=== PATIENT | female | born 1930 | race Caucasian/White ===

== ENCOUNTER 2016-07-09 10:09 | Emergency (ER) | payer MEDICARE, OTHER ==
--- NOTE | 2016-07-09 10:37 | ER Document Report ---
ED General - General Chief Complaint: Abdominal Pain >50 Stated Complaint: ABDOMINAL PAIN Time seen by provider: 10:33 Mode of Arrival: Medic Information source: Patient Notes: 85-year-old female who complains about epigastric pain when waking up this morning with nausea. He reports one black stool yesterday and has been lightheaded since yesterday. She denies fever, chills, cough worse than baseline. Vomiting, hematemesis, hematochezia, chest pain, back pain, numbness or focal weakness to extremities. Patient reports currently being on antibiotic for UTI. Reports primary care physician is Dr. Saxena gastrologist is Dr. Mackey. She reports prior history of Crohn's disease and diverticulosis but she doesn't recall her current symptoms are several what she's had a past with those problems. Physical Exam: General: Alert, appears well. HEENT: Normocephalic. Atraumatic. Blind in left eye. Right pupil round reactive sclerae anicteric discharge. No conjunctival injection bilaterally tympanic membranes canals clear. Oropharynx clear. Neck: Supple. Non-tender. No JVD. No carotid bruits Respiratory: No respiratory distress. Clear and equal breath sounds bilaterally. Cardiovascular: Regular rate and rhythm. PMI not displaced Abdominal: Normal Inspection. Soft, non-tender. No distension. Normal Bowel Sounds. Back: Non-tender. No deformity or step off. Extremities: 2+ pulses all 4 extremities no gross deformities full range of motion without discomfort no Homans sign bilaterally no lower extremity edema Neurological: Intake Clinician strength 5 out of 5 equal both upper tremors motor function 5 out of 5 equal both lower extremities speech clear mentation normal Psychological: Normal affect. Normal Mood. Skin: Warm. Dry. Normal color. TRAVEL OUTSIDE OF THE [place] IN LAST 30 DAYS: No - Related Data Allergies/Adverse Reactions: Penicillins Allergy (Mild, Verified 07/09/16 10:56) nausea,diarrhea Shellfish * [Shellfish] Allergy (Mild, Verified 07/09/16 10:56) VOMITING Past Medical History - Social History Smoking Status: Never Smoker Family History: CVA, Other - Congestive heart failure, but no family history of premature coronary artery disease or sudden cardiac . 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 Denies: Hx Cirrhosis, Hx Hepatitis, Hx Hiatal Hernia, Hx Ulcer Musculoskeltal Medical History: Denies Hx Arthritis, Denies Hx Multiple Sclerosis Psychiatric Medical History: Denies: Hx Bipolar Disorder, Hx Depression, Hx Schizophrenia Infectious Medical History: Reports: Hx C-Diff. Denies: Hx Hepatitis Past Surgical History: Reports: Hx Abdominal Surgery - colectomy, Hx Hysterectomy - partial, Hx Tubal Ligation. Denies: Hx Mastectomy, Hx Open Heart Surgery, Hx Pacemaker - Immunizations Hx Diphtheria, Pertussis, Tetanus Vaccination: Yes Hx Pneumococcal Vaccination: 09/13/12 Review of Systems - Review of Systems Constitutional: denies: Chills, Fever EENT: denies: Ear pain, Throat pain Cardiovascular: Dizziness, Lightheaded. denies: Chest pain Respiratory: denies: Cough, Short of breath Gastrointestinal: See HPI, Abdominal pain. denies: Diarrhea Genitourinary: Burning, Dysuria Musculoskeletal: denies: Back pain Hematologic/Lymphatic: denies: Swollen glands Neurological/Psychological: denies: Confusion, Numbness Physical Exam - Vital signs Vitals: Resp Pulse Ox 20 98 07/09/16 10:22 07/09/16 10:22 Course - Re-evaluation Re-evalutation: 07/09/16 12:47 Patient is produces a multitude of different complaints during her stay in the emergency department at various times complaining about headache dizziness upset stomach and burning with urination. Thorough workup has not identified any pathology requiring admission and she was ambulatory at home for EMS without problems. He perforata GI cocktail here which she said made her choke though nursing staff who witnessed or drink said that she did not. She is are on nitrofurantoin for UTI L and 2 day course of Pyridium for dysuria and asked her follow her physician for recheck later this week. - Vital Signs Vital signs: Temp Pulse Resp BP Pulse Ox 97.3 F 66 12 139/81 H 100 07/09/16 10:51 07/09/16 10:51 07/09/16 11:18 07/09/16 11:18 07/09/16 11:18 - Laboratory Result Diagrams: 07/09/16 10:39 07/09/16 10:39 Laboratory results interpreted by me: 07/09/16 07/09/16 10:39 10:39 WBC 12.8 H RDW 14.5 H Seg Neutrophils % 80.4 H Lymphocytes % 9.0 L Absolute Neutrophils 10.3 H Carbon Dioxide 31 H BUN 21 H Magnesium 2.6 H Total Protein 6.0 L - Diagnostic Test Radiology reviewed: Reports reviewed - EKG Interpretation by Me Additional EKG results interpreted by me: 07/09/16 10:39 EKG reviewed by myself shows sinus bradycardia at 51 with prominent inverted T waves and ST depression laterally consistent with LVH and unchanged from 2015 Discharge - Discharge Clinical Impression: Dizziness UTI (urinary tract infection) Qualifiers: Urinary tract infection type: acute cystitis Hematuria presence: without hematuria Qualified Code(s): N30.00 - Acute cystitis without hematuria Abdominal pain Qualifiers: Abdominal location: epigastric Qualified Code(s): R10.13 - Epigastric pain Condition: Stable Disposition: HOME, SELF-CARE Instructions: Urinary Tract Infection ([facility]) Prescriptions: Phenazopyridine HCl [Pyridium 100 Mg Tablet] 100 mg PO BID #4 tablet Referrals: SALINA SAXENA MD [ACTIVE STAFF] - Follow up in 3-5 days
[2016-07-09] MEDS ORDERED: NORMAL SALINE 1000 ML 1,000 ML IV ONE (10:41)
[2016-07-09 10:58] LABS: ABSOLUTE BASOPHILS # (AUTO) 0.1 10^3/uL (0.0-0.2); ABSOLUTE EOSINOPHILS # (AUTO) 0.1 10^3/uL (0.0-0.6); ABSOLUTE LYMPHOCYTES (AUTO) 1.1 10^3/uL (0.5-4.7); ABSOLUTE MONOCYTES (AUTO) 1.2 10^3/uL (0.1-1.4); ABSOLUTE NEUT (AUTO) 10.3 10^3/uL (1.7-8.2); BASOPHILS % (AUTO) 0.4 % (0-2); EOSINOPHILS % (AUTO) 0.5 % (0-6); HEMATOCRIT 38.8 % (36.0-47.0); HEMOGLOBIN 12.7 g/dL (12.0-15.5); HGB HCT DIFFERENCE -0.7; MEAN CORPUSCULAR HEMOGLOBIN 29.9 pg (27.0-33.4); MEAN CORPUSCULAR HGB CONC 32.6 g/dL (32.0-36.0); MEAN CORPUSCULAR VOLUME 92 fl (80-97); MONOCYTES % (AUTO) 9.7 % (3-13); RED BLOOD COUNT 4.24 10^6/uL (3.72-5.28); RED CELL DISTRIBUTION WIDTH 14.5 % (11.5-14.0); SEGMENTED NEUTROPHILS % (AUTO) 80.4 % (42-78); WHITE BLOOD COUNT 12.8 10^3/uL (4.0-10.5)
[2016-07-09 11:11] LABS: PARTIAL THROMBOPLASTIN TIME 23.5 SEC (23.5-35.8); PROTHROMBIN TIME 12.5 SEC (11.4-15.4)
[2016-07-09 11:23] LABS: ALANINE AMINOTRANSFERASE 19 U/L (9-52); ALBUMIN 3.5 g/dL (3.5-5.0); ALKALINE PHOSPHATASE 42 U/L (38-126); ANION GAP 6 (5-19); ASPARTATE AMINO TRANSFERASE 24 U/L (14-36); BILIRUBIN,TOTAL 0.9 mg/dL (0.2-1.3); BLOOD UREA NITROGEN 21 mg/dL (7-20); CALCIUM 9.1 mg/dL (8.4-10.2); CARBON DIOXIDE 31 mmol/L (22-30); CHLORIDE 102 mmol/L (98-107); CREATININE RESULT 0.82 mg/dL (0.52-1.25); GLUCOSE 91 mg/dL (75-110); LIPASE 180.2 U/L (23-300); MAGNESIUM 2.6 mg/dL (1.6-2.3); POTASSIUM 3.6 mmol/L (3.6-5.0); SODIUM 139.2 mmol/L (137-145)
[2016-07-09 11:35] LABS: CREATINE KINASE MB 0.56 ng/mL (<4.55); TROPONIN I < 0.012 ng/mL
[2016-07-09 11:38] LABS: APPEARANCE,URINE CLEAR; BILIRUBIN,URINE NEGATIVE (NEGATIVE); GLUCOSE, URINE NEGATIVE (NEGATIVE); KETONES,URINE NEGATIVE (NEGATIVE); LEUKOCYTE ESTERASE,URINE NEGATIVE (NEGATIVE); NITRITE,URINE NEGATIVE (NEGATIVE); PROTEIN,URINE NEGATIVE (NEGATIVE); URINE SPECIFIC GRAVITY 1.003; UROBILINOGEN,URINE NEGATIVE mg/dL (<2.0)
[2016-07-09] MEDS ORDERED: METOCLOPRAMIDE HCL ORAL SOLN 10 MG/10 ML UDCUP PO ONE (11:44)
[2016-07-09] MEDS ORDERED: LIDOCAINE 2% VISCOUS SOLN 20 ML UDCUP PO ONE (11:44)
[2016-07-09] MEDS ORDERED: MAG HYDROX/AL HYDROX/SIMETH SUSP 30 ML UDCUP PO ONE (11:44)
[2016-07-09 12:58] VITALS: BP 125/54
--- NOTE | 2016-07-09 21:31 | EKG REPORT ---
SEVERITY:- ABNORMAL ECG - SINUS RHYTHM ATRIAL PREMATURE COMPLEX LVH WITH SECONDARY REPOLARIZATION ABNORMALITY REPOL ABNRM, PROBABLE ISCHEMIA, ANT-LAT LEADS : Confirmed by: Nataly Mak 09-Jul-2016 21:31:25
== END 2016-07-09 13:19 | disposition home or self-care (01) ==
LOC: ER 10:09
DX: N30.00 Acute cystitis without hematuria (principal); R10.13 Epigastric pain; R11.0 Nausea; R42 Dizziness and giddiness; R19.5 Other fecal abnormalities; R00.1 Bradycardia, unspecified; R51 Headache; I10 Essential (primary) hypertension; J45.909 Unspecified asthma, uncomplicated; Z87.19 Personal history of other diseases of the digestive system; Z88.0 Allergy status to penicillin; Z91.013 Allergy to seafood; Z82.49 Family history of ischemic heart disease and other diseases of the circulatory system; Z90.49 Acquired absence of other specified parts of digestive tract; Z90.711 Acquired absence of uterus with remaining cervical stump
CPT/HCPCS: 93005; 99285; 96360; 36415; 87086; 82553; 83690; 83735; 85025; 85610; 85730; 82272; 87088; 80053; 81001; 84484; 87186; 71010; 70450; 74176; 93010; J3490; A9270; J7030

== ENCOUNTER 2016-07-26 02:03 | Observation (INO) | payer MEDICARE, OTHER ==
[2016-07-26 02:31] LABS: ABSOLUTE EOSINOPHILS # (AUTO) 0.1 10^3/uL (0.0-0.6); ABSOLUTE LYMPHOCYTES (AUTO) 1.2 10^3/uL (0.5-4.7); ABSOLUTE MONOCYTES (AUTO) 0.8 10^3/uL (0.1-1.4); ABSOLUTE NEUT (AUTO) 7.8 10^3/uL (1.7-8.2); BASOPHILS % (AUTO) 0.3 % (0-2); EOSINOPHILS % (AUTO) 0.8 % (0-6); HEMATOCRIT 37.5 % (36.0-47.0); HGB HCT DIFFERENCE -1.5; MEAN CORPUSCULAR HEMOGLOBIN 30.4 pg (27.0-33.4); MEAN CORPUSCULAR HGB CONC 32.1 g/dL (32.0-36.0); MEAN CORPUSCULAR VOLUME 95 fl (80-97); MONOCYTES % (AUTO) 8.2 % (3-13); RED BLOOD COUNT 3.96 10^6/uL (3.72-5.28); RED CELL DISTRIBUTION WIDTH 14.9 % (11.5-14.0); SEGMENTED NEUTROPHILS % (AUTO) 78.7 % (42-78)
--- NOTE | 2016-07-26 02:33 | ER Document Report ---
ED General - General Stated Complaint: CHEST PAIN Notes: Patient is an 85-year-old female presents with complaint of chest pain. Patient says the chest pain is new and has never been this severe in the sudden before. She also complains that she feels like her heart is starting to race. She says this has happened many times in the past. She says the heart racing is very intermittent and happens frequently. She denies having chest pain now. She was given nitroglycerin by the ambulance crew. Denies fevers. No vomiting. No nausea. No other complaints at this time. I did review the patient's previous records. She's been admitted twice this fall with the same symptoms. Both times she was diagnosed with panic and anxiety disorder. She had a negative nuclear stress test this past summer. According to her previous history and physicals she has no actual history of myocardial infarction or coronary artery disease. TRAVEL OUTSIDE OF THE [place] IN LAST 30 DAYS: No - Related Data Allergies/Adverse Reactions: Penicillins Allergy (Mild, Verified 07/09/16 10:56) nausea,diarrhea Shellfish * [Shellfish] Allergy (Mild, Verified 07/09/16 10:56) VOMITING Past Medical History - Social History Smoking Status: Never Smoker Frequency of alcohol use: None Drug Abuse: None Family History: CVA, Other - Congestive heart failure, but no family history of premature coronary artery disease or sudden cardiac . - Past Medical History Cardiac Medical History: Reports: Hx Hypertension Denies: Hx Congestive Heart Failure, Hx Heart Attack Pulmonary Medical History: Reports: Hx Asthma Denies: Hx Bronchitis, Hx COPD, Hx Pneumonia, Hx Tuberculosis Neurological Medical History: Denies: Hx Cerebrovascular Accident, Hx Seizures Renal/ Medical History: Denies: Hx End Stage Renal Disease, Hx Kidney Stones GI Medical History: Reports: Hx Crohn's Disease, Hx Diverticulitis, Hx Gastroesophageal Reflux Disease - Diverticulosis; constipation, Hx Irritable Bowel. Denies: Hx Cirrhosis, Hx Hepatitis, Hx Hiatal Hernia, Hx Ulcer Musculoskeltal Medical History: Denies Hx Arthritis, Denies Hx Multiple Sclerosis Psychiatric Medical History: Denies: Hx Bipolar Disorder, Hx Depression, Hx Schizophrenia Infectious Medical History: Reports: Hx C-Diff. Denies: Hx Hepatitis Past Surgical History: Reports: Hx Abdominal Surgery - colectomy, Hx Hysterectomy - partial, Hx Tubal Ligation. Denies: Hx Mastectomy, Hx Open Heart Surgery, Hx Pacemaker - Immunizations Hx Diphtheria, Pertussis, Tetanus Vaccination: Yes Hx Pneumococcal Vaccination: 09/13/12 Review of Systems - Review of Systems Notes: My Normal Review Basic REVIEW OF SYSTEMS: CONSTITUTIONAL : Denies fever, chills, or sweats. Denies recent illness. EENT: Denies eye, ear, throat, or mouth pain or symptoms. Denies nasal or sinus congestion. CARDIOVASCULAR: Chest pain, palpitations RESPIRATORY: Denies cough, cold, or chest congestion. Denies shortness of breath, difficulty breathing, or wheezing. GASTROINTESTINAL: Denies abdominal pain. Denies nausea, vomiting, or diarrhea. Denies constipation. Last BM: eriods. LMP: MUSCULOSKELETAL: Denies neck or back pain or joint pain or swelling. SKIN: Denies rash or skin lesions. NEUROLOGICAL: Denies altered mental status or loss of consciousness. Denies headache. Denies weakness or paralysis or loss of use of either side. Denies problems with gait or speech. Denies sensory or motor loss. PSYCHIATRIC: Anxiety ALL OTHER SYSTEMS REVIEWED AND NEGATIVE. Physical Exam - Vital signs Vitals: Temp Pulse Resp BP Pulse Ox 97.4 F 65 14 82/47 L 98 07/26/16 02:24 07/26/16 02:24 07/26/16 02:24 07/26/16 02:24 07/26/16 02:24 - Notes Notes: General Appearance: Well nourished, alert, cooperative, no acute distress, no obvious discomfort. Well-appearing. Vitals: reviewed, See vital signs table. Head: no swelling or tenderness to the head Eyes: PERRL, EOMI, Conjuctiva clear Mouth: No decreasd moisture Neck: Supple, no neck tenderness, No thyromegaly Lungs: No wheezing, No rales, No rhonci, No accessory muscle use, good air exchange bilaterally. Heart: Normal rate, Regular rythm, No murmur, no rub Abdomen: Normal BS, soft, No rigidity, No abdominal tenderness, No guarding, no rebound, no abdominal masses, no organomegaly Extremities: strength 5/5 in all extremities, good pulses in all extremities, no swelling or tenderness in the extremities, no edema. Skin: warm, dry, appropriate color, no rash Neuro: speech clear, oriented x 3, normal affect, responds appropriately to questions. Psychiatric: When asked patient about the symptoms she will sometimes start to get emotional and anxious and worked up. When she does start to become anxious her heart rate does suddenly increase to above 100. Once I calm her down her heart rate goes back into the 60s. Course - Vital Signs Vital signs: Temp Pulse Resp BP Pulse Ox 97.4 F 65 14 82/47 L 98 07/26/16 02:24 07/26/16 02:24 07/26/16 02:24 07/26/16 02:24 07/26/16 02:24 - Laboratory Result Diagrams: 07/26/16 02:21 07/26/16 02:21 Laboratory results interpreted by me: 07/26/16 07/26/16 02:21 02:21 RDW 14.9 H Seg Neutrophils % 78.7 H Lymphocytes % 12.0 L BUN 25 H Glucose 136 H Creatine Kinase < 20 L Total Protein 4.8 L Albumin 2.5 L - EKG Interpretation by Me Additional EKG results interpreted by me: 07/26/16 02:32 EKG is reviewed and interpreted by me. EKG shows normal sinus rhythm with rate of [address] segment elevation or depression. Patient does have T-wave inversions in multiple leads which are unchanged in comparison to her old EKG from 07/09/2016. NM interval, QRS duration, QTC intervals are within normal range. 07/26/16 05:31 EKG #2 is reviewed and interpreted by me. EKG shows sinus bradycardia with rate of [address] segment elevation. Patient has mild ST segment depression and T-wave inversions in multiple leads which is unchanged in comparison to her previous EKG. NM level, QRS duration are within normal range. QTc interval is slightly prolonged. 07/26/16 05:41 - Transfer of Care Notes: 07/26/16 05:28 Patient has not had a further chest pain. She does have the palpitations on occasion which is chronic for her. I concern is that her troponin is actually elevated into the on determinate range. I did repeated 2 hours later and it increased slightly. Still within the indeterminate range. She is 85 years old. I'm not sure she would be a good cardiac Candidate and also her troponin is not even elevated into the IN range and therefore I do not think part all discussed with your heart catheterization on her. I did speak in talk with her hammersmith helper, Dr. Mak, who agrees that it would be appropriate to admit the patient here and he would see her in consult to evaluate her to help optimize medical management and follow her cardiac enzymes. I will speak with the hospitalist to see if they're agreeable to admission. 07/26/16 05:41 07/26/16 06:08 I did speak with the hospice agrees in that the patient. Patient is agreeable to plan. Discharge - Discharge Clinical Impression: Chest pain Qualifiers: Chest pain type: unspecified Qualified Code(s): R07.9 - Chest pain, unspecified Condition: Stable Disposition: ADMITTED OBSERVATION Admitting Provider: Hospitalist Unit Admitted: Telemetry
[2016-07-26 02:37] LABS: PROTHROMBIN TIME 12.6 SEC (11.4-15.4)
[2016-07-26 02:44] LABS: ALANINE AMINOTRANSFERASE 32 U/L (9-52); ALBUMIN 2.5 g/dL (3.5-5.0); ALKALINE PHOSPHATASE 43 U/L (38-126); ANION GAP 5 (5-19); ASPARTATE AMINO TRANSFERASE 22 U/L (14-36); BILIRUBIN,TOTAL 0.8 mg/dL (0.2-1.3); BLOOD UREA NITROGEN 25 mg/dL (7-20); CALCIUM 8.7 mg/dL (8.4-10.2); CARBON DIOXIDE 29 mmol/L (22-30); CHLORIDE 104 mmol/L (98-107); CREATININE RESULT 0.89 mg/dL (0.52-1.25); GLUCOSE 136 mg/dL (75-110); POTASSIUM 4.1 mmol/L (3.6-5.0); SODIUM 137.9 mmol/L (137-145); TOTAL PROTEIN 4.8 g/dL (6.3-8.2)
[2016-07-26 02:53] LABS: CREATINE KINASE < 20 U/L (30-135)
[2016-07-26 02:55] LABS: CREATINE KINASE MB 0.89 ng/mL (<4.55)
[2016-07-26 03:04] LABS: TROPONIN I 0.075 ng/mL
[2016-07-26] MEDS ORDERED: ASPIRIN 325 MG TABLET PO ONE (06:08)
[2016-07-26 06:54] LABS: ADD ON TESTING BLD IN LAB ACKNOWLEDGE
[2016-07-26 07:57] LABS: APPEARANCE,URINE SLIGHTLY-CLOUDY; BILIRUBIN,URINE NEGATIVE (NEGATIVE); GLUCOSE, URINE NEGATIVE (NEGATIVE); KETONES,URINE NEGATIVE (NEGATIVE); LEUKOCYTE ESTERASE,URINE SMALL (NEGATIVE); NITRITE,URINE NEGATIVE (NEGATIVE); PROTEIN,URINE NEGATIVE (NEGATIVE); URINE SPECIFIC GRAVITY 1.009; UROBILINOGEN,URINE NEGATIVE mg/dL (<2.0)
[2016-07-26] MEDS ORDERED: ALBUTEROL SULFATE 0.083% NEB 2.5 MG/3 ML AMPUL NEB PRN (08:00)
[2016-07-26] MEDS ORDERED: ACETAMINOPHEN 325 MG TABLET PO PRN (08:00)
[2016-07-26] MEDS ORDERED: HYDRALAZINE HCL INJ/PF 20 MG/1 ML SDV IV PRN (08:04)
[2016-07-26 09:39] LABS: Direct HDL 49 mg/dL (>40); TRIGLYCERIDES 121 mg/dL (<150)
[2016-07-26 09:48] LABS: CREATINE KINASE MB 1.86 ng/mL (<4.55); TROPONIN I 0.103 ng/mL
[2016-07-26 09:49] LABS: DIRECT LDL 55 mg/dL (<100)
[2016-07-26] MEDS ORDERED: ASPIRIN 325 MG TABLET, ENT COATED PO SCH (10:00)
--- NOTE | 2016-07-26 11:32 | PDOC CONSULTATION ---
Consultation Consult Date: 07/26/16 Attending physician:: MARYELLEN CHRISTOPHER Consult reason:: Chest pain, abnormal troponin I History of Present Illness Admission Date/PCP: 07/26/16 08:00 Patient complains of: Chest pain History of Present Illness: Patient is an 85-year-old female presents with complaint of chest pain. Patient says the chest pain is new and has never been this severe in the sudden before. She also complains that she feels like her heart is starting to race. She says this has happened many times in the past. She says the heart racing is very intermittent and happens frequently. She denies having chest pain now. She was given nitroglycerin by the ambulance crew. Denies fevers. No vomiting. No nausea. No other complaints at this time. I did review the patient's previous records. She's been admitted twice this fall with the same symptoms. Both times she was diagnosed with panic and anxiety disorder. Patient did have a carotid duplex which had shown significant disease. Also review of previous note suggests that she may also have subclavian disease. Patient history was reviewed and agree with above. According to her previous history and physicals she has no actual history of myocardial infarction or coronary artery disease. Past Medical History Cardiac Medical History: Reports: Hypertension Denies: Congestive Heart Failure, Myocardial Infarction Pulmonary Medical History: Reports: Asthma Denies: Bronchitis, Chronic Obstructive Pulmonary Disease (COPD), Pneumonia, Tuberculosis Neurological Medical History: Denies: Seizures Renal/ Medical History: Denies: End Stage Renal Disease GI Medical History: Reports: Crohn's Disease, Diverticulitis, Gastroesophageal Reflux Disease - Diverticulosis; constipation Denies: Cirrhosis, Hepatitis, Hiatal Hernia Musculoskeltal Medical History: Denies: Arthritis Psychiatric Medical History: Denies: Bipolar Disorder, Depression Hematology: Denies: Anemia, Sickle Cell Disease, Bleeding Tendencies Infectious Medical History: Reports: Clostridium Difficile Past Surgical History Past Surgical History: Reports: Hysterectomy - partial, Tubal Ligation Denies: Amputation, Mastectomy, Pacemaker Social History Information Source: Patient Smoking Status: Never Smoker Frequency of Alcohol Use: None Hx Recreational Drug Use: No Drugs: None Hx Prescription Drug Abuse: No Family History Family History: CVA, Other - Congestive heart failure, but no family history of premature coronary artery disease or sudden cardiac . Parental Family History Reviewed: Yes Children Family History Reviewed: Yes Sibling(s) Family History Reviewed.: Yes - Negative for premature coronary artery disease or sudden cardiac in the family amongst first degree relatives. Medication/Allergy Home Medications: Aspirin [Ecotrin 325 mg EC Tablet] 325 mg PO DAILY 06/07/11 Ketotifen Fumarate [Refresh] 1 drop OU TIDP PRN 10/24/15 Timolol Maleate 1 drop OU BID 10/24/15 Bimatoprost [Lumigan 0.01% Oph Soln 2.5 ml/Bottle] 1 drop OP BID 12/25/15 Prednisone 15 mg PO Q12 03/12/16 Atorvastatin Calcium [Lipitor 20 mg Tablet] 20 mg PO QHS 03/13/16 Ondansetron HCl [Zofran 4 mg Tablet] 1 tab PO TID 03/13/16 Pantoprazole Sodium [Protonix] 40 mg PO DAILY 03/13/16 Amlodipine Besylate 5 mg PO DAILY 04/02/16 Magnesium Hydroxide [Milk of Magnesia 30 ml Udcup] 30 ml PO Q12HP PRN 04/03/16 Metoprolol Succinate [Toprol Xl 50 mg Tab.sr] 75 mg PO Q12 #60 tab.sr.24h Polyethylene Glycol 3350 [Miralax] 1 dose PO Q12HP PRN 04/03/16 Risperidone [Risperdal 0.25 mg Tablet] 0.25 mg PO BID #60 tablet 04/03/16 Haloperidol [Haldol 1 Mg Tablet] 1 mg PO Q12HP PRN #30 tablet 05/11/16 Phenazopyridine HCl [Pyridium 100 Mg Tablet] 100 mg PO BID #4 tablet 07/09/16 Allergies/Adverse Reactions: Penicillins Allergy (Mild, Verified 07/09/16 10:56) nausea,diarrhea Shellfish * [Shellfish] Allergy (Mild, Verified 07/09/16 10:56) VOMITING Review of Systems Review of Systems: Please see history of present illness and past medical history as wall. Constitutional: No fever or chills reported. Head : No recent chronic headaches, recent head injury. Eyes: No recent eye pain, diplopia, redness, discharge, acute visual changes. Ears: No recent chronic ear pain, acute hearing loss, ear discharge. Oral cavity: No recent ulcerations, bleeding, oral cavity discomfort. Neck: No recent acute neck pain reported. Hematologic: No recent easy bruising or bleeding or hematologic malignancy reported. Lymphatic: No recent lymphatic malignancy, chronic lymphadenopathy reported yet Cardiovascular system review: See history of present illness. Respiratory system review: No recent chronic cough, hemoptysis, blood clots in the lungs reported. Mild Shortness of breath on exertion Gastrointestinal system review: Negative for any recent acute or chronic abdominal pain, hematemesis, melena, recent change in bowel habits. Genitourinary system review: No recent acute or chronic hematuria, flank pain, UTI etc. reported. Skin system review: Negative for any recent abnormal bruising, no rash, no pruritus reported. Neurologic: No prior history of strokes, mini strokes, seizure disorder. Psychologic: No history of major psychosis or depression reported. Patient does have some mild anxiety disorder. Musculoskeletal: Minor aches and pains reported. No acute joint swelling reported. Endocrine: No recent polyuria, polydipsia, recent heat or cold intolerance. Physical Exam Vital Signs: Temp Pulse Resp BP Pulse Ox 97.9 F 55 L 17 124/57 L 93 07/26/16 10:16 07/26/16 07:00 07/26/16 08:01 07/26/16 08:01 07/26/16 08:01 Exam: GENERAL: well-nourished and in no acute distress. Alert and oriented x3 HEAD: Atraumatic, normocephalic. EYES: Pupils equal round and reactive to light, extraocular movements intact, sclera anicteric, conjunctiva are normal. Patient has decreased vision in the left eye and some clouding of the cornea. ENT: TMs normal, nares patent, oropharynx clear without exudates. Moist mucous membranes. No oral ulcerations or bleeding gums noted NECK: supple without lymphadenopathy. Trachea is central. No cervical or axillary lymphadenopathy noted. Carotids are 2+, JVD WNL LUNGS: Respiration seems nonlabored, no significant accessory muscle action noted. Breath sounds clear to auscultation bilaterally and equal. No wheezes rales or rhonchi. No significant dullness noted on percussion. CHEST: Palpation of the chest wall shows no significant chest wall tenderness or abnormalities. 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 ABDOMEN: Soft, no significant tenderness appreciated, normoactive bowel sounds. No guarding, no rebound. No rigidity noted . No masses appreciated. EXTREMITIES: Pedal pulses are 1-2+, no calf tenderness noted. No clubbing or cyanosis.trace to 1+ pedal edema noted NEUROLOGICAL: Focused neurological exam showed no significant neurologic deficit. Normal speech, no focal weakness appreciated. PSYCH: Normal mood, normal affect. Judgment and insight within normal limits. SKIN: No significant ecchymosis, rash, ulcerations or signs of pruritus noted. MUSCULOSKELETAL EXAM: No significant joint swelling noted. Results Laboratory Results: 07/26/16 09:07 Triglycerides 121 Cholesterol 128.90 LDL Cholesterol Direct 55 VLDL Cholesterol 24.0 HDL Cholesterol 49 07/26/16 07/26/16 09:07 09:07 Creatine Kinase < 20 L CK-MB (CK-2) 1.86 Troponin I 0.103 EKG Comments: Showed sinus rhythm with ST-T wave changes consistent with LVH versus ischemia. Impressions: Chest X-Ray 07/26/16 02:09 IMPRESSION: No acute cardiopulmonary findings. Severe emphysematous hyperinflation. Assessment & Plan - Diagnosis (1) Chest pain Qualifiers: Chest pain type: chest pain due to myocardial ischemia Ischemic chest pain type: unstable angina pectoris Qualified Code(s): I20.0 - Unstable angina Is this a current diagnosis for this admission?: YesPlan: Patient seems to have unstable angina. She will be treated as such. We'll start patient on Ranexa. Beta blockers relatively contraindicated in view of bradycardia. Will schedule patient for a 2-D echocardiogram and a stress test for further risk stratification. (2) Palpitations Is this a current diagnosis for this admission?: YesPlan: May be related to anxiety/panic attacks. Will start patient on small dose of SSRI agent. (3) Abnormal EKG Is this a current diagnosis for this admission?: YesPlan: To be evaluated further with a echocardiogram and a nuclear stress test. Most likely related to LVH. (4) Anxiety disorder Qualifiers: Anxiety disorder type: generalized anxiety disorder Qualified Code(s ): F41.1 - Generalized anxiety disorder Is this a current diagnosis for this admission?: YesPlan: Will start patient on SSRI agent and very small dose of anxiolytic. (5) Hypertension Qualifiers: Hypertension type: essential hypertension Qualified Code(s): I10 - Essential (primary) hypertension Is this a current diagnosis for this admission?: YesPlan: Currently reasonably well controlled. Blood pressure goal is 140/90 or less (6) Elevated troponin I level Is this a current diagnosis for this admission?: YesPlan: Most likely related to unstable angina. Patient to be evaluated further with a nuclear stress test and 2-D echocardiogram. (7) Bradycardia Is this a current diagnosis for this admission?: YesPlan: Currently stable. Patient to report any overt syncope or near syncope. (8) Unstable angina Is this a current diagnosis for this admission?: YesPlan: Currently stable without any chest pain. Patient being scheduled for a stress test. Medical management being optimized. - Notes Notes: CODE STATUS was discussed, patient remains full code. Surrogate decision-maker unchanged. Multiple medical problems were addressed.More than 50% of the time spent coordinating care, discussing management plans with involved caregivers. Management plans discussed with involved personnels. Medical decision making was of moderate complexity. - Time Time Spent: 30 to 50 Minutes Medications reviewed and adjusted accordingly: Yes
[2016-07-26] MEDS: ISOSORBIDE MONONITRATE 30 MG TAB.ER.24H PO SCH ×2 (12:23→17:15)
--- NOTE | 2016-07-26 14:02 | XCELERA REPORT ---
[address] [address] Transthoracic Echocardiogram Report Name: KEVAN PAVON Age: 85 yrs Gender: Female : 1930 Patient Status: Inpatient Patient Location: \S\[facility]\S\A Study Date: 07/26/2016 11:46 AM Height: 66 in Weight: 84 lb BSA: 1.4 m2 Procedure: A complete two-dimensional transthoracic echocardiogram was performed (2D, M-mode, spectral and color flow Doppler). The study was technically adequate with some images being suboptimal in quality. Reason For Study: abnormal EKG, elevated troponin I Ordering Physician: NATALY DARBY Performed By: Darshan Schaffer Interpretation Summary The left ventricular ejection fraction is normal. Doppler measurements suggest pseudonormalized left ventricular relaxation, which is associated with grade II/IV or mild to moderate diastolic dysfunction There is moderate concentric left ventricular hypertrophy. The left ventricle is grossly normal size. Wall motion cannot be accurately commented on, but no definite regional wall motion abnormalities noted. The right ventricular systolic function is normal. Borderline right ventricular enlargement. The left atrium is normal. The right atrium is normal in size There is no mitral valve stenosis. There is a mild amount of mitral regurgitation There is no aortic valve stenosis There is a mild amount of aortic regurgitation There is a trace to mild amount of tricuspid regurgitation There is mild pulmonary hypertension by echo Right ventricular systolic pressure is estimated to be elevated at 30- 40mmHg. There is no pericardial effusion. MMode/2D Measurements \T\ Calculations RVDd: 1.9 cm LVIDd: 3.7 cm FS: 45.1 % Ao root diam: 2.7 cm IVSd: 1.3 cm LVIDs: 2.0 cm EDV(Teich): 59.3 ml LVPWd: 1.2 cm ESV(Teich): 13.5 ml Ao root area: 5.6 cm2 EF(Teich): 77.2 % LA dimension: 3.0 cm Doppler Measurements \T\ Calculations MV E max qasim: MV P1/2t max qasim: Ao V2 max: AI max qasim: 72.6 cm/sec 75.5 cm/sec 148.6 cm/sec 429.6 cm/sec MV A max qasim: MV P1/2t: 56.4 msec Ao max PG: AI max P.9 cm/sec 8.8 mmHg 73.8 mmHg MV E/A: 0.86 MVA(P1/2t): 3.9 cm2 AI dec slope: MV dec slope: 392.0 cm/sec2 244.4 cm/sec2 MV dec time: AI P1/2t: 0.19 sec 514.9 msec LV V1 max PG: PA V2 max: TR max qasim: RAP systole: 8.4 mmHg 76.5 cm/sec 226.7 cm/sec 10.0 mmHg LV V1 max: PA max P.3 mmHg TR max P.0 cm/sec 20.6 mmHg RVSP(TR): 30.6 mmHg Left Ventricle The left ventricle is grossly normal size. There is moderate concentric left ventricular hypertrophy. The left ventricular ejection fraction is normal. Doppler measurements suggest pseudonormalized left ventricular relaxation, which is associated with grade II/IV or mild to moderate diastolic dysfunction. Wall motion cannot be accurately commented on, but no definite regional wall motion abnormalities noted. Right Ventricle Borderline right ventricular enlargement. There is normal right ventricular wall thickness. The right ventricular systolic function is normal. Atria The right atrium is normal in size. The left atrium is normal. Interarterial septum not well visualized and not well dopplered. Cannot comment on ASD/PFO presence. Mitral Valve The mitral valve is grossly normal. There is no mitral valve stenosis. There is a mild amount of mitral regurgitation. Aortic Valve The aortic valve is mildly calcified. There is no aortic valve stenosis. There is a mild amount of aortic regurgitation. Tricuspid Valve The tricuspid valve is not well visualized, but is grossly normal. There is no tricuspid stenosis. There is a trace to mild amount of tricuspid regurgitation. There is mild pulmonary hypertension by echo. Right ventricular systolic pressure is estimated to be elevated at 30-40mmHg. Pulmonic Valve The pulmonic valve is not well visualized. Great Vessels The aortic root is not well visualized but is probably normal size. The inferior vena cava appeared normal and decreased > 50% with respiration (RAP 5-10 mmHg). Effusions There is no pericardial effusion. : NATALY DARBY > Nataly Darby
--- NOTE | 2016-07-26 14:43 | PDOC H&P ---
History of Present Illness Admission Date/PCP: 07/26/16 08:00 Dr. Mackey Patient complains of: Chest pain History of Present Illness: Patient is an 85-year-old female presents with complaint of chest pain. Patient says the chest pain is new and has never been this severe in the sudden before. She also complains that she feels like her heart is starting to race. She says this has happened many times in the past. She says the heart racing is very intermittent and happens frequently. She denies having chest pain now. She was given nitroglycerin by the ambulance crew. Patient is followed by Dr. Mak of cardiology in [facility] as well as Dr. Anderson of cardiology in [facility]. She states that she had a stress test at [facility] in [facility] in January 2016 that was reportedly negative. Results of the study are not available. 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 She has been seen by Dr. Nelson of vascular surgery in [facility] and is recommended that she have carotid endarterectomy. She is still contemplating the risk and benefits of this and it is causing her a lot of anxiety. Patient also states that she has had "increased stress" lately secondary to her health conditions. She was recently started on fluoxetine 10 mg daily and when necessary Xanax 0.5 mg. She states that she has only been taking this for 2 days and that she does not feel any different at this point. Past Medical History Cardiac Medical History: Reports: Hypertension, Peripheral Vascular Disease - 90 % left carotid stenosis Denies: Congestive Heart Failure, Myocardial Infarction Pulmonary Medical History: Reports: Asthma Denies: Bronchitis, Chronic Obstructive Pulmonary Disease (COPD), Pneumonia, Tuberculosis Neurological Medical History: Denies: Seizures Renal/ Medical History: Denies: End Stage Renal Disease GI Medical History: Reports: Crohn's Disease, Diverticulitis, Gastroesophageal Reflux Disease - Diverticulosis; constipation Denies: Cirrhosis, Hepatitis, Hiatal Hernia Musculoskeltal Medical History: Denies: Arthritis Psychiatric Medical History: Reports: Depression, General Anxiety Disorder Denies: Bipolar Disorder Hematology: Denies: Anemia, Sickle Cell Disease, Bleeding Tendencies Infectious Medical History: Reports: Clostridium Difficile Past Surgical History Past Surgical History: Reports: Hysterectomy - partial, Tubal Ligation Denies: Amputation, Mastectomy, Pacemaker Social History Information Source: Patient Smoking Status: Never Smoker Frequency of Alcohol Use: None Hx Recreational Drug Use: No Drugs: None Hx Prescription Drug Abuse: No - Advance Directive Resuscitation Status: Full Code Family History Family History: CVA, Other - Congestive heart failure, but no family history of premature coronary artery disease or sudden cardiac . Parental Family History Reviewed: Yes Children Family History Reviewed: Yes Sibling(s) Family History Reviewed.: Yes Medication/Allergy Home Medications: Aspirin [Ecotrin 325 mg EC Tablet] 325 mg PO DAILY 06/07/11 Ketotifen Fumarate [Refresh] 1 drop OU TIDP PRN 10/24/15 Timolol Maleate 1 drop OU BID 10/24/15 Bimatoprost [Lumigan 0.01% Oph Soln 2.5 ml/Bottle] 1 drop OP BID 12/25/15 Prednisone 15 mg PO Q12 03/12/16 Atorvastatin Calcium [Lipitor 20 mg Tablet] 20 mg PO QHS 03/13/16 Ondansetron HCl [Zofran 4 mg Tablet] 1 tab PO TID 03/13/16 Pantoprazole Sodium [Protonix] 40 mg PO DAILY 03/13/16 Amlodipine Besylate 5 mg PO DAILY 04/02/16 Magnesium Hydroxide [Milk of Magnesia 30 ml Udcup] 30 ml PO Q12HP PRN 04/03/16 Metoprolol Succinate [Toprol Xl 50 mg Tab.sr] 75 mg PO Q12 #60 tab.sr.24h Polyethylene Glycol 3350 [Miralax] 1 dose PO Q12HP PRN 04/03/16 Risperidone [Risperdal 0.25 mg Tablet] 0.25 mg PO BID #60 tablet 04/03/16 Haloperidol [Haldol 1 Mg Tablet] 1 mg PO Q12HP PRN #30 tablet 05/11/16 Phenazopyridine HCl [Pyridium 100 Mg Tablet] 100 mg PO BID #4 tablet 07/09/16 Allergies/Adverse Reactions: Penicillins Allergy (Mild, Verified 07/09/16 10:56) nausea,diarrhea Shellfish * [Shellfish] Allergy (Mild, Verified 07/09/16 10:56) VOMITING Review of Systems Constitutional: ABSENT: chills, fever(s), headache(s), weight gain, weight loss Eyes: ABSENT: visual disturbances Ears: ABSENT: hearing changes Cardiovascular: PRESENT: chest pain. ABSENT: dyspnea on exertion, edema, orthropnea, palpitations Respiratory: ABSENT: cough, hemoptysis Gastrointestinal: ABSENT: abdominal pain, constipation, diarrhea, hematemesis, hematochezia, nausea, vomiting Genitourinary: ABSENT: dysuria, hematuria Musculoskeletal: ABSENT: joint swelling Integumentary: ABSENT: rash, wounds Neurological: ABSENT: abnormal gait, abnormal speech, confusion, dizziness, focal weakness, syncope Psychiatric: PRESENT: anxiety, depression. ABSENT: homidical ideation, suicidal ideation Endocrine: ABSENT: cold intolerance, heat intolerance, polydipsia, polyuria Hematologic/Lymphatic: ABSENT: easy bleeding, easy bruising Physical Exam Vital Signs: Temp Pulse Resp BP Pulse Ox 97.9 F 59 L 17 124/57 L 93 07/26/16 10:16 07/26/16 13:15 07/26/16 13:15 07/26/16 08:01 07/26/16 08:01 PHYSICAL EXAM: GENERAL: Appears well, no acute distress HEENT: Normocephalic, opacity of left eye consistent with cataract, conjunctiva clear, EOEM intact, PERRLA, moist mucous membranes NECK: trachea midline, no thyromegally RESPIRATORY: Clear to auscultation, no wheezes/rhonchi CARDIAC: Regular rate and rhythm, no murmur/kal/rub ABDOMEN: Soft, no distension, no tenderness, no guarding, normal bowel sounds, negative Singh sign RECTAL: deferred : deferred EXTREMITIES: No edema, cyanosis, clubbing MUSCULOSKELETAL: No joint swelling or deformity VASCULAR: normal peripheral pulses NEUROLOGIC: Alert, oriented to person/place/time, normal speech, cranial nerves grossly intact, 5/5 strength in all extremities, tactile sensation intact in all extremities SKIN: No rash, no wounds, no worrisome skin lesions PSYCHIATRIC: Normal mood, normal affect Results Laboratory Results: 07/26/16 09:07 Triglycerides 121 Cholesterol 128.90 LDL Cholesterol Direct 55 VLDL Cholesterol 24.0 HDL Cholesterol 49 07/26/16 07/26/16 09:07 09:07 Creatine Kinase < 20 L CK-MB (CK-2) 1.86 Troponin I 0.103 Labs- All tests 24 hr 07/26/16 07/26/16 07/26/16 02:21 02:21 02:21 WBC 10.0 RBC 3.96 Hgb 12.0 Hct 37.5 MCV 95 MCH 30.4 MCHC 32.1 RDW 14.9 H Plt Count 225 Seg Neutrophils % 78.7 H Lymphocytes % 12.0 L Monocytes % 8.2 Eosinophils % 0.8 Basophils % 0.3 Absolute Neutrophils 7.8 Absolute Lymphocytes 1.2 Absolute Monocytes 0.8 Absolute Eosinophils 0.1 Absolute Basophils 0.0 PT INR Sodium 137.9 Potassium 4.1 Chloride 104 Carbon Dioxide 29 Anion Gap 5 BUN 25 H Creatinine 0.89 Est GFR ( Amer) > 60 Est GFR (Non-Af Amer) > 60 Glucose 136 H Calcium 8.7 Magnesium Total Bilirubin 0.8 Direct Bilirubin 0.0 AST 22 ALT 32 Alkaline Phosphatase 43 Creatine Kinase < 20 L CK-MB (CK-2) 0.89 Troponin I 0.075 Total Protein 4.8 L Albumin 2.5 L Triglycerides Cholesterol LDL Cholesterol Direct VLDL Cholesterol HDL Cholesterol TSH Urine Color Urine Appearance Urine pH Ur Specific [place] Urine Protein Urine Glucose (UA) Urine Ketones Urine Blood Urine Nitrite Urine Bilirubin Urine Urobilinogen Ur Leukocyte Esterase Urine WBC (Auto) Urine RBC (Auto) Urine Bacteria (Auto) Squamous Epi Cells Auto Urine Mucus (Auto) Urine Ascorbic Acid 07/26/16 07/26/16 07/26/16 02:21 02:21 02:21 WBC RBC Hgb Hct MCV MCH MCHC RDW Plt Count Seg Neutrophils % Lymphocytes % Monocytes % Eosinophils % Basophils % Absolute Neutrophils Absolute Lymphocytes Absolute Monocytes Absolute Eosinophils Absolute Basophils PT 12.6 INR 0.92 Sodium Potassium Chloride Carbon Dioxide Anion Gap BUN Creatinine Est GFR ( Amer) Est GFR (Non-Af Amer) Glucose Calcium Magnesium 2.0 Total Bilirubin Direct Bilirubin AST ALT Alkaline Phosphatase Creatine Kinase CK-MB (CK-2) Troponin I Total Protein Albumin Triglycerides Cholesterol LDL Cholesterol Direct VLDL Cholesterol HDL Cholesterol TSH 2.36 Urine Color Urine Appearance Urine pH Ur Specific [place] Urine Protein Urine Glucose (UA) Urine Ketones Urine Blood Urine Nitrite Urine Bilirubin Urine Urobilinogen Ur Leukocyte Esterase Urine WBC (Auto) Urine RBC (Auto) Urine Bacteria (Auto) Squamous Epi Cells Auto Urine Mucus (Auto) Urine Ascorbic Acid 07/26/16 07/26/16 07/26/16 04:38 07:25 09:07 WBC RBC Hgb Hct MCV MCH MCHC RDW Plt Count Seg Neutrophils % Lymphocytes % Monocytes % Eosinophils % Basophils % Absolute Neutrophils Absolute Lymphocytes Absolute Monocytes Absolute Eosinophils Absolute Basophils PT INR Sodium Potassium Chloride Carbon Dioxide Anion Gap BUN Creatinine Est GFR ( Amer) Est GFR (Non-Af Amer) Glucose Calcium Magnesium Total Bilirubin Direct Bilirubin AST ALT Alkaline Phosphatase Creatine Kinase CK-MB (CK-2) Troponin I 0.084 Total Protein Albumin Triglycerides 121 Cholesterol 128.90 LDL Cholesterol Direct 55 VLDL Cholesterol 24.0 HDL Cholesterol 49 TSH Urine Color YELLOW Urine Appearance SLIGHTLY-CLOUDY Urine pH 6.0 Ur Specific [place] 1.009 Urine Protein NEGATIVE Urine Glucose (UA) NEGATIVE Urine Ketones NEGATIVE Urine Blood NEGATIVE Urine Nitrite NEGATIVE Urine Bilirubin NEGATIVE Urine Urobilinogen NEGATIVE Ur Leukocyte Esterase SMALL H Urine WBC (Auto) 6 Urine RBC (Auto) 3 Urine Bacteria (Auto) TRACE Squamous Epi Cells Auto 5 Urine Mucus (Auto) RARE Urine Ascorbic Acid NEGATIVE 07/26/16 07/26/16 09:07 09:07 WBC RBC Hgb Hct MCV MCH MCHC RDW Plt Count Seg Neutrophils % Lymphocytes % Monocytes % Eosinophils % Basophils % Absolute Neutrophils Absolute Lymphocytes Absolute Monocytes Absolute Eosinophils Absolute Basophils PT INR Sodium Potassium Chloride Carbon Dioxide Anion Gap BUN Creatinine Est GFR ( Amer) Est GFR (Non-Af Amer) Glucose Calcium Magnesium Total Bilirubin Direct Bilirubin AST ALT Alkaline Phosphatase Creatine Kinase < 20 L CK-MB (CK-2) 1.86 Troponin I 0.103 Total Protein Albumin Triglycerides Cholesterol LDL Cholesterol Direct VLDL Cholesterol HDL Cholesterol TSH Urine Color Urine Appearance Urine pH Ur Specific [place] Urine Protein Urine Glucose (UA) Urine Ketones Urine Blood Urine Nitrite Urine Bilirubin Urine Urobilinogen Ur Leukocyte Esterase Urine WBC (Auto) Urine RBC (Auto) Urine Bacteria (Auto) Squamous Epi Cells Auto Urine Mucus (Auto) Urine Ascorbic Acid EKG Comments: Sinus rhythm, LVH, T-wave inversion with minimal ST depression in anterior lateral leads unchanged from EKG on 07/09/2016. Impressions: Chest X-Ray 07/26/16 02:09 IMPRESSION: No acute cardiopulmonary findings. Severe emphysematous hyperinflation. Assessment & Plan - Diagnosis (1) Chest pain Qualifiers: Chest pain type: chest pain due to myocardial ischemia Ischemic chest pain type: unstable angina pectoris Qualified Code(s): I20.0 - Unstable angina Is this a current diagnosis for this admission?: YesPlan: Patient will be placed in observation status on telemetry monitoring. Continue aspirin 325 mg daily, Lipitor [address] Mak of cardiology for further recommendation. (2) Left carotid stenosis Is this a current diagnosis for this admission?: YesPlan: Patient will need to follow-up with Dr. Nelson of vascular surgery in [facility]. Continue aspirin and statin for now. (3) Palpitations Is this a current diagnosis for this admission?: YesPlan: Continue metoprolol 100 mg twice daily. (4) Anxiety disorder Qualifiers: Anxiety disorder type: generalized anxiety disorder Qualified Code(s ): F41.1 - Generalized anxiety disorder Is this a current diagnosis for this admission?: YesPlan: Patient was started on fluoxetine 10 mg daily and when necessary Xanax on 2016. (5) Crohns disease Qualifiers: Gastrointestinal tract location: unspecified location Digestive disease complication type: unspecified complication Qualified Code(s): K50.919 - Crohn's disease, unspecified, with unspecified complications Is this a current diagnosis for this admission?: Yes (6) Gastroesophageal reflux disease Qualifiers: Esophagitis presence: without esophagitis Qualified Code(s): K21.9 - Gastro-esophageal reflux disease without esophagitis Is this a current diagnosis for this admission?: Yes (7) Hypertension Qualifiers: Hypertension type: essential hypertension Qualified Code(s): I10 - Essential (primary) hypertension Is this a current diagnosis for this admission?: YesPlan: Continue metoprolol 100 mg twice daily, Norvasc 10 mg daily, losartan HCT 100/ 12.5 daily. - Time Time Spent: Greater than 70 Minutes - Inpatient Certification Based on my medical assessment, after consideration of the patient's comorbidities, presenting symptoms, or acuity I expect that the services needed warrant INPATIENT care.: No I certify that my determination is in accordance with my understanding of Medicare's requirements for reasonable and necessary INPATIENT services [42 CFR 412.3e].: No
--- NOTE | 2016-07-26 14:55 | EKG REPORT ---
SEVERITY:- ABNORMAL ECG - SINUS RHYTHM LVH WITH SECONDARY REPOLARIZATION ABNORMALITY ST DEPRESSION, CONSIDER ISCHEMIA, ANT-LAT LDS : Confirmed by: Letty Siegel MD 26-Jul-2016 14:55:12
--- NOTE | 2016-07-26 14:55 | EKG REPORT ---
SEVERITY:- ABNORMAL ECG - SINUS RHYTHM LVH WITH SECONDARY REPOLARIZATION ABNORMALITY REPOL ABNRM, PROBABLE ISCHEMIA, ANT-LAT LEADS : Confirmed by: Letty Siegel MD 26-Jul-2016 14:54:51
[2016-07-26 16:48] LABS: CREATINE KINASE MB 1.81 ng/mL (<4.55)
[2016-07-26 16:57] LABS: TROPONIN I 0.07 ng/mL
[2016-07-26] MEDS: LANSOPRAZOLE 15 MG TAB.RAP.DR PO SCH (17:15)
[2016-07-26] MEDS ORDERED: ENOXAPARIN SODIUM INJ 30 MG/0.3 ML DISP.SYRIN SUBCUT ONE (18:30)
[2016-07-26] MEDS ORDERED: METOPROLOL TARTRATE 100 MG TABLET PO SCH (22:00)
[2016-07-26] MEDS: ATORVASTATIN CALCIUM 20 MG TABLET PO SCH (22:55)
[2016-07-26] MEDS: RANOLAZINE 500 MG TAB.SR.12H PO SCH (22:55)
[2016-07-26 23:09] LABS: CREATINE KINASE MB 1.52 ng/mL (<4.55); TROPONIN I 0.046 ng/mL
[2016-07-27 05:41] LABS: HEMATOCRIT 32.5 % (36.0-47.0); HEMOGLOBIN 10.9 g/dL (12.0-15.5); HGB HCT DIFFERENCE 0.2; MEAN CORPUSCULAR HEMOGLOBIN 31.4 pg (27.0-33.4); MEAN CORPUSCULAR HGB CONC 33.7 g/dL (32.0-36.0); MEAN CORPUSCULAR VOLUME 93 fl (80-97); RED BLOOD COUNT 3.48 10^6/uL (3.72-5.28); RED CELL DISTRIBUTION WIDTH 14.9 % (11.5-14.0); WHITE BLOOD COUNT 8.5 10^3/uL (4.0-10.5)
[2016-07-27 06:06] LABS: ANION GAP 5 (5-19); BLOOD UREA NITROGEN 22 mg/dL (7-20); CALCIUM 8.8 mg/dL (8.4-10.2); CARBON DIOXIDE 28 mmol/L (22-30); CHLORIDE 104 mmol/L (98-107); CREATININE RESULT 0.76 mg/dL (0.52-1.25); GLUCOSE 115 mg/dL (75-110); POTASSIUM 4.5 mmol/L (3.6-5.0); SODIUM 137.2 mmol/L (137-145)
[2016-07-27] MEDS: LANSOPRAZOLE 15 MG TAB.RAP.DR PO SCH ×2 (06:39→17:56)
[2016-07-27] MEDS ORDERED: HYDROCHLOROTHIAZIDE 12.5 MG CAPSULE PO SCH (08:00)
[2016-07-27] MEDS: ENOXAPARIN SODIUM INJ 30 MG/0.3 ML DISP.SYRIN SUBCUT SCH (08:57)
[2016-07-27] MEDS ORDERED: AMLODIPINE BESYLATE 5 MG TABLET PO SCH (10:00)
[2016-07-27] MEDS ORDERED: LORAZEPAM INJ 2 MG/1 ML VIAL IV ONE (10:00)
[2016-07-27] MEDS ORDERED: LOSARTAN POTASSIUM 50 MG TABLET PO SCH (10:00)
[2016-07-27] MEDS ORDERED: AMLODIPINE BESYLATE 10 MG TABLET PO SCH (10:00)
[2016-07-27] MEDS ORDERED: ALPRAZOLAM 0.25 MG TABLET PO PRN ×2 (11:45→13:01)
[2016-07-27] MEDS ORDERED: SERTRALINE HCL 50 MG TABLET PO SCH (12:30)
[2016-07-27] MEDS: ISOSORBIDE MONONITRATE 30 MG TAB.ER.24H PO SCH (12:39)
[2016-07-27] MEDS: ASPIRIN 81 MG TABLET, CHEWABLE PO SCH (12:39)
[2016-07-27] MEDS: RANOLAZINE 500 MG TAB.SR.12H PO SCH ×2 (12:39→21:48)
[2016-07-27] MEDS ORDERED: PREDNISONE 5 MG TABLET PO SCH (17:00)
--- NOTE | 2016-07-27 17:46 | PDOC PROGRESS REPORT ---
Subjective Progress Note for:: 07/27/16 Subjective:: Patient refused stress test today. She declined being discharged home. Upon further questioning stay patient states that she does not consistently take the same dose of blood pressure medicines daily. Sometimes she will not take her metoprolol at all, other days she will take 25 mg twice daily, and other days when she is feeling "stressed" she'll take 50 mg twice daily. She is wondering why her blood pressure fluctuates so wildly as an outpatient. Patient denies fever, chills, headache, new focal weakness, chest pain, shortness of breath, abdominal pain, nausea, vomiting, diarrhea, constipation. Physical Exam Vital Signs: Temp Pulse Resp BP Pulse Ox 98.6 F 64 16 116/61 95 07/27/16 11:53 07/27/16 12:54 07/27/16 12:54 07/27/16 11:53 07/27/16 12:54 Intake & Output 07/26/16 07/27/16 07/28/16 06:59 06:59 06:59 Intake Total 265 Balance 265 Weight 42.5 kg GENERAL: No acute distress HEENT: Conjunctiva clear, nonicteric, moist mucous membranes, no JVD, midline trachea RESPIRATORY: Clear to auscultation bilaterally, no wheezes, no rhonchi CARDIAC: Regular rate and rhythm, no murmurs/gallops/rubs ABDOMEN: Soft, nondistended, nontender, positive bowel sounds, no rebound, no guarding EXTREMETIES: No edema, cyanosis, clubbing NEUROLOGIC: Alert, oriented to person/place/time, CN's grossly intact, no focal deficits SKIN: No rash, wounds PSYCH: Normal mood, normal affect Results Laboratory Results: 07/27/16 05:08 07/27/16 05:08 07/27/16 07/27/16 07/27/16 05:08 05:08 05:08 WBC 8.5 RBC 3.48 L Hgb 10.9 L Hct 32.5 L MCV 93 MCH 31.4 MCHC 33.7 RDW 14.9 H Plt Count 189 Sodium 137.2 Potassium 4.5 Chloride 104 Carbon Dioxide 28 Anion Gap 5 BUN 22 H Creatinine 0.76 Est GFR ( Amer) > 60 Est GFR (Non-Af Amer) > 60 Glucose 115 H Calcium 8.8 TSH 0.72 07/26/16 07/26/16 07/26/16 09:07 09:07 16:05 Creatine Kinase < 20 L < 20 L CK-MB (CK-2) 1.86 Troponin I 0.103 07/26/16 07/26/16 07/26/16 16:05 22:10 22:10 Creatine Kinase < 20 L CK-MB (CK-2) 1.81 1.52 Troponin I 0.070 0.046 Impressions: Chest X-Ray 07/26/16 02:09 IMPRESSION: No acute cardiopulmonary findings. Severe emphysematous hyperinflation. Assessment & Plan - Diagnosis (1) Chest pain Qualifiers: Chest pain type: chest pain due to myocardial ischemia Ischemic chest pain type: unstable angina pectoris Qualified Code(s): I20.0 - Unstable angina Is this a current diagnosis for this admission?: YesPlan: Continue aspirin 325 mg daily, Lipitor 20 mg daily. Patient declined stress test. She has been started on Imdur and Ranexa by Dr. Mak of cardiology. Serial cardiac enzymes were negative for [place]. (2) Left carotid stenosis Is this a current diagnosis for this admission?: YesPlan: Patient will need to follow-up with Dr. Nelson of vascular surgery in [facility]. Continue aspirin and statin for now. (3) Palpitations Is this a current diagnosis for this admission?: YesPlan: Continue metoprolol. (4) Anxiety disorder Qualifiers: Anxiety disorder type: generalized anxiety disorder Qualified Code(s ): F41.1 - Generalized anxiety disorder Is this a current diagnosis for this admission?: Yes (5) Crohns disease Qualifiers: Gastrointestinal tract location: unspecified location Digestive disease complication type: unspecified complication Qualified Code(s): K50.919 - Crohn's disease, unspecified, with unspecified complications Is this a current diagnosis for this admission?: YesPlan: Decrease prednisone to 10 mg twice daily. Follow-up Dr. Beal after discharge. (6) Gastroesophageal reflux disease Qualifiers: Esophagitis presence: without esophagitis Qualified Code(s): K21.9 - Gastro-esophageal reflux disease without esophagitis Is this a current diagnosis for this admission?: Yes (7) Hypertension Qualifiers: Hypertension type: essential hypertension Qualified Code(s): I10 - Essential (primary) hypertension Is this a current diagnosis for this admission?: YesPlan: Decrease metoprolol to 50 mg twice daily. Discontinue Norvasc and losartan HCT. Patient is strongly encouraged to take all medications as prescribed as she has been basically taking medications on an as-needed basis based on her daily symptoms. - Time Time Spent with patient: 25-34 minutes Disposition: I attempted to discharge patient home today but she declined discharge. She normally resides with her granddaughter in her residence.
[2016-07-27] MEDS: PREDNISONE 10 MG TABLET PO SCH (17:56)
[2016-07-27] MEDS: TIMOLOL MALEATE 0.5% OPH SOLN 5 ML OU SCH (17:57)
--- NOTE | 2016-07-27 20:00 | PDOC PROGRESS REPORT ---
Subjective Progress Note for:: 07/27/16 Subjective:: Patient seems to be doing better with gradual improvement. Patient has intermittent vague discomfort in the chest. She also describes intermittent palpitations but claims she is generally better. Patient was given some anxiolytic by her primary care physician but she never really started it. This morning she declined to pursue a nuclear stress test saying that she had a very bad reaction last time. Patient denying any PND, orthopnea. Patient denied any sustained palpitations, dizziness, syncope, near syncope. Patient denying any fever chills. Patient denying any other significant discomfort. Patient is maintaining sinus rhythm. Review of systems: Rest review of systems negative. Medications: Medications have been reviewed. Physical Exam Vital Signs: Temp Pulse Resp BP Pulse Ox 98.3 F 71 18 108/48 L 96 07/27/16 15:25 07/27/16 15:25 07/27/16 15:25 07/27/16 15:25 07/27/16 15:25 Intake & Output 07/26/16 07/27/16 07/28/16 06:59 06:59 06:59 Intake Total 265 472 Balance 265 472 Weight 42.5 kg Exam: GENERAL: well-nourished and in no acute distress. Alert and oriented x3 HEAD: Atraumatic, normocephalic. EYES: Pupils equal round and reactive to light, extraocular movements intact, sclera anicteric, conjunctiva are normal. ENT: TMs normal, nares patent, oropharynx clear without exudates. Moist mucous membranes. No oral ulcerations or bleeding gums noted NECK: supple without lymphadenopathy. Trachea is central. No cervical or axillary lymphadenopathy noted. Carotids are 2+, JVD WNL LUNGS: Respiration seems nonlabored, no significant accessory muscle action noted. Breath sounds clear to auscultation bilaterally and equal. No wheezes rales or rhonchi. No significant dullness noted on percussion. CHEST: Palpation of the chest wall shows no significant chest wall tenderness or abnormalities. HEART: Martha SYSTEMS ADMIN, No PSH, 1/6 LUCINA aortic area, 1/6 wood systolic murmur mitral area, no rubs, no gallops. ABDOMEN: Soft, no significant tenderness appreciated, normoactive bowel sounds. No guarding, no rebound. No rigidity noted . No masses appreciated. EXTREMITIES: Pedal pulses are 1-2+, no calf tenderness noted. No clubbing or cyanosis.trace to 1+ pedal edema noted NEUROLOGICAL: Focused neurological exam showed no significant neurologic deficit. Normal speech, no focal weakness appreciated. PSYCH: Normal mood, normal affect. Judgment and insight within normal limits. SKIN: No significant ecchymosis, rash, ulcerations or signs of pruritus noted. MUSCULOSKELETAL EXAM: No significant joint swelling noted. Results Laboratory Results: 07/27/16 05:08 07/27/16 05:08 07/27/16 07/27/16 07/27/16 05:08 05:08 05:08 WBC 8.5 RBC 3.48 L Hgb 10.9 L Hct 32.5 L MCV 93 MCH 31.4 MCHC 33.7 RDW 14.9 H Plt Count 189 Sodium 137.2 Potassium 4.5 Chloride 104 Carbon Dioxide 28 Anion Gap 5 BUN 22 H Creatinine 0.76 Est GFR ( Amer) > 60 Est GFR (Non-Af Amer) > 60 Glucose 115 H Calcium 8.8 TSH 0.72 07/26/16 07/26/16 07/26/16 09:07 09:07 16:05 Creatine Kinase < 20 L < 20 L CK-MB (CK-2) 1.86 Troponin I 0.103 07/26/16 07/26/16 07/26/16 16:05 22:10 22:10 Creatine Kinase < 20 L CK-MB (CK-2) 1.81 1.52 Troponin I 0.070 0.046 Impressions: Chest X-Ray 07/26/16 02:09 IMPRESSION: No acute cardiopulmonary findings. Severe emphysematous hyperinflation. Assessment & Plan - Diagnosis (1) Chest pain Qualifiers: Chest pain type: chest pain due to myocardial ischemia Ischemic chest pain type: unstable angina pectoris Qualified Code(s): I20.0 - Unstable angina Is this a current diagnosis for this admission?: Yes (2) Palpitations Is this a current diagnosis for this admission?: Yes (3) Abnormal EKG Is this a current diagnosis for this admission?: Yes (4) Anxiety disorder Qualifiers: Anxiety disorder type: generalized anxiety disorder Qualified Code(s ): F41.1 - Generalized anxiety disorder Is this a current diagnosis for this admission?: Yes (5) Hypertension Qualifiers: Hypertension type: essential hypertension Qualified Code(s): I10 - Essential (primary) hypertension Is this a current diagnosis for this admission?: Yes (6) Elevated troponin I level Is this a current diagnosis for this admission?: Yes (7) Bradycardia Is this a current diagnosis for this admission?: Yes (8) Unstable angina Is this a current diagnosis for this admission?: Yes - Notes Notes: Chest pain: Most likely related to acute coronary syndrome and unstable angina. Patient however is stable. She did not want any stress testing or other aggressive intervention at this point. Have optimize medical therapy. Palpitations: Probably related to anxiety panic disorder. Patient on Xanax and SSRI agent. Abnormal EKG: Probably related to underlying LVH and CAD. Anxiety disorder: Will follow patient. Hypertension: Under reasonable control. Elevated troponin I level: Related to unstable angina and ACS but patient currently stable and prefers medical management. Bradycardia: Currently stable and asymptomatic. - Time Time with patient: Greater than 35 minutes - CODE STATUS was discussed, patient remains full code. Surrogate decision-maker unchanged. Multiple medical problems were addressed.More than 50% of the time spent coordinating care, discussing management plans with involved caregivers. Management plans discussed with involved personnels. Medical decision making was of moderate complexity. 2-D echo results were discussed with the patient in detail. Patient wishes to follow up with me after discharge. Patient does have peripheral vascular disease based on previous evaluation. Patient is likely to have significant CAD. This was informed to the patient. Medications reviewed and adjusted accordingly: Yes
[2016-07-27] MEDS: ATORVASTATIN CALCIUM 20 MG TABLET PO SCH (21:48)
[2016-07-27] MEDS: METOPROLOL TARTRATE 50 MG TABLET PO SCH (21:48)
[2016-07-27] MEDS ORDERED: BIMATOPROST 0.01% OPH SOLN 2.5 ML/BOTTLE OD SCH ×2 (22:00)
[2016-07-28] MEDS: LANSOPRAZOLE 15 MG TAB.RAP.DR PO SCH (05:44)
[2016-07-28] MEDS: ENOXAPARIN SODIUM INJ 30 MG/0.3 ML DISP.SYRIN SUBCUT SCH (08:21)
[2016-07-28] MEDS: PREDNISONE 10 MG TABLET PO SCH (08:21)
[2016-07-28] MEDS: TIMOLOL MALEATE 0.5% OPH SOLN 5 ML OU SCH (09:15)
[2016-07-28] MEDS: RANOLAZINE 500 MG TAB.SR.12H PO SCH (09:16)
[2016-07-28] MEDS: ASPIRIN 81 MG TABLET, CHEWABLE PO SCH (09:16)
[2016-07-28] MEDS: METOPROLOL TARTRATE 50 MG TABLET PO SCH (09:16)
[2016-07-28] MEDS ORDERED: FLUOXETINE HCL 20 MG/5 ML UDCUP PO SCH (10:00)
[2016-07-28] MEDS ORDERED: ISOSORBIDE MONONITRATE 30 MG TAB.ER.24H PO SCH (10:00)
--- NOTE | 2016-07-28 11:15 | PDOC PROGRESS REPORT ---
Subjective Progress Note for:: 07/28/16 Subjective:: Patient seems to be doing better with gradual improvement. She also describes intermittent palpitations but claims she is generally better. Patient was given some anxiolytic and SSRI agent by her primary care physician but she never really started it. This was started during this hospitalization. Patient has declined to pursue a nuclear stress test Patient denying any PND, orthopnea. Patient denied any sustained palpitations, dizziness, syncope, near syncope. Patient denying any fever chills. Patient denying any other significant discomfort. Patient is maintaining sinus rhythm. Review of all rhythm strip shows no significant cardiac dysrhythmia. Review of systems: Rest review of systems negative. Medications: Medications have been reviewed. Physical Exam Vital Signs: Temp Pulse Resp BP Pulse Ox 97.5 F 57 L 17 124/67 98 07/28/16 07:38 07/28/16 07:38 07/28/16 07:38 07/28/16 07:38 07/28/16 07:38 Intake & Output 07/27/16 07/28/16 07/29/16 06:59 06:59 06:59 Intake Total 265 677 Balance 265 677 Weight 42.5 kg 44.3 kg Exam: GENERAL: well-nourished and in no acute distress. Alert and oriented x3 HEAD: Atraumatic, normocephalic. EYES: Pupils equal round and reactive to light, extraocular movements intact, sclera anicteric, conjunctiva are normal. ENT: TMs normal, nares patent, oropharynx clear without exudates. Moist mucous membranes. No oral ulcerations or bleeding gums noted NECK: supple without lymphadenopathy. Trachea is central. No cervical or axillary lymphadenopathy noted. Carotids are 2+, JVD WNL LUNGS: Respiration seems nonlabored, no significant accessory muscle action noted. Breath sounds clear to auscultation bilaterally and equal. No wheezes rales or rhonchi. No significant dullness noted on percussion. CHEST: Palpation of the chest wall shows no significant chest wall tenderness or abnormalities. HEART: [place] [employer], No PSH, 1/6 LUCINA aortic area, 1/6 wood systolic murmur mitral area, no rubs, no gallops. ABDOMEN: Soft, no significant tenderness appreciated, normoactive bowel sounds. No guarding, no rebound. No rigidity noted . No masses appreciated. EXTREMITIES: Pedal pulses are 1-2+, no calf tenderness noted. No clubbing or cyanosis.trace to 1+ pedal edema noted NEUROLOGICAL: Focused neurological exam showed no significant neurologic deficit. Normal speech, no focal weakness appreciated. PSYCH: Normal mood, normal affect. Judgment and insight within normal limits. SKIN: No significant ecchymosis, rash, ulcerations or signs of pruritus noted. MUSCULOSKELETAL EXAM: No significant joint swelling noted. Results Laboratory Results: 07/27/16 05:08 07/27/16 05:08 07/26/16 07/26/16 07/26/16 09:07 09:07 16:05 Creatine Kinase < 20 L < 20 L CK-MB (CK-2) 1.86 Troponin I 0.103 07/26/16 07/26/16 07/26/16 16:05 22:10 22:10 Creatine Kinase < 20 L CK-MB (CK-2) 1.81 1.52 Troponin I 0.070 0.046 Impressions: Chest X-Ray 07/26/16 02:09 IMPRESSION: No acute cardiopulmonary findings. Severe emphysematous hyperinflation. Assessment & Plan - Diagnosis (1) Chest pain Qualifiers: Chest pain type: chest pain due to myocardial ischemia Ischemic chest pain type: unstable angina pectoris Qualified Code(s): I20.0 - Unstable angina Is this a current diagnosis for this admission?: Yes (2) Palpitations Is this a current diagnosis for this admission?: Yes (3) Abnormal EKG Is this a current diagnosis for this admission?: Yes (4) Anxiety disorder Qualifiers: Anxiety disorder type: generalized anxiety disorder Qualified Code(s ): F41.1 - Generalized anxiety disorder Is this a current diagnosis for this admission?: Yes (5) Hypertension Qualifiers: Hypertension type: essential hypertension Qualified Code(s): I10 - Essential (primary) hypertension Is this a current diagnosis for this admission?: Yes (6) Elevated troponin I level Is this a current diagnosis for this admission?: Yes (7) Bradycardia Is this a current diagnosis for this admission?: Yes (8) Unstable angina Is this a current diagnosis for this admission?: Yes - Notes Notes: Chest pain: Most likely related to acute coronary syndrome and unstable angina. Patient however is stable. She did not want any stress testing or other aggressive intervention at this point. Have optimize medical therapy. Palpitations: Probably related to anxiety panic disorder. Patient on Xanax and SSRI agent. Abnormal EKG: Probably related to underlying LVH and CAD. Anxiety disorder: Will follow patient. Hypertension: Under reasonable control. Elevated troponin I level: Related to unstable angina and ACS but patient currently stable and prefers medical management. Bradycardia: Currently stable and asymptomatic. Patient now wanting to go home. I feel it's safe to discharge depending on how patient feels. - Time Time with patient: 15-25 minutes - CODE STATUS was discussed, patient remains full code. Surrogate decision-maker patient's son. Multiple medical problems were addressed.More than 50% of the time spent coordinating care, discussing management plans with involved caregivers. Management plans discussed with involved personnels. Medical decision making was of moderate complexity.
[2016-07-28 12:21] VITALS: BP 117/56
--- NOTE | 2016-07-28 15:55 | PDOC DISCHARGE SUMMARY ---
General - Admit/Disc Date/PCP Admission Date/Primary Care Provider: 07/26/16 08:00 Discharge Date: 07/28/16 - Discharge Diagnosis (1) Chest pain Is this a current diagnosis for this admission?: Yes (2) Left carotid stenosis Is this a current diagnosis for this admission?: Yes (3) Palpitations Is this a current diagnosis for this admission?: Yes (4) Anxiety disorder Is this a current diagnosis for this admission?: Yes (5) Crohns disease Is this a current diagnosis for this admission?: Yes (6) Gastroesophageal reflux disease Is this a current diagnosis for this admission?: Yes (7) Hypertension Is this a current diagnosis for this admission?: Yes - Additional Information Resuscitation Status: Full Code Discharge Diet: Cardiac Discharge Activity: Activity As Tolerated, Balance Activity w/Rest, Slowly Increase Activity Home Medications: Alprazolam [Xanax 0.25 mg Tablet] 0.25 mg PO QHS 07/26/16 Aspirin [Aspirin EC] 81 mg PO DAILY 07/26/16 Atorvastatin Calcium [Lipitor 20 mg Tablet] 20 mg PO QHS 07/26/16 Bimatoprost [Lumigan 0.01% Oph Soln 2.5 ml/Bottle] 1 drop OP BID 07/26/16 Fluoxetine HCl [Prozac] 10 mg PO DAILY 07/26/16 Hydralazine HCl [Apresoline 10 mg Tablet] 10 mg PO Q12HP PRN 07/26/16 Meclizine HCl [Antivert 12.5 mg Tablet] 12.5 mg PO Q15MP PRN 07/26/16 Ondansetron HCl [Zofran 4 mg Tablet] 4 mg PO TIDP PRN 07/26/16 Pantoprazole Sodium [Protonix] 40 mg PO DAILY 07/26/16 Polysorbate 80/Glycerin [Refresh Dry Eye Therapy Drops] 1 drop OU TIDP PRN 07/26 Timolol Maleate [Timoptic 0.5% Oph Soln 5 ml] 1 drop OU BID 07/26/16 Acetaminophen [Tylenol 325 mg Tablet] 650 mg PO Q4HP PRN tablet 07/28/16 Atorvastatin Calcium [Lipitor 20 mg Tablet] 20 mg PO QHS tablet 07/28/16 Isosorbide Mononitrate [Imdur 30 mg Tablet.er] 30 mg PO DAILY #30 tab.er.24h Metoprolol Tartrate [Lopressor 50 mg Tablet] 50 mg PO Q12 #60 tablet 07/28/16 Prednisone [Deltasone 10 mg Tablet] 10 mg PO BIDBS tablet 07/28/16 Ranolazine [Ranexa 500 mg Tab.sr] 500 mg PO Q12 #60 tab.sr.12h 07/28/16 History of Present Illness Patient complains of: Chest pain History of Present Illness: Patient is an 85-year-old female presents with complaint of chest pain. Patient says the chest pain is new and has never been this severe in the sudden before. She also complains that she feels like her heart is starting to race. She says this has happened many times in the past. She says the heart racing is very intermittent and happens frequently. She denies having chest pain now. She was given nitroglycerin by the ambulance crew. Patient is followed by Dr. Mak of cardiology in [facility] as well as Dr. Anderson of cardiology in [facility]. She states that she had a stress test at [facility] in [facility] in January 2016 that was reportedly negative. Results of the study are not available. 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 She has been seen by Dr. Nelson of vascular surgery in [facility] and is recommended that she have carotid endarterectomy. She is still contemplating the risk and benefits of this and it is causing her a lot of anxiety. Patient also states that she has had "increased stress" lately secondary to her health conditions. She was recently started on fluoxetine 10 mg daily and when necessary Xanax 0.5 mg. She states that she has only been taking this for 2 days and that she does not feel any different at this point. Hospital Course Hospital Course: With regard to patient's chest pain, she ruled out for acute SD by serial cardiac enzymes. She declined stress test stating that she had a stress test in the middle of 2015 at [facility] in [facility] and was told that she had no evidence of blocked arteries. She was followed by Dr. Mak of cardiology while in the hospital and started on Imdur were Ranexa. She is continued on aspirin, Lipitor, beta fidencio. She is chest pain-free at time of discharge. Patient has anxiety and has recently been started on Prozac and when necessary Xanax as an outpatient. She is advised continue these medications as this may be contributing to her palpitations and other constitutional symptoms. Patient has labile hypertension she reports at home. That being said she takes her blood pressure medicines very inconsistently. She has told me that she will take more of her blood pressure medicine when she feels "stressed" and take less medication when she does not. I have had lengthy discussion with her and 2 of her children regarding the necessity to take medications exactly as prescribed and to document home blood pressure readings. I have advised her to take home blood pressure readings to her follow-up visit with Dr. Mak of cardiology so that medications can be adjusted accordingly. With regard to left carotid stenosis, patient has been followed by Dr. Nelson of vascular surgery in [facility]. She has been offered carotid endarterectomy, but after considering risk/benefit/alternative at this point she is choosing medical management. Physical Exam Vital Signs: Temp Pulse Resp BP Pulse Ox 97.5 F 66 16 117/56 L 93 07/28/16 12:15 07/28/16 12:15 07/28/16 12:15 07/28/16 12:15 07/28/16 12:15 Intake & Output 07/27/16 07/28/16 07/29/16 06:59 06:59 06:59 Intake Total 265 677 Balance 265 677 Weight 42.5 kg 44.3 kg GENERAL: No acute distress HEENT: Conjunctiva clear, nonicteric, moist mucous membranes, no JVD, midline trachea RESPIRATORY: Clear to auscultation bilaterally, no wheezes, no rhonchi CARDIAC: Regular rate and rhythm, no murmurs/gallops/rubs ABDOMEN: Soft, nondistended, nontender, positive bowel sounds, no rebound, no guarding EXTREMETIES: No edema, cyanosis, clubbing NEUROLOGIC: Alert, oriented to person/place/time, CN's grossly intact, no focal deficits SKIN: No rash, wounds PSYCH: Normal mood, normal affect Results Laboratory Results: 07/27/16 05:08 07/27/16 05:08 07/26/16 07/26/16 07/26/16 09:07 09:07 16:05 Creatine Kinase < 20 L < 20 L CK-MB (CK-2) 1.86 Troponin I 0.103 07/26/16 07/26/16 07/26/16 16:05 22:10 22:10 Creatine Kinase < 20 L CK-MB (CK-2) 1.81 1.52 Troponin I 0.070 0.046 Impressions: Chest X-Ray 07/26/16 02:09 IMPRESSION: No acute cardiopulmonary findings. Severe emphysematous hyperinflation. Qualifiers PATEINT BEING DISCHARGED WITH ANY OF THE FOLLOWING DIAGNOSIS?: No Plan Discharge Plan: Follow-up with Dr. Mak of cardiology. Follow-up Dr. Beal for primary care. Follow-up with Dr. Nelson of vascular surgery. Time Spent: Less than 30 Minutes
== END 2016-07-28 13:08 | disposition home or self-care (01) ==
LOC: ER 02:03 → EH 07:11 → UNDOADMOB 07:11 → EH 08:00 → 4N 19:16
PROVIDERS: ADMIT Family Medicine; ATTEND Family Medicine
DX: R07.9 Chest pain, unspecified (principal); I65.22 Occlusion and stenosis of left carotid artery; R00.2 Palpitations; F41.9 Anxiety disorder, unspecified; K50.90 Crohn's disease, unspecified, without complications; I10 Essential (primary) hypertension; Z79.82 Long term (current) use of aspirin; J45.909 Unspecified asthma, uncomplicated; K21.9 Gastro-esophageal reflux disease without esophagitis
CPT/HCPCS: 93005; 99285; 36415 ×2; 82553; 82550; 83735; 84443 ×2; 85025; 85027; 85610; 80048; 80053; 81001; 84484; 80061; 93306; 71010; 93010; G0378 ×4; A9270 ×13; J3490 ×5; J1650 ×3; J7512

== ENCOUNTER 2016-08-11 11:06 | Emergency (ER) | payer MEDICARE, OTHER ==
[2016-08-11] MEDS ORDERED: ONDANSETRON HCL INJ/PF 4 MG/2 ML SDV IV ONE (11:27)
--- NOTE | 2016-08-11 11:32 | ER Document Report ---
ED General - General Chief Complaint: Chest Pain Stated Complaint: DIFFICULTY BREATHING Time seen by provider: 11:29 Mode of Arrival: Medic Information source: Patient Notes: 85-year-old female presents via EMS with report per EMS that she was complaining of shortness of breath. This examiner her she complains about cramping discomfort in her right lower chest in her epigastric region that she felt might be problems with her Crohn's disease. The patient states she felt nauseated with that and did not have any actual vomiting. To this examiner she denies shortness of breath, hematemesis, melena, hematochezia, dysuria, left- sided chest pain, dizziness, or syncope. Patient had a been mentation last month with chest pain and was seen by her plastic eye technician Dr. Pina but she declined a stress test at that time stating that she had a negative stress test in January of last year. Patient is also known to have a left carotid stenosis but to this point has declined surgery for it. She has no specific complaints now except for nausea. She reports a bowel movement this morning was softer than what she usually has but she has not had any diarrhea. He reports he has taken all of her usual medicines this morning. Physical Exam: General: Alert, appears frail. HEENT: Normocephalic. Atraumatic. PERRLA. Extraocular movements intact. Oropharynx clear. Neck: Supple. Non-tender. No JVD Respiratory: No respiratory distress. Clear and equal breath sounds bilaterally. Nontender to palpation Cardiovascular: Slightly irregular no murmur PMI not displaced Abdominal: Normal Inspection. Soft, non-tender. No distension. Normal Bowel Sounds. No guarding rebound rigidity Back: Non-tender. No deformity or step off. Extremities: Moves all four extremities. Upper extremities: Normal inspection. Non-tender. Normal color. Normal ROM. Normal temperature. Lower extremities: Normal inspection. Non-tender. No edema. Normal color. Normal ROM. Normal temperature. Neurological: Speech clear mentation normal moves all 4 extremities to command. Psychological: Normal affect. Appears anxious Skin: Warm. Dry. Normal color. TRAVEL OUTSIDE OF THE [place] IN LAST 30 DAYS: No - Related Data Allergies/Adverse Reactions: Penicillins Allergy (Mild, Verified 07/09/16 10:56) nausea,diarrhea Shellfish * [Shellfish] Allergy (Mild, Verified 07/09/16 10:56) VOMITING Past Medical History - Social History Smoking Status: Never Smoker Family History: CVA, Other - Congestive heart failure, but no family history of premature coronary artery disease or sudden cardiac . - Past Medical History Cardiac Medical History: Reports: Hx Hypertension, Hx Peripheral Vascular Disease - 90% left carotid stenosis Denies: Hx Congestive Heart Failure, Hx Heart Attack Pulmonary Medical History: Reports: Hx Asthma Denies: Hx Bronchitis, Hx COPD, Hx Pneumonia, Hx Tuberculosis Neurological Medical History: Denies: Hx Cerebrovascular Accident, Hx Seizures Renal/ Medical History: Denies: Hx End Stage Renal Disease, Hx Kidney Stones GI Medical History: Reports: Hx Crohn's Disease, Hx Diverticulitis, Hx Gastroesophageal Reflux Disease - Diverticulosis; constipation, Hx Irritable Bowel. Denies: Hx Cirrhosis, Hx Hepatitis, Hx Hiatal Hernia, Hx Ulcer Musculoskeltal Medical History: Denies Hx Arthritis, Denies Hx Multiple Sclerosis Psychiatric Medical History: Reports: Hx Depression Denies: Hx Bipolar Disorder, Hx Schizophrenia Infectious Medical History: Reports: Hx C-Diff. Denies: Hx Hepatitis Past Surgical History: Reports: Hx Abdominal Surgery - colectomy, Hx Hysterectomy - partial, Hx Tubal Ligation. Denies: Hx Mastectomy, Hx Open Heart Surgery, Hx Pacemaker - Immunizations Hx Diphtheria, Pertussis, Tetanus Vaccination: Yes Hx Pneumococcal Vaccination: 09/13/12 Review of Systems - Review of Systems Constitutional: denies: Chills, Fever EENT: denies: Nose congestion, Throat pain Cardiovascular: See HPI. denies: Dyspnea, Syncope Respiratory: denies: Cough, Hurts to breathe Gastrointestinal: See HPI Genitourinary: denies: Burning, Dysuria Female Genitourinary: denies: Musculoskeletal: denies: Back pain, Muscle pain Hematologic/Lymphatic: denies: Swollen glands Neurological/Psychological: denies: Weakness, Numbness Physical Exam - Vital signs Vitals: Resp Pulse Ox 17 98 08/11/16 11:13 08/11/16 11:13 Course - Re-evaluation Re-evalutation: 08/11/16 12:51 Patient now reports that the symptoms that she had this morning or a burning lower midsternal chest discomfort that she says is typical for her reflux. She also reports that at times she feels as if she swallows something it sticks down in her chest but always ultimately goes through. The patient says she's been told by Dr. Beal that she should have an upper endoscopy but has been reluctant to have that done. I believe her symptoms may have a gastroesophageal reflux component but her predominantly anxiety. She now reports that she did take some type of anxiety medicine this morning and did take half of an extra metoprolol this morning. Have encouraged her to take her medicines as prescribed and not try to take extra ones without discussion with her primary care physician. I believe she should follow-up with Dr. Beal as I do believe an upper endoscopy would be beneficial but she does not require admission for that - Vital Signs Vital signs: Temp Pulse Resp BP Pulse Ox 19 159/75 H 97 08/11/16 12:36 08/11/16 12:36 08/11/16 12:36 - Laboratory Result Diagrams: 08/11/16 11:12 08/11/16 11:12 Laboratory results interpreted by me: 08/11/16 08/11/16 08/11/16 11:12 11:12 11:12 RDW 15.0 H Sodium 136.7 L Carbon Dioxide 35 H Anion Gap 4 L BUN 21 H Creatine Kinase < 20 L NT-Pro-B Natriuret Pep 5050 H Albumin 3.2 L - Diagnostic Test Radiology reviewed: Image reviewed, Reports reviewed - EKG Interpretation by Me Additional EKG results interpreted by me: 08/11/16 12:51 EKG reviewed by myself shows sinus rhythm at 53 with inverted T waves and ST depression V3 through V5 not significantly different and 07/26/2016 Discharge - Discharge Clinical Impression: Anxiety Gastroesophageal reflux disease Qualifiers: Esophagitis presence: without esophagitis Qualified Code(s): K21.9 - Gastro- esophageal reflux disease without esophagitis Chest pain Qualifiers: Chest pain type: chest pain due to myocardial ischemia Ischemic chest pain type : unstable angina pectoris Qualified Code(s): I20.0 - Unstable angina Hypertension Qualifiers: Hypertension type: essential hypertension Qualified Code(s): I10 - Essential ( primary) hypertension Condition: Stable Disposition: HOME, SELF-CARE Instructions: Reflux Disease (GERD) ([facility]) Referrals: RUY BEAL MD [EMERITUS] - Follow up in 1 week
[2016-08-11 11:35] LABS: ABSOLUTE LYMPHOCYTES (AUTO) 1.2 10^3/uL (0.5-4.7); ABSOLUTE MONOCYTES (AUTO) 0.7 10^3/uL (0.1-1.4); ABSOLUTE NEUT (AUTO) 6.1 10^3/uL (1.7-8.2); BASOPHILS % (AUTO) 0.6 % (0-2); EOSINOPHILS % (AUTO) 0.3 % (0-6); HEMATOCRIT 39.9 % (36.0-47.0); HEMOGLOBIN 13.4 g/dL (12.0-15.5); HGB HCT DIFFERENCE 0.3; LYMPHOCYTES % (AUTO) 14.9 % (13-45); MEAN CORPUSCULAR HEMOGLOBIN 30.7 pg (27.0-33.4); MEAN CORPUSCULAR HGB CONC 33.6 g/dL (32.0-36.0); MEAN CORPUSCULAR VOLUME 91 fl (80-97); MONOCYTES % (AUTO) 9.1 % (3-13); RED BLOOD COUNT 4.36 10^6/uL (3.72-5.28); SEGMENTED NEUTROPHILS % (AUTO) 75.1 % (42-78); WHITE BLOOD COUNT 8.1 10^3/uL (4.0-10.5)
[2016-08-11 11:49] LABS: ALANINE AMINOTRANSFERASE 25 U/L (9-52); ALBUMIN 3.2 g/dL (3.5-5.0); ALKALINE PHOSPHATASE 45 U/L (38-126); ASPARTATE AMINO TRANSFERASE 18 U/L (14-36); BILIRUBIN,TOTAL 0.9 mg/dL (0.2-1.3); BLOOD UREA NITROGEN 21 mg/dL (7-20); CALCIUM 9.6 mg/dL (8.4-10.2); CARBON DIOXIDE 35 mmol/L (22-30); CHLORIDE 98 mmol/L (98-107); CREATININE RESULT 0.89 mg/dL (0.52-1.25); GLUCOSE 84 mg/dL (75-110); LIPASE 167.7 U/L (23-300); POTASSIUM 3.7 mmol/L (3.6-5.0); SODIUM 136.7 mmol/L (137-145); TOTAL PROTEIN 6.3 g/dL (6.3-8.2)
[2016-08-11 11:50] LABS: ANION GAP 4 (5-19); CREATINE KINASE < 20 U/L (30-135)
[2016-08-11 11:59] LABS: CREATINE KINASE MB 0.34 ng/mL (<4.55)
[2016-08-11 12:01] LABS: TROPONIN I < 0.012 ng/mL
[2016-08-11 12:42] VITALS: BP 159/75
--- NOTE | 2016-08-11 13:11 | EKG REPORT ---
SEVERITY:- ABNORMAL ECG - SINUS RHYTHM LVH WITH SECONDARY REPOLARIZATION ABNORMALITY ST DEPRESSION, CONSIDER ISCHEMIA, ANT-LAT LDS : Confirmed by: Frederick Prater MD 11-Aug-2016 13:10:36
== END 2016-08-11 13:11 | disposition home or self-care (01) ==
LOC: ER 11:06
DX: I20.0 Unstable angina (principal); I65.22 Occlusion and stenosis of left carotid artery; I10 Essential (primary) hypertension; K21.9 Gastro-esophageal reflux disease without esophagitis; K50.90 Crohn's disease, unspecified, without complications; F41.9 Anxiety disorder, unspecified; R09.89 Other specified symptoms and signs involving the circulatory and respiratory systems; R10.13 Epigastric pain; R11.0 Nausea; R19.4 Change in bowel habit; J45.909 Unspecified asthma, uncomplicated; Z79.899 Other long term (current) drug therapy; Z88.0 Allergy status to penicillin; Z91.013 Allergy to seafood; Z82.49 Family history of ischemic heart disease and other diseases of the circulatory system; Z90.49 Acquired absence of other specified parts of digestive tract; Z90.711 Acquired absence of uterus with remaining cervical stump
CPT/HCPCS: 93005; 99285; 96374; 36415; 82553; 82550; 83690; 85025; 80053; 84484; 83880; 74022; 93010; J2405

== ENCOUNTER 2016-09-23 19:36 | Inpatient (IN) | payer MEDICARE, OTHER ==
--- NOTE | 2016-09-23 20:00 | ER Document Report ---
ED Cardiac - General Stated Complaint: CHEST PAIN Time seen by provider: 20:00 Mode of Arrival: Medic Information source: Patient TRAVEL OUTSIDE OF THE [place] IN LAST 30 DAYS: No - HPI Patient complains to provider of: Chest pain Was the onset of pain: Gradual Is the pain a: New problem Chest pain location: Substernal Quality of pain: Achy, Tightness Severity now: None Severity at worst: Moderate Pain level currently: 0 Chest pain precipitating factors: At Rest Cardiac risk factors: Hypertension Associated symptoms: Lightheaded Exacerbated by: Denies Relieved by: Nothing Similar symptoms previously: Yes Recently seen / treated by doctor: No Notes: Patient is an 85-year-old female who presents to the emergency room via EMS for complaints of chest pain this started this afternoon, states she felt like her blood pressure was low and her heart rate was high, her eyes got very dim and she had a "feeling in my chest", this sensation lasted for approximately 3 hours , it was a tight achy feeling over the midsternum, with sensation of fullness in the chest, she denies any shortness of breath, no vomiting or nausea, no cough, cold or congestion, no fever or chills, she does report that she developed laxity of earlier today in order to have bowel movement as she requires medication to do so generally, at time of my initial evaluation she reports feeling much better and the pain is gone but she still does not feel well, however she is unable to pinpoint exactly what is bothering her, EMS does report that patient's heart rate was around 140 when they initially arrived at patient's home, she did not receive any specific interventions en route but on arrival her heart rate is now 82 - Related Data Allergies/Adverse Reactions: Penicillins Allergy (Mild, Verified 07/09/16 10:56) nausea,diarrhea Shellfish * [Shellfish] Allergy (Mild, Verified 07/09/16 10:56) VOMITING Past Medical History - General Information source: Patient, Emergency Med Personnel - Social History Smoking Status: Never Smoker Family History: CVA, Other - Congestive heart failure, but no family history of premature coronary artery disease or sudden cardiac . - Past Medical History Cardiac Medical History: Reports: Hx Hypertension, Hx Peripheral Vascular Disease - 90% left carotid stenosis Denies: Hx Congestive Heart Failure, Hx Heart Attack Pulmonary Medical History: Reports: Hx Asthma Denies: Hx Bronchitis, Hx COPD, Hx Pneumonia, Hx Tuberculosis Neurological Medical History: Denies: Hx Cerebrovascular Accident, Hx Seizures Renal/ Medical History: Denies: Hx End Stage Renal Disease, Hx Kidney Stones GI Medical History: Reports: Hx Crohn's Disease, Hx Diverticulitis, Hx Gastroesophageal Reflux Disease - Diverticulosis; constipation, Hx Irritable Bowel. Denies: Hx Cirrhosis, Hx Hepatitis, Hx Hiatal Hernia, Hx Ulcer Musculoskeltal Medical History: Denies Hx Arthritis, Denies Hx Multiple Sclerosis Psychiatric Medical History: Reports: Hx Depression Denies: Hx Bipolar Disorder, Hx Schizophrenia Infectious Medical History: Reports: Hx C-Diff. Denies: Hx Hepatitis Past Surgical History: Reports: Hx Abdominal Surgery - colectomy, Hx Hysterectomy - partial, Hx Tubal Ligation. Denies: Hx Mastectomy, Hx Open Heart Surgery, Hx Pacemaker - Immunizations Hx Diphtheria, Pertussis, Tetanus Vaccination: Yes Hx Pneumococcal Vaccination: 09/13/12 Review of Systems - Review of Systems Constitutional: No symptoms reported EENT: No symptoms reported Cardiovascular: See HPI Respiratory: No symptoms reported Gastrointestinal: No symptoms reported Genitourinary: No symptoms reported Female Genitourinary: No symptoms reported Musculoskeletal: No symptoms reported Skin: No symptoms reported Hematologic/Lymphatic: No symptoms reported Neurological/Psychological: No symptoms reported -: Yes All other systems reviewed and negative Physical Exam - Vital signs Vitals: Resp Pulse Ox 23 H 97 09/23/16 19:50 09/23/16 19:50 Interpretation: Normal - General General appearance: Appears well, Alert - HEENT Head: Normocephalic, Atraumatic Eyes: Normal Pupils: PERRL - Respiratory Respiratory status: No respiratory distress Chest status: Nontender Breath sounds: Normal Chest palpation: Normal - Cardiovascular Rhythm: Regular Heart sounds: Normal auscultation Murmur: No - Abdominal Inspection: Normal Distension: No distension Bowel sounds: Normal Tenderness: Nontender Organomegaly: No organomegaly - Back Back: Normal, Nontender - Extremities General upper extremity: Normal inspection, Nontender, Normal color, Normal ROM , Normal temperature General lower extremity: Normal inspection, Nontender, Normal color, Normal ROM , Normal temperature, Normal weight bearing. No: Jc's sign - Neurological Neuro grossly intact: Yes Cognition: Normal Orientation: AAOx4 Stanley Coma Scale Eye Opening: Spontaneous Stanley Coma Scale Verbal: Oriented Stanley Coma Scale Motor: Obeys Commands Stanley Coma Scale Total: 15 Speech: Normal Motor strength normal: LUE, RUE, LLE, RLE Sensory: Normal - Psychological Associated symptoms: Normal affect, Normal mood - Skin Skin Temperature: Warm Skin Moisture: Dry Skin Color: Normal Course - Re-evaluation Re-evalutation: 09/24/16 02:09 Patient resting comfortably with stable vital signs, she is no longer having chest pain but states she does not feel well overall, cardiac enzymes 2 are negative, therefore patient was discussed with the hospitalist who agrees to admit for further evaluation and treatment - Vital Signs Vital signs: Temp Pulse Resp BP Pulse Ox 16 112/57 L 94 09/24/16 00:01 09/24/16 00:00 09/24/16 00:01 - Laboratory Result Diagrams: 09/23/16 19:57 09/23/16 19:57 Laboratory results interpreted by me: 09/23/16 09/23/16 09/23/16 19:57 19:57 20:32 Hgb 11.7 L Hct 34.5 L RDW 15.4 H BUN 22 H Creatine Kinase < 20 L Total Protein 5.4 L Albumin 3.0 L Ur Leukocyte Esterase SMALL H 09/23/16 23:57 Hgb Hct RDW BUN Creatine Kinase < 20 L Total Protein Albumin Ur Leukocyte Esterase - Diagnostic Test Radiology reviewed: Image reviewed, Reports reviewed - EKG Interpretation by Me EKG shows normal: Sinus rhythm Rate: Normal Rhythm: NSR When compared to previous EKG there are: No significant change - Transfer of Care Care transferred to following provider: Dr. Dupree Discharge - Discharge Clinical Impression: Chest pain Qualifiers: Chest pain type: chest pain due to myocardial ischemia Ischemic chest pain type : unstable angina pectoris Qualified Code(s): I20.0 - Unstable angina Condition: Stable Disposition: ADMITTED OBSERVATION Admitting Provider: Hospitalist Unit Admitted: Telemetry
[2016-09-23 20:08] LABS: ABSOLUTE MONOCYTES (AUTO) 0.8 10^3/uL (0.1-1.4); ABSOLUTE NEUT (AUTO) 5.7 10^3/uL (1.7-8.2); BASOPHILS % (AUTO) 0.3 % (0-2); HEMATOCRIT 34.5 % (36.0-47.0); HEMOGLOBIN 11.7 g/dL (12.0-15.5); HGB HCT DIFFERENCE 0.6; LYMPHOCYTES % (AUTO) 13.7 % (13-45); MEAN CORPUSCULAR HEMOGLOBIN 31.1 pg (27.0-33.4); MEAN CORPUSCULAR VOLUME 91 fl (80-97); MONOCYTES % (AUTO) 11.1 % (3-13); RED BLOOD COUNT 3.77 10^6/uL (3.72-5.28); RED CELL DISTRIBUTION WIDTH 15.4 % (11.5-14.0); SEGMENTED NEUTROPHILS % (AUTO) 74.9 % (42-78); WHITE BLOOD COUNT 7.5 10^3/uL (4.0-10.5)
[2016-09-23 20:20] LABS: ALANINE AMINOTRANSFERASE 33 U/L (9-52); ALKALINE PHOSPHATASE 53 U/L (38-126); ANION GAP 7 (5-19); ASPARTATE AMINO TRANSFERASE 24 U/L (14-36); BILIRUBIN,TOTAL 0.8 mg/dL (0.2-1.3); BLOOD UREA NITROGEN 22 mg/dL (7-20); CALCIUM 8.7 mg/dL (8.4-10.2); CARBON DIOXIDE 27 mmol/L (22-30); CHLORIDE 106 mmol/L (98-107); CREATININE RESULT 0.82 mg/dL (0.52-1.25); GLUCOSE 102 mg/dL (75-110); POTASSIUM 3.7 mmol/L (3.6-5.0); TOTAL PROTEIN 5.4 g/dL (6.3-8.2)
[2016-09-23 20:21] LABS: CREATINE KINASE < 20 U/L (30-135)
[2016-09-23 20:32] LABS: CREATINE KINASE MB 0.28 ng/mL (<4.55)
[2016-09-23 20:33] LABS: TROPONIN I < 0.012 ng/mL
[2016-09-23 20:46] LABS: APPEARANCE,URINE SLIGHTLY-CLOUDY; BILIRUBIN,URINE NEGATIVE (NEGATIVE); GLUCOSE, URINE NEGATIVE (NEGATIVE); KETONES,URINE NEGATIVE (NEGATIVE); LEUKOCYTE ESTERASE,URINE SMALL (NEGATIVE); NITRITE,URINE NEGATIVE (NEGATIVE); PROTEIN,URINE NEGATIVE (NEGATIVE); URINE SPECIFIC GRAVITY 1.008; UROBILINOGEN,URINE NEGATIVE mg/dL (<2.0)
[2016-09-23] MEDS ORDERED: NORMAL SALINE 1000 ML 1,000 ML IV PRN (22:07)
[2016-09-24 00:45] LABS: CREATINE KINASE MB 0.66 ng/mL (<4.55)
[2016-09-24 00:53] LABS: TROPONIN I 0.034 ng/mL
[2016-09-24] MEDS ORDERED: ACETAMINOPHEN 325 MG TABLET PO PRN (02:36)
--- NOTE | 2016-09-24 03:03 | PDOC H&P ---
History of Present Illness Admission Date/PCP: 09/24/16 01:01 PCP Uncertain Cards Aubree Anderson, [place], [place] Patient complains of: chest pain History of Present Illness: KEVAN PAVON is a 85 year old female hypertension, hyperlipidemia , known 90% left carotid stenosis, bilateral macular degeneration, left greater than right, partial hearing loss, chronic anxiety, COPD, easy bruising, and occasional urinary tract infection, who presents to the emergency room for evaluation of approximately a 1 hour episode of now resolved mild to moderate intensity substernal chest pain that occurred shortly after patient had a bowel movement at home. Nothing made the pain worse. No associated shortness of breath or nausea. Possibly slight radiation of the pain toward the left anterior chest. Similar episode that to her being hospitalized on our service July 28 , but stated current episode was more intense pain. History and physical and discharge summary have been reviewed. Patient declined a stress test at that time, having reportedly undergone a reported negative nuclear stress test in [facility] in January of last year. Was noted to have 90% left carotid stenosis. Has seen Dr. Nelson, vascular surgeon in [place], [place], since that hospital stay. Surgery is being considered according to patient. Denies previous VT, congestive heart failure. No history of pulmonary embolus or DVT. No recent long trip with prolonged inactivity, or unusual lower extremity swelling or tenderness. Currently resting quietly, chest pain-free. Of note, somewhat of a rambling historian times. Patient has been discussed with emergency room physician who evaluated the patient. . Laboratory results are listed in [facility] and are reviewed. X-ray summary results are listed below, with full report(s) reviewed. . EKG reviewed And compared to a prior tracing from the of last month. Social history/personal habits: . Granddaughter lives with her. Retired. No use of alcohol tobacco or illicit drugs. Allergies/adverse reactions are listed in [facility] and are reviewed. Home medications Home medications initially autopopulated into [employer] may not accurately reflect patient's true medications, dosages, and/or frequencies. Unfortunately, patient uncertain of medications/dosages/frequencies. REVIEW OF SYSTEMS: Constitutional: No fever or chills. Eyes: Wears glasses. Poor vision in both eyes, left worse than right, due to long-standing macular degeneration. ENT: No swallowing problems or complaints. Partial hearing loss. Pulmonary: No current complaints. Cardiovascular: See history and present illness. Gastrointestinal: No current complaints, including nausea or vomiting. Skin: No current complaints, including rashes. Hematologic: Easy bruising. Neurologic: Chronic mild numbness and tingling of her feet. Musculoskeletal: No current complaints, including painful joints. Psychiatric: Anxiety depression; denies suicidal or homicidal ideation. Endocrine: No current complaints, including polyuria. Genitourinary: No current complaints, including dysuria. PHYSICAL EXAMINATION: 5 feet 6 inches tall. 41.3 kg. BMI 14.7 kg/m. Blood pressure 122/58. Pulse 75 and regular. 97% saturation on room air. Respirations are 14 and unlabored. Temperature not recorded on chart; skin feels normothermic. Thin rather frail-appearing elderly female. Pleasant awake alert and cooperative. Fairly anxious at times, although no neisha agitation. Rather talkative. Skin is warm and dry. No grossly obvious evidence of rash in areas of skin examined. No subcutaneous nodules palpated. ENT: Mildly hard of hearing to normal conversation. Tongue midline on protrusion pink and slightly moist. Eyes: No scleral icterus. Right pupil reactive to light at 4 mm. [place] conjunctivae. Patient appears to have a partially opaque thin tissue film covering the lower half of her left cornea. Difficult to visualize the left pupil. Neck is supple and nontender to gentle active range of motion and palpation. Midline trachea. No palpable thyroid nodule mass enlargement or tenderness. Lymphatic: No palpable cervical or clavicular nodes. Psychiatric: Reasonable insight into acute and chronic medical issues. Oriented to time location and why here. Lungs: Auscultation reveals clear and equal breath sounds bilaterally. No use of accessory respiratory muscles. Cardiovascular: Heart regular rate and rhythm, without gallop murmur or rub. No right carotid or abdominal aortic bruits. Subtle left carotid bruit. No ankle or pedal edema. palpable dorsalis pedis pulses. Abdomen: soft, , slightly distended nontender with positive bowel sounds. Unable to adequately evaluate abdomen for masses or organomegaly due to distention. Compression of neither her sternum nor upper abdomen reproduces her previously noted chest pain. Extremities: Feet are warm and dry. No calf tenderness to compression. No grossly obvious visual evidence of calf swelling. Gentle manipulation of lower extremities fails to reveal any obvious evidence of injury or instability to knees hips or ankles. Neurologic: Moves upper extremities grossly normally. Patellar reflexes absent. Absent Babinski. Light touch decreased at her feet, a chronic finding according to patient.. Dorsiflexion and plantarflexion of feet 5 / 5 and symmetric. Past Medical History Cardiac Medical History: Reports: Hyperlipidema, Hypertension, Other - Cerebrovascular disease; 90% left carotid stenosis. Denies: Congestive Heart Failure, DVT, Myocardial Infarction, Pulmonary Embolism Pulmonary Medical History: Reports: Chronic Obstructive Pulmonary Disease (COPD) Denies: Asthma, Bronchitis, Pneumonia, Sleep Apnea, Tuberculosis EENT Medical History: Reports: Eyes - Bilateral macular degeneration., Ears - Partial hearing loss. Neurological Medical History: Denies: Hemorrhagic CVA, Ischemic CVA, Seizures Endocrine Medical History: Denies: Diabetes Mellitus Type 1, Diabetes Mellitus Type 2, Hyperthyroidism, Hypothyroidism Renal/ Medical History: Reports: Other - Occasional urinary tract infection. Denies: End Stage Renal Disease GI Medical History: Reports: Crohn's Disease, Diverticulitis, Gastroesophageal Reflux Disease - Diverticulosis; constipation Denies: Cirrhosis, Hepatitis, Hiatal Hernia, Peptic Ulcer Disease Musculoskeltal Medical History: Denies: Arthritis Skin Medical History: Reports: None Psychiatric Medical History: Reports: Depression, General Anxiety Disorder Denies: Alcohol Dependency, Substance Abuse, Tobacco Dependency Hematology: Reports: Other - Easy bruising Denies: Anemia, Bleeding Tendencies Infectious Medical History: Reports: Clostridium Difficile Denies: Hepatitis B, Hepatitis C Past Surgical History Past Surgical History: Reports: Hysterectomy - partial, Tubal Ligation Social History Information Source: Patient, Emergency Med Personnel, [facility] Records Lives with: Family Smoking Status: Never Smoker Frequency of Alcohol Use: None Hx Recreational Drug Use: No Drugs: None Hx Prescription Drug Abuse: No - Advance Directive Resuscitation Status: Full Code Surrogate healthcare decision maker:: Her children Family History Family History: CVA, Other - Congestive heart failure, but no family history of premature coronary artery disease or sudden cardiac . Parental Family History Reviewed: Yes Children Family History Reviewed: Yes Sibling(s) Family History Reviewed.: Yes Medication/Allergy Home Medications: RX: Aspirin [Adult Low Dose Aspirin EC] 81 mg PO DAILY 09/24/16 RX: Atorvastatin Calcium [Lipitor 20 mg Tablet] 20 mg PO DAILY 09/24/16 RX: Bimatoprost [Lumigan 0.01% Oph Soln 2.5 ml/Bottle] 1 drop OU QHS 09/24/16 RX: Fluoxetine HCl [Prozac] 10 mg PO BID 09/24/16 RX: Isosorbide Mononitrate [Imdur 30 mg Tablet.er] 30 mg PO QAM 09/24/16 RX: Metoprolol Tartrate [Lopressor 50 mg Tablet] 50 mg PO Q12 09/24/16 RX: Pantoprazole Sodium [Protonix] 40 mg PO DAILY 09/24/16 RX: Ranolazine [Ranexa 500 mg Tab.sr] 500 mg PO Q12 09/24/16 RX: Timolol Maleate [Timoptic 0.5% Oph Soln 5 ml] 1 drop OU BID 09/24/16 Apixaban [Eliquis 2.5 mg Tablet] 2.5 mg PO BID #60 tablet 09/25/16 RX: Alprazolam [Xanax 0.25 mg Tablet] 0.25 mg PO TIDP PRN #10 tablet 09/25/16 RX: Amiodarone HCl [Cordarone 200 mg Tablet] 200 mg PO BID #60 tablet 09/25/16 RX: Docusate Sodium [Colace 100 mg Capsule] 100 mg PO BID #60 capsule 09/25/16 RX: Isosorbide Mononitrate [Imdur 30 mg Tablet.er] 30 mg PO DAILY #30 tab.er.24h 09/25/16 RX: Megestrol Acetate [Megace Dannielle 400 mg/10 ml Udcup] 400 mg PO DAILY #300 udc 09/25/16 RX: Risperidone [Risperdal 0.25 mg Tablet] 0.25 mg PO QHS #30 tablet 09/25/16 RX: Sennosides/Docusate 8.6-50 mg [Senna Plus Tablet] 2 each PO QHS #30 tablet 09/25/16 Allergies/Adverse Reactions: Penicillins Allergy (Mild, Verified 07/09/16 10:56) nausea,diarrhea Shellfish * [Shellfish] Allergy (Mild, Verified 07/09/16 10:56) VOMITING Physical Exam Vital Signs: Temp Pulse Resp BP Pulse Ox 16 112/57 L 94 09/24/16 00:01 09/24/16 00:00 09/24/16 00:01 Intake & Output 09/23/16 09/24/16 09/25/16 00:59 00:59 00:59 Weight 41.3 kg Results Impressions: Chest X-Ray 09/23/16 19:51 IMPRESSION: NO ACUTE RADIOGRAPHIC FINDING IN THE CHEST. Assessment & Plan - Diagnosis (1) Abnormal urinalysis Is this a current diagnosis for this admission?: YesPlan: Urine culture. Will forego antibiotics at this point in time. (2) Anemia Qualifiers: Anemia type: unspecified type Qualified Code(s): D64.9 - Anemia, unspecified Is this a current diagnosis for this admission?: YesPlan: Follow-up CBC. No need for transfusion at present time. (3) Chest pain Qualifiers: Chest pain type: unspecified Qualified Code(s): R07.9 - Chest pain, unspecified Is this a current diagnosis for this admission?: YesPlan: Patient will be placed in observation bed under chest pain protocol. Patient understands to notify staff should chest pain recur. Serial troponin's . Repeat EKG. lipid panel. I have strongly encouraged patient not to get out of bed without notifying staff , to avoid a fall with injury. Knee high SCDs for DVT prophylaxis. Along with subcutaneous heparin. Cardiology consult with Dr. Mak, due to the recurrent nature of the pain. Impression and plans were discussed with patient, . Time spent in evaluation and management of patient: 64 minutes. (4) HLD (hyperlipidemia) Qualifiers: Hyperlipidemia type: unspecified Qualified Code(s): E78.5 - Hyperlipidemia, unspecified Is this a current diagnosis for this admission?: YesPlan: Lipid panel.Resume home medications as appropriate once these have been determined and reviewed. (5) Hypertension Qualifiers: Hypertension type: essential hypertension Qualified Code(s): I10 - Essential (primary) hypertension Is this a current diagnosis for this admission?: YesPlan: Resume home medications as appropriate once these have been determined and reviewed.
[2016-09-24 06:49] LABS: HEMATOCRIT 32.1 % (36.0-47.0); HEMOGLOBIN 10.8 g/dL (12.0-15.5); HGB HCT DIFFERENCE 0.3; MEAN CORPUSCULAR HEMOGLOBIN 30.7 pg (27.0-33.4); MEAN CORPUSCULAR HGB CONC 33.6 g/dL (32.0-36.0); MEAN CORPUSCULAR VOLUME 92 fl (80-97); RED BLOOD COUNT 3.51 10^6/uL (3.72-5.28); RED CELL DISTRIBUTION WIDTH 15.3 % (11.5-14.0); WHITE BLOOD COUNT 6.2 10^3/uL (4.0-10.5)
[2016-09-24 07:07] LABS: CHOLESTEROL 135.88 mg/dL (0-200); Direct HDL 56 mg/dL (>40); TRIGLYCERIDES 101 mg/dL (<150)
[2016-09-24 07:17] LABS: DIRECT LDL 52 mg/dL (<100)
--- NOTE | 2016-09-24 08:53 | EKG REPORT ---
SEVERITY:- ABNORMAL ECG - SINUS RHYTHM LVH WITH SECONDARY REPOLARIZATION ABNORMALITY ANTERIOR Q WAVES, POSSIBLY DUE TO LVH ST DEPRESSION, CONSIDER ISCHEMIA, ANT LEADS : Confirmed by: Frederick Prater MD 24-Sep-2016 08:53:26
--- NOTE | 2016-09-24 08:54 | EKG REPORT ---
SEVERITY:- ABNORMAL ECG - SINUS OR ECTOPIC ATRIAL RHYTHM LVH WITH SECONDARY REPOLARIZATION ABNORMALITY : Confirmed by: Frederick Prater MD 24-Sep-2016 08:53:48
[2016-09-24] MEDS ORDERED: ASPIRIN 325 MG TABLET PO ONE (09:00)
[2016-09-24] MEDS ORDERED: NITROGLYCERIN 0.4 MG/TAB 25 TAB/BOTTLE SL PRN (09:00)
[2016-09-24] MEDS ORDERED: NITROGLYCERIN 0.4 MG/TAB 25 TAB/BOTTLE SL ONE (09:00)
[2016-09-24] MEDS ORDERED: ALPRAZOLAM 0.25 MG TABLET PO PRN (09:48)
[2016-09-24] MEDS ORDERED: BIMATOPROST 0.01% OPH SOLN 2.5 ML/BOTTLE OP SCH (10:00)
[2016-09-24] MEDS ORDERED: ASPIRIN 81 MG TABLET, ENT COATED PO SCH (10:00)
[2016-09-24] MEDS ORDERED: CARBOXYMETHYLCELLULOSE SOD 0.5% 0.4 ML DROPERETTE OU PRN (10:05)
[2016-09-24] MEDS: ISOSORBIDE MONONITRATE 30 MG TAB.ER.24H PO SCH (10:07)
[2016-09-24] MEDS: HEPARIN SOD (PORCINE) 5,000 UNIT/ML 1 ML SYRINGE SUBCUT SCH ×2 (10:07→21:42)
[2016-09-24] MEDS: PREDNISONE 10 MG TABLET PO SCH ×2 (10:07→10:25)
[2016-09-24] MEDS: METOPROLOL TARTRATE 50 MG TABLET PO SCH ×2 (10:08→21:46)
[2016-09-24] MEDS: SUCRALFATE SUSP 1 GM/10 ML UDCUP PO SCH ×2 (10:29→17:41)
[2016-09-24] MEDS: FLUOXETINE HCL 20 MG/5 ML UDCUP PO SCH (10:30)
[2016-09-24] MEDS ORDERED: DILTIAZEM HCL INJ 25 MG/5 ML VIAL ONE (10:48)
[2016-09-24] MEDS ORDERED: DILTIAZEM HCL/D5W 125 ML IV PRN (10:57)
[2016-09-24] MEDS ORDERED: RANOLAZINE 500 MG TAB.SR.12H PO ONE (11:00)
[2016-09-24] MEDS ORDERED: FLUOXETINE HCL 20 MG/5 ML UDCUP PO SCH (11:00)
[2016-09-24] MEDS ORDERED: METOPROLOL TARTRATE PF/INJ 5 MG/5 ML SDV IV ONE ×2 (11:06→12:30)
[2016-09-24] MEDS: ASPIRIN 325 MG TABLET PO SCH (12:00)
[2016-09-24] MEDS: DOCUSATE SODIUM 100 MG CAPSULE PO SCH ×2 (12:00→17:44)
[2016-09-24] MEDS ORDERED: LORAZEPAM INJ 2 MG/1 ML VIAL IV ONE (12:30)
[2016-09-24] MEDS ORDERED: NORMAL SALINE 250 ML IV ONE (14:00)
[2016-09-24] MEDS ORDERED: AMIODARONE HCL 200 MG TABLET PO ONE (15:00)
--- NOTE | 2016-09-24 15:29 | PDOC CONSULTATION ---
Consultation Consult Date: 09/24/16 Attending physician:: CEDRICK FERNANDEZ Consult reason:: Chest pain, tachycardia History of Present Illness Admission Date/PCP: 09/24/16 02:33 ABEL WILD MD Patient complains of: Tachycardia and chest pain History of Present Illness: KEVAN PAVON is a 85 year old female hypertension, hyper lipidemia, known 90% left carotid stenosis, bilateral macular degeneration, left greater than right, partial hearing loss, chronic anxiety, COPD, easy bruising, and occasional urinary tract infection who presents to the emergency room for evaluation of approximately a 1 hour episode ofthe resolving mild to moderate intensity substernal chest pain that occurred shortly after patient had a bowel movement at home. Nothing made the pain worse. No associated shortness of breath or nausea. Possibly slight radiation of the pain toward the left anterior chest. Similar episode that led to her being hospitalized on our service July 28, but stated this episode was more intense pain. History and physical and discharge summary have been reviewed. Patient declined a stress test at that time, having reportedly undergone a reported negative nuclear stress test in [facility] in January of last year. Was noted to have 90% left carotid stenosis. Has seen Dr. Nelson, vascular surgeon in [facility], [place] since that hospital stay. Surgery is not been definitely recommended apparently according to patient. Denies previous [place] congestive heart failure. No history of pulmonary embolus or DVT. No recent long trip with prolonged inactivity, or unusual lower extremity swelling or tenderness. This history was reviewed, supplemented and confirmed. When patient was seen this morning, she complained of palpitations and vague feeling of anxiety and vague discomfort in the chest. She was noted to be in a tachycardic rhythm at around 1 30 bpm. It was felt that patient had atrial ectopic tachycardia versus atrial flutter with 2 to one conduction. Patient was ordered to receive 15 mg of IV Cardizem and then to be started on Cardizem drip. She was then moved to [facility] for Cardizem drip. It seemed she keeps converting and reverting back. She was also noted to be hypotensive for which she received 250 mL of normal saline bolus. It was felt that patient may not be able to tolerate either beta fidencio or Cardizem in doses needed to control her tachycardia, therefore orders were given to start patient on amiodarone drip and bolus protocol. Review of previous records shows that elevation has recurrent hospitalization, I believe all these may have been precipitated by tachycardia. Patient does follow up with me in the office and she would continue to do so. Patient has declined any invasive evaluation in the past. She was referred to Dr. Nelson in [place] for her carotid disease but declined to pursue any interventions. Past Medical History Cardiac Medical History: Reports: Hyperlipidema, Hypertension, Peripheral Vascular Disease - 90% left carotid stenosis, Other - Cerebrovascular disease; 90% left carotid stenosis. Denies: Congestive Heart Failure, DVT, Myocardial Infarction, Pulmonary Embolism Pulmonary Medical History: Reports: Chronic Obstructive Pulmonary Disease (COPD) Denies: Asthma, Bronchitis, Pneumonia, Sleep Apnea, Tuberculosis EENT Medical History: Reports: Eyes - Bilateral macular degeneration., Ears - Partial hearing loss., Other - Easy bruising Neurological Medical History: Denies: Hemorrhagic CVA, Ischemic CVA, Seizures Endocrine Medical History: Denies: Diabetes Mellitus Type 1, Diabetes Mellitus Type 2, Hyperthyroidism, Hypothyroidism Renal/ Medical History: Reports: Other - Occasional urinary tract infection. Denies: End Stage Renal Disease GI Medical History: Reports: Crohn's Disease, Diverticulitis, Gastroesophageal Reflux Disease - Diverticulosis; constipation Denies: Cirrhosis, Hepatitis, Hiatal Hernia, Peptic Ulcer Disease Musculoskeltal Medical History: Denies: Arthritis Skin Medical History: Reports: None Psychiatric Medical History: Reports: Depression, General Anxiety Disorder Denies: Alcohol Dependency, Bipolar Disorder, Substance Abuse, Tobacco Dependency Hematology: Reports: Other - Easy bruising Denies: Anemia, Sickle Cell Disease, Bleeding Tendencies Infectious Medical History: Reports: Clostridium Difficile Denies: Hepatitis B, Hepatitis C Past Surgical History Past Surgical History: Reports: Hysterectomy - partial, Tubal Ligation Denies: Amputation, Mastectomy, Pacemaker Social History Information Source: Patient Lives with: Family Smoking Status: Never Smoker Frequency of Alcohol Use: None Hx Recreational Drug Use: No Drugs: None Hx Prescription Drug Abuse: No - Advance Directive Resuscitation Status: Full Code Surrogate healthcare decision maker:: Patient's son Family History Family History: CVA, Other - Congestive heart failure, but no family history of premature coronary artery disease or sudden cardiac . Parental Family History Reviewed: Yes Children Family History Reviewed: Yes Sibling(s) Family History Reviewed.: Yes - Negative for premature coronary artery disease or sudden cardiac in the family amongst first degree relatives. Medication/Allergy Home Medications: Alprazolam [Xanax 0.25 mg Tablet] 0.25 mg PO DAILY 09/24/16 Aspirin [Adult Low Dose Aspirin EC] 81 mg PO DAILY 09/24/16 Atorvastatin Calcium [Lipitor 20 mg Tablet] 20 mg PO DAILY 09/24/16 Bimatoprost [Lumigan 0.01% Oph Soln 2.5 ml/Bottle] 1 drop OU QHS 09/24/16 Fluoxetine HCl [Prozac] 10 mg PO BID 09/24/16 Hydralazine HCl [Apresoline 10 mg Tablet] 10 mg PO Q12HP PRN 09/24/16 Isosorbide Mononitrate [Imdur 30 mg Tablet.er] 30 mg PO QAM 09/24/16 Meclizine HCl [Antivert 12.5 mg Tablet] 25 mg PO DAILY PRN 09/24/16 Metoprolol Tartrate [Lopressor 50 mg Tablet] 50 mg PO Q12 09/24/16 Ondansetron HCl [Zofran 4 mg Tablet] 4 mg PO TIDP PRN 09/24/16 Pantoprazole Sodium [Protonix] 40 mg PO DAILY 09/24/16 Ranolazine [Ranexa 500 mg Tab.sr] 500 mg PO Q12 09/24/16 Timolol Maleate [Timoptic 0.5% Oph Soln 5 ml] 1 drop OU BID 09/24/16 Allergies/Adverse Reactions: Penicillins Allergy (Mild, Verified 07/09/16 10:56) nausea,diarrhea Shellfish * [Shellfish] Allergy (Mild, Verified 07/09/16 10:56) VOMITING Review of Systems Review of Systems: Please see history of present illness and past medical history as wall. Constitutional: No fever or chills reported. Head : No recent chronic headaches, recent head injury. Eyes: No recent eye pain, diplopia, redness, discharge, acute visual changes. Patient has chronic marked decreased vision in the left eye and also somewhat decreased vision in the right eye. Ears: No recent chronic ear pain, acute hearing loss, ear discharge. She describes chronically hard of hearing. Oral cavity: No recent ulcerations, bleeding, oral cavity discomfort. Neck: No recent acute neck pain reported. Hematologic: No recent easy bruising or bleeding or hematologic malignancy reported. Lymphatic: No recent lymphatic malignancy, chronic lymphadenopathy reported yet Cardiovascular system review: See history of present illness. Respiratory system review: No recent chronic cough, hemoptysis, blood clots in the lungs reported. Mild Shortness of breath on exertion Gastrointestinal system review: Negative for any recent acute or chronic abdominal pain, hematemesis, melena, recent change in bowel habits. Genitourinary system review: No recent acute or chronic hematuria, flank pain, UTI etc. reported. Skin system review: Negative for any recent abnormal bruising, no rash, no pruritus reported. Neurologic: No prior history of strokes, mini strokes, seizure disorder. Psychologic: No history of major psychosis or major depression reported. Musculoskeletal: Minor aches and pains reported. No acute joint swelling reported. Endocrine: No recent polyuria, polydipsia, recent heat or cold intolerance. Physical Exam Vital Signs: Temp Pulse Resp BP Pulse Ox 98.0 F 61 18 110/37 L 100 09/24/16 06:50 09/24/16 14:00 09/24/16 11:07 09/24/16 14:31 09/24/16 11:07 Intake & Output 09/23/16 09/24/16 09/25/16 06:59 06:59 06:59 Intake Total 370 Output Total 200 Balance 170 Weight 42.2 kg Exam: GENERAL: well-nourished and in no acute distress. Alert and oriented x3 HEAD: Atraumatic, normocephalic. EYES: Pupils equal round and reactive to light, extraocular movements intact, sclera anicteric, conjunctiva are normal. ENT: TMs normal, nares patent, oropharynx clear without exudates. Moist mucous membranes. No oral ulcerations or bleeding gums noted NECK: supple without lymphadenopathy. Trachea is central. No cervical or axillary lymphadenopathy noted. Carotids are 2+, JVD WNL LUNGS: Respiration seems nonlabored, no significant accessory muscle action noted. Breath sounds clear to auscultation bilaterally and equal noted. No wheezes rales or rhonchi noted. No significant dullness noted on percussion. CHEST: Palpation of the chest wall shows no significant chest wall tenderness. No other significant abnormalities noted. HEART: [place] [employer], No PSH, 1/6 LUCINA aortic area, 1/6 wood systolic murmur mitral area, no rubs, no gallops. ABDOMEN: Soft, no significant tenderness appreciated, normoactive bowel sounds. No guarding, no rebound. No rigidity noted . No masses appreciated. EXTREMITIES: Pedal pulses are 1-2+, no calf tenderness noted. No clubbing or cyanosis.trace pedal edema noted NEUROLOGICAL: Focused neurological exam showed no significant neurologic deficit. Normal speech, no focal weakness appreciated. PSYCH: Normal mood, normal affect. Judgment and insight within normal limits. SKIN: No significant ecchymosis, rash, ulcerations or signs of pruritus noted. MUSCULOSKELETAL EXAM: No significant joint swelling noted. Results Laboratory Results: 09/24/16 06:24 09/24/16 09/24/16 06:24 06:24 WBC 6.2 RBC 3.51 L Hgb 10.8 L Hct 32.1 L MCV 92 MCH 30.7 MCHC 33.6 RDW 15.3 H Plt Count 259 Triglycerides 101 Cholesterol 135.88 LDL Cholesterol Direct 52 VLDL Cholesterol 20.0 HDL Cholesterol 56 09/24/16 09/24/16 06:24 12:12 Troponin I 0.047 0.016 EKG Comments: Sinus rhythm, LVH with secondary ST-T wave changes. EKG rhythm strip shows paroxysmal atrial tachycardia versus atrial flutter with 2 to one conduction Impressions: Chest X-Ray 09/23/16 19:51 IMPRESSION: NO ACUTE RADIOGRAPHIC FINDING IN THE CHEST. KUB X-Ray 09/24/16 00:00 IMPRESSION: NO RADIOGRAPHIC EVIDENCE FOR ACUTE ABDOMINAL DISEASE. Assessment & Plan - Diagnosis (1) Chest pain Qualifiers: Chest pain type: unspecified Qualified Code(s): R07.9 - Chest pain, unspecified Is this a current diagnosis for this admission?: Yes (2) Paroxysmal atrial tachycardia Is this a current diagnosis for this admission?: Yes (3) Palpitations Is this a current diagnosis for this admission?: Yes (4) Abnormal EKG Is this a current diagnosis for this admission?: Yes (5) Anxiety disorder Qualifiers: Anxiety disorder type: generalized anxiety disorder Qualified Code(s ): F41.1 - Generalized anxiety disorder Is this a current diagnosis for this admission?: Yes (6) Carotid artery stenosis Qualifiers: Laterality: unspecified laterality Qualified Code(s): I65.29 - Occlusion and stenosis of unspecified carotid artery Is this a current diagnosis for this admission?: Yes - Notes Notes: Chest pain: This is a chronic symptom for this patient. Previous evaluation with a stress test I believe last year was negative. Patient has declined any invasive evaluation in the past. I believe chest pain could have been precipitated by atrial tachycardia arrhythmias. Patient therefore being placed on amiodarone. Paroxysmal atrial tachycardia: Please see discussion under palpitations. Palpitations: This is a chronic complaints. Patient is noted to have paroxysmal atrial tachycardia. Hopefully this will be controlled by amiodarone. Abnormal EKG: This is unchanged from previous admission. She did have a recent 2-D echocardiogram in my office which had shown normal LVEF. Carotid artery stenosis: Patient has unilateral severe carotid artery disease but has declined intervention or the surgeon does not want to intervene. Anxiety disorder: Patient has generalized anxiety possibly underlying panic disorder. Would recommend SSRI agent for this lady. Patient may also have low dose anxiolytic. - Time Time Spent: 30 to 50 Minutes - CODE STATUS was discussed, patient remains full code. Surrogate decision-maker patient's son. Multiple medical problems were addressed.More than 50% of the time spent coordinating care, discussing management plans with involved caregivers. Management plans discussed with involved personnels. Medical decision making was of moderate complexity.
[2016-09-24] MEDS: TIMOLOL MALEATE 0.5% OPH SOLN 5 ML OU SCH (17:43)
[2016-09-24] MEDS ORDERED: AMIODARONE HCL 200 MG TABLET PO SCH (18:00)
--- NOTE | 2016-09-24 19:53 | EKG REPORT ---
SEVERITY:- ABNORMAL ECG - SINUS TACHYCARDIA LVH WITH SECONDARY REPOLARIZATION ABNORMALITY ST DEPRESSION, PROBABLY RATE RELATED : Confirmed by: Frederick Prater MD 24-Sep-2016 19:52:56
--- NOTE | 2016-09-24 20:13 | PDOC PROGRESS REPORT ---
Subjective Progress Note for:: 09/24/16 Subjective:: Patient is quite anxious. She is often tearful as we talk. Patient discusses with me her personal and medical problems at great length exceeding one hour. Patient denies chest pain with ambulation. Patient refuses stress test. Patient admits to numerous personal problems. Patient reports being out of her anxiety medicine for several days. Patient denies chest pain, shortness of breath, abdominal pain, nausea, vomiting , fevers, chills, diarrhea, constipation, headache, new onset weakness. Physical Exam Vital Signs: Temp Pulse Resp BP Pulse Ox 98.0 F 61 18 131/50 H 100 09/24/16 06:50 09/24/16 15:00 09/24/16 11:07 09/24/16 16:46 09/24/16 11:07 Intake & Output 09/23/16 09/24/16 09/25/16 06:59 06:59 06:59 Intake Total 370 2339 Output Total 200 Balance 170 2339 Weight 42.2 kg Exam: General: Thin, frail, Awake alert and oriented X3 no acute respiratory distress HEENT: AT/NC, left corneal opacification, EOMI, oropharynx is moist, pink, no scleral icterus, mild left conjunctival injection Neck: No JVD, trachea midline Chest: Clear to auscultation bilaterally, no wheezes rhonchi or rales CV: IRR, normal S1 and S2 Abdomen: Thin, Soft, nontender to palpation, nondistended, active bowel sounds; no rebound, rigidity, or guarding Extremities: No cyanosis, clubbing or edema Neuro: Cranial nerves II through XII are grossly intact without focal deficits; awake alert and oriented X3 Psych: Anxious and tearful Results Laboratory Results: 09/24/16 06:24 09/24/16 09/24/16 06:24 06:24 WBC 6.2 RBC 3.51 L Hgb 10.8 L Hct 32.1 L MCV 92 MCH 30.7 MCHC 33.6 RDW 15.3 H Plt Count 259 Triglycerides 101 Cholesterol 135.88 LDL Cholesterol Direct 52 VLDL Cholesterol 20.0 HDL Cholesterol 56 09/24/16 09/24/16 09/24/16 06:24 12:12 18:25 Troponin I 0.047 0.016 0.015 Impressions: Chest X-Ray 09/23/16 19:51 IMPRESSION: NO ACUTE RADIOGRAPHIC FINDING IN THE CHEST. KUB X-Ray 09/24/16 00:00 IMPRESSION: NO RADIOGRAPHIC EVIDENCE FOR ACUTE ABDOMINAL DISEASE. Assessment & Plan - Diagnosis (1) Chest pain Qualifiers: Chest pain type: unspecified Qualified Code(s): R07.9 - Chest pain, unspecified Is this a current diagnosis for this admission?: YesPlan: Have consulted cardiology. Feel that given patient's numerous admissions for chest pain and her reluctance/unwillingness to do a stress test at this time necessitates patient having a cardiac catheterization. Patient currently on Ranexa and Imdur. (2) Atrial fibrillation with RVR Is this a current diagnosis for this admission?: YesPlan: Patient has been placed on Cardizem drip and transferred to [facility]. Cardiology has been consulted for this patient. She has seen Dr. Mak in the past. (3) Carotid artery stenosis Qualifiers: Laterality: left Qualified Code(s): I65.22 - Occlusion and stenosis of left carotid artery Is this a current diagnosis for this admission?: YesPlan: Patient has seen vascular surgery as an outpatient undecided about pursuing treatment. Have discussed with patient that she will need cardiac catheterization prior to surgery. (4) Paroxysmal atrial tachycardia Is this a current diagnosis for this admission?: YesPlan: Patient currently on Coreg. (5) Anxiety disorder Qualifiers: Anxiety disorder type: generalized anxiety disorder Qualified Code(s ): F41.1 - Generalized anxiety disorder Is this a current diagnosis for this admission?: YesPlan: Have initiated patient on small amount of Xanax. Patient currently also on Paxil. (6) Gastroesophageal reflux disease Qualifiers: Esophagitis presence: without esophagitis Qualified Code(s): K21.9 - Gastro-esophageal reflux disease without esophagitis (7) Macular degeneration of left eye Is this a current diagnosis for this admission?: Yes (8) Peripheral vascular disease Is this a current diagnosis for this admission?: Yes (9) HLD (hyperlipidemia) Qualifiers: Hyperlipidemia type: unspecified Qualified Code(s): E78.5 - Hyperlipidemia, unspecified Is this a current diagnosis for this admission?: Yes (10) Hypertension Qualifiers: Hypertension type: essential hypertension Qualified Code(s): I10 - Essential (primary) hypertension Is this a current diagnosis for this admission?: Yes (11) Malnutrition Is this a current diagnosis for this admission?: YesPlan: Patient is quite frail with a BMI of 15. Will place both ensure and Magic cup supplementation. Will also place patient on Megace. Dietary consult. - Time Time Spent with patient: I spent 75 minutes with this patient today Time Spent with patient: 35 or more minutes Medications reviewed and adjusted accordingly: Yes
[2016-09-24] MEDS: RANOLAZINE 500 MG TAB.SR.12H PO SCH (21:45)
[2016-09-24] MEDS ORDERED: SENNOSIDES/DOCUSATE 8.6-50 MG 1 EACH TABLET PO SCH (22:00)
[2016-09-24] MEDS ORDERED: RISPERIDONE 0.25 MG TABLET PO SCH (22:00)
[2016-09-24] MEDS ORDERED: ATORVASTATIN CALCIUM 20 MG TABLET PO SCH (22:00)
[2016-09-25] MEDS ORDERED: LANSOPRAZOLE 30 MG TAB.RAP.DR PO SCH (08:00)
[2016-09-25 08:42] LABS: ANION GAP 9 (5-19); BLOOD UREA NITROGEN 11 mg/dL (7-20); CALCIUM 8.7 mg/dL (8.4-10.2); CARBON DIOXIDE 25 mmol/L (22-30); CHLORIDE 111 mmol/L (98-107); CREATININE RESULT 0.69 mg/dL (0.52-1.25); GLUCOSE 78 mg/dL (75-110); MAGNESIUM 2.2 mg/dL (1.6-2.3); SODIUM 144.5 mmol/L (137-145)
[2016-09-25] MEDS: ASPIRIN 325 MG TABLET PO SCH (09:28)
[2016-09-25] MEDS: HEPARIN SOD (PORCINE) 5,000 UNIT/ML 1 ML SYRINGE SUBCUT SCH (09:28)
[2016-09-25] MEDS: SUCRALFATE SUSP 1 GM/10 ML UDCUP PO SCH (09:28)
[2016-09-25] MEDS: PREDNISONE 10 MG TABLET PO SCH (09:28)
[2016-09-25] MEDS: ISOSORBIDE MONONITRATE 30 MG TAB.ER.24H PO SCH (09:29)
[2016-09-25] MEDS: RANOLAZINE 500 MG TAB.SR.12H PO SCH (09:29)
[2016-09-25] MEDS: TIMOLOL MALEATE 0.5% OPH SOLN 5 ML OU SCH (09:29)
[2016-09-25] MEDS: DOCUSATE SODIUM 100 MG CAPSULE PO SCH (09:29)
[2016-09-25] MEDS: METOPROLOL TARTRATE 50 MG TABLET PO SCH (09:29)
[2016-09-25] MEDS ORDERED: MEGESTROL ACETATE SUSP 400 MG/10 ML UDCUP PO SCH (10:00)
[2016-09-25] MEDS ORDERED: AMIODARONE HCL 200 MG TABLET PO SCH (10:00)
[2016-09-25] MEDS: FLUOXETINE HCL 20 MG/5 ML UDCUP PO SCH (14:00)
[2016-09-25 14:19] VITALS: BP 124/48
--- NOTE | 2016-09-25 16:01 | EKG REPORT ---
SEVERITY:- ABNORMAL ECG - SINUS RHYTHM LVH WITH SECONDARY REPOLARIZATION ABNORMALITY ANTERIOR Q WAVES, POSSIBLY DUE TO LVH ST DEPRESSION, CONSIDER ISCHEMIA, ANT-LAT LDS BORDERLINE PROLONGED QT INTERVAL : Confirmed by: Nataly Mak 25-Sep-2016 16:00:37
[2016-09-25] MEDS ORDERED: BIMATOPROST 0.01% OPH SOLN 2.5 ML/BOTTLE OU SCH (22:00)
--- NOTE | 2016-09-26 18:11 | PDOC DISCHARGE SUMMARY ---
General - Admit/Disc Date/PCP Admission Date/Primary Care Provider: 09/24/16 19:03 ABEL WILD MD Discharge Date: 09/25/16 - Discharge Diagnosis (1) Chest pain Is this a current diagnosis for this admission?: Yes (2) Atrial fibrillation with RVR Is this a current diagnosis for this admission?: Yes (3) Carotid artery stenosis Is this a current diagnosis for this admission?: Yes (4) Paroxysmal atrial tachycardia Is this a current diagnosis for this admission?: Yes (5) Anxiety disorder Is this a current diagnosis for this admission?: Yes (7) Macular degeneration of left eye Is this a current diagnosis for this admission?: Yes (8) Peripheral vascular disease Is this a current diagnosis for this admission?: Yes (9) HLD (hyperlipidemia) Is this a current diagnosis for this admission?: Yes (10) Hypertension Is this a current diagnosis for this admission?: Yes (11) Malnutrition Is this a current diagnosis for this admission?: Yes - Additional Information Resuscitation Status: Full Code Discharge Diet: Regular Discharge Activity: Activity As Tolerated, Balance Activity w/Rest, Supervised Activity Home Medications: Aspirin [Adult Low Dose Aspirin EC] 81 mg PO DAILY 09/24/16 Atorvastatin Calcium [Lipitor 20 mg Tablet] 20 mg PO DAILY 09/24/16 Bimatoprost [Lumigan 0.01% Oph Soln 2.5 ml/Bottle] 1 drop OU QHS 09/24/16 Fluoxetine HCl [Prozac] 10 mg PO BID 09/24/16 Isosorbide Mononitrate [Imdur 30 mg Tablet.er] 30 mg PO QAM 09/24/16 Metoprolol Tartrate [Lopressor 50 mg Tablet] 50 mg PO Q12 09/24/16 Pantoprazole Sodium [Protonix] 40 mg PO DAILY 09/24/16 Ranolazine [Ranexa 500 mg Tab.sr] 500 mg PO Q12 09/24/16 Timolol Maleate [Timoptic 0.5% Oph Soln 5 ml] 1 drop OU BID 09/24/16 Alprazolam [Xanax 0.25 mg Tablet] 0.25 mg PO TIDP PRN #10 tablet 09/25/16 Amiodarone HCl [Cordarone 200 mg Tablet] 200 mg PO BID #60 tablet 09/25/16 Apixaban [Eliquis 2.5 mg Tablet] 2.5 mg PO BID #60 tablet 09/25/16 Docusate Sodium [Colace 100 mg Capsule] 100 mg PO BID #60 capsule 09/25/16 Isosorbide Mononitrate [Imdur 30 mg Tablet.er] 30 mg PO DAILY #30 tab.er.24h Megestrol Acetate [Megace Dannielle 400 mg/10 ml Udcup] 400 mg PO DAILY #300 udc Risperidone [Risperdal 0.25 mg Tablet] 0.25 mg PO QHS #30 tablet 09/25/16 Sennosides/Docusate 8.6-50 mg [Senna Plus Tablet] 2 each PO QHS #30 tablet 09/25 History of Present Illness History of Present Illness: Please see H&P for full history of present illness Hospital Course Hospital Course: Patient was admitted and ruled out acutely for acute coronary syndrome and subsequently developed A. fib with RVR while on the floor. Patient was placed on amiodarone drip and transferred to [facility]. Patient improved with this as well as her beta fidencio and was transitioned to oral. Patient was offered stress test but declined. Concerned for patient's underlying mood disorder NOS which appears to be worsened by her anxiety. Patient was given small amount of Xanax with some relief. She was provided a small prescription for this and encouraged to follow-up with her primary care physician for evaluation and treatment of her anxiety/depression. Concern was also expressed over patient's malnutrition with a BMI 15. Patient is encouraged to take oral supplementation. The remainder of patient's stay was unremarkable. Patient was discharged home in stable condition. Physical Exam Vital Signs: Temp Pulse Resp BP Pulse Ox 98.4 F 66 16 124/48 L 93 09/25/16 14:15 09/25/16 14:15 09/25/16 14:15 09/25/16 14:15 09/25/16 14:15 Intake & Output 09/25/16 09/26/16 09/27/16 06:59 06:59 06:59 Intake Total 0 Balance 0 Exam: General: Thin, frail, Awake alert and oriented X3 no acute respiratory distress HEENT: AT/NC, left corneal opacification, EOMI, oropharynx is moist, pink, no scleral icterus, Neck: No JVD, trachea midline Chest: Clear to auscultation bilaterally, no wheezes rhonchi or rales CV: IRR, normal S1 and S2 Abdomen: Thin, Soft, nontender to palpation, nondistended, active bowel sounds; no rebound, rigidity, or guarding Extremities: No cyanosis, clubbing or edema Neuro: Cranial nerves II through XII are grossly intact without focal deficits; awake alert and oriented X3 Psych: Anxious and tearful Results Laboratory Results: 09/25/16 05:39 09/24/16 09/25/16 23:56 05:39 Troponin I 0.017 0.021 Impressions: Chest X-Ray 09/23/16 19:51 IMPRESSION: NO ACUTE RADIOGRAPHIC FINDING IN THE CHEST. KUB X-Ray 09/24/16 00:00 IMPRESSION: NO RADIOGRAPHIC EVIDENCE FOR ACUTE ABDOMINAL DISEASE. Qualifiers PATEINT BEING DISCHARGED WITH ANY OF THE FOLLOWING DIAGNOSIS?: No Plan Time Spent: Less than 30 Minutes
== END 2016-09-25 14:50 | disposition home or self-care (01) | DRG 309 ==
LOC: ER 19:36 → UNDOADMOB 09-24 01:01 → EH 09-24 01:01 → 5 09-24 04:12 → 3W 09-24 11:45 → OBSVTOIN 09-24 19:03
PROVIDERS: ADMIT Family Medicine; ATTEND Family Medicine
DX: I47.1 Supraventricular tachycardia (principal); E46 Unspecified protein-calorie malnutrition; Z68.1 Body mass index [BMI] 19.9 or less, adult; K50.90 Crohn's disease, unspecified, without complications; I65.22 Occlusion and stenosis of left carotid artery; F41.1 Generalized anxiety disorder; E78.5 Hyperlipidemia, unspecified; I10 Essential (primary) hypertension; I48.2 Chronic atrial fibrillation; I73.9 Peripheral vascular disease, unspecified; K21.9 Gastro-esophageal reflux disease without esophagitis; K57.90 Diverticulosis of intestine, part unspecified, without perforation or abscess without bleeding; D64.9 Anemia, unspecified; H35.30 Unspecified macular degeneration; Z88.0 Allergy status to penicillin; Z91.013 Allergy to seafood
CPT/HCPCS: 36415; 71010; 74000; 80048; 80053; 80061; 81001; 82550; 82553; 83735; 84484; 85025; 85027; 87086; 87088; 87186; 93005; 93010; 96360; 99285; G0378; J1644; J2060; J3490; J7030; J7512

== ENCOUNTER 2016-10-06 02:43 | Inpatient (IN) | payer MEDICARE, OTHER ==
[2016-10-06 04:05] LABS: ABSOLUTE LYMPHOCYTES (AUTO) 0.8 10^3/uL (0.5-4.7); ABSOLUTE NEUT (AUTO) 9.7 10^3/uL (1.7-8.2); BASOPHILS % (AUTO) 0.4 % (0-2); HEMATOCRIT 33.7 % (36.0-47.0); HEMOGLOBIN 11.1 g/dL (12.0-15.5); HGB HCT DIFFERENCE -0.4; LYMPHOCYTES % (AUTO) 7.1 % (13-45); MEAN CORPUSCULAR HEMOGLOBIN 30.4 pg (27.0-33.4); MEAN CORPUSCULAR VOLUME 92 fl (80-97); MONOCYTES % (AUTO) 8.6 % (3-13); RED BLOOD COUNT 3.66 10^6/uL (3.72-5.28); RED CELL DISTRIBUTION WIDTH 15.4 % (11.5-14.0); SEGMENTED NEUTROPHILS % (AUTO) 83.9 % (42-78); WHITE BLOOD COUNT 11.5 10^3/uL (4.0-10.5)
[2016-10-06 04:16] LABS: ALANINE AMINOTRANSFERASE 66 U/L (9-52); ALKALINE PHOSPHATASE 57 U/L (38-126); ANION GAP 10 (5-19); ASPARTATE AMINO TRANSFERASE 58 U/L (14-36); BILIRUBIN,DIRECT 0.2 mg/dL (0.0-0.4); BILIRUBIN,TOTAL 1.3 mg/dL (0.2-1.3); BLOOD UREA NITROGEN 12 mg/dL (7-20); CALCIUM 8.6 mg/dL (8.4-10.2); CARBON DIOXIDE 22 mmol/L (22-30); CHLORIDE 109 mmol/L (98-107); CREATINE KINASE 27 U/L (30-135); CREATININE RESULT 0.78 mg/dL (0.52-1.25); GLUCOSE 163 mg/dL (75-110); POTASSIUM 3.8 mmol/L (3.6-5.0); SODIUM 141.4 mmol/L (137-145); TOTAL PROTEIN 5.6 g/dL (6.3-8.2)
[2016-10-06 04:23] LABS: CREATINE KINASE MB 0.58 ng/mL (<4.55)
[2016-10-06 04:30] LABS: TROPONIN I < 0.012 ng/mL
[2016-10-06 04:34] LABS: APPEARANCE,URINE SLIGHTLY-CLOUDY; BILIRUBIN,URINE NEGATIVE (NEGATIVE); GLUCOSE, URINE 50 mg/dL (NEGATIVE); KETONES,URINE NEGATIVE (NEGATIVE); LEUKOCYTE ESTERASE,URINE TRACE (NEGATIVE); NITRITE,URINE NEGATIVE (NEGATIVE); PROTEIN,URINE NEGATIVE (NEGATIVE); URINE SPECIFIC GRAVITY 1.012; UROBILINOGEN,URINE NEGATIVE mg/dL (<2.0)
--- NOTE | 2016-10-06 05:00 | ER Document Report ---
ED Respiratory Problem - General Chief Complaint: Shortness Of Breath Stated Complaint: CHEST PAIN, DIFFICULTY BREATHING Mode of Arrival: Ambulatory Information source: Patient Notes: 85 y/o F presents to ED via EMS c/o sob. Pt reports sob over the last 2 days worse this evening which woke her up from sleep feeling like she could not catch her breath. Reports associated chest pain however reports has had multiple similar episodes of chest pain in the past but states sob is new for her. Also reports has noted some swelling to her feet over the last week. Denies fever, n/v, hemoptysis. TRAVEL OUTSIDE OF THE [place] IN LAST 30 DAYS: No - HPI Patient complains to provider of: Chest pain, Short of breath Duration: Worse/persistent Quality of pain: Achy Severity: Mild Short of Breath: Mild Chest pain/discomfort: Center Cough: Nonproductive Similar symptoms previously: Yes Recently seen / treated by doctor: Yes - Related Data Allergies/Adverse Reactions: Penicillins Allergy (Mild, Verified 07/09/16 10:56) nausea,diarrhea Shellfish * [Shellfish] Allergy (Mild, Verified 07/09/16 10:56) VOMITING Past Medical History - General Information source: Patient - Social History Smoking Status: Former Smoker Chew tobacco use (# tins/day): No Frequency of alcohol use: None Drug Abuse: None Lives with: Family Family History: CVA, Other - Congestive heart failure, but no family history of premature coronary artery disease or sudden cardiac . - Past Medical History Cardiac Medical History: Reports: Hx Hypercholesterolemia, Hx Hypertension, Hx Peripheral Vascular Disease - 90% left carotid stenosis Denies: Hx Congestive Heart Failure, Hx DVT, Hx Heart Attack, Hx Pulmonary Embolism Pulmonary Medical History: Reports: Hx COPD Denies: Hx Asthma, Hx Bronchitis, Hx Pneumonia, Hx Sleep Apnea, Hx Tuberculosis Neurological Medical History: Denies: Hx Cerebrovascular Accident, Hx Seizures Endocrine Medical History: Denies: Hx Diabetes Mellitus Type 1, Hx Diabetes Mellitus Type 2, Hx Hyperthyroidism, Hx Hypothyroidism Renal/ Medical History: Denies: Hx End Stage Renal Disease, Hx Kidney Stones GI Medical History: Reports: Hx Crohn's Disease, Hx Diverticulitis, Hx Gastroesophageal Reflux Disease - Diverticulosis; constipation, Hx Irritable Bowel. Denies: Hx Cirrhosis, Hx Hepatitis, Hx Hiatal Hernia, Hx Ulcer Musculoskeltal Medical History: Denies Hx Arthritis, Denies Hx Multiple Sclerosis Psychiatric Medical History: Reports: Hx Depression Denies: Hx Bipolar Disorder, Hx Schizophrenia Infectious Medical History: Reports: Hx C-Diff. Denies: Hx Hepatitis Past Surgical History: Reports: Hx Abdominal Surgery - colectomy, Hx Hysterectomy, Hx Tubal Ligation. Denies: Hx Mastectomy, Hx Open Heart Surgery, Hx Pacemaker - Immunizations Hx Diphtheria, Pertussis, Tetanus Vaccination: Yes Hx Pneumococcal Vaccination: 09/13/12 Review of Systems - Review of Systems Constitutional: No symptoms reported EENT: No symptoms reported Cardiovascular: See HPI Respiratory: See HPI Gastrointestinal: No symptoms reported Genitourinary: No symptoms reported Female Genitourinary: No symptoms reported Musculoskeletal: No symptoms reported Skin: No symptoms reported Hematologic/Lymphatic: No symptoms reported Neurological/Psychological: No symptoms reported -: Yes All other systems reviewed and negative Physical Exam - Vital signs Vitals: Pulse Resp BP Pulse Ox 60 23 H 154/72 H 97 10/06/16 02:54 10/06/16 02:54 10/06/16 02:54 10/06/16 02:54 - General General appearance: Alert In distress: None - HEENT Head: Normocephalic, Atraumatic Eyes: Normal Pupils: PERRL - Respiratory Respiratory status: No respiratory distress, Other - shallow. No: Labored, Tachypnea Chest status: Nontender Breath sounds: Rhonchi - left. No: Wheezing Chest palpation: Normal - Cardiovascular Pulses: Normal: Radial, Posterior tibial, Dorsalis pedis Normal capillary refill: Yes - Back Back: Normal, Nontender - Extremities General upper extremity: Normal inspection, Nontender, Normal color, Normal ROM , Normal strength, Normal temperature. No: Edema General lower extremity: Normal inspection, Nontender, Edema - mild +1 BLE, Normal color, Normal ROM, Normal strength, Normal temperature, Normal weight bearing. No: Jc's sign - Neurological Neuro grossly intact: Yes Cognition: Normal Orientation: AAOx4 [place] Coma Scale Eye Opening: Spontaneous [place] Coma Scale Verbal: Oriented [place] Coma Scale Motor: Obeys Commands Stanley Coma Scale Total: 15 Speech: Normal Motor strength normal: LUE, RUE, LLE, RLE Sensory: Normal - Skin Skin Temperature: Warm Skin Moisture: Dry Skin Color: Normal Course - Re-evaluation Re-evalutation: 10/06/16 04:50 Pt hemodynamically stable, in no distress, afebrile. Chest xray shows chf with possible superimposed pneumonia. Pt presentation and findings discussed with hospitalist Dr. Dupree who agrees to assume care, evaluate in the ED, and admit to telemetry observation unit. - Vital Signs Vital signs: Temp Pulse Resp BP Pulse Ox 60 16 146/55 H 96 10/06/16 02:54 10/06/16 05:01 10/06/16 05:01 10/06/16 05:01 - Laboratory Result Diagrams: 10/06/16 03:16 10/06/16 03:16 Laboratory results interpreted by me: 10/06/16 10/06/16 10/06/16 03:16 03:16 03:16 WBC 11.5 H RBC 3.66 L Hgb 11.1 L Hct 33.7 L RDW 15.4 H Seg Neutrophils % 83.9 H Lymphocytes % 7.1 L Absolute Neutrophils 9.7 H Chloride 109 H Glucose 163 H AST 58 H ALT 66 H Creatine Kinase 27 L NT-Pro-B Natriuret Pep 8190 H Total Protein 5.6 L Albumin 3.0 L Urine Glucose (UA) Ur Leukocyte Esterase 10/06/16 04:00 WBC RBC Hgb Hct RDW Seg Neutrophils % Lymphocytes % Absolute Neutrophils Chloride Glucose AST ALT Creatine Kinase NT-Pro-B Natriuret Pep Total Protein Albumin Urine Glucose (UA) 50 H Ur Leukocyte Esterase TRACE H - Diagnostic Test Radiology reviewed: Image reviewed, Reports reviewed - EKG Interpretation by Me EKG shows normal: Sinus rhythm, QRS Complexes Rate: Normal When compared to previous EKG there are: No significant change Discharge - Discharge Clinical Impression: Shortness of breath Condition: Stable Disposition: ADMITTED OBSERVATION Admitting Provider: Sumitist Max Dupree Unit Admitted: Telemetry
[2016-10-06] MEDS ORDERED: AZTREONAM INJ 1 GM VIAL IV PRN (06:00)
[2016-10-06] MEDS ORDERED: AZTREONAM 1 GM in DEXTROSE 5%-WATER 50 ML IV SCH (06:00)
[2016-10-06] MEDS ORDERED: IPRATROPIUM/ALBUTEROL 0.5-2.5 MG/3 ML AMPUL NEB PRN (06:04)
[2016-10-06] MEDS ORDERED: GUAIFENESIN SYRP 200 MG/10 ML UDC PO PRN (06:04)
[2016-10-06] MEDS ORDERED: DOXYCYCLINE HYCLATE INJ 100 MG VIAL IV PRN (06:06)
[2016-10-06] MEDS ORDERED: ACETAMINOPHEN 325 MG TABLET PO PRN (06:07)
[2016-10-06] MEDS ORDERED: PREDNISONE 20 MG TABLET PO ONE (06:15)
[2016-10-06] MEDS: DOXYCYCLINE HYCLATE 100 MG in DEXTROSE 5%-WATER 250 ML IV SCH ×2 (06:27→19:06)
--- NOTE | 2016-10-06 06:27 | PDOC H&P ---
History of Present Illness Admission Date/PCP: 10/06/16 05:05 Karthikeyan (sp.??) Saúl Mak Patient complains of: SOB History of Present Illness: KEVAN PAVON is a 85 year old female with reported underlying COPD, although both patient and son, who is present, along with granddaughter, at her side with patient's approval, denied any specific knowledge of same, who presents to the emergency room for evaluation of sudden onset of pronounced shortness of breath shortly after waking up shortly after midnight. She does describe a 2 day history or so of a persistent annoying dry cough with associated mild sharp chest discomfort. No chest discomfort otherwise. States she had nausea and 3 small episodes of vomiting shortly after awakening but none since then. No diarrhea or dysuria, fever or chills. Son recently had an upper respiratory tract infection, but he states he typically tries to stay away from his mother whenever he has any type of infection. Patient has had her flu vaccination this year, but is uncertain if she's had a Pneumovax. Denies any weight gain. Questionable ankle swelling; patient is somewhat of a rambling, poor historian at times. Does carry a diagnosis of underlying diastolic congestive heart failure. Patient has been discussed with emergency room nurse practitioner who evaluated the patient. Hospitalized on our service the through September 25 of this year, with final diagnoses including chest pain, along with atrial fibrillation with rapid ventricular response. History and physical, discharge summary, and Dr. Mak's cardiology consult have been reviewed. She has not been in the hospital since then. Has not been on antibiotics that she can recall over the last 3 months.. Laboratory results are listed in [facility] and are reviewed. X-ray summary results are listed below, with full report(s) reviewed, Along with visualization of the film itself.. EKG reviewed. And compared to a tracing from 25 of September of this year. Social history/personal habits: . Granddaughter lives with her. Retired. No use of alcohol tobacco or illicit drugs. Allergies/adverse reactions are listed in [facility] and are reviewed. Home medications Home medications initially autopopulated into [employer] may not accurately reflect patient's true medications, dosages, and/or frequencies. Home medications will be reconciled by pharmacy account director. Unfortunately, patient uncertain of medications/dosages/frequencies. REVIEW OF SYSTEMS: Constitutional: No fever or chills. Eyes: Wears glasses. Poor vision in both eyes, left worse than right, due to long-standing macular degeneration, along with a long-standing opaque film overlying her left cornea. ENT: No swallowing problems or complaints. Partial hearing loss. Pulmonary: See history and present illness. Cardiovascular: See history and present illness. Gastrointestinal: See history and present illness. Skin: No current complaints, including rashes. Hematologic: Easy bruising. Neurologic: Chronic mild intermittent numbness and tingling of her feet. Musculoskeletal: No current complaints, including painful joints. Psychiatric: Anxiety depression; denies suicidal or homicidal ideation. Endocrine: No current complaints, including polyuria. Genitourinary: No current complaints, including dysuria. PHYSICAL EXAMINATION: 5 feet 6 inches tall. 43.9 kg. BMI 15.7 kg/m. Blood pressure 146/55. Pulse 57 and regular. 95% saturation on 3 L oxygen per nasal cannula. Respirations are 17 and unlabored. Temperature not recorded on the chart; skin feels normothermic. Thin chronically ill-appearing female who nevertheless appears approximately her stated age. Pleasant awake alert and cooperative. Somewhat anxious at times, although no neisha agitation. Son and granddaughter are present at her side; patient approves. Skin is warm and dry. No grossly obvious evidence of rash in areas of skin examined. No subcutaneous nodules palpated. ENT: Mildly hard of hearing to normal conversation. Tongue midline on protrusion pink and slightly tacky. Eyes: No scleral icterus. Right pupil reactive to light at 4 mm; not able to visualize left pupil, due to opaque film overlying left cornea. Bertrand conjunctivae. Neck is supple and nontender to gentle active range of motion and palpation. Midline trachea. No palpable thyroid nodule mass enlargement or tenderness. Lymphatic: No palpable cervical or clavicular nodes. Neck and lymphatic exams limited by patient body habitus. Psychiatric: Reasonable insight into acute and chronic medical issues. Oriented to time location and why here. Somewhat of a rambling historian times. Lungs: Auscultation reveals equal breath sounds bilaterally. No use of accessory respiratory muscles. Slightly coarse breath sounds in the right base ; otherwise, breath sounds are clear. Cardiovascular: Heart regular rate and rhythm, without gallop murmur or rub. No carotid or abdominal aortic bruits. No ankle or pedal edema. palpable dorsalis pedis pulses. Abdomen: soft, slightly, distended nontender with positive bowel sounds. Unable to adequately evaluate abdomen for masses or organomegaly due to distention. Extremities: Feet are warm and dry. No calf tenderness to compression. No grossly obvious visual evidence of calf swelling. Gentle manipulation of lower extremities fails to reveal any obvious evidence of injury or instability to knees hips or ankles. Neurologic: Moves upper extremities grossly normally. Patellar reflexes absent. Absent Babinski. Light touch somewhat decreased at her feet, which is a chronic finding. Dorsiflexion and plantarflexion of feet 5 / 5 and symmetric. Past Medical History Past Medical History: Please refer also to past medical history from history and physical, September 24 2016. Cardiac Medical History: Reports: Atrial Fibrillation, Congestive Heart Failure - diastolic, Hyperlipidema, Hypertension, Other - cerebrovascular dz-90% Lt. carotid stenosis Denies: DVT, Myocardial Infarction, Pulmonary Embolism Pulmonary Medical History: Reports: Chronic Obstructive Pulmonary Disease (COPD ) - suspected Denies: Asthma, Bronchitis, Pneumonia, Sleep Apnea, Tuberculosis Neurological Medical History: Denies: Seizures Endocrine Medical History: Denies: Diabetes Mellitus Type 1, Diabetes Mellitus Type 2, Hyperthyroidism, Hypothyroidism Renal/ Medical History: Denies: End Stage Renal Disease GI Medical History: Reports: Crohn's Disease, Diverticulitis, Gastroesophageal Reflux Disease - Diverticulosis; constipation Denies: Cirrhosis, Hepatitis, Hiatal Hernia Musculoskeltal Medical History: Denies: Arthritis Psychiatric Medical History: Reports: Depression Denies: Bipolar Disorder Hematology: Denies: Anemia, Sickle Cell Disease, Bleeding Tendencies Infectious Medical History: Reports: Clostridium Difficile Past Surgical History Past Surgical History: Reports: Hysterectomy, Tubal Ligation Social History Information Source: Patient, Relative, Emergency Med Personnel, [facility] Records Lives with: Family Smoking Status: Never Smoker Frequency of Alcohol Use: None Hx Recreational Drug Use: No Drugs: None Hx Prescription Drug Abuse: No - Advance Directive Resuscitation Status: Full Code Surrogate healthcare decision maker:: Her children Family History Family History: CVA, Other - Congestive heart failure, but no family history of premature coronary artery disease or sudden cardiac . Parental Family History Reviewed: Yes Children Family History Reviewed: Yes Sibling(s) Family History Reviewed.: Yes Medication/Allergy Home Medications: Docusate Sodium [Colace 100 mg Capsule] 100 mg PO BID 10/06/16 Isosorbide Mononitrate [Imdur 30 mg Tablet.er] 30 mg PO DAILY 10/06/16 Metoprolol Tartrate [Lopressor 50 mg Tablet] 50 mg PO Q12 10/06/16 RX: Aspirin [Adult Low Dose Aspirin EC] 81 mg PO DAILY 10/06/16 RX: Atorvastatin Calcium [Lipitor 20 mg Tablet] 20 mg PO DAILY 10/06/16 RX: Bimatoprost [Lumigan 0.01% Oph Soln 2.5 ml/Bottle] 1 drop OU QHS 10/06/16 RX: Brimonidine Tartrate/Timolol [Combigan 0.2%-0.5% Eye Drops] 1 drop OU BID RX: Megestrol Acetate [Megace] 10 ml PO DAILY 10/06/16 RX: Sennosides/Docusate Sodium [Senna-S Tablet] 2 tab PO QHS 10/06/16 RX: Timolol Maleate [Timoptic 0.5% Oph Soln 5 ml] 1 drop OU QHS 10/06/16 RX: Acetaminophen [Tylenol 325 mg Tablet] 650 mg PO Q8HP PRN tablet 10/13/16 RX: Alprazolam [Xanax 0.25 mg Tablet] 0.125 mg PO BIDP PRN #10 tablet 10/13/16 RX: Amiodarone HCl [Cordarone 200 mg Tablet] 200 mg PO DAILY tablet 10/13/16 RX: Aspirin [Aspirin 81 mg Chewable Tablet] 81 mg PO DAILY tab.chew 10/13/16 RX: Benzonatate [Tessalon Perles 100 mg Capsule] 100 mg PO Q8 capsule 10/13/16 RX: Cyclosporine 0.05% Oph Emulsio [Restasis 0.05% Oph Emulsion Pf 0.4 ml] 1 drop OU Q12 droperette 10/13/16 RX: Docusate Sodium [Colace 100 mg Capsule] 100 mg PO BID capsule 10/13/16 RX: Erythromycin Base [E-Mycin 0.5% Oph Ointment 3.5 gm] 1 applic OD Q6 tube RX: Isosorbide Mononitrate [Imdur 30 mg Tablet.er] 30 mg PO DAILY tab.er.24h RX: Levofloxacin [Levaquin 750 mg Tablet] 750 mg PO Q2DAYS #2 tablet 10/13/16 RX: Metoprolol Tartrate [Lopressor 50 mg Tablet] 50 mg PO Q12 tablet 10/13/16 Allergies/Adverse Reactions: Penicillins Allergy (Mild, Verified 07/09/16 10:56) nausea,diarrhea Shellfish * [Shellfish] Allergy (Mild, Verified 07/09/16 10:56) VOMITING Physical Exam Vital Signs: Temp Pulse Resp BP Pulse Ox 60 16 146/55 H 96 10/06/16 02:54 10/06/16 05:01 10/06/16 05:01 10/06/16 05:01 Results Impressions: Chest X-Ray 10/06/16 02:58 IMPRESSION: Primary finding is congestive heart failure with alveolar pulmonary edema. Possible superimposed pneumonia. Assessment & Plan - Diagnosis (1) Abnormal urinalysis Is this a current diagnosis for this admission?: YesPlan: Urine culture. (2) Anemia Qualifiers: Anemia type: unspecified type Qualified Code(s): D64.9 - Anemia, unspecified Is this a current diagnosis for this admission?: YesPlan: Follow-up CBC with differential. No need for transfusion at present time. (3) LFT elevation Is this a current diagnosis for this admission?: Yes (4) RLL pneumonia Is this a current diagnosis for this admission?: YesPlan: Patient will be admitted under pneumonia protocol. Incentive spirometry twice a day. PRN DuoNeb's. Antibiotics will consist of aztreonam along with intravenous doxycycline.. I strongly encouraged patient to notify staff should patient feel that her breathing is worsening. Patient is a full code. I have strongly encouraged patient not to get out of bed without notifying staff , , to avoid a fall with injury. Knee high SCDs for DVT prophylaxis ; with patient on systemic anticoagulation, no need for Lovenox or heparin at this point in time. Impression and plans were discussed with patient and son, both of whom concur. Time spent in evaluation and management of patient: 62 minutes. - Inpatient Certification Based on my medical assessment, after consideration of the patient's comorbidities, presenting symptoms, or acuity I expect that the services needed warrant INPATIENT care.: Yes I certify that my determination is in accordance with my understanding of Medicare's requirements for reasonable and necessary INPATIENT services [42 CFR 412.3e].: Yes Medical Necessity: Need Close Monitoring Due to Risk of Patient Decompensation, Need For Continuous Telemetry Monitoring, Need for Nebulizer Therapy and Monitoring of Response, Need for IV Antibiotics, Risk of Complication if Not Cared For in Hospital Post Hospital Care: D/C or Transfer Summary
[2016-10-06] MEDS ORDERED: AMIODARONE HCL 200 MG TABLET PO SCH (10:00)
[2016-10-06] MEDS: ISOSORBIDE MONONITRATE 60 MG TAB.ER.24H PO SCH (10:30)
[2016-10-06] MEDS: ASPIRIN 81 MG TABLET, CHEWABLE PO SCH (10:30)
[2016-10-06] MEDS: RANOLAZINE 500 MG TAB.SR.12H PO SCH ×2 (10:31→22:30)
[2016-10-06] MEDS: APIXABAN 2.5 MG TABLET PO SCH ×2 (10:31→18:10)
[2016-10-06] MEDS: METOPROLOL TARTRATE 50 MG TABLET PO SCH ×2 (10:33→22:30)
[2016-10-06] MEDS: AZTREONAM 1 GM in DEXTROSE 5%-WATER 100 ML IV SCH ×2 (10:38→18:11)
[2016-10-06] MEDS: LANSOPRAZOLE 30 MG TAB.RAP.DR PO SCH (16:38)
--- NOTE | 2016-10-06 18:55 | PDOC CONSULTATION ---
Consultation Consult Date: 10/06/16 Attending physician:: MARYELLEN CHRISTOPHER Consult reason:: Shortness of breath History of Present Illness Admission Date/PCP: 10/06/16 05:57 ABEL WILD MD Patient complains of: Shortness of breath History of Present Illness: KEVAN PAVON is a 85 year old female with reported underlying COPD, chronic palpitations, paroxysmal atrial fibrillation/atrial tachycardia, anxiety disorder who was admitted through the emergency room for evaluation of sudden onset of pronounced shortness of breath shortly after waking up shortly after midnight. She does describe a 2 day history or so of a persistent annoying dry cough with associated mild sharp chest discomfort. No chest discomfort otherwise. States she had nausea and 3 small episodes of vomiting shortly after awakening but none since then. No diarrhea or dysuria, fever or chills. Patient does carry a diagnosis of underlying diastolic congestive heart failure. Patient claims that she was prescribed Ranexa by my office but she just hadn't filled it. Patient thinks that coming off Ranexa may have caused her symptoms. Patient follows with me in the office. A recent echocardiogram obtained at [facility] earlier this year had shown moderate LVH, mild aortic incompetence, mild pulmonary hypertension and mild mitral regurgitation. Past Medical History Cardiac Medical History: Reports: Hyperlipidema, Hypertension, Peripheral Vascular Disease - 90% left carotid stenosis, Other - Intermittent palpitations Denies: Congestive Heart Failure, DVT, Myocardial Infarction, Pulmonary Embolism Pulmonary Medical History: Reports: Chronic Obstructive Pulmonary Disease (COPD) Denies: Asthma, Bronchitis, Pneumonia, Sleep Apnea, Tuberculosis Neurological Medical History: Denies: Seizures Endocrine Medical History: Denies: Diabetes Mellitus Type 1, Diabetes Mellitus Type 2, Hyperthyroidism, Hypothyroidism Renal/ Medical History: Denies: End Stage Renal Disease GI Medical History: Reports: Crohn's Disease, Diverticulitis, Gastroesophageal Reflux Disease - Diverticulosis; constipation Denies: Cirrhosis, Hepatitis, Hiatal Hernia Musculoskeltal Medical History: Denies: Arthritis Psychiatric Medical History: Reports: Depression Denies: Bipolar Disorder Hematology: Denies: Anemia, Sickle Cell Disease, Bleeding Tendencies Infectious Medical History: Reports: Clostridium Difficile Past Surgical History Past Surgical History: Reports: Hysterectomy, Tubal Ligation Denies: Amputation, Mastectomy, Pacemaker Social History Information Source: Patient Lives with: Family Smoking Status: Former Smoker Frequency of Alcohol Use: None Hx Recreational Drug Use: No Drugs: None Hx Prescription Drug Abuse: No - Advance Directive Resuscitation Status: Full Code Surrogate healthcare decision maker:: Patient's son is the surrogate decision maker. Family History Family History: CVA, Other - Congestive heart failure, but no family history of premature coronary artery disease or sudden cardiac . Parental Family History Reviewed: Yes Children Family History Reviewed: Yes Sibling(s) Family History Reviewed.: Yes - Negative for premature coronary artery disease or sudden cardiac in the family amongst first degree relatives. Medication/Allergy Home Medications: Alprazolam [Xanax 0.25 mg Tablet] 0.25 mg PO BID 10/06/16 Amiodarone HCl [Cordarone 200 mg Tablet] 200 mg PO BID 10/06/16 Apixaban [Eliquis 2.5 mg Tablet] 2.5 mg PO BID 10/06/16 Aspirin [Adult Low Dose Aspirin EC] 81 mg PO DAILY 10/06/16 Atorvastatin Calcium [Lipitor 20 mg Tablet] 20 mg PO DAILY 10/06/16 Bimatoprost [Lumigan 0.01% Oph Soln 2.5 ml/Bottle] 1 drop OU QHS 10/06/16 Brimonidine Tartrate/Timolol [Combigan 0.2%-0.5% Eye Drops] 1 drop OU BID Cyproheptadine HCl [Periactin 4 mg Tablet] 4 mg PO BID 10/06/16 Docusate Sodium [Colace 100 mg Capsule] 100 mg PO BID 10/06/16 Fluoxetine HCl [Prozac] 10 mg PO BID 10/06/16 Hydralazine HCl [Apresoline 10 mg Tablet] 10 mg PO BID 10/06/16 Isosorbide Mononitrate [Imdur 30 mg Tablet.er] 30 mg PO DAILY 10/06/16 Meclizine HCl [Antivert 12.5 mg Tablet] 25 mg PO DAILY 10/06/16 Megestrol Acetate [Megace] 10 ml PO DAILY 10/06/16 Metoprolol Tartrate [Lopressor 50 mg Tablet] 50 mg PO Q12 10/06/16 Ranolazine [Ranexa 500 mg Tab.sr] 500 mg PO Q12 10/06/16 Risperidone [Risperdal 0.25 mg Tablet] 0.25 mg PO QHS 10/06/16 Sennosides/Docusate Sodium [Senna-S Tablet] 2 tab PO QHS 10/06/16 Timolol Maleate [Timoptic 0.5% Oph Soln 5 ml] 1 drop OU QHS 10/06/16 Allergies/Adverse Reactions: Penicillins Allergy (Mild, Verified 07/09/16 10:56) nausea,diarrhea Shellfish * [Shellfish] Allergy (Mild, Verified 07/09/16 10:56) VOMITING Review of Systems Review of Systems: Please see history of present illness and past medical history as wall. Constitutional: No fever or chills reported. Elevation has been feeling poorly for last few days. Head : No recent chronic headaches, recent head injury. Eyes: No recent eye pain, diplopia, redness, discharge, acute visual changes. Ears: No recent chronic ear pain, acute hearing loss, ear discharge. Oral cavity: No recent ulcerations, bleeding, oral cavity discomfort. Neck: No recent acute neck pain reported. Hematologic: No recent easy bruising or bleeding or hematologic malignancy reported. Lymphatic: No recent lymphatic malignancy, chronic lymphadenopathy reported yet Cardiovascular system review: See history of present illness. Intermittent palpitations but no recent syncope or near syncope. Respiratory system review: Recent cough and increased shortness of breath but no hemoptysis, blood clots in the lungs reported. Mild Shortness of breath on exertion Gastrointestinal system review: Negative for any recent acute or chronic abdominal pain, hematemesis, melena, recent change in bowel habits. Genitourinary system review: No recent acute or chronic hematuria, flank pain, UTI etc. reported. Skin system review: Negative for any recent abnormal bruising, no rash, no pruritus reported. Neurologic: No prior history of strokes, mini strokes, seizure disorder. Describes tingling numbness both feet. Psychologic: No history of major psychosis or major depression reported. Musculoskeletal: Minor aches and pains reported. No acute joint swelling reported. Endocrine: No recent polyuria, polydipsia, recent heat or cold intolerance. Physical Exam Vital Signs: Temp Pulse Resp BP Pulse Ox 98.5 F 60 18 115/91 H 96 10/06/16 15:55 10/06/16 10:22 10/06/16 15:55 10/06/16 15:31 10/06/16 15:55 Exam: GENERAL: well-nourished and in no acute distress. Alert and oriented x3 HEAD: Atraumatic, normocephalic. EYES: Pupils equal round and reactive to light, extraocular movements intact, sclera anicteric, conjunctiva are normal. ENT: TMs normal, nares patent, oropharynx clear without exudates. Moist mucous membranes. No oral ulcerations or bleeding gums noted NECK: supple without lymphadenopathy. Trachea is central. No cervical or axillary lymphadenopathy noted. Carotids are 2+, JVD WNL LUNGS: Respiration seems nonlabored, no significant accessory muscle action noted. Mild bilateral wheezing noted. Bibasal crackles noted. No significant dullness noted on percussion. CHEST: Palpation of the chest wall shows no significant chest wall tenderness. No other significant abnormalities noted. HEART: [place] [employer] SUPER[employer]OR, No PSH, 1/6 LUCINA aortic area, 1/6 wood systolic murmur mitral area, no rubs, no gallops. ABDOMEN: Soft, no significant tenderness appreciated, normoactive bowel sounds. No guarding, no rebound. No rigidity noted . No masses appreciated. EXTREMITIES: Pedal pulses are 1-2+, no calf tenderness noted. No clubbing or cyanosis.trace to 1+ pedal edema noted NEUROLOGICAL: Focused neurological exam showed no significant neurologic deficit. Normal speech, no focal weakness appreciated. PSYCH: Normal mood, normal affect. Judgment and insight within normal limits. SKIN: No significant ecchymosis, rash, ulcerations or signs of pruritus noted. MUSCULOSKELETAL EXAM: No significant joint swelling noted. Results EKG Comments: Sinus bradycardia with marked increased QRS voltage and secondary changes suggestive of LVH. Relatively unchanged from before. Impressions: Chest X-Ray 10/06/16 02:58 IMPRESSION: Primary finding is congestive heart failure with alveolar pulmonary edema. Possible superimposed pneumonia. Assessment & Plan - Diagnosis (1) Dyspnea Qualifiers: Dyspnea type: unspecified Qualified Code(s): R06.00 - Dyspnea, unspecified Is this a current diagnosis for this admission?: Yes (2) Anxiety disorder Qualifiers: Anxiety disorder type: generalized anxiety disorder Qualified Code(s ): F41.1 - Generalized anxiety disorder Is this a current diagnosis for this admission?: Yes (3) HLD (hyperlipidemia) Qualifiers: Hyperlipidemia type: unspecified Qualified Code(s): E78.5 - Hyperlipidemia, unspecified Is this a current diagnosis for this admission?: Yes (4) Hypertension Qualifiers: Hypertension type: essential hypertension Qualified Code(s): I10 - Essential (primary) hypertension Is this a current diagnosis for this admission?: Yes (5) Congestive heart failure Qualifiers: Congestive heart failure type: diastolic Congestive heart failure chronicity: acute on chronic Qualified Code(s): I50.33 - Acute on chronic diastolic (congestive) heart failure Is this a current diagnosis for this admission?: Yes (6) Paroxysmal atrial fibrillation Is this a current diagnosis for this admission?: Yes - Notes Notes: Dyspnea: Possibly combination of CHF and COPD. Recommend diuretic therapy, bronchodilator therapy etc. Patient may have associated bronchitis. Anxiety disorder: This is a significant symptom for this patient. Currently stable. CHF: This is felt to be present based on elevated BNP level, symptoms of dyspnea and chest x-ray. Patient has significant diastolic dysfunction. Recommend diuretic therapy. COPD: Continue bronchodilator therapy. History of paroxysmal atrial fibrillation: Patient on amiodarone therapy. Patient claims that she was recently placed on Ranexa which will be continued. [facility]. Continue chronic anticoagulation with ELIQUIS. Hypertension: Currently reasonably well controlled. Will recommend TRACY inhibitor/angiotensin receptor blockers. Continue beta blockers. Carotid artery stenosis: Patient is being followed by Dr. Nelson at [facility].. - Time Time Spent: 30 to 50 Minutes Medications reviewed and adjusted accordingly: Yes
--- NOTE | 2016-10-06 22:26 | EKG REPORT ---
SEVERITY:- ABNORMAL ECG - SINUS RHYTHM LVH WITH SECONDARY REPOLARIZATION ABNORMALITY ST DEPRESSION, CONSIDER ISCHEMIA, ANT-LAT LDS : Confirmed by: Letty Siegel MD 06-Oct-2016 22:25:21
[2016-10-07] MEDS ORDERED: LORAZEPAM 0.5 MG TABLET PO PRN (01:26)
[2016-10-07] MEDS: ENALAPRILAT DIHYDRATE INJ/PF 1.25 MG/1 ML SDV IV PRN (04:19)
[2016-10-07] MEDS: AZTREONAM 1 GM in DEXTROSE 5%-WATER 100 ML IV SCH ×3 (04:19→18:25)
[2016-10-07] MEDS: DOXYCYCLINE HYCLATE 100 MG in DEXTROSE 5%-WATER 250 ML IV SCH ×2 (05:31→20:18)
[2016-10-07] MEDS: LANSOPRAZOLE 30 MG TAB.RAP.DR PO SCH ×2 (05:31→18:24)
--- NOTE | 2016-10-07 06:08 | EKG REPORT ---
SEVERITY:- ABNORMAL ECG - SINUS RHYTHM LVH WITH SECONDARY REPOLARIZATION ABNORMALITY ANTERIOR Q WAVES, POSSIBLY DUE TO LVH ST DEPRESSION, CONSIDER ISCHEMIA, ANT-LAT LDS PROLONGED QT INTERVAL : Confirmed by: Nataly Mak 07-Oct-2016 06:08:32
[2016-10-07 06:57] LABS: ABSOLUTE LYMPHOCYTES (AUTO) 0.7 10^3/uL (0.5-4.7); ABSOLUTE MONOCYTES (AUTO) 1.5 10^3/uL (0.1-1.4); ABSOLUTE NEUT (AUTO) 11.1 10^3/uL (1.7-8.2); BASOPHILS % (AUTO) 0.2 % (0-2); HEMATOCRIT 31.1 % (36.0-47.0); HEMOGLOBIN 10.4 g/dL (12.0-15.5); HGB HCT DIFFERENCE 0.1; LYMPHOCYTES % (AUTO) 5.2 % (13-45); MEAN CORPUSCULAR HEMOGLOBIN 30.2 pg (27.0-33.4); MEAN CORPUSCULAR HGB CONC 33.6 g/dL (32.0-36.0); MEAN CORPUSCULAR VOLUME 90 fl (80-97); RED BLOOD COUNT 3.45 10^6/uL (3.72-5.28); RED CELL DISTRIBUTION WIDTH 15.2 % (11.5-14.0); SEGMENTED NEUTROPHILS % (AUTO) 83.6 % (42-78); WHITE BLOOD COUNT 13.3 10^3/uL (4.0-10.5)
[2016-10-07 07:07] LABS: ANION GAP 9 (5-19); BLOOD UREA NITROGEN 14 mg/dL (7-20); CALCIUM 8.7 mg/dL (8.4-10.2); CARBON DIOXIDE 22 mmol/L (22-30); CHLORIDE 102 mmol/L (98-107); GLUCOSE 134 mg/dL (75-110); POTASSIUM 3.9 mmol/L (3.6-5.0); SODIUM 133.3 mmol/L (137-145)
[2016-10-07 08:49] LABS: ARTERIAL BLOOD BASE EXCESS -1.5 mmol/L; ARTERIAL BLOOD O2 SATURATION 93.7 % (94-98)
[2016-10-07] MEDS: APIXABAN 2.5 MG TABLET PO SCH ×2 (09:49→18:24)
[2016-10-07] MEDS: ASPIRIN 81 MG TABLET, CHEWABLE PO SCH (09:50)
[2016-10-07] MEDS: DOCUSATE SODIUM 100 MG CAPSULE PO SCH ×2 (09:50→18:24)
[2016-10-07] MEDS: METOPROLOL TARTRATE 50 MG TABLET PO SCH ×2 (09:50→21:52)
[2016-10-07] MEDS: ISOSORBIDE MONONITRATE 60 MG TAB.ER.24H PO SCH (09:50)
[2016-10-07] MEDS ORDERED: AMIODARONE HCL 200 MG TABLET PO SCH (10:00)
--- NOTE | 2016-10-07 10:24 | PDOC PROGRESS REPORT ---
Subjective Progress Note for:: 10/07/16 Subjective:: Episode of bronchospasms earlier, with oxygen desaturation. Patient with anxiety. On low-dose Ativan. No reported temperature spikes, patient denies diarrhea or chills nor fever. Patient given the Ativan, BiPAP was placed, nebulizers given, patient improved. Shortness of breath significantly improved. Physical Exam Vital Signs: Temp Pulse Resp BP Pulse Ox 97.8 F 92 22 H 185/85 H 71 L 10/07/16 08:04 10/07/16 08:04 10/07/16 08:04 10/07/16 08:04 10/07/16 08:04 Intake & Output 10/06/16 10/07/16 10/08/16 06:59 06:59 06:59 Intake Total 412 Balance 412 Weight 44.2 kg General appearance: PRESENT: no acute distress, thin, other - On BiPAP Head exam: PRESENT: normocephalic Eye exam: PRESENT: EOMI Ear exam: PRESENT: normal external ear exam Mouth exam: PRESENT: moist, neck supple Neck exam: ABSENT: JVD Respiratory exam: PRESENT: clear to auscultation toy - Anteriorly, other - Crepitations noted posteriorly on the lower lung lehman Cardiovascular exam: PRESENT: RRR. ABSENT: gallop Pulses: PRESENT: normal dorsalis pedis pul Vascular exam: PRESENT: normal capillary refill GI/Abdominal exam: PRESENT: soft. ABSENT: distended, tenderness Rectal exam: PRESENT: deferred Extremities exam: ABSENT: pedal edema Neurological exam: PRESENT: alert, awake Psychiatric exam: PRESENT: appropriate affect, normal mood. ABSENT: homicidal ideation, suicidal ideation Skin exam: PRESENT: dry, warm. ABSENT: cyanosis Results Laboratory Results: 10/07/16 06:35 10/07/16 06:35 10/07/16 10/07/16 10/07/16 06:35 06:35 08:30 WBC 13.3 H RBC 3.45 L Hgb 10.4 L Hct 31.1 L MCV 90 MCH 30.2 MCHC 33.6 RDW 15.2 H Plt Count 287 Seg Neutrophils % 83.6 H Lymphocytes % 5.2 L Monocytes % 11.0 Eosinophils % 0.0 Basophils % 0.2 Absolute Neutrophils 11.1 H Absolute Lymphocytes 0.7 Absolute Monocytes 1.5 H Absolute Eosinophils 0.0 Absolute Basophils 0.0 Carbonic Acid 0.86 L HCO3/H2CO3 Ratio 24:1 ABG pH 7.48 H ABG pCO2 28.6 L ABG pO2 62.2 L ABG HCO3 20.9 ABG O2 Saturation 93.7 L ABG Base Excess -1.5 FiO2 30% Sodium 133.3 L Potassium 3.9 Chloride 102 Carbon Dioxide 22 Anion Gap 9 BUN 14 Creatinine 0.70 Est GFR ( Amer) > 60 Est GFR (Non-Af Amer) > 60 Glucose 134 H Calcium 8.7 Impressions: Chest X-Ray 10/07/16 00:00 IMPRESSION: Asymmetric edema or sepsis. Assessment & Plan - Diagnosis (1) Pneumonia Qualifiers: Pneumonia type: due to unspecified organism Laterality: unspecified laterality Lung location: unspecified part of lung Qualified Code(s) : J18.9 - Pneumonia, unspecified organism Is this a current diagnosis for this admission?: Yes (2) Diastolic CHF Qualifiers: Congestive heart failure chronicity: acute on chronic Qualified Code (s): I50.33 - Acute on chronic diastolic (congestive) heart failure Is this a current diagnosis for this admission?: Yes (3) COPD exacerbation Is this a current diagnosis for this admission?: Yes (4) UTI (urinary tract infection) Qualifiers: Urinary tract infection type: acute cystitis Hematuria presence: without hematuria Qualified Code(s): N30.00 - Acute cystitis without hematuria Is this a current diagnosis for this admission?: Yes (5) Anemia Qualifiers: Anemia type: unspecified type Qualified Code(s): D64.9 - Anemia, unspecified Is this a current diagnosis for this admission?: Yes (6) Transaminitis Is this a current diagnosis for this admission?: Yes (7) Carotid artery stenosis Qualifiers: Laterality: left Qualified Code(s): I65.22 - Occlusion and stenosis of left carotid artery Is this a current diagnosis for this admission?: Yes (8) Paroxysmal atrial tachycardia Is this a current diagnosis for this admission?: Yes (9) Anxiety disorder Qualifiers: Anxiety disorder type: generalized anxiety disorder Qualified Code(s ): F41.1 - Generalized anxiety disorder Is this a current diagnosis for this admission?: Yes (10) Crohns disease Qualifiers: Gastrointestinal tract location: unspecified location Digestive disease complication type: unspecified complication Qualified Code(s): K50.919 - Crohn's disease, unspecified, with unspecified complications Is this a current diagnosis for this admission?: Yes (11) Gastroesophageal reflux disease Qualifiers: Esophagitis presence: without esophagitis Qualified Code(s): K21.9 - Gastro-esophageal reflux disease without esophagitis Is this a current diagnosis for this admission?: Yes (12) Peripheral vascular disease Is this a current diagnosis for this admission?: Yes (13) HLD (hyperlipidemia) Qualifiers: Hyperlipidemia type: unspecified Qualified Code(s): E78.5 - Hyperlipidemia, unspecified Is this a current diagnosis for this admission?: Yes (14) Hypertension Qualifiers: Hypertension type: essential hypertension Qualified Code(s): I10 - Essential (primary) hypertension Is this a current diagnosis for this admission?: Yes - Time Time Spent with patient: 25-34 minutes - Plan Summary Plan Summary: Begin BiPAP, check ABG, continue antibiotics, continue nebulizers. Chest x-ray shows some congestion, begin intravenous Lasix. Obtain echocardiogram. Continue other medication and supportive care. We are going to assume the patient's home Ativan, Risperdal, and Prozac for her anxiety disorder.
[2016-10-07] MEDS: RANOLAZINE 500 MG TAB.SR.12H PO SCH ×2 (10:52→21:52)
[2016-10-07] MEDS ORDERED: FUROSEMIDE INJ/PF 40 MG/4 ML SDV IV ONE (11:30)
[2016-10-07] MEDS ORDERED: FLUOXETINE HCL 20 MG/5 ML UDCUP PO ONE (11:30)
[2016-10-07] MEDS: ALPRAZOLAM 0.25 MG TABLET PO SCH (18:24)
[2016-10-07] MEDS: RISPERIDONE 0.25 MG TABLET PO SCH (21:52)
[2016-10-07] MEDS: FLUOXETINE HCL 20 MG/5 ML UDCUP PO SCH (21:53)
[2016-10-07] MEDS: TIMOLOL MALEATE 0.5% OPH SOLN 5 ML OU SCH (22:00)
[2016-10-08] MEDS: AZTREONAM 1 GM in DEXTROSE 5%-WATER 100 ML IV SCH ×3 (03:07→17:00)
--- NOTE | 2016-10-08 03:54 | PROGRESS NOTE E ---
Progress Note NAME: KEVAN HAINES : 1930 AGE: 85Y DATE: 10/07/2016 ROOM: 537 SUBJECTIVE: The patient still appears to be slightly short of breath. She is on the BiPAP. She denies any palpitations. She remains in sinus rhythm. The patient does have some orthopnea, but no PND. There is no pedal edema. There is no PND. The patient appears to be slightly anxious. OBJECTIVE: GENERAL: The patient is of frail build, appears to be chronically ill. VITAL SIGNS: She is afebrile with a temperature of 98.1 degrees Fahrenheit, pulse is 89 beats per minute, blood pressure 135/61, respiratory rate is 22 per minute, O2 saturations are 95% on BiPAP. HEENT: Head is atraumatic, normocephalic. Eyes: Pupils are equal, round, regular, reactive to light and accommodation. Extraocular movements are intact. Sclerae are anicteric. Conjunctivae are normal. ENT is negative. NECK: Supple. There is no lymphadenopathy. Trachea is central. There is no goiter. There is a left carotid bruit present. Carotids are equal. LUNGS: Show bibasilar crackles noted. There is no significant accessory muscle respiration in use. There is also wheezing bilaterally. HEART: S1 and S2 are heard. There is no S3 gallop. There is no S4 gallop. There is a systolic murmur in the mitral area. There are no rubs. There are no gallops. ABDOMEN: Soft. No severe tenderness appreciated. Normal bowel sounds. No guarding. No rebound. No rigidity noted. No masses appreciated. EXTREMITIES: Pedal pulses are slightly diminished. Femorals are diminished. There are no femoral bruits. There is no pedal edema. There is no cyanosis or clubbing. CENTRAL NERVOUS SYSTEM: The patient is conscious, awake, with no focal neurological deficits. PSYCHIATRIC: The patient appears to be slightly anxious. Judgment and insight are within normal limits. DIAGNOSTIC DATA: The patient's white count is 13,300; hemoglobin is 10.4; hematocrit is 31.1; and platelet count is 287,000. The patient's sodium is 133.3, potassium is 3.9, chloride is 102, CO2 is 22. The patient's BUN is 14, creatinine is 0.70, GFR is greater than 60. The patient's glucose is 134. The patient's calcium is 8.7. Note that the patient's liver function test done yesterday were abnormal, 58 AST and ALT is 66. Rest of liver function tests is normal. The patient's CPK-MB and troponin I yesterday were negative. NT-proBNP is 8,190. IMPRESSION: 1. DYSPNEA, SLIGHTLY BETTER, BUT STILL PATIENT IS USING BIPAP. 2. ANXIOUS DISORDER. THE PATIENT HAS GENERALIZED DISORDER. The patient is on antianxiety medications. 3. HYPERLIPIDEMIA. 4. HYPERTENSION. BLOOD PRESSURE IS SLIGHTLY ON THE HIGHER SIDE. THIS IS ESSENTIAL PRIMARY HYPERTENSION. 5. CONGESTIVE HEART FAILURE. THIS IS [id number] DIASTOLIC HEART FAILURE WITH A NORMAL LV EJECTION FRACTION. 6. PAROXYSMAL ATRIAL FIBRILLATION. 7. ABNORMAL EKG DONE YESTERDAY, WHICH SHOWS SINUS RHYTHM. LVH WITH STRAIN PATTERN, CANNOT RULE OUT ANTEROLATERAL ISCHEMIA. 8. ABNORMAL LIVER FUNCTION TESTS. We will recheck the patient's liver function test in the a.m. 9. LEFT CAROTID STENOSIS 90%, BEING FOLLOWED BY *------* [facility]. 10. MOST LIKELY THE PATIENT HAS BILATERAL PNEUMONIA VERSUS CHANGES DUE TO AMIODARONE. We will discuss with the attending to get a high resolution CT of the chest. We will recheck the patient's LFTs in the morning. PLAN: We will discuss with the attending to get a high resolution CT to make sure that the patient does not have amiodarone toxicity. Continue with bronchodilator therapy. Continue with diuretics. Would have to revisit the patient being on amiodarone. She is also on Ranexa, which may not be a good combination with the amiodarone. Continue chronic anticoagulation with Eliquis. Continue Imdur. Continue Eliquis and aspirin. She is on aztreonam. Her medications have been reviewed. She is also on bronchodilators. We will recheck the interaction between amiodarone and Ranexa. Note, 25 minutes spent on this patient with more than 50% of the time spent on direct patient care and the patient was seen around 11 a.m.. The patient is a full code. Her son is the surrogate health care decision maker, Mr. Roshan Haines. DICTATING PHYSICIAN: DEVANTE DOBSON M.D. [id number] TRESSA#: [id number] ID: [id number] JOB#: [id number] ACCT: [id number] cc: >
[2016-10-08] MEDS ORDERED: MAGNESIUM HYDROXIDE SUSP 30 ML UDCUP PO ONE (04:30)
[2016-10-08] MEDS: LANSOPRAZOLE 30 MG TAB.RAP.DR PO SCH ×2 (06:08→17:01)
[2016-10-08] MEDS: DOXYCYCLINE HYCLATE 100 MG in DEXTROSE 5%-WATER 250 ML IV SCH ×2 (06:09→17:02)
[2016-10-08 07:28] LABS: HEMATOCRIT 30.9 % (36.0-47.0); HEMOGLOBIN 10.5 g/dL (12.0-15.5); HGB HCT DIFFERENCE 0.6; MEAN CORPUSCULAR HEMOGLOBIN 31.2 pg (27.0-33.4); MEAN CORPUSCULAR VOLUME 92 fl (80-97); RED BLOOD COUNT 3.37 10^6/uL (3.72-5.28); RED CELL DISTRIBUTION WIDTH 15.1 % (11.5-14.0); WHITE BLOOD COUNT 9.1 10^3/uL (4.0-10.5)
[2016-10-08 08:37] LABS: ALANINE AMINOTRANSFERASE 49 U/L (9-52); ALBUMIN 2.8 g/dL (3.5-5.0); ALKALINE PHOSPHATASE 43 U/L (38-126); ANION GAP 9 (5-19); ASPARTATE AMINO TRANSFERASE 24 U/L (14-36); BILIRUBIN,DIRECT 0.3 mg/dL (0.0-0.4); BILIRUBIN,TOTAL 1.1 mg/dL (0.2-1.3); BLOOD UREA NITROGEN 16 mg/dL (7-20); CALCIUM 8.4 mg/dL (8.4-10.2); CARBON DIOXIDE 26 mmol/L (22-30); CHLORIDE 98 mmol/L (98-107); CREATININE RESULT 0.68 mg/dL (0.52-1.25); GLUCOSE 124 mg/dL (75-110); POTASSIUM 3.1 mmol/L (3.6-5.0); SODIUM 132.8 mmol/L (137-145); TOTAL PROTEIN 5.3 g/dL (6.3-8.2)
--- NOTE | 2016-10-08 08:37 | EKG REPORT ---
SEVERITY:- ABNORMAL ECG - SINUS RHYTHM LVH WITH SECONDARY REPOLARIZATION ABNORMALITY ANTERIOR Q WAVES, POSSIBLY DUE TO LVH ST DEPRESSION, CONSIDER ISCHEMIA, ANT-LAT LDS : Confirmed by: Nataly Mak 08-Oct-2016 08:36:59
--- NOTE | 2016-10-08 09:14 | PDOC PROGRESS REPORT ---
Subjective Progress Note for:: 10/08/16 Subjective:: Feeling better this morning than yesterday. Off the BiPAP. Complains some pleurisy. Denies any diarrhea, nausea or vomiting, worsening shortness of breath. No reported temperature spikes. Denies paroxysmal nocturnal dyspnea, denies orthopnea Physical Exam Vital Signs: Temp Pulse Resp BP Pulse Ox 97.5 F 63 16 160/76 H 96 10/08/16 08:00 10/08/16 08:00 10/08/16 08:00 10/08/16 08:00 10/08/16 08:00 Intake & Output 10/07/16 10/08/16 10/09/16 06:59 06:59 06:59 Intake Total 412 1010 Output Total 700 Balance 412 310 Weight 44.2 kg 46.8 kg General appearance: PRESENT: no acute distress, thin, other - Nasal cannula oxygen Head exam: PRESENT: normocephalic Eye exam: PRESENT: EOMI Mouth exam: PRESENT: moist, neck supple Neck exam: ABSENT: JVD Respiratory exam: PRESENT: clear to auscultation toy - Anteriorly bilateral. ABSENT: rhonchi, wheezes Cardiovascular exam: PRESENT: irregular rhythm. ABSENT: gallop GI/Abdominal exam: PRESENT: soft. ABSENT: distended Extremities exam: ABSENT: pedal edema Neurological exam: PRESENT: alert, awake, oriented to situation Skin exam: PRESENT: dry, warm. ABSENT: cyanosis Results Laboratory Results: 10/08/16 06:39 10/08/16 08:04 10/08/16 10/08/16 10/08/16 06:39 06:39 08:04 WBC 9.1 RBC 3.37 L Hgb 10.5 L Hct 30.9 L MCV 92 MCH 31.2 MCHC 34.0 RDW 15.1 H Plt Count 258 Sodium Cancelled 132.8 L Potassium Cancelled 3.1 L Chloride Cancelled 98 Carbon Dioxide Cancelled 26 Anion Gap Cancelled 9 BUN Cancelled 16 Creatinine Cancelled 0.68 Est GFR ( Amer) Cancelled > 60 Est GFR (Non-Af Amer) Cancelled > 60 Glucose Cancelled 124 H Calcium Cancelled 8.4 Total Bilirubin Cancelled 1.1 AST Cancelled 24 ALT Cancelled 49 Alkaline Phosphatase Cancelled 43 Total Protein Cancelled 5.3 L Albumin Cancelled 2.8 L Impressions: Chest X-Ray 10/07/16 00:00 IMPRESSION: Asymmetric edema or sepsis. Assessment & Plan - Diagnosis (1) Pneumonia Qualifiers: Pneumonia type: due to unspecified organism Laterality: unspecified laterality Lung location: unspecified part of lung Qualified Code(s) : J18.9 - Pneumonia, unspecified organism Is this a current diagnosis for this admission?: Yes (2) Diastolic CHF Qualifiers: Congestive heart failure chronicity: acute on chronic Qualified Code (s): I50.33 - Acute on chronic diastolic (congestive) heart failure Is this a current diagnosis for this admission?: Yes (3) COPD exacerbation Is this a current diagnosis for this admission?: Yes (4) UTI (urinary tract infection) Qualifiers: Urinary tract infection type: acute cystitis Hematuria presence: without hematuria Qualified Code(s): N30.00 - Acute cystitis without hematuria Is this a current diagnosis for this admission?: Yes (5) Anemia Qualifiers: Anemia type: unspecified type Qualified Code(s): D64.9 - Anemia, unspecified Is this a current diagnosis for this admission?: Yes (6) Transaminitis Is this a current diagnosis for this admission?: Yes (7) Carotid artery stenosis Qualifiers: Laterality: left Qualified Code(s): I65.22 - Occlusion and stenosis of left carotid artery Is this a current diagnosis for this admission?: Yes (8) Paroxysmal atrial tachycardia Is this a current diagnosis for this admission?: Yes (9) Anxiety disorder Qualifiers: Anxiety disorder type: generalized anxiety disorder Qualified Code(s ): F41.1 - Generalized anxiety disorder Is this a current diagnosis for this admission?: Yes (10) Crohns disease Qualifiers: Gastrointestinal tract location: unspecified location Digestive disease complication type: unspecified complication Qualified Code(s): K50.919 - Crohn's disease, unspecified, with unspecified complications Is this a current diagnosis for this admission?: Yes (11) Gastroesophageal reflux disease Qualifiers: Esophagitis presence: without esophagitis Qualified Code(s): K21.9 - Gastro-esophageal reflux disease without esophagitis Is this a current diagnosis for this admission?: Yes (12) Peripheral vascular disease Is this a current diagnosis for this admission?: Yes (13) HLD (hyperlipidemia) Qualifiers: Hyperlipidemia type: unspecified Qualified Code(s): E78.5 - Hyperlipidemia, unspecified Is this a current diagnosis for this admission?: Yes (14) Hypertension Qualifiers: Hypertension type: essential hypertension Qualified Code(s): I10 - Essential (primary) hypertension Is this a current diagnosis for this admission?: Yes - Time Time Spent with patient: 25-34 minutes - Plan Summary Plan Summary: Patient clinically improving. We will continue steroids and nebulizers, continue antibiotic. Case discussed with cardiology service. We will hold her amiodarone, obtain high-resolution CT of the chest to check for pulmonary toxicity brought about by amiodarone. We will continue to monitor. Humidify oxygen. Antitussives as needed. Continue supportive care.
[2016-10-08] MEDS: ASPIRIN 81 MG TABLET, CHEWABLE PO SCH (10:32)
[2016-10-08] MEDS: ISOSORBIDE MONONITRATE 60 MG TAB.ER.24H PO SCH (10:32)
[2016-10-08] MEDS: DOCUSATE SODIUM 100 MG CAPSULE PO SCH ×2 (10:32→17:03)
[2016-10-08] MEDS: METOPROLOL TARTRATE 50 MG TABLET PO SCH ×2 (10:32→22:56)
[2016-10-08] MEDS: APIXABAN 2.5 MG TABLET PO SCH ×2 (10:33→17:02)
[2016-10-08] MEDS: POTASSIUM CHLORIDE 10 MEQ TABLET.SA PO SCH ×2 (10:33→13:27)
[2016-10-08] MEDS: FUROSEMIDE INJ/PF 40 MG/4 ML SDV IV SCH (10:34)
[2016-10-08] MEDS: FLUOXETINE HCL 20 MG/5 ML UDCUP PO SCH ×2 (10:34→22:57)
[2016-10-08] MEDS: RANOLAZINE 500 MG TAB.SR.12H PO SCH ×2 (10:34→22:56)
[2016-10-08] MEDS: ALPRAZOLAM 0.25 MG TABLET PO SCH ×2 (10:36→17:01)
[2016-10-08] MEDS: ENALAPRILAT DIHYDRATE INJ/PF 1.25 MG/1 ML SDV IV PRN ×2 (12:02→22:57)
[2016-10-08] MEDS: BENZONATATE 100 MG CAPSULE PO SCH ×2 (13:27→22:57)
--- NOTE | 2016-10-08 16:03 | PROGRESS NOTE E ---
Progress Note NAME: KEVAN PAVON : 1930 AGE: 85Y DATE: 10/08/2016 ROOM: 537 SUBJECTIVE: The patient states she is feeling slightly better. She says she is able to sit up in bed but she has not done any activity. There is no chest pain. The patient remains in sinus rhythm. She off BiPAP and is on nasal cannula. The patient is afebrile. There is no PND, orthopnea or leg edema. She denies any fever, chills, nausea or vomiting. OBJECTIVE: GENERAL: The patient is of frail build and looks chronically ill. VITAL SIGNS: She is afebrile with a temperature 98.1 degrees Fahrenheit orally. Pulse is 16 beats per minute. Blood pressure is 171/71. Respirations are 12 per minute. O2 sats are 99% on 2 liters nasal cannula. At present, patient in no acute distress. RESPIRATIONS: She still has a dry cough, which she says is pretty much loosening up. HEENT: Head is normocephalic, atraumatic. Eyes: Pupils are equal, round, regular. Reactive to light and accommodation. Extraocular movements are normal. There is no conjunctival pallor. There is a scleral icterus. NECK: ENT is negative. Neck is supple. There is no lymphadenopathy. Trachea is central. There is no goiter. There is a left carotid bruit present. Carotids are equal. LUNGS: Show absent breath sounds at the bases with bibasilar dry crackles. Not suggestive of CHF. There is no significant accessory muscle respiration use. There are a few scattered rhonchi. There is no wheezing. HEART: S1, S2 heard. There is no S3 gallop. There is no S4 gallop. There is systolic murmur mitral area. There are no rubs. There are no gallops. ABDOMEN: Soft, nontender. Normal bowel sounds. There is no hepatosplenomegaly. Bowel sounds are well heard. EXTREMITIES: Pedal pulses are slightly diminished, femorals are diminished. There are no carotid bruits. There is no pedal edema. There is no cyanosis, clubbing. CENTRAL NERVOUS SYSTEM: The patient is conscious, awake. No focal neurological deficit. PSYCHIATRIC: The patient appears to be slightly anxious. Judgment and insight are within normal limits. DIAGNOSTIC DATA: The patient's EKG shows sinus rhythm. LVH with secondary polarization abnormality. Anterior Q waves possibly due to LVH ST depression in anterolateral leads. Consider ischemia but may be baseline. The patient had chest CT reported as bilateral pleural effusions and ground glass infiltrates, which are likely related to acute congestive heart failure. The presence of this acute disease limits evaluation *------* but to me, it is very suspicious for amiodarone toxicity. The patient's white count is 9100. Hemoglobin is 10.5. Hematocrit is 30.9. Platelet count is 258,000. The patient's sodium is 132.8, potassium is 3.1. Chloride is 98. CO2 is 26. The patient's BUN is 16. Creatinine 0.68. EFR is greater than 60. The patient's glucose is 124. Calcium is 8.4. The patient's liver function tests have normalized. The patient's albumin is 2.8 and a total protein is 5.3. IMPRESSION: 1. LUNG INFILTRATES. PNEUMONIA. 2. POSSIBLE AMIODARONE LUNG TOXICITY. 3. DIASTOLIC CONGESTIVE HEART FAILURE. 4. COPD EXACERBATION. 5. UTI. 6. ANEMIA. 7. ELEVATED LIVER FUNCTION TESTS NOW NORMALIZED. ABNORMAL EKG DONE YESTERDAY. 8. PAROXYSMAL ATRIAL FIBRILLATION. CONGESTIVE HEART FAILURE. THIS IS ACUTE ON CHRONIC DIASTOLIC HEART FAILURE WITH NORMAL LV EJECTION FRACTION. 9. LEFT CAROTID STENOSIS 90%. BEING FOLLOWED BY DR. HARVEY OF [facility]. PLAN: In view of the suspicion for possible amiodarone toxicity, will stop the patient's amiodarone. Will continue the patient's Lasix. The patient is on Eliquis. Continue Lasix 40 mg IV daily. Continue doxycycline and isosorbide mononitrate and metoprolol. Continue Ranexa since the amiodarone has been stopped. The high-resolution CT findings were discussed with the patient and the patient's son. I also told him that my suspicion for amiodarone toxicity and I have stopped the amiodarone and there is a chance that the patient can go back into atrial fibrillation and the patient is already on blood thinners. Will treat with beta blockers at an increased dose if the patient should go into atrial fibrillation. NOTE: Thirty minutes spent on this patient with more than 50% of the time spent under the patient care and discussions with the patient and the patient's son and also discussions with the attending physician and evaluating and reviewing the medication and stopping amiodarone and developing a care plan for the patient. Continue bronchodilators. Continue aztreonam along with doxycycline. DICTATING PHYSICIAN: DEVANTE DOBSON M.D. [id number] PHY#: [id number] ID: [id number] JOB#: [id number] ACCT: [id number] cc: >
[2016-10-08] MEDS: RISPERIDONE 0.25 MG TABLET PO SCH (22:56)
[2016-10-08] MEDS: TIMOLOL MALEATE 0.5% OPH SOLN 5 ML OU SCH (22:57)
[2016-10-09] MEDS: AZTREONAM 1 GM in DEXTROSE 5%-WATER 100 ML IV SCH (02:50)
[2016-10-09] MEDS: LANSOPRAZOLE 30 MG TAB.RAP.DR PO SCH ×2 (05:37→16:07)
[2016-10-09] MEDS: BENZONATATE 100 MG CAPSULE PO SCH ×3 (05:37→22:57)
[2016-10-09] MEDS: DOXYCYCLINE HYCLATE 100 MG in DEXTROSE 5%-WATER 250 ML IV SCH (05:39)
[2016-10-09 08:00] LABS: ANION GAP 9 (5-19); BLOOD UREA NITROGEN 15 mg/dL (7-20); CALCIUM 8.4 mg/dL (8.4-10.2); CARBON DIOXIDE 26 mmol/L (22-30); CHLORIDE 99 mmol/L (98-107); CREATININE RESULT 0.63 mg/dL (0.52-1.25); GLUCOSE 119 mg/dL (75-110); SODIUM 133.7 mmol/L (137-145)
[2016-10-09 08:26] LABS: POTASSIUM 4.2 mmol/L (3.6-5.0)
--- NOTE | 2016-10-09 09:12 | PDOC PROGRESS REPORT ---
Subjective Progress Note for:: 10/09/16 Subjective:: The patient shortness of breath still present but improved compared to admission. Patient reports she still unwell regarding her respirations. Denies any increasing or worsening shortness of breath however. Patient feels nauseated, feels like having to go to the bathroom a lot of times. Sometimes difficult to urinate. No dizziness. There is pleuritic chest pain. Denies diarrhea. Physical Exam Vital Signs: Temp Pulse Resp BP Pulse Ox 97.5 F 61 16 160/62 H 97 10/09/16 07:45 10/09/16 07:45 10/09/16 07:45 10/09/16 07:45 10/09/16 07:45 Intake & Output 10/08/16 10/09/16 10/10/16 06:59 06:59 06:59 Intake Total 1010 1730 Output Total 700 Balance 310 1730 Weight 46.8 kg 47.1 kg General appearance: PRESENT: no acute distress, thin, other - Nasal cannula oxygen Head exam: PRESENT: normocephalic Eye exam: PRESENT: EOMI, other - Opacified lens on the left Mouth exam: PRESENT: moist, neck supple Neck exam: ABSENT: JVD Respiratory exam: PRESENT: crackles - Posteriorly bilateral. ABSENT: wheezes Cardiovascular exam: PRESENT: irregular rhythm. ABSENT: gallop GI/Abdominal exam: PRESENT: soft. ABSENT: distended, tenderness Extremities exam: ABSENT: pedal edema Neurological exam: PRESENT: alert, awake, oriented to situation Skin exam: PRESENT: dry, warm. ABSENT: cyanosis Results Laboratory Results: 10/08/16 06:39 10/09/16 07:14 10/09/16 07:14 Sodium 133.7 L Potassium 4.2 D Chloride 99 Carbon Dioxide 26 Anion Gap 9 BUN 15 Creatinine 0.63 Est GFR ( Amer) > 60 Est GFR (Non-Af Amer) > 60 Glucose 119 H Calcium 8.4 Impressions: Chest X-Ray 10/07/16 00:00 IMPRESSION: Asymmetric edema or sepsis. Chest CT 10/08/16 00:00 IMPRESSION: 1. Effusions and ground-glass infiltrates are likely related to acute congestive failure. The presence of this acute disease limits evaluation for underlying drug toxicity. Re- scanning at a later date when the patient is no longer acutely ill may help evaluate further for amiodarone toxicity. Assessment & Plan - Diagnosis (1) Pneumonia Qualifiers: Pneumonia type: due to unspecified organism Laterality: unspecified laterality Lung location: unspecified part of lung Qualified Code(s) : J18.9 - Pneumonia, unspecified organism Is this a current diagnosis for this admission?: Yes (2) Diastolic CHF Qualifiers: Congestive heart failure chronicity: acute on chronic Qualified Code (s): I50.33 - Acute on chronic diastolic (congestive) heart failure Is this a current diagnosis for this admission?: Yes (3) COPD exacerbation Is this a current diagnosis for this admission?: Yes (4) UTI (urinary tract infection) Qualifiers: Urinary tract infection type: acute cystitis Hematuria presence: without hematuria Qualified Code(s): N30.00 - Acute cystitis without hematuria Is this a current diagnosis for this admission?: Yes (5) Anemia Qualifiers: Anemia type: unspecified type Qualified Code(s): D64.9 - Anemia, unspecified Is this a current diagnosis for this admission?: Yes (6) Transaminitis Is this a current diagnosis for this admission?: Yes (7) Carotid artery stenosis Qualifiers: Laterality: left Qualified Code(s): I65.22 - Occlusion and stenosis of left carotid artery Is this a current diagnosis for this admission?: Yes (8) Paroxysmal atrial tachycardia Is this a current diagnosis for this admission?: Yes (9) Anxiety disorder Qualifiers: Anxiety disorder type: generalized anxiety disorder Qualified Code(s ): F41.1 - Generalized anxiety disorder Is this a current diagnosis for this admission?: Yes (10) Crohns disease Qualifiers: Gastrointestinal tract location: unspecified location Digestive disease complication type: unspecified complication Qualified Code(s): K50.919 - Crohn's disease, unspecified, with unspecified complications Is this a current diagnosis for this admission?: Yes (11) Gastroesophageal reflux disease Qualifiers: Esophagitis presence: without esophagitis Qualified Code(s): K21.9 - Gastro-esophageal reflux disease without esophagitis Is this a current diagnosis for this admission?: Yes (12) Peripheral vascular disease Is this a current diagnosis for this admission?: Yes (13) HLD (hyperlipidemia) Qualifiers: Hyperlipidemia type: unspecified Qualified Code(s): E78.5 - Hyperlipidemia, unspecified Is this a current diagnosis for this admission?: Yes (14) Hypertension Qualifiers: Hypertension type: essential hypertension Qualified Code(s): I10 - Essential (primary) hypertension Is this a current diagnosis for this admission?: Yes - Time Time Spent with patient: 25-34 minutes - Plan Summary Plan Summary: Urine culture grew Escherichia coli sensitive to both antibiotics. We are going to put the patient on Hansen catheter. We will continue diuretics. Amiodarone discontinued, possible amiodarone toxicity causing lung problems, although CT scan inconclusive. Case discussed with cardiology service. The patient develops uncontrolled heart rate, we will put the patient on beta fidencio. Continue diuretics, we will change antibiotics to Levaquin. Begin physical therapy.
[2016-10-09] MEDS ORDERED: LEVOFLOXACIN 750 MG/D5W RTU 750 MG/150 ML RTUPB IV SCH (10:00)
[2016-10-09] MEDS: FLUOXETINE HCL 20 MG/5 ML UDCUP PO SCH ×2 (10:04→22:57)
[2016-10-09] MEDS: DOCUSATE SODIUM 100 MG CAPSULE PO SCH ×2 (10:04→17:57)
[2016-10-09] MEDS: APIXABAN 2.5 MG TABLET PO SCH ×2 (10:04→17:56)
[2016-10-09] MEDS: ALPRAZOLAM 0.25 MG TABLET PO SCH ×2 (10:04→17:57)
[2016-10-09] MEDS: METOPROLOL TARTRATE 50 MG TABLET PO SCH ×2 (10:04→22:57)
[2016-10-09] MEDS: ISOSORBIDE MONONITRATE 60 MG TAB.ER.24H PO SCH (10:04)
[2016-10-09] MEDS: ASPIRIN 81 MG TABLET, CHEWABLE PO SCH (10:05)
[2016-10-09] MEDS: FUROSEMIDE INJ/PF 40 MG/4 ML SDV IV SCH (10:05)
[2016-10-09] MEDS: RANOLAZINE 500 MG TAB.SR.12H PO SCH (10:11)
--- NOTE | 2016-10-09 22:48 | PROGRESS NOTE E ---
Progress Note NAME: KEVAN HAINES : 1930 AGE: 85Y DATE: 10/09/2016 ROOM: 537 SUBJECTIVE: The patient was seen from 11:20 a.m. to 11:55 a.m., a total of 35 minutes spent. Note the patient states she is less short of breath but appears to be very weak and debilitated. Remains in sinus rhythm. There is no chest pain consistent with angina, although she says that if she coughs, there is a pain from the back of the right side radiating to the front of the chest, which appears to be musculoskeletal secondary to cough. There is no PND, orthopnea or leg edema. There is no bleeding on Eliquis. She denies any fever, chills or rigors. There is no nausea or vomiting. There are no TIA or CVA symptoms. OBJECTIVE: GENERAL: The patient is of frail build and looks chronically ill. VITAL SIGNS: She is afebrile with a temperature of 98.6 degrees Fahrenheit orally. Pulse is 70 beats per minute. Blood pressure is slightly high at 180/73; this was soon after they put in a Hansen in her. Subsequently around being given Lasix, her blood pressure dropped to 94 systolic with patient having no symptoms. She is on nasal cannula at 2.5 l/min and 02 sat is 98% and respirations are 16 per minute. Pulse is 70 beats per minute. RESPIRATIONS: She states the dry cough is much better and not producing any sputum. HEENT: Head is normocephalic, atraumatic. Eyes: Pupils are equal, round, regular, reactive to light and accommodation. Extraocular movements are normal. There is no conjunctival pallor. There is no scleral icterus. ENT is negative. NECK: Neck is supple. There is no lymphadenopathy. Trachea is central. There is no goiter. There is a left carotid bruit which is loud. Carotids are equal. LUNGS: Show a small area of absent breath sounds and small area of dullness in the left side of her chest and above this, there are a few minor crackles. The right side appears to be clear. There is diminished air entry and prolonged expiration. There is no wheezing or rhonchi. On percussion, there is hyperresonance elsewhere. HEART: S1, S2 heard. There is no S3 gallop. There is no S4 gallop. There is systolic murmur mitral area. There are no rubs. There are no gallops. ABDOMEN: Soft, nontender. Bowel sounds are normal. There is no hepatosplenomegaly. Bowel sounds are well heard. There is no rebound, guarding or rigidity. EXTREMITIES: Pedal pulses are slightly diminished. Femorals are diminished. There are no femoral bruits. There is no pedal edema. There is a loud left carotid bruit present. There is no cyanosis or clubbing. There is no pedal edema. There is no cellulitis or DVT. There is no calf tenderness. CENTRAL NERVOUS SYSTEM: The patient is conscious and awake with no focal neurological deficits. PSYCHIATRIC: The patient appears to be less anxious today. Her judgment and insight are within normal limits. DIAGNOSTIC DATA: The patient's sodium is 133.7, potassium 4.2, chloride 99, CO2 26. The patient's BUN is 15, creatinine 0.63, GFR is greater than 60. Her glucose is 119. Her calcium is 8.4. Her chest x-ray shows improved aeration in both lungs with a small residual left effusion and associated air space disease. The right side is almost clear. There is evidence of COPD by chest x-ray. There is no evidence of congestive heart failure. IMPRESSION: 1. LUNG INFILTRATES. Most likely a combination of [id number] diastolic heart failure and pneumonia which is not clear. Continue antibiotics, continue respiratory treatments. 2. DOUBT AMIODARONE LUNG TOXICITY. Since there is so much clearing within a short time in the lungs and, hence, this precludes amiodarone toxicology. 3. DIASTOLIC CONGESTIVE HEART FAILURE. At present, seems to be compensated. 4. COPD EXACERBATION. This has gone back to her baseline. The plan is to continue respiratory treatments and antibiotics and nasal 02. 5. UTI. The patient is on antibiotics. 6. ANEMIA. Her hemoglobin is stable at 10.5. The etiology of the anemia is not clear. Continue to watch her hemoglobin. 7. ELEVATED LIVER FUNCTION TESTS NOW NORMALIZED. Abnormal EKG done the day before yesterday. 8. PAROXYSMAL ATRIAL FIBRILLATION. Continue the patient on Eliquis. In view of the clearing of the lungs, the patient does not have amiodarone toxicity, hence, will restart the patient's amiodarone but the plan is to restart the patient's amiodarone from tomorrow. Will stop the patient's Ranexa since there is a high interaction between Ranexa and amiodarone and this can cause prolonged QT interval and fatal arrhythmias. 9. HYPERTENSION WHICH IS LABILE. The patient is on metoprolol twice a day. We will continue this as the plan. We will see if we need to decrease the dose of metoprolol in view of the patient's labile blood pressure. 10. LEFT CAROTID STENOSIS 90%. No evidence of TIA or CVA. The patient is being followed by Dr. Nelson of [facility]. PLAN: Since there is no positive evidence that this is amiodarone toxicity, we will restart the patient on amiodarone and will stop the patient's Ranexa. This has been discussed with the patient and the patient's family including the patient's surrogate healthcare decision maker which is the patient's son, Mr. Roshan Haines. We will change the patient's IV Lasix to 40 mg p.o. daily. Continue doxycycline, isosorbide mononitrate and metoprolol and also continue the patient's Levaquin. We will stop the Ranexa, as mentioned earlier, since there is a high interaction between amiodarone and Ranexa. This plan was discussed in detail the plan with the patient and the patient's son. The patient is on isosorbide mononitrate but I am not sure if she has underlying coronary artery disease in spite of her abnormal EKG. From my recollection, I saw her in October 2015 for her tachycardia where she had short episodes of SVT and the problem was that with the beta-blockers, her heart rate would go down into the bradycardic range and, hence, this was decreased. As per the son, amiodarone was started in August of this year. Last year after the patient was discharged, she was seen in my office and since the patient's son lives in [facility], he preferred to have the patient seen by the cardiologists there. As per the son, the painter decorator there did a 24-hr Holter monitor and said that there were no major arrhythmias except for some episodes of sinus tachycardia. The patient was supposed to be set up with a vascular surgeon but this did not happen, so I sent him to Dr. Nelson for evaluation of the left carotid stenosis. Although she would be in the high risk category for the surgery, especially now in a debilitated state, Dr. Nelson wanted to have the patient make a decision, but the patient still, as per the son, has not made up a decision since she has been in and out of the hospital. They have a followup appointment with Dr. Nelson at the end of October. Also I have discussed with the patient and the patient's son that the patient is weak and debilitated and is a high risk of falls; hence, she should be in a [facility] facility/rehab preferably for at least 2-3 weeks to build up her strength and start ambulating without any problems. All of this has been discussed with the patient and with the patient's son who is the surrogate healthcare decision maker and other members of the family. Note, 35 minutes spent on this patient as mentioned earlier. More than 50% of the time spent on direct patient care and the rest was reviewing the patient's medication and coordinating care with the hospitalist. So will stop the Ranexa now and wait for it to wash out before starting the amiodarone tomorrow at 200 mg. Also I have discussed the need as an outpatient for pulmonary function tests, which I will order with [facility] and also the risks and toxicity of amiodarone has been discussed with them in detail including the need for periodic of liver function tests, watch for any neurological problem such as tremors or gait imbalance, needs ophthalmology checkup, skin changes such as discoloration have been discussed in detail. All side effects and toxicity of amiodarone have been discussed and the son states that the patient periodically sees an spindle frame carver. The patient is a FULL CODE. Her son is the surrogate healthcare decision maker. Once the patient recovers and recoups in the rehab facility, she then might make up a decision as to whether to have surgery or not. Also will try to get records from [place] to see if the patient did have a stress test or not. This is a high complexity case involving complex medical decision making in view of the multiple comorbidities that the patient has including the patient being debilitated and malnourished and looking chronically ill and weak. Thanking you. DICTATING PHYSICIAN: DEVANTE DOBSON M.D. [id number] PHY#: [id number] ID: [id number] JOB#: [id number] ACCT: [id number] cc: >
[2016-10-09] MEDS: RISPERIDONE 0.25 MG TABLET PO SCH (22:58)
[2016-10-10] MEDS: LANSOPRAZOLE 30 MG TAB.RAP.DR PO SCH ×2 (06:14→17:08)
[2016-10-10] MEDS: BENZONATATE 100 MG CAPSULE PO SCH ×3 (06:14→22:03)
[2016-10-10] MEDS: ISOSORBIDE MONONITRATE 30 MG TAB.ER.24H PO SCH (10:51)
[2016-10-10] MEDS: DOCUSATE SODIUM 100 MG CAPSULE PO SCH ×2 (10:52→17:18)
[2016-10-10] MEDS: METOPROLOL TARTRATE 50 MG TABLET PO SCH ×2 (10:55→22:04)
[2016-10-10] MEDS: AMIODARONE HCL 200 MG TABLET PO SCH (10:55)
[2016-10-10] MEDS: ASPIRIN 81 MG TABLET, CHEWABLE PO SCH (10:55)
[2016-10-10] MEDS: FUROSEMIDE 40 MG TABLET PO SCH (10:56)
[2016-10-10] MEDS: ALPRAZOLAM 0.25 MG TABLET PO SCH (10:57)
[2016-10-10] MEDS: APIXABAN 2.5 MG TABLET PO SCH ×2 (10:57→17:18)
[2016-10-10] MEDS: FLUOXETINE HCL 20 MG/5 ML UDCUP PO SCH ×2 (10:57→22:03)
[2016-10-10] MEDS ORDERED: PHARMACY COMMUNICATION ORDER MC NR (13:15)
[2016-10-10] MEDS ORDERED: ALPRAZOLAM 0.25 MG TABLET PO PRN (14:08)
[2016-10-10] MEDS ORDERED: MEGESTROL ACETATE SUSP 400 MG/10 ML UDCUP PO ONE (15:00)
[2016-10-10] MEDS: CYPROHEPTADINE HCL 4 MG TABLET PO SCH (17:18)
--- NOTE | 2016-10-10 20:18 | PDOC PROGRESS REPORT ---
Subjective Progress Note for:: 10/10/16 Subjective:: Patient seen earlier today morning rounds. Spoke with patient's son extensively during her multiple admissions multiple medical problems. Patient denies chest pain, shortness of breath, abdominal pain, nausea, vomiting , fevers, chills, diarrhea, headache, new onset weakness. Patient reports that she has not had a bowel movement a couple of days. Physical Exam Vital Signs: Temp Pulse Resp BP Pulse Ox 97.9 F 63 15 95/44 L 97 10/10/16 12:38 10/10/16 14:29 10/10/16 14:29 10/10/16 12:38 10/10/16 16:00 Intake & Output 10/09/16 10/10/16 10/11/16 06:59 06:59 06:59 Intake Total 1730 447 0 Output Total 1520 Balance 1730 -1073 0 Weight 47.1 kg 47.8 kg Exam: General: Awake alert and oriented x3, no acute respiratory distress HEENT: AT/NC, PERRL, EOMI, oropharynx is moist, pink, no scleral icterus, no conjunctival injection Neck: No JVD, trachea midline Chest: Diminished bilateral bases, otherwise clear to auscultation CV: Regular rate and rhythm, normal S1 and S2, no rub or gallop; 2/6 apex Abdomen: Soft, nontender to palpation, nondistended, active bowel sounds; no rebound, rigidity, or guarding Extremities: No cyanosis, clubbing or edema Neuro: Cranial nerves II through XII are grossly intact without focal deficits; awake alert and oriented x3 Psych: Normal mood and affect Results Laboratory Results: 10/08/16 06:39 10/09/16 07:14 Impressions: Chest CT 10/08/16 00:00 IMPRESSION: 1. Effusions and ground-glass infiltrates are likely related to acute congestive failure. The presence of this acute disease limits evaluation for underlying drug toxicity. Re- scanning at a later date when the patient is no longer acutely ill may help evaluate further for amiodarone toxicity. Chest X-Ray 10/09/16 10:30 IMPRESSION: Improving edema or sepsis. Assessment & Plan - Diagnosis (1) Atrial fibrillation with RVR Is this a current diagnosis for this admission?: Yes (2) Congestive heart failure Qualifiers: Congestive heart failure type: diastolic Congestive heart failure chronicity: acute on chronic Qualified Code(s): I50.33 - Acute on chronic diastolic (congestive) heart failure Is this a current diagnosis for this admission?: Yes (3) Malnutrition Is this a current diagnosis for this admission?: Yes (4) Paroxysmal atrial fibrillation Is this a current diagnosis for this admission?: Yes (5) Paroxysmal atrial tachycardia Is this a current diagnosis for this admission?: Yes (6) UTI (urinary tract infection) Qualifiers: Urinary tract infection type: acute cystitis Hematuria presence: without hematuria Qualified Code(s): N30.00 - Acute cystitis without hematuria Is this a current diagnosis for this admission?: Yes (7) Diastolic CHF Qualifiers: Congestive heart failure chronicity: acute on chronic Qualified Code (s): I50.33 - Acute on chronic diastolic (congestive) heart failure Is this a current diagnosis for this admission?: Yes (8) Anxiety disorder Qualifiers: Anxiety disorder type: generalized anxiety disorder Qualified Code(s ): F41.1 - Generalized anxiety disorder Is this a current diagnosis for this admission?: Yes (9) Gastroesophageal reflux disease Qualifiers: Esophagitis presence: without esophagitis Qualified Code(s): K21.9 - Gastro-esophageal reflux disease without esophagitis Is this a current diagnosis for this admission?: Yes (10) Macular degeneration of left eye Is this a current diagnosis for this admission?: Yes (11) Peripheral vascular disease Is this a current diagnosis for this admission?: Yes (12) HLD (hyperlipidemia) Qualifiers: Hyperlipidemia type: unspecified Qualified Code(s): E78.5 - Hyperlipidemia, unspecified Is this a current diagnosis for this admission?: Yes (13) Left carotid stenosis Is this a current diagnosis for this admission?: Yes - Time Time Spent with patient: 35 or more minutes Medications reviewed and adjusted accordingly: Yes - Plan Summary Plan Summary: Patient has been transitioned back to amiodarone and metoprolol by cardiology. Defer to cardiology for management of her A. fib with RVR. After discussing anticoagulation options with her son, will place patient on 81 mg aspirin alone. Encourage oral intake of food for her malnutrition. Continue with Megace. Patient with mild Escherichia coli UTI continue Levaquin. Concern for pneumonia, but most likely secondary to volume overload which is improving with Lasix. Patient with acute on chronic diastolic heart failure.
[2016-10-10] MEDS: BIMATOPROST 0.01% OPH SOLN 2.5 ML/BOTTLE OU SCH (21:49)
[2016-10-10] MEDS: SENNOSIDES/DOCUSATE 8.6-50 MG 1 EACH TABLET PO SCH (22:03)
[2016-10-10] MEDS: RISPERIDONE 0.25 MG TABLET PO SCH (22:04)
[2016-10-10] MEDS: TIMOLOL MALEATE 0.5% OPH SOLN 5 ML OU SCH (22:05)
--- NOTE | 2016-10-11 00:23 | PROGRESS NOTE E ---
Progress Note NAME: KEVAN PAVON : 1930 AGE: 85Y DATE: 10/10/2016 ROOM: 537 SUBJECTIVE: Note that the patient was seen from 10:45 to 11:15, a total of 30 minutes. This time was spent not only on seeing the patient and giving medications and also discussions with the patient's son. The patient states she feels much better and the son states that the patient with the help of the other son they were able to get the patient up to stand for about a minute on the bedside. Also, the patient seems to be less short of breath. She still has dry cough with musculoskeletal pain on the right side when she coughs. The patient denies any PND or orthopnea. There is no palpitations. The patient has no recurrence of atrial fibrillation. There is no bleeding on Eliquis. The patient denies any leg edema. There is no anginal symptoms. OBJECTIVE: GENERAL: The patient is fairly-built and looks chronically ill. VITAL SIGNS: Earlier her temperature was 98.2 degrees Fahrenheit, pulse is 66 beats/minute, blood pressure 160/68, respirations 16 per minute, O2 sats were 98% on 2L nasal cannula. HEENT: Normocephalic, atraumatic. Pupils are equal, round, and reactive to light and accommodation. Extraocular movements are normal. There is no conjunctival pallor. There is no scleral icterus. ENT is negative. NECK: Supple. There is no lymphadenopathy. Carotids are equal. There is left carotid bruit present. Trachea is central. There is no goiter. LUNGS: Small area of absent breath sounds and small area of dullness on the left base of the chest and noticed a few minor crackles. The right side appears to be clear. There is diminished air entry on prolonged expiration and on auscultation. There is hyperresonance elsewhere on percussion. There was no wheezing or rhonchi. HEART: S1 and S2 is heard. There is no S3 gallop. There is no S4 gallop. There is systolic murmur at the left sternal border of the apex. There is no rub. ABDOMEN: Soft, nontender. There is no hepatosplenomegaly. Bowel sounds are normal. There is no rebound, rigidity or guarding. EXTREMITIES: Pedal pulses are slightly diminished. Femorals are slightly diminished. There are no femoral bruits. There is no pedal edema. There is no pedal edema. There is no DVT or cellulitis. There is no calf tenderness. There is no cyanosis or clubbing. CENTRAL NERVOUS SYSTEM: The patient is conscious, awake, alert with no focal neurological deficits except that the patient is slightly hard of hearing. PSYCHIATRIC: The patient appears to be less anxious today, in fact she is not anxious today. Her judgment and insight are within normal limits. Her temperature earlier this morning was 98.2 degrees Fahrenheit, pulse was 66 beats/minute, blood pressure 160/68, respirations 16 per minute, O2 sats are 98% on 2L nasal cannula. LABORATORY DATA: No labs drawn day. ADDENDUM: As per the son, the patient ate a little bit more today. IMPRESSION: 1. LUNG INFILTRATES, MOST LIKELY A COMBINATION OF [id number] DIASTOLIC HEART FAILURE AND PNEUMONIA. DOUBT THIS IS SECONDARY TO AMIODARONE TOXICITY. The plan is to continue antibiotics and continue respiratory treatments. We will recheck a chest x-ray in the a.m. 2. NO DEFINITE EVIDENCE OF AMIODARONE TOXICITY OF THE LUNG. Hence, amiodarone has been restarted and the patient has tolerated this. 3. DIASTOLIC CONGESTIVE HEART FAILURE, AT PRESENT SEEMS TO BE COMPENSATED. 4. COPD EXACERBATION, THIS HAS GONE BACK TO BASELINE. The plan is to continue the patient with respiratory treatments, antibiotics and nasal O2. 5. UTI. The patient is on antibiotics and improving. There are no symptoms of hematuria, pyuria or dysuria. 6. ANEMIA. Hemoglobin stable. We will recheck it in the morning. 7. ELEVATED LIVER FUNCTION TESTS NOW NORMALIZED. 8. PAROXYSMAL ATRIAL FIBRILLATION. Continue the patient on Eliquis and continue on beta-fidencio and amiodarone. 9. HYPERTENSION, WHICH SEEMS TO BE LABILE. At present the patient is on metoprolol twice a day and also amiodarone. Hence with the patient's age would not increase the metoprolol. Rather than that, would add an TRACY inhibitor but in view of the patient's blood pressure being labile we will recheck the patient's blood pressure later and then write for a small dose of lisinopril. This has been discussed with the patient and the patient's son. 10. LEFT CAROTID STENOSIS 90%, NO EVIDENCE OF TIA OR CVA. The patient has a followup appointment with Dr. Nelson of [facility] in . GENERALIZED DEBILITATION AND MALNUTRITION. I would recommend sending the patient to a chcf home for at least 2 to 3 weeks so the patient can build up her energy. Otherwise, she will be subject to frequent falls, especially with the patient on Eliquis this will be dangerous. This has all been discussed with the patient and the patient's son. Since the patient has been a patient of mine and the son wants the patient to followup with me, I have discussed again the plan with the hospitalist. Note 30 minutes spent on this patient with more than 50% of the time spent on direct patient care, reviewing the patient's medications and generating managing plan with the other care unit providers. The patient and the patient's son has my cell number to call me if there are any problems or questions. I will follow with you. We will recheck the patient's blood pressure later on and have the nurse call me. ADDENDUM: Later at 12:38 p.m., the patient's blood pressure was 95/44 and hence when I went to write the lisinopril I undid it and canceled it. The patient's blood pressure might come up and stay more stable if she starts ambulating. Would have physical therapy ambulate the patient. DICTATING PHYSICIAN: DEVANTE DOBSON M.D. [id number] TRESSA#: [id number] ID: [id number] JOB#: [id number] ACCT: [id number] cc: >
[2016-10-11] MEDS: SENNOSIDES/DOCUSATE 8.6-50 MG 1 EACH TABLET PO SCH (00:30)
[2016-10-11] MEDS: LANSOPRAZOLE 30 MG TAB.RAP.DR PO SCH ×2 (06:00→18:29)
[2016-10-11] MEDS: BENZONATATE 100 MG CAPSULE PO SCH ×3 (06:00→22:00)
[2016-10-11 07:00] LABS: HEMATOCRIT 32.1 % (36.0-47.0); HEMOGLOBIN 11.1 g/dL (12.0-15.5); HGB HCT DIFFERENCE 1.2; MEAN CORPUSCULAR HEMOGLOBIN 30.9 pg (27.0-33.4); MEAN CORPUSCULAR HGB CONC 34.5 g/dL (32.0-36.0); MEAN CORPUSCULAR VOLUME 90 fl (80-97); RED BLOOD COUNT 3.59 10^6/uL (3.72-5.28); RED CELL DISTRIBUTION WIDTH 15.1 % (11.5-14.0); WHITE BLOOD COUNT 8.9 10^3/uL (4.0-10.5)
[2016-10-11 07:05] LABS: ALANINE AMINOTRANSFERASE 32 U/L (9-52); ALBUMIN 2.5 g/dL (3.5-5.0); ALKALINE PHOSPHATASE 40 U/L (38-126); ASPARTATE AMINO TRANSFERASE 13 U/L (14-36); BILIRUBIN,DIRECT 0.2 mg/dL (0.0-0.4); BILIRUBIN,TOTAL 0.7 mg/dL (0.2-1.3); TOTAL PROTEIN 4.7 g/dL (6.3-8.2)
[2016-10-11 09:19] LABS: ANION GAP 10 (5-19); BLOOD UREA NITROGEN 14 mg/dL (7-20); CALCIUM 8.9 mg/dL (8.4-10.2); CARBON DIOXIDE 25 mmol/L (22-30); CHLORIDE 100 mmol/L (98-107); CREATININE RESULT 0.63 mg/dL (0.52-1.25); GLUCOSE 128 mg/dL (75-110); POTASSIUM 3.6 mmol/L (3.6-5.0); SODIUM 135.4 mmol/L (137-145)
[2016-10-11] MEDS: MEGESTROL ACETATE SUSP 400 MG/10 ML UDCUP PO SCH (10:11)
[2016-10-11] MEDS: DOCUSATE SODIUM 100 MG CAPSULE PO SCH ×2 (10:11→18:29)
[2016-10-11] MEDS: CYPROHEPTADINE HCL 4 MG TABLET PO SCH (10:11)
[2016-10-11] MEDS: FUROSEMIDE 40 MG TABLET PO SCH (10:11)
[2016-10-11] MEDS: ISOSORBIDE MONONITRATE 30 MG TAB.ER.24H PO SCH (10:13)
[2016-10-11] MEDS: AMIODARONE HCL 200 MG TABLET PO SCH (10:13)
[2016-10-11] MEDS: LEVOFLOXACIN 750 MG TABLET PO SCH (10:13)
[2016-10-11] MEDS: METOPROLOL TARTRATE 50 MG TABLET PO SCH ×2 (10:13→22:00)
[2016-10-11] MEDS: ASPIRIN 81 MG TABLET, CHEWABLE PO SCH (10:13)
[2016-10-11] MEDS: ATORVASTATIN CALCIUM 20 MG TABLET PO SCH (10:14)
[2016-10-11] MEDS: FLUOXETINE HCL 20 MG/5 ML UDCUP PO SCH (10:14)
--- NOTE | 2016-10-11 18:27 | PDOC PROGRESS REPORT ---
Subjective Progress Note for:: 10/11/16 Subjective:: Patient seen earlier today morning rounds. Spoke with patient's son extensively regarding her medications. Patient had a bowel movement yesterday. Patient is rather lethargic today,and am unable to obtain review of systems secondary to this Physical Exam Vital Signs: Temp Pulse Resp BP Pulse Ox 98.8 F 65 16 126/52 H 96 10/11/16 11:15 10/11/16 14:00 10/11/16 11:15 10/11/16 11:15 10/11/16 11:15 Intake & Output 10/10/16 10/11/16 10/12/16 06:59 06:59 06:59 Intake Total 447 0 650 Output Total 1520 200 200 Balance -1073 -200 450 Weight 47.8 kg 47.8 kg Exam: General: Awake, and answers when she chooses, no acute respiratory distress HEENT: AT/NC, left corneal opacification, oropharynx is moist, pink, no scleral icterus, no conjunctival injection Neck: No JVD, trachea midline Chest: Diminished bilateral bases, otherwise clear to auscultation CV: Regular rate and rhythm, normal S1 and S2, no rub or gallop; 2/6 apex Abdomen: Soft, nontender to palpation, nondistended, active bowel sounds; no rebound, rigidity, or guarding Extremities: No cyanosis, clubbing or edema Neuro: Lethargic but moving all extremities Results Laboratory Results: 10/11/16 06:38 10/11/16 06:38 10/11/16 10/11/16 10/11/16 06:38 06:38 06:38 WBC 8.9 RBC 3.59 L Hgb 11.1 L Hct 32.1 L MCV 90 MCH 30.9 MCHC 34.5 RDW 15.1 H Plt Count 305 Sodium 135.4 L Potassium 3.6 Chloride 100 Carbon Dioxide 25 Anion Gap 10 BUN 14 Creatinine 0.63 Est GFR ( Amer) > 60 Est GFR (Non-Af Amer) > 60 Glucose 128 H Calcium 8.9 Total Bilirubin 0.7 AST 13 L ALT 32 Alkaline Phosphatase 40 Total Protein 4.7 L Albumin 2.5 L 10/06/16 06:36 Blood Blood Culture - Final NO GROWTH IN 5 DAYS 10/06/16 06:42 Blood Blood Culture - Final NO GROWTH IN 5 DAYS Impressions: Chest CT 10/08/16 00:00 IMPRESSION: 1. Effusions and ground-glass infiltrates are likely related to acute congestive failure. The presence of this acute disease limits evaluation for underlying drug toxicity. Re- scanning at a later date when the patient is no longer acutely ill may help evaluate further for amiodarone toxicity. Chest X-Ray 10/11/16 06:00 IMPRESSION: Stable chest, findings as above. Assessment & Plan - Diagnosis (1) Altered awareness, transient Is this a current diagnosis for this admission?: YesPlan: Patient's outpatient cyproheptadine was restarted. This was stopped today as were any mind altering medications including Resporal, Prozac, and Xanax. Feel that patient has secondary gain from this. (2) Atrial fibrillation with RVR Is this a current diagnosis for this admission?: Yes (3) Congestive heart failure Qualifiers: Congestive heart failure type: diastolic Congestive heart failure chronicity: acute on chronic Qualified Code(s): I50.33 - Acute on chronic diastolic (congestive) heart failure Is this a current diagnosis for this admission?: Yes (4) Malnutrition Is this a current diagnosis for this admission?: Yes (5) Paroxysmal atrial fibrillation Is this a current diagnosis for this admission?: Yes (6) Paroxysmal atrial tachycardia Is this a current diagnosis for this admission?: Yes (7) UTI (urinary tract infection) Qualifiers: Urinary tract infection type: acute cystitis Hematuria presence: without hematuria Qualified Code(s): N30.00 - Acute cystitis without hematuria Is this a current diagnosis for this admission?: Yes (8) Diastolic CHF Qualifiers: Congestive heart failure chronicity: acute on chronic Qualified Code (s): I50.33 - Acute on chronic diastolic (congestive) heart failure Is this a current diagnosis for this admission?: Yes (9) Anxiety disorder Qualifiers: Anxiety disorder type: generalized anxiety disorder Qualified Code(s ): F41.1 - Generalized anxiety disorder Is this a current diagnosis for this admission?: Yes (10) Gastroesophageal reflux disease Qualifiers: Esophagitis presence: without esophagitis Qualified Code(s): K21.9 - Gastro-esophageal reflux disease without esophagitis Is this a current diagnosis for this admission?: Yes (11) Macular degeneration of left eye Is this a current diagnosis for this admission?: Yes (12) Peripheral vascular disease Is this a current diagnosis for this admission?: Yes (13) HLD (hyperlipidemia) Qualifiers: Hyperlipidemia type: unspecified Qualified Code(s): E78.5 - Hyperlipidemia, unspecified Is this a current diagnosis for this admission?: Yes (14) Left carotid stenosis Is this a current diagnosis for this admission?: Yes - Plan Summary Plan Summary: Patient has been transitioned back to amiodarone and metoprolol by cardiology. Defer to cardiology for management of her A. fib with RVR. After discussing anticoagulation options with her son, will place patient on 81 mg aspirin alone. Encourage oral intake of food for her malnutrition. Continue with Megace. Patient with mild Escherichia coli UTI continue Levaquin. Concern for pneumonia, but most likely secondary to volume overload which is improving with Lasix. Patient with acute on chronic diastolic heart failure. Patient's repeat laboratory studies in chest x-ray are much improved today. Patient is currently not back to her baseline mentation and is the only thing keeping her here at this time. If patient is much more clear tomorrow she'll be discharged to acute rehabilitation once a bed is available.
[2016-10-11] MEDS: BIMATOPROST 0.01% OPH SOLN 2.5 ML/BOTTLE OU SCH (21:58)
[2016-10-11] MEDS: TIMOLOL MALEATE 0.5% OPH SOLN 5 ML OU SCH (22:00)
--- NOTE | 2016-10-11 23:48 | PROGRESS NOTE E ---
Progress Note NAME: KEVAN PAVON : 1930 AGE: 85Y DATE: 10/11/2016 ROOM: 537 SUBJECTIVE: Note that the patient was seen from 11 a.m. to 11:35 a.m., a total of 35 minutes spent on this patient, with more than 50% of the time spent on direct patient care and also reviewing the patient's medications and also discussions with the son which is narrated below. The patient states that she is weaker than yesterday and she also has pain when she coughs on the right shoulder and the right front of the chest and also the patient has left-sided localized mid left chest pain, which is reproducible when pressing on the chest. There is no clear-cut anginal symptoms. The patient has no PND or orthopnea. There is no leg edema. The patient continues to be in sinus rhythm. The patient does appear to be very debilitated and drowsy. OBJECTIVE: GENERAL: The patient is of frail build. She appears cachectic and chronically ill. VITAL SIGNS: She is afebrile with a temperature of 98.8 degrees Fahrenheit orally, pulse is 77 beats per minute, blood pressure now is 126/52, respirations are 16 per minute, O2 sats are 96% on 2 L nasal cannula. HEENT: Head is atraumatic, normocephalic. Eyes: Pupils are equal, round, regular and reactive to light and accommodation. Extraocular movements are normal. There is no conjunctival pallor. There is no scleral icterus. ENT is negative. NECK: Supple. There is no lymphadenopathy. Carotids are equal. There is a left carotid bruit. Trachea is central. There is no goiter. There is no JVD. LUNGS: Show a small area of absent breath sounds and small area of dullness on the left base of the chest and a few minor crackles. There is no egophony in this area. The rest of the lungs show diminished air entry and prolonged expiration on auscultation. Note that the right lung is clear. There is hyperresonance elsewhere on percussion. There was no wheezing or rhonchi. There are no rales of CHF. HEART: S1 and S2 is heard. There is no S3 gallop. There is no S4 gallop. There is systolic murmur in the left sternal border of the apex. There is no rub. ABDOMEN: Soft, nontender. There is no hepatosplenomegaly. Bowel sounds are normal. There is no rebound, rigidity or guarding. EXTREMITIES: Pedal pulses are slightly diminished. Femorals are slightly diminished. There is no pedal edema. There is no pedal edema. There is no calf tenderness. There is no DVT or cellulitis. CENTRAL NERVOUS SYSTEM: The patient is conscious, awake, slightly drowsy with no focal neurological deficits. Note that the patient is hard of hearing. PSYCHIATRIC: The patient appears to be slightly anxious today, but her judgment and insight seem to be intact. The affect seems to be flat. LABORATORY DATA: The patient's chest x-ray shows that the right lung is clear. The left lower lobe shows the same effusion/consolidation with pleural effusion. This is most likely pleural fluid and airspace disease. There are no critical signs of consolidation such as egophony. The patient's white count is 8900, hemoglobin is stable at 11.1, hematocrit is 32.1 and platelet count is 305,000. The patient's sodium is 135.4, potassium 3.6, chloride 100, CO2 25. The patient's BUN is 14, creatinine is 0.63, GFR is greater than 60. The patient's glucose is 128, calcium is 8.9. IMPRESSION: 1. MOST LIKELY THE PATIENT HAS LEFT LOWER LOBE PNEUMONIA WITH EFFUSION. Doubt that this is consolidation. There is no evidence of amiodarone toxicity. The plan is to continue antibiotics and continue respiratory treatments. Note that the patient's Lasix has been changed to p.o. Lasix. 2. NO DOCUMENTED EVIDENCE OF AMIODARONE TOXICITY OF THE LUNG; HENCE, THE PLAN IS TO CONTINUE AMIODARONE. 3. DIASTOLIC CONGESTIVE HEART FAILURE, AT PRESENT SEEMS TO BE COMPENSATED. 4. COPD EXACERBATION. This has gone back to baseline. Continue respiratory treatments and continue oxygen. 5. UTI. This most likely has cleared with antibiotics. There are no symptoms of hematuria, pyuria or dysuria. The plan is to continue the patient on antibiotics. 6. ANEMIA. Hemoglobin has come up. The plan is to monitor this. 7. ELEVATED LIVER FUNCTION TESTS, NOW NORMALIZED. Will periodically test the patient's LFTs, especially since the patient is on amiodarone. 8. PAROXYSMAL ATRIAL FIBRILLATION. The plan is to continue the patient on Eliquis and continue on beta-fidencio and amiodarone. 9. HYPERTENSION. This seems to be very labile and at present will hold off on starting any other antihypertensive. I believe once the patient gets out of bed and starts ambulating, her blood pressure might be relatively more stable and then we can decide whether to start another antihypertensive. 10. LEFT CAROTID STENOSIS 90%, NO EVIDENCE OF TIA OR CVA. Note as per the son, I had seen the patient personally in October 2015 and subsequently she has followed up in the office. Since she had an abnormal EKG and since the son lived in [facility], he took her to [facility], to see a bit welder there. He believes that the bit welder there did a Cardiolite stress test which was negative and also had a Holter monitor which did not show any significant arrhythmias. The bit welder could not get a referral to a vascular surgeon for her carotid stenosis; hence, the patient ended up in [place] and I sent her to Dr. Nelson. The patient had 2 tests done and one was a repeat carotid artery Doppler and a CTA of the neck and initially was told that the lesion was not significant and subsequently it was told that there was an honest mistake and that the lesion was indeed 90% and, hence, the patient did not want to go back to Dr. Nelson. Hence, once the patient becomes stable, then we will think about sending the patient to either a vascular surgeon at [facility], [facility] or [facility]. 11. GENERALIZED DEBILITATION AND MALNUTRITION. The patient is not eating very well and I have discussed with the son and the patient and she has agreed to drink Boost, so she likes vanilla flavor, so I have told the nurse to order 1 can or 1 bottle of Boost of vanilla flavor 3 times a day. This might help her ambulate and once the patient is ready, would start the patient on physiotherapy here in the hospital and once the patient is able to walk a little and the pneumonia clears, then would send the patient to a nursing facility for physiotherapy, and subsequently the patient's son wants me to see the patient in the office and then we can decide about her carotid stenosis. Note that the EKG seems to be abnormal, but the patient is asymptomatic and the patient is not a diabetic. The patient's medications were reviewed and as mentioned earlier, any additional blood pressure medications should be done later when the patient is stable. 12. ANXIETY. The plan is to continue current anxiolytic agents since the patient already is slightly drowsy. I also told the nurse that when the patient's blood pressure is high or low, they should manually recheck it and record on the progress sheet, since sometimes the automatic cuff readings may not be accurate, especially if patient's heart rate is slow or fast. PLAN: As mentioned earlier, the medications were reviewed, and prolonged lengthy discussion with the patient and the patient's son. The patient encouraged to eat more and to try to start ambulating. Continue nasal 02. Will follow with you. Thanking you. Note: This patient has a high complex medical decision making status in view of the patient's carotid stenosis, the patient's debility, the patient's pneumonia and COPD, and the need for any intervention on her carotid. DICTATING PHYSICIAN: DEVANTE DOBSON M.D. [id number] TRESSA#: [id number] ID: [id number] JOB#: [id number] ACCT: [id number] cc: >
[2016-10-12] MEDS: BENZONATATE 100 MG CAPSULE PO SCH ×3 (06:53→21:18)
[2016-10-12] MEDS: LANSOPRAZOLE 30 MG TAB.RAP.DR PO SCH ×2 (06:53→17:17)
[2016-10-12] MEDS: ASPIRIN 81 MG TABLET, CHEWABLE PO SCH (09:05)
[2016-10-12] MEDS: METOPROLOL TARTRATE 50 MG TABLET PO SCH ×2 (09:05→21:18)
[2016-10-12] MEDS: AMIODARONE HCL 200 MG TABLET PO SCH (09:05)
[2016-10-12] MEDS: ATORVASTATIN CALCIUM 20 MG TABLET PO SCH (09:05)
[2016-10-12] MEDS: FUROSEMIDE 40 MG TABLET PO SCH (09:06)
[2016-10-12] MEDS: MEGESTROL ACETATE SUSP 400 MG/10 ML UDCUP PO SCH (09:09)
[2016-10-12] MEDS: ISOSORBIDE MONONITRATE 30 MG TAB.ER.24H PO SCH (09:09)
[2016-10-12] MEDS: DOCUSATE SODIUM 100 MG CAPSULE PO SCH ×2 (09:19→17:17)
--- NOTE | 2016-10-12 19:30 | PDOC PROGRESS REPORT ---
Subjective Progress Note for:: 10/12/16 Subjective:: Patient seen earlier today morning rounds. Spoke with patient's son and daughter extensively regarding her medications. Patient had a bowel movement today. Sitting in the chair and awake and more appropriate today. Physical Exam Vital Signs: Temp Pulse Resp BP Pulse Ox 98.4 F 78 18 164/76 H 95 10/12/16 07:55 10/12/16 07:55 10/12/16 03:11 10/12/16 07:55 10/12/16 07:55 Intake & Output 10/11/16 10/12/16 10/13/16 06:59 06:59 06:59 Intake Total 0 1010 Output Total 200 400 Balance -200 610 Weight 47.8 kg 48.2 kg Exam: General: Awake, alert, and appropriate, no acute respiratory distress HEENT: AT/NC, left corneal opacification, oropharynx is moist, pink, no scleral icterus, no conjunctival injection Neck: No JVD, trachea midline Chest: Clear to auscultation bilaterally CV: Regular rate and rhythm, normal S1 and S2, no rub or gallop; 2/6 apex Abdomen: Soft, nontender to palpation, nondistended, active bowel sounds; no rebound, rigidity, or guarding Extremities: No cyanosis, clubbing or edema Neuro: cranial nerves grossly intact without focal deficits. Psych: Anxious Results Laboratory Results: 10/11/16 06:38 10/11/16 06:38 Impressions: Chest CT 10/08/16 00:00 IMPRESSION: 1. Effusions and ground-glass infiltrates are likely related to acute congestive failure. The presence of this acute disease limits evaluation for underlying drug toxicity. Re- scanning at a later date when the patient is no longer acutely ill may help evaluate further for amiodarone toxicity. Chest X-Ray 10/11/16 06:00 IMPRESSION: Stable chest, findings as above. Assessment & Plan - Diagnosis (1) Altered awareness, transient Is this a current diagnosis for this admission?: YesPlan: Now improved. Likely secondary to cyproheptadine (2) Atrial fibrillation with RVR Is this a current diagnosis for this admission?: YesPlan: Currently doing well. On amiodarone. Appreciate cardiology input. (3) Congestive heart failure Qualifiers: Congestive heart failure type: diastolic Congestive heart failure chronicity: acute on chronic Qualified Code(s): I50.33 - Acute on chronic diastolic (congestive) heart failure Is this a current diagnosis for this admission?: Yes (4) Malnutrition Is this a current diagnosis for this admission?: YesPlan: Encourage oral intake of food (5) Paroxysmal atrial fibrillation Is this a current diagnosis for this admission?: Yes (6) Paroxysmal atrial tachycardia Is this a current diagnosis for this admission?: Yes (7) UTI (urinary tract infection) Qualifiers: Urinary tract infection type: acute cystitis Hematuria presence: without hematuria Qualified Code(s): N30.00 - Acute cystitis without hematuria Is this a current diagnosis for this admission?: Yes (8) Diastolic CHF Qualifiers: Congestive heart failure chronicity: acute on chronic Qualified Code (s): I50.33 - Acute on chronic diastolic (congestive) heart failure Is this a current diagnosis for this admission?: Yes (9) Anxiety disorder Qualifiers: Anxiety disorder type: generalized anxiety disorder Qualified Code(s ): F41.1 - Generalized anxiety disorder Is this a current diagnosis for this admission?: Yes (10) Gastroesophageal reflux disease Qualifiers: Esophagitis presence: without esophagitis Qualified Code(s): K21.9 - Gastro-esophageal reflux disease without esophagitis Is this a current diagnosis for this admission?: Yes (11) Macular degeneration of left eye Is this a current diagnosis for this admission?: Yes (12) Peripheral vascular disease Is this a current diagnosis for this admission?: Yes (13) HLD (hyperlipidemia) Qualifiers: Hyperlipidemia type: unspecified Qualified Code(s): E78.5 - Hyperlipidemia, unspecified Is this a current diagnosis for this admission?: Yes (14) Left carotid stenosis Is this a current diagnosis for this admission?: Yes - Plan Summary Plan Summary: Patient is currently doing well and pending rehabilitation placement. Continue current management pending placement. She is medically stable for transfer.
[2016-10-12] MEDS: SENNOSIDES/DOCUSATE 8.6-50 MG 1 EACH TABLET PO SCH (21:09)
[2016-10-12] MEDS: BIMATOPROST 0.01% OPH SOLN 2.5 ML/BOTTLE OU SCH (21:18)
[2016-10-12] MEDS: TIMOLOL MALEATE 0.5% OPH SOLN 5 ML OU SCH (21:23)
[2016-10-12] MEDS: CYCLOSPORINE 0.05% OPH EMULSIO 0.4 ML DROPERETTE OU SCH (21:23)
--- NOTE | 2016-10-13 00:58 | PROGRESS NOTE E ---
Progress Note NAME: KEVAN HAINES : 1930 AGE: 85Y DATE: 10/11/2016 ROOM: [id number] SUBJECTIVE: I saw the patient from 10:30 a.m. to 11:00 a.m. A total of 30 minutes was spent on this patient. Of note, the patient is now sitting up in the chair. She looks more alert. Her cyproheptadine has been stopped and also Risperdal has been stopped. She is more awake. She does not appear to be short of breath. She denies any chest pain or discomfort. There is no PND or palpitation or leg edema. There is no orthopnea. There is no recurrence of atrial fibrillation. There is no bleeding on Eliquis. There are no TIA or CVA symptoms. The patient is able to drink Ensure, and the patient's son states that the patient ate a little more. OBJECTIVE: GENERAL: On examination the patient is of frail build. She appears cachectic and chronically ill. VITAL SIGNS: She is afebrile with a temperature of 98.4 degrees Fahrenheit at 7:55 a.m. Pulse rate is 78 beats per minute. Blood pressure 164/76. Her O2 saturations are 95% on 2 liters nasal cannula. The patient is frail build. She appears cachectic and chronically ill. HEAD: Atraumatic/normocephalic. EYES: Pupils are equal, round, regular, reactive to light and accommodation. Extraocular movements are normal. There is no conjunctival pallor. There is no scleral icterus. EARS, NOSE, AND THROAT: Negative. NECK: Supple. There is no lymphadenopathy. Carotids are equal. There is a left carotid bruit present. Trachea is central. There is no goiter. There is no JVD. LUNGS: Show a small area of absent breath sounds, small area of dullness in the left base of the chest with a few crackles. There is no egophony. The rest of the lungs show diminished air entry, prolonged expiration on auscultation. Note that the right lung is clear. There is hyperresonance that is heard on percussion. There is no wheezing or rhonchi. There are no rales of CHF. CARDIOVASCULAR: S1, S2 is heard. There is no S3 gallop. There is no S4 gallop. Systolic murmur in the left sternal border and the apex. There is no rub. ABDOMEN: Soft, nontender. There is no hepatosplenomegaly. Bowel sounds are well heard. There are no tender areas or masses. There is no rebound, guarding, or rigidity. EXTREMITIES: Pedal pulses slightly diminished. Femorals are slightly diminished. There is no pedal edema. There is no cellulitis. There is no cyanosis or clubbing. There is no DVT. CENTRAL NERVOUS SYSTEM: The patient is conscious, awake, alert, seems to be oriented x3 with no focal deficit. It is noted that the patient is slightly hard of hearing. PSYCHIATRIC: The patient appears to be less anxious today, but her judgement and insight seem to be intact. The patient's affect seems to be normal today. FLUID BALANCE: The patient's 24-hour intake is 1010 mL, output is 400 mL. IMPRESSION: 1. LEFT LOWER LOBE PNEUMONIA WITH EFFUSION. Improving. 2. NO DOCUMENTED EVIDENCE OF AMIODARONE TOXICITY. Continue the patient on amiodarone and watch liver function tests. Get a PFT as an outpatient. 3. ACUTE ON CHRONIC DIASTOLIC CONGESTIVE HEART FAILURE. At present compensated. 4. COPD EXACERBATION. Has gone back to baseline, the acute exacerbation has resolved. The plan is to continue respiratory treatments and continue oxygen. 5. URINARY TRACT INFECTION. This has cleared with antibiotics. Continue antibiotics for the pneumonia. 6. ANEMIA. Her hemoglobin has come up, and the plan is to monitor this. 7. ELEVATED LIVER FUNCTION TESTS. Now normalized. Since the patient is on amiodarone, will need periodic liver function tests which is the plan. 8. PAROXYSMAL ATRIAL FIBRILLATION. The plan is to continue the patient on Eliquis, beta fidencio, and amiodarone. Watch for amiodarone toxicity and watch for bradycardia. 9. HYPERTENSION. This seems to be related to above. Will hold off on starting any antihypertensives. 10. LEFT CAROTID STENOSIS, 90%. No evidence of TIA or CVA. The plan is to have this followed up as an outpatient. I will see the patient in the [facility], then I will see her in the office, and then, as per the family wishes, will send her to a vascular surgeon, either [facility] or in [facility]. I have also discussed the option of a stent placement there. 11. GENERALIZED DEBILITY AND MALNUTRITION. Note, that the patient is drinking fluids. She is eating more. She has become much stronger. 12. ANXIETY. Continue anxiolytic agents. Note that the patient's Risperdal and cyproheptadine has been discontinued. The patient is being monitored. Plan as mentioned earlier. Note, that the patient's daughter, and the patient's son and other son, Mr. Don Haines, who is the healthcare [id number] but lives in [facility], all want the patient to follow up with me. Will abide by their wishes. Note, as mentioned, 30 minutes were spent on this patient with more than 50% spent on direct patient care, reviewing the patient's medications, and discussions with the family about the patient's multiple problems. At present, it seems to be moderately complex decision making. DICTATING PHYSICIAN: DEVANTE DOBSON M.D. [id number] PHY#: [id number] ID: [id number] JOB#: [id number] ACCT: [id number] cc:DEVANTE DOBSON M.D. >
[2016-10-13] MEDS: BENZONATATE 100 MG CAPSULE PO SCH (06:00)
[2016-10-13] MEDS: LANSOPRAZOLE 30 MG TAB.RAP.DR PO SCH (06:00)
[2016-10-13] MEDS: ERYTHROMYCIN 0.5% OPH OINTMENT 3.5 GM TUBE OD SCH ×2 (06:08)
[2016-10-13 09:00] VITALS: BP 149/57
--- NOTE | 2016-10-13 09:08 | PDOC DISCHARGE SUMMARY ---
General - Admit/Disc Date/PCP Admission Date/Primary Care Provider: 10/06/16 05:57 ABEL WILD MD Discharge Date: 10/13/16 - Discharge Diagnosis (1) Atrial fibrillation with RVR Is this a current diagnosis for this admission?: Yes (2) Congestive heart failure Is this a current diagnosis for this admission?: Yes (3) Altered awareness, transient Is this a current diagnosis for this admission?: Yes (4) Malnutrition Is this a current diagnosis for this admission?: Yes (5) Paroxysmal atrial fibrillation Is this a current diagnosis for this admission?: Yes (6) Paroxysmal atrial tachycardia Is this a current diagnosis for this admission?: Yes (7) UTI (urinary tract infection) Is this a current diagnosis for this admission?: Yes (8) Diastolic CHF Is this a current diagnosis for this admission?: Yes (9) Anxiety disorder Is this a current diagnosis for this admission?: Yes (10) Gastroesophageal reflux disease Is this a current diagnosis for this admission?: Yes (11) Macular degeneration of left eye Is this a current diagnosis for this admission?: Yes (12) Peripheral vascular disease Is this a current diagnosis for this admission?: Yes (13) HLD (hyperlipidemia) Is this a current diagnosis for this admission?: Yes (14) Left carotid stenosis Is this a current diagnosis for this admission?: Yes - Additional Information Resuscitation Status: Full Code Discharge Diet: Regular, Other (Comments) - mechanical cut thin liquids Discharge Activity: Activity As Tolerated, Balance Activity w/Rest, Supervised Activity, Weigh Daily Home Medications: Aspirin [Adult Low Dose Aspirin EC] 81 mg PO DAILY 10/06/16 Atorvastatin Calcium [Lipitor 20 mg Tablet] 20 mg PO DAILY 10/06/16 Bimatoprost [Lumigan 0.01% Oph Soln 2.5 ml/Bottle] 1 drop OU QHS 10/06/16 Brimonidine Tartrate/Timolol [Combigan 0.2%-0.5% Eye Drops] 1 drop OU BID Docusate Sodium [Colace 100 mg Capsule] 100 mg PO BID 10/06/16 Isosorbide Mononitrate [Imdur 30 mg Tablet.er] 30 mg PO DAILY 10/06/16 Megestrol Acetate [Megace] 10 ml PO DAILY 10/06/16 Metoprolol Tartrate [Lopressor 50 mg Tablet] 50 mg PO Q12 10/06/16 Sennosides/Docusate Sodium [Senna-S Tablet] 2 tab PO QHS 10/06/16 Timolol Maleate [Timoptic 0.5% Oph Soln 5 ml] 1 drop OU QHS 10/06/16 Acetaminophen [Tylenol 325 mg Tablet] 650 mg PO Q8HP PRN tablet 10/13/16 Alprazolam [Xanax 0.25 mg Tablet] 0.125 mg PO BIDP PRN #10 tablet 10/13/16 Amiodarone HCl [Cordarone 200 mg Tablet] 200 mg PO DAILY tablet 10/13/16 Aspirin [Aspirin 81 mg Chewable Tablet] 81 mg PO DAILY tab.chew 10/13/16 Benzonatate [Tessalon Perles 100 mg Capsule] 100 mg PO Q8 capsule 10/13/16 Cyclosporine 0.05% Oph Emulsio [Restasis 0.05% Oph Emulsion Pf 0.4 ml] 1 drop OU Q12 droperette 10/13/16 Docusate Sodium [Colace 100 mg Capsule] 100 mg PO BID capsule 10/13/16 Erythromycin Base [E-Mycin 0.5% Oph Ointment 3.5 gm] 1 applic OD Q6 tube Isosorbide Mononitrate [Imdur 30 mg Tablet.er] 30 mg PO DAILY tab.er.24h Levofloxacin [Levaquin 750 mg Tablet] 750 mg PO Q2DAYS #2 tablet 10/13/16 Metoprolol Tartrate [Lopressor 50 mg Tablet] 50 mg PO Q12 tablet 10/13/16 History of Present Illness History of Present Illness: Please see H&P for full HPI Hospital Course Hospital Course: Patient was admitted for pneumonia and acute diastolic congestive heart failure. Patient initially required BiPAP but was quickly weaned off of this. CT of the chest was performed which revealed bilateral pleural effusions as well as groundglass infiltrates. Initially patient was thought to have some amiodarone toxicity, but this was quickly ruled out. Patient responded well to Levaquin renally adjusted. Patient also responded well to diuresis. Patient's A. fib continues to be controlled and in sinus rhythm on amiodarone. Long discussion was had with multiple members of patient's family regarding anticoagulation and at this time they feel that full dose anticoagulation is an unnecessary risk and agreed 81 mg aspirin. Patient does suffer some anxiety and depression however, patient had adverse reaction to her home medications of cyproheptadine and Prozac. These were stopped. Patient had previously been on small amount Risperdal at night and this was also stopped due to lethargy. Patient had a transient alteration of awareness due to medications but this quickly resolved after they were stopped. Overall patient is quite debilitated and will require inpatient rehabilitation. Patient does suffer from macular degeneration and is hard of hearing. Overall, she is much improved and is stable for transfer to rehabilitation today. Physical Exam Vital Signs: Temp Pulse Resp BP Pulse Ox 98.1 F 68 19 174/58 H 95 10/13/16 04:25 10/13/16 07:00 10/13/16 04:25 10/13/16 04:25 10/13/16 04:25 Intake & Output 10/12/16 10/13/16 10/14/16 06:59 06:59 06:59 Intake Total 1010 916 Output Total 400 0 Balance 610 916 Weight 48.2 kg 49.3 kg Exam: General: Awake, alert, and oriented 3, no acute respiratory distress HEENT: AT/NC, left corneal opacification, oropharynx is moist, pink, no scleral icterus, mild right conjunctival injection Neck: No JVD, trachea midline Chest: Clear to auscultation bilaterally CV: Regular rate and rhythm, normal S1 and S2, no rub or gallop; 2/6 apex Abdomen: Soft, nontender to palpation, nondistended, active bowel sounds; no rebound, rigidity, or guarding Extremities: No cyanosis, clubbing or edema Neuro: Cranial nerves grossly intact without focal deficits with the exception of vision in her left eye Psych: Mildly Anxious Results Laboratory Results: 10/11/16 06:38 10/11/16 06:38 Impressions: Chest CT 10/08/16 00:00 IMPRESSION: 1. Effusions and ground-glass infiltrates are likely related to acute congestive failure. The presence of this acute disease limits evaluation for underlying drug toxicity. Re- scanning at a later date when the patient is no longer acutely ill may help evaluate further for amiodarone toxicity. Chest X-Ray 10/11/16 06:00 IMPRESSION: Stable chest, findings as above. Qualifiers PATEINT BEING DISCHARGED WITH ANY OF THE FOLLOWING DIAGNOSIS?: Heart Failure HF Pt being discharged on ACEI for LVEF less than 40%?: No Reason(s) for not prescribing ACEI:: Not indicated - EF greater than 40 HF Pt being discharged on ARBS for LVEF less than 40%?: No Reason(s) for not prescribing ARBS:: Not indicated - EF greater than 40 HF Pt with Afib discharged with Warfarin?: No Reason(s) for not prescribing Warfarin:: Drug declined by patient - Declined inpatient family HF Pt discharged on evidence-based Beta Tavares:: Yes Plan Time Spent: Greater than 30 Minutes
[2016-10-13] MEDS: ISOSORBIDE MONONITRATE 30 MG TAB.ER.24H PO SCH (10:14)
[2016-10-13] MEDS: MEGESTROL ACETATE SUSP 400 MG/10 ML UDCUP PO SCH (10:15)
[2016-10-13] MEDS: LEVOFLOXACIN 750 MG TABLET PO SCH (10:15)
[2016-10-13] MEDS: ASPIRIN 81 MG TABLET, CHEWABLE PO SCH (10:15)
[2016-10-13] MEDS: METOPROLOL TARTRATE 50 MG TABLET PO SCH (10:15)
[2016-10-13] MEDS: ATORVASTATIN CALCIUM 20 MG TABLET PO SCH (10:15)
[2016-10-13] MEDS: FUROSEMIDE 40 MG TABLET PO SCH (10:15)
[2016-10-13] MEDS: AMIODARONE HCL 200 MG TABLET PO SCH (10:16)
[2016-10-13] MEDS: DOCUSATE SODIUM 100 MG CAPSULE PO SCH (10:16)
[2016-10-13] MEDS: CYCLOSPORINE 0.05% OPH EMULSIO 0.4 ML DROPERETTE OU SCH (10:17)
== END 2016-10-13 12:52 | DRG 291 ==
LOC: ER 02:43 → UNDOADMOB 05:05 → EH 05:05 → OBSVTOIN 05:57 → EH 05:57 → 5 23:06
PROVIDERS: ADMIT Family Medicine; ATTEND Family Medicine
PROC: 3E0F73Z Introduction of Anti-inflammatory into Respiratory Tract, Via Natural or Artificial Opening (ICD-10-PCS; 2016-10-06)
PROC: 5A09457 Assistance with Respiratory Ventilation, 24-96 Consecutive Hours, Continuous Positive Airway Pressure (ICD-10-PCS; principal; 2016-10-07)
DX: I11.0 Hypertensive heart disease with heart failure (principal); J18.9 Pneumonia, unspecified organism; N30.00 Acute cystitis without hematuria; E46 Unspecified protein-calorie malnutrition; Z68.1 Body mass index [BMI] 19.9 or less, adult; J44.1 Chronic obstructive pulmonary disease with (acute) exacerbation; K50.90 Crohn's disease, unspecified, without complications; I47.1 Supraventricular tachycardia; I50.33 Acute on chronic diastolic (congestive) heart failure; I48.0 Paroxysmal atrial fibrillation; D64.9 Anemia, unspecified; E78.00 Pure hypercholesterolemia, unspecified; I73.9 Peripheral vascular disease, unspecified; F32.9 Major depressive disorder, single episode, unspecified; F41.1 Generalized anxiety disorder; Z90.710 Acquired absence of both cervix and uterus; Z98.51 Tubal ligation status; H91.90 Unspecified hearing loss, unspecified ear; R41.82 Altered mental status, unspecified; K21.9 Gastro-esophageal reflux disease without esophagitis; E78.5 Hyperlipidemia, unspecified; B96.20 Unspecified Escherichia coli [E. coli] as the cause of diseases classified elsewhere; I65.22 Occlusion and stenosis of left carotid artery; T45.0X5A Adverse effect of antiallergic and antiemetic drugs, initial encounter; T43.225A Adverse effect of selective serotonin reuptake inhibitors, initial encounter; Y92.239 Unspecified place in hospital as the place of occurrence of the external cause; H35.30 Unspecified macular degeneration; Z79.82 Long term (current) use of aspirin; Z79.899 Other long term (current) drug therapy; Z79.02 Long term (current) use of antithrombotics/antiplatelets; R74.0 Nonspecific elevation of levels of transaminase and lactic acid dehydrogenase [LDH]; Z88.0 Allergy status to penicillin; Z91.013 Allergy to seafood; Z87.891 Personal history of nicotine dependence; Z82.49 Family history of ischemic heart disease and other diseases of the circulatory system
CPT/HCPCS: 36415; 36600; 71010; 71250; 80048; 80053; 80076; 81001; 82550; 82553; 82803; 83880; 84484; 85025; 85027; 87040; 87086; 87088; 87186; 93005; 93010; 94660; 94799; 99285; G8978-GP; G8979-GP; J1940; J1956; J3490; J7060; J7512; J7620

== ENCOUNTER → 2016-11-07 | Outpatient (CLI) | payer MEDICARE, OTHER | LOC: RAD 10:24 | PROVIDERS: ATTEND Specialist | DX: J90 Pleural effusion, not elsewhere classified (principal) | CPT/HCPCS: 71020 ==

== ENCOUNTER 2016-11-15 12:00 | Observation (INO) | payer MEDICARE, OTHER ==
[2016-11-15] MEDS ORDERED: ASPIRIN 81 MG TABLET, CHEWABLE ONE (12:35)
[2016-11-16] MEDS ORDERED: BENZONATATE 100 MG CAPSULE PO PRN (02:05)
[2016-11-16] MEDS ORDERED: FUROSEMIDE 20 MG TABLET PO ONE (02:15)
[2016-11-16] MEDS ORDERED: ALPRAZOLAM 0.25 MG TABLET PO ONE (02:15)
[2016-11-16] MEDS ORDERED: LATANOPROST 0.005% OPH SOLN 2.5 ML OU ONE (02:15)
[2016-11-16] MEDS ORDERED: METOPROLOL TARTRATE 25 MG TABLET PO ONE (02:15)
[2016-11-16] MEDS ORDERED: TIMOLOL MALEATE 0.5% OPH SOLN 5 ML OU ONE (02:30)
[2016-11-16] MEDS: ALPRAZOLAM 0.25 MG TABLET PO PRN (04:40)
[2016-11-16 05:03] LABS: ABSOLUTE BASOPHILS # (AUTO) 0.1 10^3/uL (0.0-0.2); ABSOLUTE EOSINOPHILS # (AUTO) 0.3 10^3/uL (0.0-0.6); ABSOLUTE LYMPHOCYTES (AUTO) 1.4 10^3/uL (0.5-4.7); ABSOLUTE MONOCYTES (AUTO) 0.7 10^3/uL (0.1-1.4); ABSOLUTE NEUT (AUTO) 4.1 10^3/uL (1.7-8.2); BASOPHILS % (AUTO) 0.8 % (0-2); EOSINOPHILS % (AUTO) 4.4 % (0-6); HEMOGLOBIN 12.1 g/dL (12.0-15.5); HGB HCT DIFFERENCE -0.7; LYMPHOCYTES % (AUTO) 21.7 % (13-45); MEAN CORPUSCULAR HEMOGLOBIN 28.4 pg (27.0-33.4); MEAN CORPUSCULAR HGB CONC 32.7 g/dL (32.0-36.0); MEAN CORPUSCULAR VOLUME 87 fl (80-97); MONOCYTES % (AUTO) 10.2 % (3-13); RED BLOOD COUNT 4.27 10^6/uL (3.72-5.28); RED CELL DISTRIBUTION WIDTH 16.6 % (11.5-14.0); SEGMENTED NEUTROPHILS % (AUTO) 62.9 % (42-78); WHITE BLOOD COUNT 6.6 10^3/uL (4.0-10.5)
[2016-11-16 09:16] LABS: ABSOLUTE BASOPHILS # (AUTO) 0.1 10^3/uL (0.0-0.2); ABSOLUTE EOSINOPHILS # (AUTO) 0.4 10^3/uL (0.0-0.6); ABSOLUTE LYMPHOCYTES (AUTO) 1.4 10^3/uL (0.5-4.7); ABSOLUTE MONOCYTES (AUTO) 0.7 10^3/uL (0.1-1.4); ABSOLUTE NEUT (AUTO) 4.9 10^3/uL (1.7-8.2); BASOPHILS % (AUTO) 0.7 % (0-2); EOSINOPHILS % (AUTO) 5.1 % (0-6); HEMATOCRIT 39.8 % (36.0-47.0); HEMOGLOBIN 13.1 g/dL (12.0-15.5); HGB HCT DIFFERENCE -0.5; LYMPHOCYTES % (AUTO) 18.6 % (13-45); MEAN CORPUSCULAR HEMOGLOBIN 29.4 pg (27.0-33.4); MEAN CORPUSCULAR HGB CONC 32.9 g/dL (32.0-36.0); MEAN CORPUSCULAR VOLUME 89 fl (80-97); RED BLOOD COUNT 4.45 10^6/uL (3.72-5.28); RED CELL DISTRIBUTION WIDTH 16.7 % (11.5-14.0); SEGMENTED NEUTROPHILS % (AUTO) 65.6 % (42-78); WHITE BLOOD COUNT 7.4 10^3/uL (4.0-10.5)
[2016-11-16] MEDS: ASPIRIN 81 MG TABLET, CHEWABLE PO SCH (09:25)
[2016-11-16] MEDS: METOPROLOL TARTRATE 25 MG TABLET PO SCH ×2 (09:25→21:37)
[2016-11-16] MEDS: LANSOPRAZOLE 15 MG TAB.RAP.DR PO SCH (09:25)
[2016-11-16] MEDS: TIMOLOL MALEATE 0.5% OPH SOLN 5 ML OU SCH ×2 (09:26→21:37)
[2016-11-16] MEDS: AMIODARONE HCL 200 MG TABLET PO SCH (09:26)
[2016-11-16] MEDS: FUROSEMIDE 20 MG TABLET PO SCH (09:26)
[2016-11-16] MEDS: MEGESTROL ACETATE SUSP 400 MG/10 ML UDCUP PO SCH (09:26)
[2016-11-16] MEDS: DOCUSATE SODIUM 100 MG CAPSULE PO SCH (09:26)
--- NOTE | 2016-11-16 10:35 | EKG REPORT ---
SEVERITY:- ABNORMAL ECG - SINUS RHYTHM LVH WITH SECONDARY REPOLARIZATION ABNORMALITY ST DEPRESSION, CONSIDER ISCHEMIA, ANT-LAT LDS BORDERLINE PROLONGED QT INTERVAL : Confirmed by: Letty Siegel MD 16-Nov-2016 10:34:50
[2016-11-16 15:33] LABS: TROPONIN I < 0.012 ng/mL
[2016-11-16 15:34] LABS: ALANINE AMINOTRANSFERASE 20 U/L (9-52); ALBUMIN 3.6 g/dL (3.5-5.0); ALKALINE PHOSPHATASE 40 U/L (38-126); ANION GAP 13 (5-19); ASPARTATE AMINO TRANSFERASE 21 U/L (14-36); BILIRUBIN,TOTAL 0.8 mg/dL (0.2-1.3); BLOOD UREA NITROGEN 21 mg/dL (7-20); CALCIUM 9.6 mg/dL (8.4-10.2); CARBON DIOXIDE 26 mmol/L (22-30); CHLORIDE 105 mmol/L (98-107); CREATININE RESULT 1.01 mg/dL (0.52-1.25); GLUCOSE 94 mg/dL (75-110); POTASSIUM 3.4 mmol/L (3.6-5.0); SODIUM 144.3 mmol/L (137-145)
[2016-11-16 15:39] LABS: BILIRUBIN,DIRECT 0.3 mg/dL (0.0-0.4); CREATINE KINASE < 20 U/L (30-135); TOTAL PROTEIN 6.6 g/dL (6.3-8.2)
--- NOTE | 2016-11-16 19:09 | PDOC H&P ---
History of Present Illness Admission Date/PCP: 11/16/16 01:11 ABEL WILD MD History of Present Illness: KEVAN PAVON is a 85 year old female, she is very hard of hearing, she came to the emergency room with complaint of chest pain and abdominal pain, in the emergency room CT scan of the abdomen and pelvis was done and it was negative. The emergency room physician wanted patient admitted for evaluation of chest pain. She was seen on the floor but she denies any chest pain, she is more concerned about the abdominal pain and leg pain. She is eating without any incident, there is no vomiting there is no diarrhea Past Medical History Cardiac Medical History: Reports: Atrial Fibrillation, Congestive Heart Failure - diastolic, Hyperlipidema, Hypertension, Peripheral Vascular Disease - 90% left carotid stenosis Pulmonary Medical History: Reports: Chronic Obstructive Pulmonary Disease (COPD ) - suspected EENT Medical History: Reports: Ears - Hard of hearing GI Medical History: Reports: Crohn's Disease, Diverticulitis, Gastroesophageal Reflux Disease - Diverticulosis; constipation Psychiatric Medical History: Reports: Depression Infectious Medical History: Reports: Clostridium Difficile Past Surgical History Past Surgical History: Reports: Hysterectomy, Tubal Ligation Social History Smoking Status: Never Smoker Frequency of Alcohol Use: None Hx Recreational Drug Use: No Drugs: None Hx Prescription Drug Abuse: No Family History Family History: CVA, Other - Congestive heart failure, but no family history of premature coronary artery disease or sudden cardiac . Parental Family History Reviewed: Yes Children Family History Reviewed: Yes Sibling(s) Family History Reviewed.: Yes Medication/Allergy Home Medications: Atorvastatin Calcium [Lipitor 20 mg Tablet] 20 mg PO DAILY 10/06/16 Docusate Sodium [Colace 100 mg Capsule] 100 mg PO DAILY 10/06/16 Sennosides/Docusate Sodium [Senna-S Tablet] 2 tab PO QHS 10/06/16 Timolol Maleate [Timoptic 0.5% Oph Soln 5 ml] 1 drop OU Q12 10/06/16 Alprazolam [Xanax 0.25 mg Tablet] 0.125 mg PO BIDP PRN #10 tablet 10/13/16 Amiodarone HCl [Cordarone 200 mg Tablet] 200 mg PO DAILY tablet 10/13/16 Aspirin [Aspirin 81 mg Chewable Tablet] 81 mg PO DAILY tab.chew 10/13/16 Benzonatate [Tessalon Perles 100 mg Capsule] 100 mg PO Q8HP PRN 11/15/16 Furosemide [Lasix 20 mg Tablet] 20 mg PO DAILY 11/15/16 Latanoprost [Xalatan 0.005% Oph Soln 2.5 ml] 1 drop OU QHS 11/15/16 Megestrol Acetate 400 mg PO DAILY 11/15/16 Metoprolol Tartrate [Lopressor 25 mg Tablet] 25 mg PO Q12 11/15/16 Omeprazole 20 mg PO [id number] 11/15/16 Allergies/Adverse Reactions: Penicillins Allergy (Mild, Verified 07/09/16 10:56) nausea,diarrhea Shellfish * [Shellfish] Allergy (Mild, Verified 07/09/16 10:56) VOMITING Review of Systems Constitutional: ABSENT: chills, fever(s), headache(s), weight gain, weight loss Eyes: PRESENT: as per HPI, visual disturbances, other Ears: PRESENT: hearing changes Cardiovascular: PRESENT: chest pain Respiratory: ABSENT: cough, hemoptysis Gastrointestinal: PRESENT: abdominal pain Genitourinary: ABSENT: dysuria, hematuria Musculoskeletal: ABSENT: joint swelling Integumentary: ABSENT: rash, wounds Neurological: ABSENT: abnormal gait, abnormal speech, confusion, dizziness, focal weakness, syncope Psychiatric: ABSENT: anxiety, depression, homidical ideation, suicidal ideation Endocrine: ABSENT: cold intolerance, heat intolerance, menstrual abnormalities, polydipsia, polyuria Hematologic/Lymphatic: ABSENT: easy bleeding, easy bruising, lymphadenopathy Physical Exam Vital Signs: Temp Pulse Resp BP Pulse Ox 97.8 F 63 18 150/67 H 98 11/16/16 16:00 11/16/16 16:00 11/16/16 16:00 11/16/16 16:00 11/16/16 16:00 Intake & Output 11/15/16 11/16/16 11/17/16 06:59 06:59 06:59 Intake Total 120 360 Output Total 300 400 Balance -180 -40 Weight 24.7 kg General appearance: PRESENT: no acute distress, well-developed, well-nourished Head exam: PRESENT: atraumatic, normocephalic Eye exam: PRESENT: conjunctiva pink, EOMI, PERRLA. ABSENT: scleral icterus Ear exam: PRESENT: normal external ear exam Mouth exam: PRESENT: moist, tongue midline Neck exam: PRESENT: full ROM Respiratory exam: PRESENT: clear to auscultation toy Cardiovascular exam: PRESENT: RRR, +S1, +S2 Pulses: PRESENT: normal dorsalis pedis pul, +2 pedal pulses bilateral Vascular exam: PRESENT: normal capillary refill GI/Abdominal exam: PRESENT: normal bowel sounds, soft Rectal exam: PRESENT: deferred Neurological exam: PRESENT: alert, awake, oriented to person, oriented to place , oriented to time, oriented to situation, CN II-XII grossly intact Psychiatric exam: PRESENT: appropriate affect, normal mood Skin exam: PRESENT: dry, intact, warm Results Laboratory Results: 11/16/16 04:25 11/16/16 04:25 WBC 6.6 RBC 4.27 Hgb 12.1 Hct 37.0 MCV 87 MCH 28.4 MCHC 32.7 RDW 16.6 H Plt Count 272 Seg Neutrophils % 62.9 Lymphocytes % 21.7 Monocytes % 10.2 Eosinophils % 4.4 Basophils % 0.8 Absolute Neutrophils 4.1 Absolute Lymphocytes 1.4 Absolute Monocytes 0.7 Absolute Eosinophils 0.3 Absolute Basophils 0.1 Impressions: Abdomen/Pelvis CT 11/16/16 00:00 IMPRESSION: COLONIC DIVERTICULOSIS. NO CT EVIDENCE OF ACUTE DIVERTICULITIS. OTHER INCIDENTAL CHRONIC FINDINGS ABOVE. NO ACUTE PROCESS IN THE ABDOMEN OR PELVIS. Chest X-Ray 11/16/16 00:00 IMPRESSION: Small right upper lobar atelectasis or scar. Interval improvement. Assessment & Plan - Diagnosis (1) Chest pain Qualifiers: Chest pain type: unspecified Qualified Code(s): R07.9 - Chest pain, unspecified Is this a current diagnosis for this admission?: YesPlan: She is presently chest pain free , she is admitted for observation
[2016-11-16 20:05] LABS: CREATINE KINASE MB 1.28 ng/mL (<4.55); TROPONIN I 0.03 ng/mL
[2016-11-16] MEDS ORDERED: SENNOSIDES/DOCUSATE 8.6-50 MG 1 EACH TABLET PO SCH (22:00)
[2016-11-16] MEDS ORDERED: LATANOPROST 0.005% OPH SOLN 2.5 ML OU SCH (22:00)
[2016-11-16] MEDS ORDERED: ATORVASTATIN CALCIUM 20 MG TABLET PO SCH (22:00)
[2016-11-17 04:06] LABS: ABSOLUTE BASOPHILS # (AUTO) 0.1 10^3/uL (0.0-0.2); ABSOLUTE EOSINOPHILS # (AUTO) 0.3 10^3/uL (0.0-0.6); ABSOLUTE LYMPHOCYTES (AUTO) 1.2 10^3/uL (0.5-4.7); ABSOLUTE MONOCYTES (AUTO) 0.8 10^3/uL (0.1-1.4); ABSOLUTE NEUT (AUTO) 5.3 10^3/uL (1.7-8.2); BASOPHILS % (AUTO) 0.7 % (0-2); EOSINOPHILS % (AUTO) 3.6 % (0-6); HEMATOCRIT 36.7 % (36.0-47.0); HGB HCT DIFFERENCE -0.7; LYMPHOCYTES % (AUTO) 16.3 % (13-45); MEAN CORPUSCULAR HEMOGLOBIN 28.4 pg (27.0-33.4); MEAN CORPUSCULAR HGB CONC 32.6 g/dL (32.0-36.0); MEAN CORPUSCULAR VOLUME 87 fl (80-97); MONOCYTES % (AUTO) 10.3 % (3-13); RED BLOOD COUNT 4.21 10^6/uL (3.72-5.28); RED CELL DISTRIBUTION WIDTH 16.6 % (11.5-14.0); SEGMENTED NEUTROPHILS % (AUTO) 69.1 % (42-78); WHITE BLOOD COUNT 7.7 10^3/uL (4.0-10.5)
[2016-11-17 04:09] LABS: CREATINE KINASE MB 0.99 ng/mL (<4.55); TROPONIN I 0.019 ng/mL
[2016-11-17] MEDS: ALPRAZOLAM 0.25 MG TABLET PO PRN (06:19)
[2016-11-17] MEDS: LANSOPRAZOLE 15 MG TAB.RAP.DR PO SCH (08:10)
[2016-11-17] MEDS: ASPIRIN 81 MG TABLET, CHEWABLE PO SCH (10:10)
[2016-11-17] MEDS: METOPROLOL TARTRATE 25 MG TABLET PO SCH (10:10)
[2016-11-17] MEDS: TIMOLOL MALEATE 0.5% OPH SOLN 5 ML OU SCH (10:10)
[2016-11-17] MEDS: FUROSEMIDE 20 MG TABLET PO SCH (10:11)
[2016-11-17] MEDS: DOCUSATE SODIUM 100 MG CAPSULE PO SCH (10:11)
[2016-11-17] MEDS: MEGESTROL ACETATE SUSP 400 MG/10 ML UDCUP PO SCH (10:11)
[2016-11-17] MEDS: AMIODARONE HCL 200 MG TABLET PO SCH (10:11)
[2016-11-17 11:40] LABS: CREATINE KINASE MB 1.09 ng/mL (<4.55); TROPONIN I 0.023 ng/mL
--- NOTE | 2016-11-17 13:36 | PDOC CONSULTATION ---
Consultation Consult Date: 11/16/16 Attending physician:: ABEL WILD Consult reason:: Chest pain. History of Present Illness Admission Date/PCP: 11/16/16 01:11 ABEL WILD MD Patient complains of: Abdominal pain History of Present Illness: KEVAN PAVON is a 85 year old female, she is very hard of hearing, she came to the emergency room with complaint of chest pain and abdominal pain, in the emergency room CT scan of the abdomen and pelvis was done and it was negative. The emergency room physician wanted patient admitted for evaluation of chest pain. She was seen on the floor but she denies any chest pain, she is more concerned about the abdominal pain and leg pain. She is eating without any incident, there is no vomiting there is no diarrhea. Patient has history of paroxysmal atrial fibrillation. Patient also gives history of congestive heart failure. Patient has noted some shortness of breath on exertion. Patient was seen yesterday at around 8 PM. Patient on repeated questioning denied chest pain but kept telling me that she has abdominal pain. Patient is a poor historian. Patient denied any prior history of heart attacks or strokes. Patient does have some vision problem. She is also very hard of hearing. This history was reviewed, confirmed and supplemented. I was asked to see this patient because of chest pain and abnormal EKG. Past Medical History Cardiac Medical History: Reports: Atrial Fibrillation, Congestive Heart Failure - diastolic, Hyperlipidema, Hypertension, Peripheral Vascular Disease - 90% left carotid stenosis Pulmonary Medical History: Reports: Chronic Obstructive Pulmonary Disease (COPD ) - suspected EENT Medical History: Reports: Ears - Hard of hearing GI Medical History: Reports: Crohn's Disease, Diverticulitis, Gastroesophageal Reflux Disease - Diverticulosis; constipation Psychiatric Medical History: Reports: Depression Infectious Medical History: Reports: Clostridium Difficile Past Surgical History Past Surgical History: Reports: Hysterectomy, Tubal Ligation Social History Information Source: Patient Smoking Status: Never Smoker Frequency of Alcohol Use: None Hx Recreational Drug Use: No Drugs: None Hx Prescription Drug Abuse: No Family History Family History: CVA, Other - Congestive heart failure, but no family history of premature coronary artery disease or sudden cardiac . Parental Family History Reviewed: Yes Children Family History Reviewed: Yes Sibling(s) Family History Reviewed.: Yes Medication/Allergy Home Medications: Atorvastatin Calcium [Lipitor 20 mg Tablet] 20 mg PO DAILY 10/06/16 Docusate Sodium [Colace 100 mg Capsule] 100 mg PO DAILY 10/06/16 Sennosides/Docusate Sodium [Senna-S Tablet] 2 tab PO QHS 10/06/16 Timolol Maleate [Timoptic 0.5% Oph Soln 5 ml] 1 drop OU Q12 10/06/16 Alprazolam [Xanax 0.25 mg Tablet] 0.125 mg PO BIDP PRN #10 tablet 10/13/16 Amiodarone HCl [Cordarone 200 mg Tablet] 200 mg PO DAILY tablet 10/13/16 Aspirin [Aspirin 81 mg Chewable Tablet] 81 mg PO DAILY tab.chew 10/13/16 Benzonatate [Tessalon Perles 100 mg Capsule] 100 mg PO Q8HP PRN 11/15/16 Furosemide [Lasix 20 mg Tablet] 20 mg PO DAILY 11/15/16 Latanoprost [Xalatan 0.005% Oph Soln 2.5 ml] 1 drop OU QHS 11/15/16 Megestrol Acetate 400 mg PO DAILY 11/15/16 Metoprolol Tartrate [Lopressor 25 mg Tablet] 25 mg PO Q12 11/15/16 Omeprazole 20 mg PO ACBRKFST 11/15/16 Allergies/Adverse Reactions: Penicillins Allergy (Mild, Verified 07/09/16 10:56) nausea,diarrhea Shellfish * [Shellfish] Allergy (Mild, Verified 07/09/16 10:56) VOMITING Review of Systems Constitutional: ABSENT: chills, fever(s), headache(s), weight gain, weight loss Eyes: PRESENT: visual disturbances, other - diminished Vision in both eyesleft more than right Ears: ABSENT: hearing changes Cardiovascular: PRESENT: dyspnea on exertion. ABSENT: chest pain, edema, orthropnea, palpitations Respiratory: PRESENT: dyspnea. ABSENT: cough, hemoptysis Gastrointestinal: PRESENT: abdominal pain, nausea, vomiting, other - Decreased appetite. ABSENT: constipation, diarrhea, hematemesis, hematochezia Genitourinary: ABSENT: dysuria, hematuria Musculoskeletal: ABSENT: joint swelling Integumentary: ABSENT: rash, wounds Neurological: ABSENT: abnormal gait, abnormal speech, confusion, dizziness, focal weakness, syncope Psychiatric: ABSENT: anxiety, depression, homidical ideation, suicidal ideation Endocrine: ABSENT: cold intolerance, heat intolerance, polydipsia, polyuria Hematologic/Lymphatic: ABSENT: easy bleeding, easy bruising Physical Exam Vital Signs: Temp Pulse Resp BP Pulse Ox 98.3 F 66 16 154/68 H 98 11/17/16 07:57 11/17/16 07:57 11/17/16 07:57 11/17/16 07:57 11/17/16 07:57 Intake & Output 11/16/16 11/17/16 11/18/16 06:59 06:59 06:59 Intake Total 320 650 Output Total 550 750 Balance -230 -100 Weight 24.7 kg Exam: GENERAL: well-nourished and in no acute distress. Alert and oriented x3 HEAD: Atraumatic, normocephalic. EYES: Pupils equal round and reactive to light, extraocular movements intact, sclera anicteric, conjunctiva are normal. Diminished vision both eyes left more than right. Corneal opacification noted on the left side. ENT: TMs normal, nares patent, oropharynx clear without exudates. Moist mucous membranes. No oral ulcerations or bleeding gums noted NECK: supple without lymphadenopathy. Trachea is central. No cervical or axillary lymphadenopathy noted. Carotids are 2+, JVD WNL LUNGS: Respiration seems nonlabored, no significant accessory muscle action noted. Breath sounds clear to auscultation bilaterally and equal noted. No wheezes rales or rhonchi noted. No significant dullness noted on percussion. CHEST: Palpation of the chest wall shows no significant chest wall tenderness. No other significant abnormalities noted. 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 ABDOMEN: Soft, no significant tenderness appreciated, normoactive bowel sounds. No guarding, no rebound. No rigidity noted . No masses appreciated. EXTREMITIES: Pedal pulses are 1-2+, no calf tenderness noted. No clubbing or cyanosis.trace pedal edema noted NEUROLOGICAL: Focused neurological exam showed no significant neurologic deficit. Normal speech, no focal weakness appreciated. PSYCH: Normal mood, normal affect. Judgment and insight within normal limits. SKIN: No significant ecchymosis, rash, ulcerations or signs of pruritus noted. MUSCULOSKELETAL EXAM: No significant joint swelling noted. Results Laboratory Results: 11/17/16 03:25 11/17/16 03:25 WBC 7.7 RBC 4.21 Hgb 12.0 Hct 36.7 MCV 87 MCH 28.4 MCHC 32.6 RDW 16.6 H Plt Count 273 Seg Neutrophils % 69.1 Lymphocytes % 16.3 Monocytes % 10.3 Eosinophils % 3.6 Basophils % 0.7 Absolute Neutrophils 5.3 Absolute Lymphocytes 1.2 Absolute Monocytes 0.8 Absolute Eosinophils 0.3 Absolute Basophils 0.1 11/16/16 11/16/16 11/17/16 19:18 19:18 03:25 Creatine Kinase 21 L 21 L CK-MB (CK-2) 1.28 Troponin I 0.030 11/17/16 03:25 Creatine Kinase CK-MB (CK-2) 0.99 Troponin I 0.019 EKG Comments: Sinus rhythm with LVH. Secondary ST-T wave changes are noted. When compared with EKG from earlier this year there is no significant changes Impressions: Abdomen/Pelvis CT 11/16/16 00:00 IMPRESSION: COLONIC DIVERTICULOSIS. NO CT EVIDENCE OF ACUTE DIVERTICULITIS. OTHER INCIDENTAL CHRONIC FINDINGS ABOVE. NO ACUTE PROCESS IN THE ABDOMEN OR PELVIS. Chest X-Ray 11/16/16 00:00 IMPRESSION: Small right upper lobar atelectasis or scar. Interval improvement. Assessment & Plan - Diagnosis (1) Chest pain Qualifiers: Chest pain type: unspecified Qualified Code(s): R07.9 - Chest pain, unspecified Is this a current diagnosis for this admission?: Yes (2) Abnormal EKG Is this a current diagnosis for this admission?: Yes (3) Congestive heart failure Qualifiers: Congestive heart failure type: diastolic Congestive heart failure chronicity: acute on chronic Qualified Code(s): I50.33 - Acute on chronic diastolic (congestive) heart failure Is this a current diagnosis for this admission?: Yes (4) Paroxysmal atrial fibrillation Is this a current diagnosis for this admission?: Yes - Notes Notes: Chest pain: Currently patient not complaining of any chest pain. Initial cardiac enzymes are unremarkable. EKG is unchanged. Patient not very keen on undergoing any stress testing. Abnormal EKG: There are no new changes. Congestive heart failure: This is well controlled. No evidence of fluid overload. Paroxysmal atrial fibrillation: Patient maintaining sinus rhythm. Continue current antiarrhythmics and beta blockers. - Time Time Spent: 30 to 50 Minutes Medications reviewed and adjusted accordingly: Yes
[2016-11-17 13:56] VITALS: BP 107/45
--- NOTE | 2016-11-17 18:48 | PDOC PROGRESS REPORT ---
Subjective Progress Note for:: 11/17/16 Subjective:: Ms. Haines was seen on morning rounds. She was doing better without any significant complaints. Patient did still have some lower abdominal pain but no chest pains. Her cardiac enzymes have been negative. Patient has a lot of stress related issues and underlying anxiety problem. As noted above he has declined to pursue any stress testing. Physical Exam Vital Signs: Temp Pulse Resp BP Pulse Ox 98.3 F 66 16 154/68 H 98 11/17/16 07:57 11/17/16 07:57 11/17/16 07:57 11/17/16 07:57 11/17/16 07:57 Intake & Output 11/16/16 11/17/16 11/18/16 06:59 06:59 06:59 Intake Total 320 650 Output Total 550 750 Balance -230 -100 Weight 24.7 kg Exam: GENERAL: well-nourished and in no acute distress. Alert and oriented x3 HEAD: Atraumatic, normocephalic. EYES: Pupils equal round and reactive to light, extraocular movements intact, sclera anicteric, conjunctiva are normal. Diminished vision in both eyes left more than right with left corneal opacity. ENT: TMs normal, nares patent, oropharynx clear without exudates. Moist mucous membranes. No oral ulcerations or bleeding gums noted NECK: supple without lymphadenopathy. Trachea is central. No cervical or axillary lymphadenopathy noted. Carotids are 2+, JVD WNL LUNGS: Respiration seems nonlabored, no significant accessory muscle action noted. Breath sounds clear to auscultation bilaterally and equal noted. No wheezes rales or rhonchi noted. No significant dullness noted on percussion. CHEST: Palpation of the chest wall shows no significant chest wall tenderness. No other significant abnormalities noted. 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 ABDOMEN: Soft, mild lower quadrant tenderness appreciated, normoactive bowel sounds. No guarding, no rebound. No rigidity noted . No masses appreciated. EXTREMITIES: Pedal pulses are 1-2+, no calf tenderness noted. No clubbing or cyanosis.trace to 1+ pedal edema noted NEUROLOGICAL: Focused neurological exam showed no significant neurologic deficit. Normal speech, no focal weakness appreciated. PSYCH: Normal mood, normal affect. Judgment and insight within normal limits. SKIN: No significant ecchymosis, rash, ulcerations or signs of pruritus noted. MUSCULOSKELETAL EXAM: No significant joint swelling noted. Results Laboratory Results: 11/17/16 03:25 11/17/16 03:25 WBC 7.7 RBC 4.21 Hgb 12.0 Hct 36.7 MCV 87 MCH 28.4 MCHC 32.6 RDW 16.6 H Plt Count 273 Seg Neutrophils % 69.1 Lymphocytes % 16.3 Monocytes % 10.3 Eosinophils % 3.6 Basophils % 0.7 Absolute Neutrophils 5.3 Absolute Lymphocytes 1.2 Absolute Monocytes 0.8 Absolute Eosinophils 0.3 Absolute Basophils 0.1 11/16/16 11/16/16 11/17/16 19:18 19:18 03:25 Creatine Kinase 21 L 21 L CK-MB (CK-2) 1.28 Troponin I 0.030 11/17/16 11/17/16 11/17/16 03:25 10:53 10:53 Creatine Kinase < 20 L CK-MB (CK-2) 0.99 1.09 Troponin I 0.019 0.023 Impressions: Abdomen/Pelvis CT 11/16/16 00:00 IMPRESSION: COLONIC DIVERTICULOSIS. NO CT EVIDENCE OF ACUTE DIVERTICULITIS. OTHER INCIDENTAL CHRONIC FINDINGS ABOVE. NO ACUTE PROCESS IN THE ABDOMEN OR PELVIS. Chest X-Ray 11/16/16 00:00 IMPRESSION: Small right upper lobar atelectasis or scar. Interval improvement. Assessment & Plan - Diagnosis (1) Chest pain Qualifiers: Chest pain type: unspecified Qualified Code(s): R07.9 - Chest pain, unspecified Is this a current diagnosis for this admission?: Yes (2) Abnormal EKG Is this a current diagnosis for this admission?: Yes (3) Congestive heart failure Qualifiers: Congestive heart failure type: diastolic Congestive heart failure chronicity: acute on chronic Qualified Code(s): I50.33 - Acute on chronic diastolic (congestive) heart failure Is this a current diagnosis for this admission?: Yes (4) Paroxysmal atrial fibrillation Is this a current diagnosis for this admission?: Yes (5) Hypertension Qualifiers: Hypertension type: essential hypertension Qualified Code(s): I10 - Essential (primary) hypertension Is this a current diagnosis for this admission?: Yes - Notes Notes: Chest pain: This is resolved. Patient actually denied having it. Patient does not want stress testing. Abnormal electrocardiogram: This is related to LVH. There are no new changes. Congestive heart failure: Clinically compensated without any evidence of note. Patient previously was noted to have diastolic heart failure and diastolic dysfunction. Paroxysmal atrial fibrillation: Patient on amiodarone therapy. Recommend maintaining patient on amiodarone therapy. Patient gets quite symptomatic whenever she has palpitations. Abdominal pain: Abdomen and pelvis CT is negative for significant pathology. Possibly functional. Hypertension: Patient gives history of hypertension but currently has been stable. Continue metoprolol. - Time Time with patient: 15-25 minutes - CODE STATUS was discussed, patient remains full code. Surrogate decision-maker patient children. Multiple medical problems were addressed. More than 50% of the time spent coordinating care, discussing management plans with involved caregivers. Management plans discussed with involved personnels. Medical decision making was of moderate to high complexity, patient's has multiple severe comorbidities. Medications reviewed and adjusted accordingly: Yes
--- NOTE | 2016-11-17 20:44 | PDOC DISCHARGE SUMMARY ---
General - Admit/Disc Date/PCP Admission Date/Primary Care Provider: 11/16/16 01:11 ABEL WILD MD Discharge Date: 11/17/16 - Discharge Diagnosis (1) Chest pain Is this a current diagnosis for this admission?: Yes (2) Abdominal pain Is this a current diagnosis for this admission?: Yes - Additional Information Discharge Activity: Activity As Tolerated Home Medications: Atorvastatin Calcium [Lipitor 20 mg Tablet] 20 mg PO DAILY 10/06/16 Docusate Sodium [Colace 100 mg Capsule] 100 mg PO DAILY 10/06/16 Sennosides/Docusate Sodium [Senna-S Tablet] 2 tab PO QHS 10/06/16 Timolol Maleate [Timoptic 0.5% Oph Soln 5 ml] 1 drop OU Q12 10/06/16 Alprazolam [Xanax 0.25 mg Tablet] 0.125 mg PO BIDP PRN #10 tablet 10/13/16 Amiodarone HCl [Cordarone 200 mg Tablet] 200 mg PO DAILY tablet 10/13/16 Aspirin [Aspirin 81 mg Chewable Tablet] 81 mg PO DAILY tab.chew 10/13/16 Benzonatate [Tessalon Perles 100 mg Capsule] 100 mg PO Q8HP PRN 11/15/16 Furosemide [Lasix 20 mg Tablet] 20 mg PO DAILY 11/15/16 Latanoprost [Xalatan 0.005% Oph Soln 2.5 ml] 1 drop OU QHS 11/15/16 Megestrol Acetate 400 mg PO DAILY 11/15/16 Metoprolol Tartrate [Lopressor 25 mg Tablet] 25 mg PO Q12 11/15/16 Omeprazole 20 mg PO ACBRKFST 11/15/16 History of Present Illness History of Present Illness: KEVAN PAVON is a 85 year old female, she is very hard of hearing, she came to the emergency room with complaint of chest pain and abdominal pain, in the emergency room CT scan of the abdomen and pelvis was done and it was negative. The emergency room physician wanted patient admitted for evaluation of chest pain. She was seen on the floor but she denies any chest pain, she is more concerned about the abdominal pain and leg pain. She is eating without any incident, there is no vomiting there is no diarrhea Hospital Course Hospital Course: She was admitted because of chest pain and abdominal pain, she was chest pain- free for 24 hours, she was seen by cardiology Dr. Mak he was covering for patient store administrative assistant,DR Kee. 3 sets of cardiac enzymes were negative for acute DE. Physical Exam Vital Signs: Temp Pulse Resp BP Pulse Ox 97.5 F 53 L 17 107/45 L 100 11/17/16 12:10 11/17/16 12:10 11/17/16 12:10 11/17/16 12:10 11/17/16 12:10 Intake & Output 11/16/16 11/17/16 11/18/16 06:59 06:59 06:59 Intake Total 320 650 Output Total 550 750 Balance -230 -100 Weight 24.7 kg General appearance: PRESENT: no acute distress Head exam: PRESENT: atraumatic, normocephalic Eye exam: ABSENT: scleral icterus Ear exam: PRESENT: normal external ear exam Mouth exam: PRESENT: moist, tongue midline Neck exam: PRESENT: full ROM Respiratory exam: PRESENT: clear to auscultation toy Cardiovascular exam: PRESENT: RRR, +S1, +S2 Pulses: PRESENT: normal dorsalis pedis pul, +2 pedal pulses bilateral Vascular exam: PRESENT: normal capillary refill GI/Abdominal exam: PRESENT: normal bowel sounds, soft Rectal exam: PRESENT: deferred Neurological exam: PRESENT: alert, awake, oriented to person, oriented to place , oriented to time, oriented to situation, CN II-XII grossly intact. ABSENT: motor sensory deficit Psychiatric exam: PRESENT: appropriate affect, normal mood Skin exam: PRESENT: dry, intact, warm Results Laboratory Results: 11/17/16 03:25 11/17/16 03:25 WBC 7.7 RBC 4.21 Hgb 12.0 Hct 36.7 MCV 87 MCH 28.4 MCHC 32.6 RDW 16.6 H Plt Count 273 Seg Neutrophils % 69.1 Lymphocytes % 16.3 Monocytes % 10.3 Eosinophils % 3.6 Basophils % 0.7 Absolute Neutrophils 5.3 Absolute Lymphocytes 1.2 Absolute Monocytes 0.8 Absolute Eosinophils 0.3 Absolute Basophils 0.1 11/16/16 11/16/16 11/17/16 19:18 19:18 03:25 Creatine Kinase 21 L 21 L CK-MB (CK-2) 1.28 Troponin I 0.030 11/17/16 11/17/1611/17/17 03:25 10:53 10:53 Creatine Kinase < 20 L CK-MB (CK-2) 0.99 1.09 Troponin I 0.019 0.023 Impressions: Abdomen/Pelvis CT 11/16/16 00:00 IMPRESSION: COLONIC DIVERTICULOSIS. NO CT EVIDENCE OF ACUTE DIVERTICULITIS. OTHER INCIDENTAL CHRONIC FINDINGS ABOVE. NO ACUTE PROCESS IN THE ABDOMEN OR PELVIS. Chest X-Ray 11/16/16 00:00 IMPRESSION: Small right upper lobar atelectasis or scar. Interval improvement.
== END 2016-11-17 14:17 | disposition home or self-care (01) ==
LOC: ER 12:00 → 4N 11-16 00:37 → UNDOADMOB 11-16 00:37 → 4N 11-16 01:11
PROVIDERS: ADMIT Internal Medicine; ATTEND Internal Medicine
DX: R07.9 Chest pain, unspecified (principal); R10.9 Unspecified abdominal pain; M79.606 Pain in leg, unspecified; K57.30 Diverticulosis of large intestine without perforation or abscess without bleeding; I11.0 Hypertensive heart disease with heart failure; I50.33 Acute on chronic diastolic (congestive) heart failure; R94.31 Abnormal electrocardiogram [ECG] [EKG]; I48.0 Paroxysmal atrial fibrillation; I65.22 Occlusion and stenosis of left carotid artery; I73.9 Peripheral vascular disease, unspecified; R11.2 Nausea with vomiting, unspecified; H91.90 Unspecified hearing loss, unspecified ear; K21.9 Gastro-esophageal reflux disease without esophagitis; K59.00 Constipation, unspecified; Z79.899 Other long term (current) drug therapy; Z79.82 Long term (current) use of aspirin; Z86.19 Personal history of other infectious and parasitic diseases; Z82.49 Family history of ischemic heart disease and other diseases of the circulatory system; Z98.51 Tubal ligation status; Z90.710 Acquired absence of both cervix and uterus; Z87.19 Personal history of other diseases of the digestive system; Z87.01 Personal history of pneumonia (recurrent)
CPT/HCPCS: 93005; 99285; 36415 ×3; 82553 ×2; 82550 ×3; 85025 ×3; 80053; 84484 ×3; 83880; 71010; 74176; 93010; G0378 ×2; A9270 ×16; J3490 ×2

== ENCOUNTER 2016-11-23 18:24 | Emergency (ER) | payer MEDICARE, OTHER ==
--- NOTE | 2016-11-23 19:07 | ER Document Report ---
ED General - General Chief Complaint: Abdominal Pain Stated Complaint: DIFFICULTY BREATHING Time Seen by Provider: 11/23/16 18:42 Notes: Patient is an 85-year-old female with a past medical history of anxiety, COPD, hypertension, hyperlipidemia, Crohn's disease, who presents with chronic, intermittent lower abdominal pain as well as intermittent shortness of breath. States nothing is new to her about today's episode. Patient is a very waxing and waning historian and it is difficult to ascertain a clear history from her. Family at the bedside provides a clear history stating that patient frequently developed lower abdominal pain and then subsequently becomes very anxious and states it is difficult for her to breathe. She has been seen in the emergency department repeatedly for similar presentation. Patient has been seen by her primary care doctor who did prescribe low-dose of alprazolam to treat her shortness of breath when this occurs with family states this is not treat the abdominal pain tends to not actually resolve her symptoms. At time of my assessment the patient denies any ongoing shortness of breath and denies any chest pain today. Describes pain in her lower abdomen as an intermittent, cramping, dull ache. Nothing seems to improve or worsen his pain. States nothing is new or different about this pain today relative to when she was admitted to the hospital. At that time she did have a CT scan of the abdomen and pelvis was noted to be normal. TRAVEL OUTSIDE OF THE [place] IN LAST 30 DAYS: No - Related Data Allergies/Adverse Reactions: Penicillins Allergy (Mild, Verified 07/09/16 10:56) nausea,diarrhea Shellfish * [Shellfish] Allergy (Mild, Verified 07/09/16 10:56) VOMITING Past Medical History - General Information source: Patient, Relative - Social History Smoking Status: Never Smoker Chew tobacco use (# tins/day): No Frequency of alcohol use: None Drug Abuse: None Lives with: Family Family History: CVA, Other - Congestive heart failure, but no family history of premature coronary artery disease or sudden cardiac . - Past Medical History Cardiac Medical History: Reports: Hx Atrial Fibrillation, Hx Congestive Heart Failure - diastolic, Hx Hypercholesterolemia, Hx Hypertension, Hx Peripheral Vascular Disease - 90% left carotid stenosis Denies: Hx DVT Pulmonary Medical History: Reports: Hx COPD - suspected Neurological Medical History: Denies: Hx Cerebrovascular Accident Renal/ Medical History: Denies: Hx Kidney Stones GI Medical History: Reports: Hx Crohn's Disease, Hx Diverticulitis, Hx Gastroesophageal Reflux Disease - Diverticulosis; constipation, Hx Irritable Bowel. Denies: Hx Ulcer Musculoskeltal Medical History: Denies Hx Multiple Sclerosis Psychiatric Medical History: Reports: Hx Depression Denies: Hx Schizophrenia Infectious Medical History: Reports: Hx C-Diff Past Surgical History: Reports: Hx Abdominal Surgery - colectomy, Hx Hysterectomy, Hx Tubal Ligation. Denies: Hx Open Heart Surgery - Immunizations Hx Diphtheria, Pertussis, Tetanus Vaccination: No Hx Pneumococcal Vaccination: 09/13/12 Review of Systems - Review of Systems Notes: Constitutional: Negative for fever. HENT: Negative for sore throat. Eyes: Negative for visual changes. Cardiovascular: Negative for chest pain. Respiratory: Negative for shortness of breath. Gastrointestinal: Positive for abdominal pain, negative for vomiting or diarrhea. Genitourinary: Negative for dysuria. Musculoskeletal: Negative for back pain. Skin: Negative for rash. Neurological: Negative for headaches, weakness or numbness. 10 point ROS negative except as marked above and in HPI. Physical Exam - Vital signs Vitals: Temp Pulse Resp BP Pulse Ox 99.4 F 75 20 196/86 H 95 11/23/16 18:30 11/23/16 18:30 11/23/16 18:30 11/23/16 18:30 11/23/16 18:30 Interpretation: Hypertensive Notes: PHYSICAL EXAMINATION: GENERAL: Well-appearing, well-nourished and in no acute distress. HEAD: Atraumatic, normocephalic. EYES: Pupils equal round and reactive to light, extraocular movements intact, sclera anicteric, conjunctiva are normal. ENT: nares patent, oropharynx clear without exudates. Moist mucous membranes. NECK: Normal range of motion, supple without lymphadenopathy LUNGS: Breath sounds clear to auscultation bilaterally and equal. No wheezes rales or rhonchi. HEART: Regular rate and rhythm without murmurs ABDOMEN: Soft, nontender, normoactive bowel sounds. No guarding, no rebound. No masses appreciated. EXTREMITIES: Normal range of motion, no pitting or edema. No cyanosis. NEUROLOGICAL: No focal neurological deficits. Moves all extremities spontaneously and on command. PSYCH: Anxious, difficult to redirect SKIN: Warm, Dry, normal turgor, no rashes or lesions noted. Course - Re-evaluation Re-evalutation: 11/23/16 19:05 Patient presents complaining episodic shortness of breath has been ongoing for "a few months now". She denies any complaints of shortness of breath at the time of my assessment. She is in absolutely no respiratory distress, satting 94 -95% on room air. She was administered nebulizers and steroids prior to arrival and states she does not think that this actually improved her symptoms. She denies any chest pain. Initial assessment unremarkable without any lung findings on exam. Vitals within normal limits with exception of hypertension of which patient has a history. EKG without ischemic changes. Will obtain basic laboratories, chest x-ray, reassess. Of note, patient is also complaining of chronic lower abdominal pain. She notes that this is been ongoing for again several months. She was recently admitted to the hospital less than 10 days ago for the same issues as above and had a CT of the abdomen pelvis at that time which was noted to be completely normal. She states nothing is new or different about her symptoms today relative to the abdominal pain when she was hospitalized and had a recent CT scan. She has no focal abdominal findings on exam. I do not believe a repeat CT of the abdomen pelvis is indicated at this time as one was just completed 11/23/16 20:57 Patient's laboratories, chest x-ray are unremarkable. She is maintaining oxygen saturation between 93 and 95% on room air without any further episodes of shortness of breath. I had a prolonged conversation with the patient's 2 sons and daughter at the bedside and they relate that this is a typical presentation for her where she developed some of her chronic lower abdominal pain which triggers a panic reaction with associated shortness of breath. This seems consistent with her overall clinical history of typically feeling better when she comes here to the hospital. Her repeat abdominal exam remains benign. After a discussion of the risks and benefits of initiating a low dose of oral morphine for as needed for abdominal pain is unresponsive to Tylenol the family has elected to be very cautious and a trial of this medication. Patient is otherwise cleared for discharge home at this time. Family is agreed with this plan. At this time will discharge with return precautions and follow-up recommendations. Verbal discharge instructions given a the bedside and opportunity for questions given. Medication warnings reviewed. Patient is in agreement with this plan and has verbalized understanding of return precautions and the need for primary care follow-up in the next 24-72 hours. - Vital Signs Vital signs: Temp Pulse Resp BP Pulse Ox 99.4 F 70 18 175/67 H 95 11/23/16 18:30 11/23/16 21:35 11/23/16 21:35 11/23/16 21:35 11/23/16 21:35 - Laboratory Result Diagrams: 11/23/16 19:00 11/23/16 19:00 Laboratory results interpreted by me: 11/23/16 11/23/16 19:00 19:00 RDW 17.4 H Seg Neuts % (Manual) 82 H Lymphocytes % (Manual) 6 L Basophils % (Manual) 3 H Abs Basophils (Manual) 0.3 H Glucose 113 H - Diagnostic Test Radiology reviewed: Image reviewed, Reports reviewed Radiology results interpreted by me: 11/23/16 20:58 Chest x-ray: No acute infiltrate or pneumothorax - EKG Interpretation by Me Additional EKG results interpreted by me: 11/23/16 20:58 Normal sinus rhythm. Rate 90. ST depressions in V3 through 5 unchanged from prior. QTC is prolonged at 534. Discharge - Discharge Clinical Impression: Shortness of breath Abdominal pain Qualifiers: Abdominal location: lower abdomen, unspecified Qualified Code(s): R10.30 - Lower abdominal pain, unspecified Condition: Good Disposition: HOME, SELF-CARE Additional Instructions: Your labs and chest x-ray are reassuring today. Please discontinue Xanax. You have been started on oral morphine tablets with you can use up to 2 times daily as needed for severe abdominal pain not controlled by Tylenol. Please be aware that this medication can make you more prone to falls and can cause confusion. Please be very cautious in using this medication for the first several times. Please follow closely with her primary care doctor. Return for any additional concerns you may have including persistent vomiting, shortness of breath, abdominal pain that is worse than normal, or any other symptoms that are worrisome to you. Prescriptions: Morphine Sulfate [Morphine Ir 15 mg Tablet] 15 mg PO Q4HP PRN #12 tablet PRN Reason: Referrals: PHI LIU MD [Primary Care Provider] - Follow up in 3-5 days
[2016-11-23 19:34] LABS: HEMOGLOBIN 12.3 g/dL (12.0-15.5); HGB HCT DIFFERENCE -1.1; MEAN CORPUSCULAR HEMOGLOBIN 28.4 pg (27.0-33.4); MEAN CORPUSCULAR HGB CONC 32.4 g/dL (32.0-36.0); MEAN CORPUSCULAR VOLUME 88 fl (80-97); RED BLOOD COUNT 4.34 10^6/uL (3.72-5.28); RED CELL DISTRIBUTION WIDTH 17.4 % (11.5-14.0); WHITE BLOOD COUNT 8.9 10^3/uL (4.0-10.5)
--- NOTE | 2016-11-23 19:37 | RADIOLOGY REPORT (SQ) ---
EXAM DESCRIPTION: CHEST SINGLE VIEW COMPLETED DATE/TIME: 11/23/2016 7:22 pm REASON FOR STUDY: sob COMPARISON: 11/15/2016 EXAM PARAMETERS: NUMBER OF VIEWS: One view. TECHNIQUE: Single frontal radiographic view of the chest acquired. RADIATION DOSE: NA LIMITATIONS: None. FINDINGS: LUNGS AND PLEURA: No acute opacities, masses or pneumothorax. Similar right upper lobe at electasis. No pleural effusion. MEDIASTINUM AND HILAR STRUCTURES: Stable. HEART AND VASCULAR STRUCTURES: Stable cardiomegaly. BONES: No acute findings. HARDWARE: None in the chest. OTHER: No other significant finding. IMPRESSION: NO ACUTE RADIOGRAPHIC FINDING IN THE CHEST. TECHNICAL DOCUMENTATION: JOB ID: [id number]
[2016-11-23 19:46] LABS: ALANINE AMINOTRANSFERASE 27 U/L (9-52); ALBUMIN 3.8 g/dL (3.5-5.0); ALKALINE PHOSPHATASE 42 U/L (38-126); ANION GAP 12 (5-19); ASPARTATE AMINO TRANSFERASE 23 U/L (14-36); BILIRUBIN,DIRECT 0.3 mg/dL (0.0-0.4); BILIRUBIN,TOTAL 1.1 mg/dL (0.2-1.3); BLOOD UREA NITROGEN 17 mg/dL (7-20); CALCIUM 9.7 mg/dL (8.4-10.2); CARBON DIOXIDE 23 mmol/L (22-30); CHLORIDE 106 mmol/L (98-107); CREATININE RESULT 0.84 mg/dL (0.52-1.25); GLUCOSE 113 mg/dL (75-110); LIPASE 103.4 U/L (23-300); POTASSIUM 3.7 mmol/L (3.6-5.0); SODIUM 140.5 mmol/L (137-145); TOTAL PROTEIN 6.6 g/dL (6.3-8.2)
[2016-11-23 19:52] LABS: BASOPHILS % (MANUAL) 3 % (0-2); EOSINOPHILS % (MANUAL) 2 % (0-6); LYMPHOCYTES % (MANUAL) 6 % (13-45); TOTAL CELLS COUNTED 100
[2016-11-23 19:54] LABS: ANISOCYTOSIS 1+; OVALOCYTES SLIGHT; POIKILOCYTOSIS SLIGHT; POLYCHROMASIA SLIGHT; SMUDGE CELLS PRESENT; TEAR DROP CELLS SLIGHT
[2016-11-23 20:01] LABS: PLATELET CLUMPS PRESENT
[2016-11-23 21:36] VITALS: BP 175/67
--- NOTE | 2016-11-24 08:21 | EKG REPORT ---
SEVERITY:- ABNORMAL ECG - SINUS RHYTHM VENTRICULAR PREMATURE COMPLEX LVH WITH SECONDARY REPOLARIZATION ABNORMALITY ST DEPRESSION, CONSIDER ISCHEMIA, ANT-LAT LDS : Confirmed by: Frederick Prater MD 24-Nov-2016 08:20:29
== END 2016-11-23 21:15 | disposition home or self-care (01) ==
LOC: ER 18:24
DX: G89.29 Other chronic pain (principal); R10.30 Lower abdominal pain, unspecified; J44.9 Chronic obstructive pulmonary disease, unspecified; I10 Essential (primary) hypertension; R06.02 Shortness of breath; F41.9 Anxiety disorder, unspecified; Z88.0 Allergy status to penicillin; Z91.013 Allergy to seafood; Z90.49 Acquired absence of other specified parts of digestive tract; Z87.19 Personal history of other diseases of the digestive system; Z90.710 Acquired absence of both cervix and uterus
CPT/HCPCS: 36415; 71010; 80053; 83690; 84484; 85025; 93005; 93010; 99285

== ENCOUNTER 2016-12-03 18:34 | Emergency (ER) | payer MEDICARE, OTHER ==
[2016-12-03] MEDS ORDERED: LIDOCAINE 2% JELLY 30 ML TUBE TOP ONE (19:35)
--- NOTE | 2016-12-03 19:41 | RADIOLOGY REPORT (SQ) ---
EXAM DESCRIPTION: ACUTE ABDOMEN SERIES COMPLETED DATE/TIME: 12/03/2016 7:21 pm REASON FOR STUDY: constipation COMPARISON: Chest films 11/23/2016. KUB 09/24/2016. CT 11/15/2016. NUMBER OF VIEWS: Three views. TECHNIQUE: Frontal chest, supine abdomen and upright/decubitus abdomen radiographic images acquired. LIMITATIONS: None. FINDINGS: CHEST: COPD with chronic scar. FREE AIR: None. No abnormal gas collections. BOWEL GAS PATTERN: Generally nonobstructive pattern with gas and stool throughout nondistended colon. Mild gas in the stomach. No mechanical small bowel obstruction evident. CALCIFICATIONS: Extensive aortic and other vascular calcifications. HARDWARE: None in the abdomen. SOFT TISSUES: No gross mass or suggestion of organomegaly. BONES: Limiting osteopenia. No gross fracture. Scoliotic. OTHER: No other significant finding. IMPRESSION: NO RADIOGRAPHIC EVIDENCE FOR ACUTE ABDOMINAL DISEASE. TECHNICAL DOCUMENTATION: JOB ID: [id number] [email or web address]- All Rights Reserved
--- NOTE | 2016-12-03 19:42 | ER Document Report ---
ED General - General Chief Complaint: Constipation Stated Complaint: POSSIBLE CONSTIPATION Time Seen by Provider: 12/03/16 18:47 Mode of Arrival: Ambulatory Information source: Patient Notes: 85-year-old female presents with complaints of constipation. Patient denies any nausea vomiting notes she has tried MiraLAX and then did a fecal impaction on herself. Patient notes she got small stool out but then started to have rectal bleeding due to trauma so she stopped. Patient denies any abdominal pain TRAVEL OUTSIDE OF THE [place] IN LAST 30 DAYS: No - HPI Onset: This morning Onset/Duration: Sudden Quality of pain: Achy Severity: Mild Pain Level: 1 Associated symptoms: None Exacerbated by: Denies Relieved by: Denies Similar symptoms previously: Yes Recently seen / treated by doctor: Yes - Related Data Allergies/Adverse Reactions: Penicillins Allergy (Mild, Verified 07/09/16 10:56) nausea,diarrhea Shellfish * [Shellfish] Allergy (Mild, Verified 07/09/16 10:56) VOMITING Past Medical History - Social History Smoking Status: Never Smoker Cigarette use (# per day): No Chew tobacco use (# tins/day): No Smoking Education Provided: No Family History: CVA, Other - Congestive heart failure, but no family history of premature coronary artery disease or sudden cardiac . - Past Medical History Cardiac Medical History: Reports: Hx Atrial Fibrillation, Hx Congestive Heart Failure - diastolic, Hx Hypercholesterolemia, Hx Hypertension, Hx Peripheral Vascular Disease - 90% left carotid stenosis Denies: Hx DVT Pulmonary Medical History: Reports: Hx COPD - suspected Neurological Medical History: Denies: Hx Cerebrovascular Accident Renal/ Medical History: Denies: Hx Kidney Stones, Hx Peritoneal Dialysis GI Medical History: Reports: Hx Crohn's Disease, Hx Diverticulitis, Hx Gastroesophageal Reflux Disease - Diverticulosis; constipation, Hx Irritable Bowel. Denies: Hx Ulcer Musculoskeltal Medical History: Denies Hx Multiple Sclerosis Psychiatric Medical History: Reports: Hx Depression Denies: Hx Schizophrenia Infectious Medical History: Reports: Hx C-Diff Past Surgical History: Reports: Hx Abdominal Surgery - colectomy, Hx Hysterectomy, Hx Tubal Ligation. Denies: Hx Open Heart Surgery - Immunizations Hx Diphtheria, Pertussis, Tetanus Vaccination: Yes Hx Pneumococcal Vaccination: 09/13/12 Review of Systems - Review of Systems Notes: REVIEW OF SYSTEMS: CONSTITUTIONAL : Denies fever, chills, or sweats. Denies recent illness. EENT: Denies eye, ear, throat, or mouth pain or symptoms. Denies nasal or sinus congestion or discharge. Denies throat, tongue, or mouth swelling or difficulty swallowing. CARDIOVASCULAR: Denies chest pain. Denies palpitations or racing or irregular heart beat. Denies ankle edema. RESPIRATORY: Denies cough, cold, or chest congestion. Denies shortness of breath, difficulty breathing, or wheezing. GASTROINTESTINAL: Admits to constipation GENITOURINARY: Denies difficulty urinating, painful urination, burning, frequency, blood in urine, or discharge. FEMALE GENITOURINARY: Denies vaginal bleeding, heavy or abnormal periods, irregular periods. Denies vaginal discharge or odor. MUSCULOSKELETAL: Denies back or neck pain or stiffness. Denies joint pain or swelling. SKIN: Denies rash, lesions or sores. HEMATOLOGIC : Denies easy bruising or bleeding. LYMPHATIC: Denies swollen, enlarged glands. NEUROLOGICAL: Denies confusion or altered mental status. Denies passing out or loss of consciousness. Denies dizziness or lightheadedness. Denies headache. Denies weakness or paralysis or loss of use of either side. Denies problems with gait or speech. Denies sensory loss, numbness, or tingling. Denies seizures. PSYCHIATRIC: Denies anxiety or stress. Denies depression, suicidal ideation, or homicidal ideation. ALL OTHER SYSTEMS REVIEWED AND NEGATIVE. Dictation was performed using [employer] voice recognition software PHYSICAL EXAMINATION: GENERAL: Well-appearing, well-nourished and in no acute distress. HEAD: Atraumatic, normocephalic. EYES: left pupil cloudy ENT: Nares patent, oropharynx clear without exudates. Moist mucous membranes. NECK: Normal range of motion, supple without lymphadenopathy LUNGS: Breath sounds clear to auscultation bilaterally and equal. No wheezes rales or rhonchi. HEART: Regular rate and rhythm without murmurs ABDOMEN: Soft, nontender, nondistended abdomen. No guarding, no rebound. No masses appreciated. large anal fissure in the 6oclock position prior to my procedure Female : deferred Musculoskeletal: Normal range of motion, no pitting or edema. No cyanosis. NEUROLOGICAL: Cranial nerves grossly intact. Normal speech, normal gait. Normal sensory, motor exams PSYCH: Normal mood, normal affect. SKIN: Warm, Dry, normal turgor, no rashes or lesions noted. Physical Exam - Vital signs Vitals: Temp Pulse Resp BP Pulse Ox 98.8 F 54 L 16 187/59 H 97 12/03/16 19:02 12/03/16 19:02 12/03/16 19:02 12/03/16 19:02 12/03/16 19:02 Course - Re-evaluation Re-evalutation: 12/03/16 23:34 lidocaine was used, large amount of stool removed, tear was noted, spoke with son for permission. otherwise patient is stable and will dc home After performing a Medical Screening Examination, I estimate there is LOW risk for ACUTE APPENDICITIS, BOWEL OBSTRUCTION, ACUTE CHOLECYSTITIS, PERFORATED DIVERTICULITIS, INCARCERATED HERNIA, PANCREATITIS,PERFORATED ULCER, or TUBO- OVARIAN ABSCESS, thus I consider the discharge disposition reasonable. Also, there is no evidence or peritonitis, sepsis, or toxicity. I have reevaluated this patient multiple times and no significant life threatening changes are noted. The patient and I have discussed the diagnosis and risks, and we agree with discharging home with close follow-up with the understanding that symptoms and presentations can change. We also discussed returning to the Emergency Department immediately if new or worsening symptoms occur. We have discussed the symptoms which are most concerning (e.g., bloody stool, fever, changing or worsening pain, vomiting) that necessitate immediate return. - Vital Signs Vital signs: Temp Pulse Resp BP Pulse Ox 98.8 F 56 L 16 156/42 H 95 12/03/16 19:02 12/03/16 20:11 12/03/16 20:11 12/03/16 20:11 12/03/16 20:11 - Diagnostic Test Radiology reviewed: Image reviewed, Reports reviewed - no acute abnormaltiy Procedures - Additional Procedures fecal decompaction Time performed: 21:25 - large amount of hard stool removed Discharge - Discharge Clinical Impression: Anal fissure, Macular degeneration of both eyes Constipation Qualifiers: Constipation type: unspecified constipation type Qualified Code(s): K59.00 - Constipation, unspecified Condition: Stable Disposition: HOME, SELF-CARE Instructions: Constipation ([facility]), Laxative ([facility]) Prescriptions: Lidocaine 15 gm TP ASDIR PRN 7 Days PRN Reason: Lidocaine/Transparent Dressing [Lidocaine 4% Kit] 1 each TP ASDIR PRN #1 kit PRN Reason: Referrals: LAINE COLEMAN MD [ACTIVE STAFF] - Follow up tomorrow
[2016-12-03] MEDS ORDERED: LIDOCAINE 2% JELLY 5 ML TUBE ONE (19:44)
[2016-12-03 20:20] VITALS: BP 156/42
== END 2016-12-03 23:00 | disposition home or self-care (01) ==
LOC: ER 18:34
DX: K60.2 Anal fissure, unspecified (principal); H35.30 Unspecified macular degeneration; K59.00 Constipation, unspecified; I48.91 Unspecified atrial fibrillation; I50.9 Heart failure, unspecified; E78.00 Pure hypercholesterolemia, unspecified; I11.0 Hypertensive heart disease with heart failure; Z88.0 Allergy status to penicillin; Z91.013 Allergy to seafood; Z90.710 Acquired absence of both cervix and uterus
CPT/HCPCS: 74022; 99283

== ENCOUNTER 2016-12-10 00:16 | Emergency (ER) | payer MEDICARE, OTHER ==
[2016-12-10 00:48] LABS: ABSOLUTE BASOPHILS # (AUTO) 0.1 10^3/uL (0.0-0.2); ABSOLUTE EOSINOPHILS # (AUTO) 0.1 10^3/uL (0.0-0.6); ABSOLUTE LYMPHOCYTES (AUTO) 1.4 10^3/uL (0.5-4.7); ABSOLUTE MONOCYTES (AUTO) 0.8 10^3/uL (0.1-1.4); ABSOLUTE NEUT (AUTO) 4.1 10^3/uL (1.7-8.2); BASOPHILS % (AUTO) 1.3 % (0-2); EOSINOPHILS % (AUTO) 1.7 % (0-6); HEMATOCRIT 34.2 % (36.0-47.0); HEMOGLOBIN 10.9 g/dL (12.0-15.5); HGB HCT DIFFERENCE -1.5; LYMPHOCYTES % (AUTO) 21.6 % (13-45); MEAN CORPUSCULAR HGB CONC 31.7 g/dL (32.0-36.0); MEAN CORPUSCULAR VOLUME 88 fl (80-97); MONOCYTES % (AUTO) 12.8 % (3-13); RED BLOOD COUNT 3.88 10^6/uL (3.72-5.28); RED CELL DISTRIBUTION WIDTH 17.1 % (11.5-14.0); SEGMENTED NEUTROPHILS % (AUTO) 62.6 % (42-78); WHITE BLOOD COUNT 6.5 10^3/uL (4.0-10.5)
--- NOTE | 2016-12-10 00:50 | ER Document Report ---
ED General - General Stated Complaint: CHEST DISCOMFORT Time Seen by Provider: 12/10/16 00:46 Notes: Patient is an 85-year-old female who presents with complaint of having sensation where she felt short of breath and felt as if her heart was skipping a beat. She says she gets this sensation frequently. Reason why she came today was because she ran out of 1 of her medications and her blood pressure got very high and that sensation became more frequent. She now feels well and says she is not currently having a sensation. She did not have any pain associated with the sensation. She has no history of MS. She had a negative nuclear stress test in [facility] in January of last year. She has been admitted twice this year for chest pain and her workup has been negative. TRAVEL OUTSIDE OF THE [place] IN LAST 30 DAYS: No - Related Data Allergies/Adverse Reactions: Penicillins Allergy (Mild, Verified 07/09/16 10:56) nausea,diarrhea Shellfish * [Shellfish] Allergy (Mild, Verified 07/09/16 10:56) VOMITING Past Medical History - Social History Smoking Status: Never Smoker Frequency of alcohol use: None Drug Abuse: None Family History: CVA, Other - Congestive heart failure, but no family history of premature coronary artery disease or sudden cardiac . - Past Medical History Cardiac Medical History: Reports: Hx Atrial Fibrillation, Hx Congestive Heart Failure - diastolic, Hx Hypercholesterolemia, Hx Hypertension, Hx Peripheral Vascular Disease - 90% left carotid stenosis Denies: Hx DVT Pulmonary Medical History: Reports: Hx COPD - suspected Neurological Medical History: Denies: Hx Cerebrovascular Accident Renal/ Medical History: Denies: Hx Kidney Stones, Hx Peritoneal Dialysis GI Medical History: Reports: Hx Crohn's Disease, Hx Diverticulitis, Hx Gastroesophageal Reflux Disease - Diverticulosis; constipation, Hx Irritable Bowel. Denies: Hx Ulcer Musculoskeltal Medical History: Denies Hx Multiple Sclerosis Psychiatric Medical History: Reports: Hx Depression Denies: Hx Schizophrenia Infectious Medical History: Reports: Hx C-Diff Past Surgical History: Reports: Hx Abdominal Surgery - colectomy, Hx Hysterectomy, Hx Tubal Ligation. Denies: Hx Open Heart Surgery - Immunizations Hx Diphtheria, Pertussis, Tetanus Vaccination: Yes Hx Pneumococcal Vaccination: 09/13/12 Review of Systems - Review of Systems Notes: My Normal Review Basic REVIEW OF SYSTEMS: CONSTITUTIONAL : Denies fever, chills, or sweats. Denies recent illness. EENT: Denies eye, ear, throat, or mouth pain or symptoms. Denies nasal or sinus congestion. CARDIOVASCULAR: Palpitations RESPIRATORY: Denies cough, cold, or chest congestion. Denies shortness of breath, difficulty breathing, or wheezing. GASTROINTESTINAL: Denies abdominal pain. Denies nausea, vomiting, or diarrhea. Denies constipation. Last BM: MUSCULOSKELETAL: Denies neck or back pain or joint pain or swelling. SKIN: Denies rash or skin lesions. NEUROLOGICAL: Denies altered mental status or loss of consciousness. Denies headache. Denies weakness or paralysis or loss of use of either side. Denies problems with gait or speech. Denies sensory or motor loss. PSYCHIATRIC: Patient admits to feeling anxious after her symptoms began but now feels more calm. ALL OTHER SYSTEMS REVIEWED AND NEGATIVE. Physical Exam - Vital signs Vitals: Resp Pulse Ox 16 97 12/10/16 00:26 12/10/16 00:26 - Notes Notes: General Appearance: Well nourished, alert, cooperative, no acute distress, no obvious discomfort. Well appearing. Vitals: reviewed, See vital signs table. 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 Patient's right pupil is reactive to light. Mouth: No decreasd moisture Neck: Supple, no neck tenderness, No thyromegaly Lungs: No wheezing, No rales, No rhonci, No accessory muscle use, good air exchange bilaterally. Heart: Normal rate, Regular rythm, No murmur, no rub Abdomen: Normal BS, soft, No rigidity, No abdominal tenderness, No guarding, no rebound, no abdominal masses, no organomegaly Extremities: strength 5/5 in all extremities, good pulses in all extremities, no swelling or tenderness in the extremities, no edema. Skin: warm, dry, appropriate color, no rash Neuro: speech clear, oriented x 3, normal affect, responds appropriately to questions. Nerves II through XII are intact. Distal sensation intact. Patient moves all extremities without difficulty. Patient answers all my questions appropriately. Course - Vital Signs Vital signs: Temp Pulse Resp BP Pulse Ox 15 185/67 H 96 12/10/16 01:01 12/10/16 00:28 12/10/16 01:01 - Laboratory Result Diagrams: 12/10/16 00:30 12/10/16 00:30 Laboratory results interpreted by me: 12/10/16 12/10/16 00:30 00:30 Hgb 10.9 L Hct 34.2 L MCHC 31.7 L RDW 17.1 H Potassium 3.4 L AST 43 H Alkaline Phosphatase 35 L Creatine Kinase 24 L - EKG Interpretation by Me Additional EKG results interpreted by me: 12/10/16 00:50 EKG is reviewed and interpreted by me. EKG shows sinus bradycardia with a rate of [address] segment elevation. Patient does have ST segment depression in the lateral precordial leads which is unchanged in comparison to her previous EKG from November 23, 2016. MO interval, QRS duration, QTc intervals are within normal range. - Transfer of Care Notes: 12/10/16 01:55 Patient's cardiac enzymes and EKG are negative except for some bradycardia on EKG. Patient did mention that she took her last metoprolol last night and has follow-up with her doctor for a refill the prescription. The right note discharge instructions that she should wait and talk to her primary care doctor before having this refilled being that her heart rate does run in the 50s. She does have some hypertension. I will give a dose of hydrochlorothiazide here. She denies any chest pain. She has had multiple admissions within the last year for chest pain which have all been negative. She had negative nuclear stress test in January of last year. At this time I feel the patient is safe to be discharged home. I encouraged her to return to ER if she has chest pain, difficulty breathing, or she feels unwell. Patient agrees with plan and will be discharged home. Dictation of this chart was performed using voice recognition software; therefore, there may be some unintended grammatical errors. Discharge - Discharge Clinical Impression: Palpitations, Hypokalemia Hypertension Qualifiers: Hypertension type: essential hypertension Qualified Code(s): I10 - Essential ( primary) hypertension Condition: Good Disposition: HOME, SELF-CARE Additional Instructions: Please return to the ER immediately if you have chest pain, worsening recurrent palpitations, or feel unwell. Please eat foods with potassium in them such as a banana her foods. Potassium level is just slightly low and knows why we gave you some supplemental potassium here. Please follow-up with your doctor on Sunday and talk to him about whether or not you should continue metoprolol. He may want to hold it because your heart rate a little slow here in the ER.
[2016-12-10 01:05] LABS: CREATINE KINASE MB 0.36 ng/mL (<4.55)
[2016-12-10 01:07] LABS: TROPONIN I < 0.012 ng/mL
--- NOTE | 2016-12-10 01:11 | RADIOLOGY REPORT (SQ) ---
EXAM DESCRIPTION: CHEST SINGLE VIEW COMPLETED DATE/TIME: 12/10/2016 12:51 am REASON FOR STUDY: cp COMPARISON: 11/23/2016. NUMBER OF VIEWS: One view. TECHNIQUE: Single frontal radiographic view of the chest acquired. LIMITATIONS: None. FINDINGS: LUNGS AND PLEURA: No opacities, masses or pneumothorax. No pleural effusion. Attenuated bl ood vessels and flattened dorys-diaphragms. MEDIASTINUM AND HILAR STRUCTURES: No masses. Contour normal. HEART AND VASCULAR STRUCTURES: Heart normal in size. Normal vasculature. BONES: No acute findings. HARDWARE: None in the chest. OTHER: No other significant finding. IMPRESSION: COPD. NO ACUTE RADIOGRAPHIC FINDING IN THE CHEST. TECHNICAL DOCUMENTATION: JOB ID: [id number] [employer]- All Rights Reserved
[2016-12-10 01:20] LABS: ALANINE AMINOTRANSFERASE 24 U/L (9-52); ALBUMIN 3.6 g/dL (3.5-5.0); ALKALINE PHOSPHATASE 35 U/L (38-126); ANION GAP 11 (5-19); ASPARTATE AMINO TRANSFERASE 43 U/L (14-36); BILIRUBIN,DIRECT 0.3 mg/dL (0.0-0.4); BILIRUBIN,TOTAL 0.7 mg/dL (0.2-1.3); BLOOD UREA NITROGEN 19 mg/dL (7-20); CARBON DIOXIDE 23 mmol/L (22-30); CHLORIDE 105 mmol/L (98-107); CREATINE KINASE 24 U/L (30-135); CREATININE RESULT 0.85 mg/dL (0.52-1.25); GLUCOSE 92 mg/dL (75-110); POTASSIUM 3.4 mmol/L (3.6-5.0); SODIUM 138.8 mmol/L (137-145); TOTAL PROTEIN 6.6 g/dL (6.3-8.2)
[2016-12-10] MEDS ORDERED: POTASSIUM CHLORIDE 10 MEQ TABLET.SA PO ONE (01:42)
[2016-12-10] MEDS ORDERED: HYDROCHLOROTHIAZIDE 12.5 MG CAPSULE PO ONE (01:53)
[2016-12-10 02:36] VITALS: BP 176/89
--- NOTE | 2016-12-11 09:33 | EKG REPORT ---
SEVERITY:- ABNORMAL ECG - SINUS RHYTHM ATRIAL PREMATURE COMPLEX LVH WITH SECONDARY REPOLARIZATION ABNORMALITY ST DEPRESSION, CONSIDER ISCHEMIA, ANT-LAT LDS : Confirmed by: Nataly Mak 11-Dec-2016 09:32:44
== END 2016-12-10 02:31 | disposition home or self-care (01) ==
LOC: ER 00:16
DX: E87.6 Hypokalemia (principal); R00.2 Palpitations; I10 Essential (primary) hypertension; F41.9 Anxiety disorder, unspecified; R06.02 Shortness of breath; Z88.0 Allergy status to penicillin; Z91.013 Allergy to seafood; Z82.49 Family history of ischemic heart disease and other diseases of the circulatory system; Z79.899 Other long term (current) drug therapy
CPT/HCPCS: 93005; 99285; 36415; 82553; 82550; 85025; 80053; 84484; 71010; 93010; A9270 ×2

== ENCOUNTER 2016-12-19 01:36 | Emergency (ER) | payer MEDICARE, OTHER ==
--- NOTE | 2016-12-19 02:16 | ER Document Report ---
ED General - General Chief Complaint: Altered Mental Status Stated Complaint: CONFUSION Time Seen by Provider: 12/19/16 02:12 Notes: Patient is an 86-year-old female sent in by her son to worsening confusion today. The says she was recently prescribed Phenergan due to a stomachache. She has had no fevers. No vomiting. No diarrhea. No evident medication she has been prescribed with hydroxyzine which she is prescribed for sleep at the beginning of the month. They said that she does show some signs of some mild dementia baseline but recently she has been hallucinating quite a bit. She has been seeing people coming out of the house that were not there. She has been picking at things in the air and around her bed which are not there. TRAVEL OUTSIDE OF THE [place] IN LAST 30 DAYS: No - Related Data Allergies/Adverse Reactions: Penicillins Allergy (Mild, Verified 12/19/16 02:54) nausea,diarrhea Shellfish * [Shellfish] Allergy (Mild, Verified 12/19/16 02:54) VOMITING Past Medical History - Social History Smoking Status: Never Smoker Frequency of alcohol use: None Drug Abuse: None Family History: Reviewed & Not Pertinent, CVA, Other - Congestive heart failure , but no family history of premature coronary artery disease or sudden cardiac . - Past Medical History Cardiac Medical History: Reports: Hx Atrial Fibrillation, Hx Congestive Heart Failure - diastolic, Hx Hypercholesterolemia, Hx Hypertension, Hx Peripheral Vascular Disease - 90% left carotid stenosis Denies: Hx DVT Pulmonary Medical History: Reports: Hx COPD - suspected Neurological Medical History: Denies: Hx Cerebrovascular Accident Renal/ Medical History: Denies: Hx Kidney Stones, Hx Peritoneal Dialysis GI Medical History: Reports: Hx Crohn's Disease, Hx Diverticulitis, Hx Gastroesophageal Reflux Disease - Diverticulosis; constipation, Hx Irritable Bowel. Denies: Hx Ulcer Musculoskeltal Medical History: Denies Hx Multiple Sclerosis Psychiatric Medical History: Reports: Hx Depression Denies: Hx Schizophrenia Infectious Medical History: Reports: Hx C-Diff Past Surgical History: Reports: Hx Abdominal Surgery - colectomy, Hx Hysterectomy, Hx Tubal Ligation. Denies: Hx Open Heart Surgery - Immunizations Hx Diphtheria, Pertussis, Tetanus Vaccination: Yes Hx Pneumococcal Vaccination: 09/13/12 Review of Systems - Review of Systems Notes: My Normal Review Basic REVIEW OF SYSTEMS: CONSTITUTIONAL : Denies fever, chills, or sweats. Denies recent illness. EENT: Denies eye, ear, throat, or mouth pain or symptoms. Denies nasal or sinus congestion. CARDIOVASCULAR: Denies chest pain. RESPIRATORY: Denies cough, cold, or chest congestion. Denies shortness of breath, difficulty breathing, or wheezing. GASTROINTESTINAL: Intermittent "spasm" in her abdomen. Denies nausea, vomiting , or diarrhea. Denies constipation. Last BM: GENITOURINARY: Denies difficulty urinating, painful urination, burning, frequency, or blood in urine. MUSCULOSKELETAL: Denies neck or back pain or joint pain or swelling. SKIN: Denies rash or skin lesions. NEUROLOGICAL: Confusion. Denies headache. Denies weakness or paralysis or loss of use of either side. Denies problems with gait or speech. Denies sensory or motor loss. PSYCHIATRIC: Hallucinations ALL OTHER SYSTEMS REVIEWED AND NEGATIVE. Physical Exam - Vital signs Vitals: Temp 98.1 F 12/19/16 01:55 - Notes Notes: General Appearance: Well nourished, alert, cooperative, no acute distress, no obvious discomfort. Vitals: reviewed, See vital signs table. Head: no swelling or tenderness to the head Eyes: PERRL, EOMI, Conjuctiva clear Mouth: No decreasd moisture Throat: No tonsillar inflammation, No airway obstruction, No lymphadenopathy Neck: Supple, no neck tenderness Lungs: No wheezing, No rales, No rhonci, No accessory muscle use, good air exchange bilaterally. Heart: Normal rate, Regular rythm, No murmur, no rub Abdomen: Normal BS, soft, No rigidity, No abdominal tenderness, No guarding, no rebound, no abdominal masses, no organomegaly Extremities: strength 5/5 in all extremities, good pulses in all extremities, no swelling or tenderness in the extremities, no edema. Skin: warm, dry, appropriate color, no rash Neuro: speech clear, oriented x 2, normal affect, responds appropriately to most questions. During exam patient starts picking at the bed sheet. She says that she is "looking for some gum". Has intermittent visual hallucinations during exam. She does move all extremities without difficulty. Cranial nerves II through XII are intact. Course - Vital Signs Vital signs: Temp Pulse Resp BP Pulse Ox 98.0 F 52 L 16 212/77 H 98 12/19/16 05:20 12/19/16 02:15 12/19/16 04:46 12/19/16 04:46 12/19/16 04:46 - Laboratory Result Diagrams: 12/19/16 01:50 12/19/16 01:50 Laboratory results interpreted by me: 12/19/16 12/19/16 12/19/16 01:50 01:50 01:50 Hgb 11.6 L RDW 17.1 H Est GFR (Non-Af Amer) 56 L Creatine Kinase 24 L Ur Leukocyte Esterase 12/19/16 03:25 Hgb RDW Est GFR (Non-Af Amer) Creatine Kinase Ur Leukocyte Esterase MODERATE H - EKG Interpretation by Me Additional EKG results interpreted by me: 12/19/16 02:16 EKG is reviewed and interpreted by me. EKG shows sinus bradycardia with a rate of [address] segment elevation. Patient does have ST segment depression in the lateral precordial leads but this is unchanged in comparison to her old EKG from December 10, 2016. QRS duration are within normal range. QTc interval is prolonged. - Transfer of Care Notes: 12/19/16 06:01 I suspect the patient's confusion is probably likely related to a combination of the Phenergan as well as a urinary tract infection. She was started on the Phenergan on Sunday and she started being confused on Sunday. The son said he actually gave her to the medications tonight she became more confused. Now she is less and less confused since she has been here in the medication seems to have worn off. She also has UTI on urinalysis. The remainder of her workup is negative. She does have bradycardia. I did review her most recent visit since she has been consistently bradycardic. She is on metoprolol 100 mg twice a day. I will have him cut this back to 50 mg twice a day. Her blood pressures been running high according to the family. Her blood pressure has been systolically in the 200s frequently over the last couple weeks. We prescribed hydralazine 10 mg to take whenever her blood pressures above 150. Son says they do this approximately twice a day. I will increase hydralazine to 25 mg 3 times a day. Follow-up closely with the primary care doctor. I encouraged him to return to ER immediately if she has fevers, worsening confusion, hypotension or worsening hypertension. Family agrees with plan and patient will be discharged home. Dictation of this chart was performed using voice recognition software; therefore, there may be some unintended grammatical errors. Discharge - Discharge Clinical Impression: Bradycardia Altered mental status Qualifiers: Altered mental status type: unspecified Qualified Code(s): R41.82 - Altered mental status, unspecified Hypertension Qualifiers: Hypertension type: essential hypertension Qualified Code(s): I10 - Essential ( primary) hypertension UTI (urinary tract infection) Qualifiers: Urinary tract infection type: acute cystitis Hematuria presence: without hematuria Qualified Code(s): N30.00 - Acute cystitis without hematuria Additional Instructions: Please stop taking the phenergan as this can cause confusion. Please cut the metoprolol to 50mg twice a day. This can be done by cutting her 100mg tablets in half. Please start taking the new Hydralazine prescription as prescribed. Please keep an close eye on her blood pressure. Please decrease the Hydralazine to twice a day if the top number of her blood pressure is consistently below 110. Please return to the ER immediately if Mrs. Haines has worsening confusion , fevers, or appears unwell. Prescriptions: Cephalexin Monohydrate [Keflex 500 mg Capsule] 500 mg PO BID #14 capsule Hydralazine HCl 25 mg PO TID #90 tablet Referrals: POLLY VAZQUEZ MD [Primary Care Provider] - Follow up in 3-5 days
[2016-12-19 02:47] LABS: ABSOLUTE BASOPHILS # (AUTO) 0.1 10^3/uL (0.0-0.2); ABSOLUTE EOSINOPHILS # (AUTO) 0.1 10^3/uL (0.0-0.6); ABSOLUTE LYMPHOCYTES (AUTO) 1.4 10^3/uL (0.5-4.7); ABSOLUTE MONOCYTES (AUTO) 0.7 10^3/uL (0.1-1.4); ABSOLUTE NEUT (AUTO) 5.3 10^3/uL (1.7-8.2); BASOPHILS % (AUTO) 0.7 % (0-2); EOSINOPHILS % (AUTO) 1.7 % (0-6); HEMATOCRIT 36.1 % (36.0-47.0); HEMOGLOBIN 11.6 g/dL (12.0-15.5); HGB HCT DIFFERENCE -1.3; LYMPHOCYTES % (AUTO) 18.9 % (13-45); MEAN CORPUSCULAR HEMOGLOBIN 28.4 pg (27.0-33.4); MEAN CORPUSCULAR HGB CONC 32.1 g/dL (32.0-36.0); MEAN CORPUSCULAR VOLUME 89 fl (80-97); MONOCYTES % (AUTO) 9.8 % (3-13); RED BLOOD COUNT 4.07 10^6/uL (3.72-5.28); RED CELL DISTRIBUTION WIDTH 17.1 % (11.5-14.0); SEGMENTED NEUTROPHILS % (AUTO) 68.9 % (42-78); WHITE BLOOD COUNT 7.6 10^3/uL (4.0-10.5)
[2016-12-19 02:56] LABS: ALANINE AMINOTRANSFERASE 28 U/L (9-52); ALBUMIN 3.8 g/dL (3.5-5.0); ALKALINE PHOSPHATASE 51 U/L (38-126); ANION GAP 11 (5-19); ASPARTATE AMINO TRANSFERASE 25 U/L (14-36); BILIRUBIN,DIRECT 0.3 mg/dL (0.0-0.4); BILIRUBIN,TOTAL 0.8 mg/dL (0.2-1.3); BLOOD UREA NITROGEN 14 mg/dL (7-20); CALCIUM 9.6 mg/dL (8.4-10.2); CARBON DIOXIDE 27 mmol/L (22-30); CHLORIDE 102 mmol/L (98-107); CREATININE RESULT 0.94 mg/dL (0.52-1.25); GLUCOSE 108 mg/dL (75-110); POTASSIUM 3.7 mmol/L (3.6-5.0); SODIUM 140.4 mmol/L (137-145); TOTAL PROTEIN 6.9 g/dL (6.3-8.2)
--- NOTE | 2016-12-19 02:59 | RADIOLOGY REPORT (SQ) ---
EXAM DESCRIPTION: CHEST SINGLE VIEW COMPLETED DATE/TIME: 12/19/2016 2:41 am REASON FOR STUDY: altered mental status COMPARISON: 12.10.16 EXAM PARAMETERS: NUMBER OF VIEWS: One view. TECHNIQUE: Single frontal radiographic view of the chest acquired. RADIATION DOSE: NA LIMITATIONS: None. FINDINGS: LUNGS AND PLEURA: No opacities, masses or pneumothorax. No pleural effusion. Mild interst itial markings. Likely skin fold artifact of the right lower hemithorax decreases sensitivity-specif icity. MEDIASTINUM AND HILAR STRUCTURES: No masses. Contour normal. HEART AND VASCULAR STRUCTURES: Heart normal in size. Atherosclerosis. BONES: No acute findings. Moderate deformity of the right mid clavicle. HARDWARE: None in the chest. OTHER: No other significant finding. IMPRESSION: No acute cardiopulmonary findings. TECHNICAL DOCUMENTATION: JOB ID: [id number]
--- NOTE | 2016-12-19 03:05 | RADIOLOGY REPORT (SQ) ---
EXAM DESCRIPTION: CT HEAD WITHOUT COMPLETED DATE/TIME: 12/19/2016 2:47 am REASON FOR STUDY: confusion COMPARISON: 1.8.17 TECHNIQUE: Axial images acquired through the brain without intravenous contrast. Images reviewed wi th bone, brain and subdural windows. Images stored on PACS. All CT scanners at this facility use dose modulation, iterative reconstruction, and/or weight based d osing when appropriate to reduce radiation dose to as low as reasonably achievable (ALARA). [facility]: Dose Right [facility]: CareDose [facility]: Dose Right [facility]: Teradose 4D [facility]: [employer] RADIATION DOSE: Up-to-date CT equipment and radiation dose reduction techniques were employed. CTDIv ol: 55.2 mGy. DLP: 1029 mGy-cm. mGy. LIMITATIONS: None. FINDINGS: VENTRICLES: Normal size and contour. CEREBRUM: No masses. No hemorrhage. No midline shift. Normal christine/white matter differentiation. N o evidence for acute infarction. Mild cerebral volume loss. Mild white matter microangiopathy. CEREBELLUM: No masses. No hemorrhage. No alteration of density. No evidence for acute infarction. EXTRAAXIAL SPACES: No fluid collections. No masses. Atherosclerosis. 1.0 cm right anterior parieta l nonspecific calcification, likely developmental. ORBITS AND GLOBE: No intra- or extraconal masses. Normal contour of globe without masses. CALVARIUM: No fracture. PARANASAL SINUSES: Mild right inferior maxillary mucosal thickening -retention cyst. SOFT TISSUES: No mass or hematoma. OTHER: No other significant finding. IMPRESSION: No acute findings. TECHNICAL DOCUMENTATION: JOB ID: [id number] Quality ID # [id number]: Final reports with documentation of one or more dose reduction techniques (e.g., Au tomated exposure control, adjustment of the mA and/or kV according to patient size, use of iterative reconstruction technique) 2010 [employer]- All Rights Reserved
[2016-12-19 03:53] LABS: APPEARANCE,URINE SLIGHTLY-CLOUDY; BILIRUBIN,URINE NEGATIVE (NEGATIVE); GLUCOSE, URINE NEGATIVE (NEGATIVE); KETONES,URINE NEGATIVE (NEGATIVE); LEUKOCYTE ESTERASE,URINE MODERATE (NEGATIVE); NITRITE,URINE NEGATIVE (NEGATIVE); PROTEIN,URINE NEGATIVE (NEGATIVE); URINE SPECIFIC GRAVITY 1.008; UROBILINOGEN,URINE NEGATIVE mg/dL (<2.0)
[2016-12-19] MEDS ORDERED: CEFTRIAXONE INJ 1000 MG VIAL IV ONE (04:19)
[2016-12-19 04:45] LABS: CREATINE KINASE MB 0.37 ng/mL (<4.55)
[2016-12-19 04:47] LABS: TROPONIN I < 0.012 ng/mL
[2016-12-19] MEDS ORDERED: HYDRALAZINE HCL 25 MG TABLET PO ONE (05:50)
[2016-12-19 06:16] VITALS: BP 199/77
--- NOTE | 2016-12-19 12:42 | EKG REPORT ---
SEVERITY:- ABNORMAL ECG - SINUS RHYTHM LVH WITH SECONDARY REPOLARIZATION ABNORMALITY ANTERIOR Q WAVES, POSSIBLY DUE TO LVH ST DEPRESSION, CONSIDER ISCHEMIA, ANT-LAT LDS PROLONGED QT INTERVAL : Confirmed by: Letty Siegel MD 19-Dec-2016 12:41:31
== END 2016-12-19 06:00 | disposition home or self-care (01) ==
LOC: ER 01:36
DX: R41.0 Disorientation, unspecified (principal); N30.00 Acute cystitis without hematuria; I10 Essential (primary) hypertension; R00.1 Bradycardia, unspecified; R44.1 Visual hallucinations; R25.2 Cramp and spasm; Z79.899 Other long term (current) drug therapy; Z88.0 Allergy status to penicillin; Z91.013 Allergy to seafood; Z82.3 Family history of stroke
CPT/HCPCS: 93005; 99285; 96365; 36415; 87040; 87086; 82553; 82550; 85025; 87088; 80053; 81001; 84484; 87186; 71010; 70450; 93010; A9270; J0696

== ENCOUNTER 2017-01-01 17:56 | Emergency (ER) | payer MEDICARE, OTHER ==
[2017-01-01] MEDS ORDERED: CIPROFLOXACIN HCL 0.3% OPH SOLN 2.5 ML OD ONE (18:51)
[2017-01-01] MEDS ORDERED: HYDRALAZINE HCL 50 MG TABLET PO ONE (18:55)
[2017-01-01] MEDS ORDERED: METOPROLOL SUCCINATE 50 MG TAB.SR.24H PO ONE (18:55)
--- NOTE | 2017-01-01 18:55 | ER Document Report ---
ED Medical Screen (RME) - General Chief Complaint: Abdominal Pain Stated Complaint: ABDOMINAL PAIN Time Seen by Provider: 01/01/17 18:39 Notes: The patient is an 86-year-old female, past medical history hypertension, mild dementia, presents with 2 days of worsening bilateral lower abdominal pain and epigastric pain. She is not seeing an association with food. She was treated for UTI 2 weeks ago with improvement of her suprapubic pain. Patient also scratched her right eye earlier today with her nails. She is due for her blood pressure medications right now. She denies nausea, vomiting, diarrhea, constipation, fevers, rash, chest pain or shortness of breath. PE: Tenderness over B/L lower abdomen and epigastrium, normal bowel sounds, visible right corneal abrasion I have greeted and performed a rapid initial assessment of this patient. A comprehensive ED assessment and evaluation of the patient, analysis of test results and completion of the medical decision making process will be conducted by additional ED providers. TRAVEL OUTSIDE OF THE [place] IN LAST 30 DAYS: No - Related Data Allergies/Adverse Reactions: Penicillins Allergy (Mild, Verified 01/01/17 17:58) nausea,diarrhea Shellfish * [Shellfish] Allergy (Mild, Verified 01/01/17 17:58) VOMITING Past Medical History - General Information source: Patient, Relative - son - Past Medical History Cardiac Medical History: Reports: Hx Atrial Fibrillation, Hx Congestive Heart Failure - diastolic, Hx Hypercholesterolemia, Hx Hypertension, Hx Peripheral Vascular Disease - 90% left carotid stenosis Denies: Hx DVT Pulmonary Medical History: Reports: Hx COPD - suspected Neurological Medical History: Denies: Hx Cerebrovascular Accident Renal/ Medical History: Denies: Hx Kidney Stones, Hx Peritoneal Dialysis GI Medical History: Reports: Hx Crohn's Disease, Hx Diverticulitis, Hx Gastroesophageal Reflux Disease - Diverticulosis; constipation, Hx Irritable Bowel. Denies: Hx Ulcer Musculoskeltal Medical History: Denies Hx Multiple Sclerosis Psychiatric Medical History: Reports: Hx Depression Denies: Hx Schizophrenia Infectious Medical History: Reports: Hx C-Diff Past Surgical History: Reports: Hx Abdominal Surgery - colectomy, Hx Hysterectomy, Hx Tubal Ligation. Denies: Hx Open Heart Surgery - Immunizations Hx Diphtheria, Pertussis, Tetanus Vaccination: Yes Physical Exam - Vital signs Vitals: Temp Pulse Resp BP Pulse Ox 98.0 F 55 L 16 239/83 H 97 01/01/17 17:58 01/01/17 17:58 01/01/17 17:58 01/01/17 17:58 01/01/17 17:58 Course - Vital Signs Vital signs: Temp Pulse Resp BP Pulse Ox 98.0 F 55 L 16 239/83 H 97 01/01/17 17:58 01/01/17 17:58 01/01/17 17:58 01/01/17 17:58 01/01/17 17:58
[2017-01-01 20:05] LABS: ABSOLUTE BASOPHILS # (AUTO) 0.1 10^3/uL (0.0-0.2); ABSOLUTE EOSINOPHILS # (AUTO) 0.1 10^3/uL (0.0-0.6); ABSOLUTE LYMPHOCYTES (AUTO) 1.6 10^3/uL (0.5-4.7); ABSOLUTE MONOCYTES (AUTO) 0.9 10^3/uL (0.1-1.4); ABSOLUTE NEUT (AUTO) 6.8 10^3/uL (1.7-8.2); BASOPHILS % (AUTO) 0.9 % (0-2); EOSINOPHILS % (AUTO) 1.3 % (0-6); HEMATOCRIT 40.1 % (36.0-47.0); HEMOGLOBIN 12.9 g/dL (12.0-15.5); HGB HCT DIFFERENCE -1.4; LYMPHOCYTES % (AUTO) 16.7 % (13-45); MEAN CORPUSCULAR HEMOGLOBIN 28.3 pg (27.0-33.4); MEAN CORPUSCULAR HGB CONC 32.1 g/dL (32.0-36.0); MEAN CORPUSCULAR VOLUME 88 fl (80-97); MONOCYTES % (AUTO) 9.2 % (3-13); RED BLOOD COUNT 4.54 10^6/uL (3.72-5.28); RED CELL DISTRIBUTION WIDTH 17.5 % (11.5-14.0); SEGMENTED NEUTROPHILS % (AUTO) 71.9 % (42-78); WHITE BLOOD COUNT 9.5 10^3/uL (4.0-10.5)
[2017-01-01 20:13] LABS: APPEARANCE,URINE CLEAR; BILIRUBIN,URINE NEGATIVE (NEGATIVE); GLUCOSE, URINE 50 mg/dL (NEGATIVE); KETONES,URINE NEGATIVE (NEGATIVE); LEUKOCYTE ESTERASE,URINE NEGATIVE (NEGATIVE); NITRITE,URINE NEGATIVE (NEGATIVE); PROTEIN,URINE 100 mg/dL (NEGATIVE); URINE SPECIFIC GRAVITY 1.003; UROBILINOGEN,URINE NEGATIVE mg/dL (<2.0)
[2017-01-01 20:26] LABS: ALANINE AMINOTRANSFERASE 31 U/L (9-52); ALBUMIN 4.4 g/dL (3.5-5.0); ALKALINE PHOSPHATASE 58 U/L (38-126); ANION GAP 12 (5-19); ASPARTATE AMINO TRANSFERASE 36 U/L (14-36); BILIRUBIN,DIRECT 0.3 mg/dL (0.0-0.4); BILIRUBIN,TOTAL 0.9 mg/dL (0.2-1.3); BLOOD UREA NITROGEN 11 mg/dL (7-20); CALCIUM 9.5 mg/dL (8.4-10.2); CARBON DIOXIDE 30 mmol/L (22-30); CHLORIDE 96 mmol/L (98-107); CREATININE RESULT 0.86 mg/dL (0.52-1.25); GLUCOSE 137 mg/dL (75-110); LIPASE 311.6 U/L (23-300); SODIUM 138.2 mmol/L (137-145); TOTAL PROTEIN 7.9 g/dL (6.3-8.2)
--- NOTE | 2017-01-01 21:00 | ER Document Report ---
ED General - General Chief Complaint: Abdominal Pain Stated Complaint: ABDOMINAL PAIN Time Seen by Provider: 01/01/17 18:39 Notes: Patient is an 86-year-old female that comes emergency department for chief complaint of abdominal pain, she states she has a "sick achy feeling" in her lower abdomen over the past 2 days. She also has some mild epigastric tenderness. She does not have any difficulty eating, she denies vomiting, she denies bloody bowel movements. She denies fever, dysuria, flank pain. Patient also states that she accidentally scratched her right eye with her fingernail this morning, she is blind in her left eye, she states that it feels like there is something stuck in her eye. She does not wear visual correction. Reports medical history of partial colectomy secondary to Crohn's disease, hysterectomy , irritable bowel, GERD, hypertension, CAD, CHF, anxiety. She is not taking anything for Crohn's disease, she states her last colonoscopy did not have any concerning findings as far she can recall. She lives with her son. She is not on a blood thinner. TRAVEL OUTSIDE OF THE [place] IN LAST 30 DAYS: No - Related Data Allergies/Adverse Reactions: Penicillins Allergy (Mild, Verified 01/01/17 17:58) nausea,diarrhea Shellfish * [Shellfish] Allergy (Mild, Verified 01/01/17 17:58) VOMITING Past Medical History - General Information source: Patient, Relative - son - Social History Smoking Status: Never Smoker Chew tobacco use (# tins/day): No Frequency of alcohol use: None Drug Abuse: None Lives with: Family Family History: Reviewed & Not Pertinent, CVA, Other - Congestive heart failure , but no family history of premature coronary artery disease or sudden cardiac . Patient has suicidal ideation: No Patient has homicidal ideation: No - Past Medical History Cardiac Medical History: Reports: Hx Atrial Fibrillation, Hx Congestive Heart Failure - diastolic, Hx Hypercholesterolemia, Hx Hypertension, Hx Peripheral Vascular Disease - 90% left carotid stenosis Denies: Hx DVT Pulmonary Medical History: Reports: Hx COPD - suspected Neurological Medical History: Denies: Hx Cerebrovascular Accident Renal/ Medical History: Denies: Hx Kidney Stones, Hx Peritoneal Dialysis GI Medical History: Reports: Hx Crohn's Disease, Hx Diverticulitis, Hx Gastroesophageal Reflux Disease - Diverticulosis; constipation, Hx Irritable Bowel. Denies: Hx Ulcer Musculoskeltal Medical History: Denies Hx Multiple Sclerosis Psychiatric Medical History: Reports: Hx Depression Denies: Hx Schizophrenia Infectious Medical History: Reports: Hx C-Diff Past Surgical History: Reports: Hx Abdominal Surgery - colectomy, Hx Hysterectomy, Hx Tubal Ligation. Denies: Hx Open Heart Surgery - Immunizations Hx Diphtheria, Pertussis, Tetanus Vaccination: Yes Hx Pneumococcal Vaccination: 09/13/12 Review of Systems - Review of Systems Constitutional: No symptoms reported EENT: See HPI Cardiovascular: No symptoms reported Respiratory: No symptoms reported Gastrointestinal: See HPI Genitourinary: No symptoms reported Female Genitourinary: No symptoms reported Musculoskeletal: No symptoms reported Skin: No symptoms reported Hematologic/Lymphatic: No symptoms reported Neurological/Psychological: No symptoms reported Physical Exam - Vital signs Vitals: Temp Pulse Resp BP Pulse Ox 98.0 F 55 L 16 239/83 H 97 01/01/17 17:58 01/01/17 17:58 01/01/17 17:58 01/01/17 17:58 01/01/17 17:58 Interpretation: Normal - General General appearance: Appears well In distress: None - HEENT Head: Normocephalic, Atraumatic Eyes: Normal Conjunctiva: Other - Mildly injected sclera Cornea: Corneal abrasion - tiny inferior corneal abrasion noted, Flourescein stain uptake. No: Corneal ulcer, Dendrite, Embedded foreign body, Opacified, Superficial foreign body Extraocular movements intact: Yes Eyelashes: Normal Pupils: PERRL Ears: Normal Mucous membranes: Normal Pharynx: Normal Neck: Normal - Respiratory Respiratory status: No respiratory distress Chest status: Nontender Breath sounds: Normal. No: Decreased air movement, Wheezing Chest palpation: Normal - Cardiovascular Rhythm: Regular, Bradycardia Heart sounds: Normal auscultation, S1 appreciated, S2 appreciated Murmur: No - Abdominal Inspection: Normal Distension: No distension Bowel sounds: Normal Tenderness: Nontender. No: Tender, Guarding Organomegaly: No organomegaly - Back Back: Normal, Nontender. No: Tender, CVA tenderness - Extremities General upper extremity: Normal inspection, Nontender, Normal color, Normal ROM , Normal temperature General lower extremity: Normal inspection, Nontender, Normal color, Normal ROM , Normal temperature, Normal weight bearing. No: Jc's sign - Neurological Neuro grossly intact: Yes Cognition: Normal Orientation: AAOx4 [place] Coma Scale Eye Opening: Spontaneous [place] Coma Scale Verbal: Oriented [place] Coma Scale Motor: Obeys Commands [place] Coma Scale Total: 15 Speech: Normal Motor strength normal: LUE, RUE, LLE, RLE Sensory: Normal - Psychological Associated symptoms: Normal affect, Normal mood - Skin Skin Temperature: Warm Skin Moisture: Dry Skin Color: Normal Course - Re-evaluation Re-evalutation: CBC, chemistry, urinalysis generally unremarkable. CT of the abdomen and pelvis reviewed, shows no acute findings. Patient has a soft abdomen on examination. She had a loose bowel movement after drinking contrast. Right eye is questionable for a tiny corneal abrasion, patient given topical antibiotics for this. Patient Silvino has a close follow-up scheduled with ophthalmology because of left eye blindness. At bedside, he is very helpful, he lives with patient, he states that patient is not worse today than she has been at any recent point, he does state that she has difficulty sleeping at night because of IBS, Crohn's, and ongoing nightly abdominal pain. States she was given small amount of oral morphine in the past and had excellent results with this. She takes MiraLAX intermittently. Discussed treatment with this at home, patient instructed to cut this in half, take daily MiraLAX, only taken at night if needed to help sleep with low dose, and follow-up closely with primary care for additional management. Patient also consulted on return precautions for eye and abdominal pain. They both state satisfaction in agreement per Blood pressure elevated but trending downwards. No headache, no chest pain, patient asking to leave. They will follow-up with primary care - Vital Signs Vital signs: Temp Pulse Resp BP Pulse Ox 98.0 F 71 17 198/88 H 97 01/01/17 17:58 01/02/17 00:43 01/02/17 00:43 01/02/17 00:43 01/02/17 00:43 - Laboratory Result Diagrams: 01/01/17 19:50 01/01/17 19:50 Laboratory results interpreted by me: 01/01/17 01/01/17 01/01/17 19:50 19:50 20:00 RDW 17.5 H Chloride 96 L Glucose 137 H Lipase 311.6 H Urine Protein 100 H Urine Glucose (UA) 50 H Discharge - Discharge Clinical Impression: Abdominal pain Qualifiers: Abdominal location: generalized Qualified Code(s): R10.84 - Generalized abdominal pain Right eye injury Qualifiers: Encounter type: initial encounter Qualified Code(s): S05.91XA - Unspecified injury of right eye and orbit, initial encounter Condition: Stable Disposition: HOME, SELF-CARE Additional Instructions: The CAT scan shows no acute abnormality. Take the pain medication as prescribed if needed, I recommend cutting in half initially, please take the MiraLAX daily to avoid constipation difficulties. Examination is consistent with what appears to be very small corneal abrasion. use the eyedrops as prescribed, 1 drop three times a day for 7 days. Follow-up with your horseback riding instructor for additional evaluation. Follow-up with primary care routinely for blood pressure recheck and management. Return to emergency department for any concerning symptoms including fever, vomiting, swelling of the eye, or any other concerning symptoms. Prescriptions: Morphine Sulfate [Morphine Ir 15 Mg Tablet] 15 mg PO Q4HP PRN #15 tablet PRN Reason: Forms: Elevated Blood Pressure
[2017-01-01] MEDS ORDERED: ONDANSETRON 4 MG TAB.RAPDIS PO ONE (21:02)
--- NOTE | 2017-01-01 22:20 | RADIOLOGY REPORT (SQ) ---
EXAM DESCRIPTION: CT ABD/PELVIS WITH IV ORAL COMPLETED DATE/TIME: 01/01/2017 10:01 pm REASON FOR STUDY: diffuse abdominal pain COMPARISON: 11/15/2016 & 07/09/2016 TECHNIQUE: CT scan of the abdomen and pelvis performed using helical scanning technique with dynamic intravenous contrast injection. No oral contrast. Images reviewed with lung, soft tissue, and bone windows. Reconstructed coronal and sagittal MPR images reviewed. Delayed images for evaluation of the urinary system also acquired. All images stored on PACS. All CT scanners at this facility use dose modulation, iterative reconstruction, and/or weight based d osing when appropriate to reduce radiation dose to as low as reasonably achievable (ALARA). [facility]: Dose Right [facility]: CareDose [facility]: Dose Right [facility]: Teradose 4D [facility]: [employer] CONTRAST TYPE AND DOSE: contrast/concentration: Isovue 370.00 mg/ml; Total Contrast Delivered: 43.0 ml; Total Saline Delivered: 65.0 ml RENAL FUNCTION: BUN 11 creatinine 0.86 RADIATION DOSE: Up-to-date CT equipment and radiation dose reduction techniques were employed. CTDIv ol: 4.8 mGy. DLP: 464 mGy-cm.. LIMITATIONS: None. FINDINGS: LOWER CHEST: Dependent atelectasis noted in both lower lobes. No focal consolidations. N o pleural pericardial effusions. No worrisome pulmonary nodules. LIVER: Normal size. No masses. No dilated ducts. SPLEEN: Normal size. No focal lesions. PANCREAS: No masses. No significant calcifications. No adjacent inflammation or peripancreatic fluid collections. Pancreatic duct not dilated. GALLBLADDER: No identified stones by CT criteria. No inflammatory changes to suggest cholecystitis. ADRENAL GLANDS: No significant masses or asymmetry. RIGHT KIDNEY AND URETER: No solid masses. No significant calcifications. There is mild right hydr onephrosis and prominence of the renal pelvis. No significant hydroureter. LEFT KIDNEY AND URETER: No solid masses. No significant calcifications. Mild hydronephrosis and a ir prominence of the renal pelvis noted. No hydroureter. AORTA AND VESSELS: Diffuse calcific atheromatous disease of the aorta and iliac arteries noted. No d issection. No aneurysmal dilatation. The abdominal aorta is tortuous in nature. Mesenteric and konstantin al arteries are patent. RETROPERITONEUM: No retroperitoneal adenopathy, hemorrhage or masses. BOWEL AND PERITONEAL CAVITY: No masses or inflammatory changes. No free fluid or peritoneal masses. Scattered colonic diverticulosis. APPENDIX: Normal. PELVIS: Urinary bladder is distended. No pelvic mass lesions. No pelvic adenopathy. ABDOMINAL WALL: No masses. No hernias. BONES: Multilevel degenerative changes of the spine. OTHER: No other significant finding. IMPRESSION: 1. No acute abnormality identified. 2. Mild prominence of the common collecting system bilaterally without evidence of obstructing stone , similar to prior studies. There is distention of the urinary bladder which may be causing some of this at distension. No nephrolithiasis. No renal mass lesions. 3. Mild uncomplicated colonic diverticulosis. TECHNICAL DOCUMENTATION: JOB ID: [id number] Quality ID # [id number]: Final reports with documentation of one or more dose reduction techniques (e.g., Au tomated exposure control, adjustment of the mA and/or kV according to patient size, use of iterative reconstruction technique) 2010 [employer]- All Rights Reserved
[2017-01-02] MEDS ORDERED: BESIFLOXACIN HCL 0.6% OPH SUSP 5 ML BOTTLE OD ONE (00:17)
[2017-01-02 00:49] VITALS: BP 198/88
== END 2017-01-02 00:43 | disposition home or self-care (01) ==
LOC: ER 17:56
DX: R10.84 Generalized abdominal pain (principal); S05.91XA Unspecified injury of right eye and orbit, initial encounter; X58.XXXA Exposure to other specified factors, initial encounter; H54.42 Blindness, left eye, normal vision right eye; Z88.0 Allergy status to penicillin; Z91.013 Allergy to seafood
CPT/HCPCS: 99284; 36415; 83605; 83690; 85025; 80053; 81001; 74177; A9270 ×4; J3490; S0119

== ENCOUNTER → 2017-01-15 | Outpatient (CLI) | payer MEDICARE, OTHER ==
--- NOTE | 2017-01-15 15:38 | RADIOLOGY REPORT (SQ) ---
EXAM DESCRIPTION: BARIUM SWALLOW PHARYNX ONLY COMPLETED DATE/TIME: 01/15/2017 10:23 am REASON FOR STUDY: DYSPHAGIA (R13.10) R13.10 DYSPHAGIA, UNSPECIFIED COMPARISON: CT abdomen pelvis 01/01/2017 TECHNIQUE: Under fluoroscopic guidance, patient ingested effervescent granules followed by thick and thin barium. Fluoroscopic spot images and routine radiographic images acquired and stored on PACS. 12 MM BARIUM TABLET GIVEN: No Patient crushes all her pills LIMITATIONS: None. FLUOROSCOPY TIME: FLUORO TIME: 58 seconds 16 series of digital radiographic images saved to PACS. FINDINGS: NEUROMUSCULAR COORDINATION OF SWALLOW: Normal. No aspiration. ESOPHAGEAL MOTILITY: Prominent tertiary contractions. ESOPHAGEAL MUCOSA: Normal mucosa without masses or ulceration. GASTRO-ESOPHAGEAL JUNCTION: Tiny hiatal hernia. Gastroesophageal reflux is present. NON-GI TRACT STRUCTURES: No significant finding. OTHER: Small duodenum diverticulum along the 3rd portion of the duodenum. Proximal small bowel loops unremarkable. IMPRESSION: Small hiatal hernia with gastroesophageal reflux. No distal esophageal stricture. Prominent tertiary contractions of the esophagus COMMENT: Quality ID 145: Final reports for procedures using fluoroscopy that document radiation exp osure indices, or exposure time and number of fluorographic images (if radiation exposure indices are not available) TECHNICAL DOCUMENTATION: JOB ID: [id number] [employer]- All Rights Reserved
== END ==
LOC: RAD 09:18
PROVIDERS: ATTEND Internal Medicine Gastroenterology
DX: R13.10 Dysphagia, unspecified (principal); K21.9 Gastro-esophageal reflux disease without esophagitis; K44.9 Diaphragmatic hernia without obstruction or gangrene
CPT/HCPCS: 74210

== ENCOUNTER 2017-02-01 18:30 | Emergency (ER) | payer MEDICARE, OTHER ==
[2017-02-01] MEDS ORDERED: HALOPERIDOL 2 MG TABLET PO ONE (18:43)
--- NOTE | 2017-02-01 18:55 | ER Document Report ---
ED General - General Stated Complaint: ALTERED MENTAL STATUS Time Seen by Provider: 02/01/17 18:38 Cannot obtain history due to: Dementia, Altered mental status Notes: Patient is an 86-year-old female frequently comes to the emergency department for pain related complaints as well as anxiety who presents today with complaint of altered mental status. It is impossible to obtain history from the patient at time of presentation as she just continuously repeats "oh Lord help me". TRAVEL OUTSIDE OF THE [place] IN LAST 30 DAYS: No - Related Data Allergies/Adverse Reactions: Penicillins Allergy (Mild, Verified 01/01/17 17:58) nausea,diarrhea Shellfish * [Shellfish] Allergy (Mild, Verified 01/01/17 17:58) VOMITING Past Medical History - General Information source: Patient, Emergency Med Personnel Cannot obtain history due to: Dementia, Uncooperative, Altered mental status - Social History Smoking Status: Unknown if Ever Smoked Lives with: Family Family History: Reviewed & Not Pertinent, CVA, Other - Congestive heart failure , but no family history of premature coronary artery disease or sudden cardiac . - Past Medical History Cardiac Medical History: Reports: Hx Atrial Fibrillation, Hx Congestive Heart Failure - diastolic, Hx Hypercholesterolemia, Hx Hypertension, Hx Peripheral Vascular Disease - 90% left carotid stenosis Denies: Hx DVT Pulmonary Medical History: Reports: Hx COPD - suspected Neurological Medical History: Denies: Hx Cerebrovascular Accident Renal/ Medical History: Denies: Hx Kidney Stones, Hx Peritoneal Dialysis GI Medical History: Reports: Hx Crohn's Disease, Hx Diverticulitis, Hx Gastroesophageal Reflux Disease - Diverticulosis; constipation, Hx Irritable Bowel. Denies: Hx Ulcer Musculoskeltal Medical History: Denies Hx Multiple Sclerosis Psychiatric Medical History: Reports: Hx Depression Denies: Hx Schizophrenia Infectious Medical History: Reports: Hx C-Diff Past Surgical History: Reports: Hx Abdominal Surgery - colectomy, Hx Hysterectomy, Hx Tubal Ligation. Denies: Hx Open Heart Surgery - Immunizations Hx Diphtheria, Pertussis, Tetanus Vaccination: Yes Hx Pneumococcal Vaccination: 09/13/12 Review of Systems - Review of Systems -: Yes ROS unobtainable due to patient's medical condition Physical Exam - Vital signs Vitals: Temp Pulse Resp BP Pulse Ox 98.0 F 77 24 H 143/107 H 97 02/01/17 18:45 02/01/17 18:45 02/01/17 18:45 02/01/17 18:45 02/01/17 18:45 Interpretation: Hypertensive Notes: PHYSICAL EXAMINATION: GENERAL: Frail, elderly female extremely anxious HEAD: Atraumatic, normocephalic. EYES: Pupils equal round and reactive to light, extraocular movements intact, sclera anicteric, conjunctiva are normal. ENT: nares patent, oropharynx clear without exudates. Moist mucous membranes. NECK: Normal range of motion, supple without lymphadenopathy LUNGS: Breath sounds clear to auscultation bilaterally and equal. No wheezes rales or rhonchi. HEART: Regular rate and rhythm without murmurs ABDOMEN: Soft, nontender, normoactive bowel sounds. No guarding, no rebound. No masses appreciated. EXTREMITIES: Normal range of motion, no pitting or edema. No cyanosis. NEUROLOGICAL: No focal neurological deficits. Moves all extremities spontaneously and on command. PSYCH: Anxious, tearful, repetitive with speech SKIN: Warm, Dry, normal turgor, no rashes or lesions noted. Course - Re-evaluation Re-evalutation: 02/01/17 18:54 Patient presents extremely anxious, repeatedly saying "O Lord help me, I would never hurt a soul". It is very difficult to ascertain why patient is here and her listed chief complaint is anxiety and altered mental status. I have seen this patient on 3 prior occasions and she is very often in this state, extremely anxious and tearful with chronic complaints of lower abdominal pain and has had repeated CT scans for this including one less than one month ago. Will provide the patient with a very low dose of oral haloperidol which I have used in the past with appropriate results, obtain basic laboratories and reassess the patient 02/01/17 20:56 I have had an extensive conversation with the patient's son that the patient has had increasingly destructive anxiety behaviors, agitation, often refusing to comply with her medicines etc. I have reviewed with him the options of admission to the hospital for altered mental status in the setting of a urinary tract infection versus starting risperidone 0.5 mg twice daily as an outpatient and treating her urinary tract infection. He would prefer to try to treat as an outpatient stating that he would not be able to forgive himself he did not try everything he possibly could to prevent her from going into a nursing facility. At this time will discharge with return precautions and follow-up recommendations. Verbal discharge instructions given a the bedside and opportunity for questions given. Medication warnings reviewed. Son is in agreement with this plan and has verbalized understanding of return precautions and the need for primary care follow-up in the next 24-72 hours. - Vital Signs Vital signs: Temp Pulse Resp BP Pulse Ox 98.0 F 77 29 H 205/78 H 97 02/01/17 18:45 02/01/17 18:45 02/01/17 20:03 02/01/17 20:03 02/01/17 20:03 - Laboratory Result Diagrams: 02/01/17 19:30 02/01/17 19:30 Laboratory results interpreted by me: 02/01/17 02/01/17 19:30 19:35 RDW 17.6 H Seg Neutrophils % 78.7 H Lymphocytes % 11.0 L Urine Protein 30 H Urine Blood SMALL H Ur Leukocyte Esterase LARGE H - EKG Interpretation by Me Additional EKG results interpreted by me: 02/01/17 20:14 Normal sinus rhythm. Rate 75. ST depressions in V3 through V6 unchanged from prior except in V3 where the ST depressions are new. QTC is 452. Discharge - Discharge Clinical Impression: Anxiety disorder Qualifiers: Anxiety disorder type: generalized anxiety disorder Qualified Code(s): F41.1 - Generalized anxiety disorder Urinary tract infection Qualifiers: Urinary tract infection type: acute cystitis Hematuria presence: without hematuria Qualified Code(s): N30.00 - Acute cystitis without hematuria Altered mental status Qualifiers: Altered mental status type: unspecified Qualified Code(s): R41.82 - Altered mental status, unspecified Condition: Stable Disposition: HOME, SELF-CARE Additional Instructions: Your mother is being treated for urinary tract infection with a medication called cephalexin. She is to take this 4 times daily for the next 5 days. As we have discussed we will also trial a dose of an antipsychotic called risperidone. Give her 0.5 mg at night and in the morning. Return for any additional symptoms that are worrisome to you including worsening altered mental status, fever greater than 100.4F, persistent vomiting, or any other symptoms that are worrisome to you. Prescriptions: Cephalexin Monohydrate [Keflex 500 mg Capsule] 500 mg PO QID #20 capsule Risperidone [Risperdal] 0.5 mg PO BID #60 tablet
--- NOTE | 2017-02-01 19:17 | EKG REPORT ---
SEVERITY:- ABNORMAL ECG - SINUS RHYTHM LVH WITH SECONDARY REPOLARIZATION ABNORMALITY ST DEPRESSION, CONSIDER ISCHEMIA, ANT-LAT LDS : Confirmed by: Frederick Prater MD 01-Feb-2017 19:16:03
[2017-02-01 19:52] LABS: ABSOLUTE MONOCYTES (AUTO) 0.9 10^3/uL (0.1-1.4); ABSOLUTE NEUT (AUTO) 7.1 10^3/uL (1.7-8.2); BASOPHILS % (AUTO) 0.3 % (0-2); EOSINOPHILS % (AUTO) 0.5 % (0-6); HEMATOCRIT 38.5 % (36.0-47.0); HEMOGLOBIN 12.7 g/dL (12.0-15.5); HGB HCT DIFFERENCE -0.4; MEAN CORPUSCULAR HEMOGLOBIN 29.4 pg (27.0-33.4); MEAN CORPUSCULAR VOLUME 89 fl (80-97); MONOCYTES % (AUTO) 9.5 % (3-13); RED BLOOD COUNT 4.33 10^6/uL (3.72-5.28); RED CELL DISTRIBUTION WIDTH 17.6 % (11.5-14.0); SEGMENTED NEUTROPHILS % (AUTO) 78.7 % (42-78); WHITE BLOOD COUNT 9.1 10^3/uL (4.0-10.5)
[2017-02-01 20:10] LABS: ANION GAP 14 (5-19); BLOOD UREA NITROGEN 15 mg/dL (7-20); CALCIUM 9.8 mg/dL (8.4-10.2); CARBON DIOXIDE 22 mmol/L (22-30); CHLORIDE 103 mmol/L (98-107); CREATININE RESULT 0.85 mg/dL (0.52-1.25); GLUCOSE 97 mg/dL (75-110); POTASSIUM 3.8 mmol/L (3.6-5.0); SODIUM 138.7 mmol/L (137-145)
[2017-02-01 20:16] LABS: APPEARANCE,URINE SLIGHTLY-CLOUDY; BILIRUBIN,URINE NEGATIVE (NEGATIVE); GLUCOSE, URINE NEGATIVE (NEGATIVE); KETONES,URINE NEGATIVE (NEGATIVE); LEUKOCYTE ESTERASE,URINE LARGE (NEGATIVE); NITRITE,URINE NEGATIVE (NEGATIVE); PROTEIN,URINE 30 mg/dL (NEGATIVE); URINE SPECIFIC GRAVITY 1.004; UROBILINOGEN,URINE NEGATIVE mg/dL (<2.0)
[2017-02-01] MEDS ORDERED: CEPHALEXIN 500 MG CAPSULE PO ONE ×2 (20:32→21:30)
[2017-02-01 21:32] VITALS: BP 175/82
== END 2017-02-01 21:43 | disposition home or self-care (01) ==
LOC: ER 18:30
DX: N30.00 Acute cystitis without hematuria (principal); F41.1 Generalized anxiety disorder; R41.82 Altered mental status, unspecified
CPT/HCPCS: 93005; 99285; 51701; 36415; 87086; 85025; 87088; 80048; 81001; 84484; 87186; 93010; A9270 ×2; J3490

== ENCOUNTER 2017-02-03 11:42 | Inpatient (IN) | payer MEDICARE, OTHER ==
[2017-02-03] MEDS ORDERED: NORMAL SALINE 1000 ML 1,000 ML IV ONE (11:55)
[2017-02-03] MEDS ORDERED: ONDANSETRON HCL INJ/PF 4 MG/2 ML SDV IV ONE (12:13)
[2017-02-03] MEDS ORDERED: HYDRALAZINE HCL INJ/PF 20 MG/1 ML SDV IV ONE (12:19)
[2017-02-03] MEDS ORDERED: CEFTRIAXONE 1 GM/D5W RTU 50 ML IV ONE (12:20)
--- NOTE | 2017-02-03 12:20 | ER Document Report ---
ED General - General Chief Complaint: Vomiting Stated Complaint: VOMITTING Time Seen by Provider: 02/03/17 11:54 Mode of Arrival: Wheelchair Information source: Relative Notes: 86-year-old female recent diagnosis of UTI who was sent home on Keflex presents with family member with concerns of altered mental status and not taking her medications. Patient has been unable to hold down any of her meds family member notes her blood pressure medications have not been taken either. Patient did get a total of 2-3 doses of Keflex since discharge Son does note patient took a fall last night striking her forehead and had a small abrasion which the Band-Aid TRAVEL OUTSIDE OF THE [place] IN LAST 30 DAYS: No - HPI Onset: Last week Onset/Duration: Persistent Quality of pain: No pain Severity: Mild Pain Level: Denies Associated symptoms: Nausea, Vomiting, Weakness Exacerbated by: Denies Relieved by: Denies Similar symptoms previously: Yes Recently seen / treated by doctor: Yes - Related Data Allergies/Adverse Reactions: Penicillins Allergy (Mild, Verified 01/01/17 17:58) nausea,diarrhea Shellfish * [Shellfish] Allergy (Mild, Verified 01/01/17 17:58) VOMITING Past Medical History - Social History Smoking Status: Never Smoker Cigarette use (# per day): No Chew tobacco use (# tins/day): No Smoking Education Provided: No Family History: Reviewed & Not Pertinent, CVA, Other - Congestive heart failure , but no family history of premature coronary artery disease or sudden cardiac . Patient has suicidal ideation: No Patient has homicidal ideation: No - Past Medical History Cardiac Medical History: Reports: Hx Atrial Fibrillation, Hx Congestive Heart Failure - diastolic, Hx Hypercholesterolemia, Hx Hypertension, Hx Peripheral Vascular Disease - 90% left carotid stenosis Denies: Hx DVT Pulmonary Medical History: Reports: Hx COPD - suspected Neurological Medical History: Denies: Hx Cerebrovascular Accident Renal/ Medical History: Denies: Hx Kidney Stones, Hx Peritoneal Dialysis GI Medical History: Reports: Hx Crohn's Disease, Hx Diverticulitis, Hx Gastroesophageal Reflux Disease - Diverticulosis; constipation, Hx Irritable Bowel. Denies: Hx Ulcer Musculoskeltal Medical History: Denies Hx Multiple Sclerosis Psychiatric Medical History: Reports: Hx Depression Denies: Hx Schizophrenia Infectious Medical History: Reports: Hx C-Diff Past Surgical History: Reports: Hx Abdominal Surgery - colectomy, Hx Hysterectomy, Hx Tubal Ligation. Denies: Hx Open Heart Surgery - Immunizations Hx Diphtheria, Pertussis, Tetanus Vaccination: Yes Hx Pneumococcal Vaccination: 09/13/12 Review of Systems - Review of Systems Notes: REVIEW OF SYSTEMS: CONSTITUTIONAL : Denies fever, chills, or sweats. Denies recent illness. EENT: Denies eye, ear, throat, or mouth pain or symptoms. Denies nasal or sinus congestion or discharge. Denies throat, tongue, or mouth swelling or difficulty swallowing. CARDIOVASCULAR: Denies chest pain. Denies palpitations or racing or irregular heart beat. Denies ankle edema. RESPIRATORY: Denies cough, cold, or chest congestion. Denies shortness of breath, difficulty breathing, or wheezing. GASTROINTESTINAL: Admits to vomiting GENITOURINARY: Denies difficulty urinating, painful urination, burning, frequency, blood in urine, or discharge. FEMALE GENITOURINARY: Denies vaginal bleeding, heavy or abnormal periods, irregular periods. Denies vaginal discharge or odor. MUSCULOSKELETAL: Denies back or neck pain or stiffness. Denies joint pain or swelling. SKIN: Denies rash, lesions or sores. HEMATOLOGIC : Denies easy bruising or bleeding. LYMPHATIC: Denies swollen, enlarged glands. NEUROLOGICAL: Admits to generalized weakness confusion PSYCHIATRIC: Denies anxiety or stress. Denies depression, suicidal ideation, or homicidal ideation. ALL OTHER SYSTEMS REVIEWED AND NEGATIVE. PHYSICAL EXAMINATION: GENERAL: Frail cachectic elderly female no acute distress HEAD left frontal contusion EYES: Pupils equal round and reactive to light, extraocular movements intact, conjunctiva are normal. ENT: Nares patent, oropharynx clear without exudates. Moist mucous membranes. NECK: Normal range of motion, supple without lymphadenopathy LUNGS: Breath sounds clear to auscultation bilaterally and equal. No wheezes rales or rhonchi. HEART: Regular rate and rhythm without murmurs ABDOMEN: Soft, nontender, nondistended abdomen. No guarding, no rebound. No masses appreciated. Female : deferred Musculoskeletal: Normal range of motion, no pitting or edema. No cyanosis. NEUROLOGICAL: Cranial nerves grossly intact. Normal speech, normal gait. Normal sensory, motor exams PSYCH: Normal mood, normal affect. SKIN: Laceration noted measuring 1 cm Dictation was performed using [employer] voice recognition software Physical Exam - Vital signs Vitals: Temp Pulse Resp BP Pulse Ox 98.3 F 66 14 231/77 H 97 02/03/17 11:44 02/03/17 11:44 02/03/17 11:44 02/03/17 11:44 02/03/17 11:44 Course - Re-evaluation Re-evalutation: 02/03/17 12:19 Patient is noted to be quite hypertensive, she will be given low dose of hydralazine 02/03/17 12:25 02/03/17 13:42 Patient's blood pressure has improved significantly, labwork notes no significant abnormality otherwise. CT head was negative. Patient will be admitted for UTI hypertensive urgency altered mental status - Vital Signs Vital signs: Temp Pulse Resp BP Pulse Ox 98.3 F 66 14 231/77 H 97 02/03/17 11:44 02/03/17 11:44 02/03/17 11:44 02/03/17 11:44 02/03/17 11:44 - Laboratory Result Diagrams: 02/03/17 12:17 02/03/17 12:17 Laboratory results interpreted by me: 02/03/17 02/03/17 12:17 12:17 RDW 17.2 H Seg Neutrophils % 86.6 H Lymphocytes % 6.1 L Sodium 136.9 L Glucose 190 H - Diagnostic Test Radiology reviewed: Image reviewed, Reports reviewed - EKG Interpretation by Me EKG shows normal: Sinus rhythm, [place], Intervals, QRS Complexes - Consistent depressions noted previous EKG When compared to previous EKG there are: Changes noted Critical Care Note - Critical Care Note Total time excluding time spent on procedures (mins): 44 Comments: 44 minutes of critical care time spent in direct contact evaluating and reevaluating the patient, treating symptoms, reviewing labs and studies and speaking with family and consultants excluding any procedures Discharge - Discharge Clinical Impression: Hypertensive emergency Urinary tract infection Qualifiers: Urinary tract infection type: acute cystitis Hematuria presence: without hematuria Qualified Code(s): N30.00 - Acute cystitis without hematuria Altered mental status Qualifiers: Altered mental status type: unspecified Qualified Code(s): R41.82 - Altered mental status, unspecified Condition: Stable Admitting Provider: [facility] Admitted: [facility] [place]
[2017-02-03 12:56] LABS: ABSOLUTE LYMPHOCYTES (AUTO) 0.5 10^3/uL (0.5-4.7); ABSOLUTE MONOCYTES (AUTO) 0.6 10^3/uL (0.1-1.4); ABSOLUTE NEUT (AUTO) 7.3 10^3/uL (1.7-8.2); BASOPHILS % (AUTO) 0.2 % (0-2); EOSINOPHILS % (AUTO) 0.1 % (0-6); HEMATOCRIT 37.3 % (36.0-47.0); HEMOGLOBIN 12.5 g/dL (12.0-15.5); HGB HCT DIFFERENCE 0.2; LYMPHOCYTES % (AUTO) 6.1 % (13-45); MEAN CORPUSCULAR HEMOGLOBIN 29.7 pg (27.0-33.4); MEAN CORPUSCULAR HGB CONC 33.4 g/dL (32.0-36.0); MEAN CORPUSCULAR VOLUME 89 fl (80-97); RED BLOOD COUNT 4.19 10^6/uL (3.72-5.28); RED CELL DISTRIBUTION WIDTH 17.2 % (11.5-14.0); SEGMENTED NEUTROPHILS % (AUTO) 86.6 % (42-78); WHITE BLOOD COUNT 8.5 10^3/uL (4.0-10.5)
[2017-02-03 13:02] LABS: PROTHROMBIN TIME 13.2 SEC (11.4-15.4)
[2017-02-03 13:07] LABS: ALANINE AMINOTRANSFERASE 30 U/L (9-52); ALBUMIN 4.1 g/dL (3.5-5.0); ALKALINE PHOSPHATASE 50 U/L (38-126); ANION GAP 14 (5-19); ASPARTATE AMINO TRANSFERASE 19 U/L (14-36); BILIRUBIN,DIRECT 0.4 mg/dL (0.0-0.4); BILIRUBIN,TOTAL 1.1 mg/dL (0.2-1.3); BLOOD UREA NITROGEN 17 mg/dL (7-20); CALCIUM 9.8 mg/dL (8.4-10.2); CARBON DIOXIDE 22 mmol/L (22-30); CHLORIDE 101 mmol/L (98-107); CREATININE RESULT 0.73 mg/dL (0.52-1.25); GLUCOSE 190 mg/dL (75-110); POTASSIUM 3.6 mmol/L (3.6-5.0); SODIUM 136.9 mmol/L (137-145); TOTAL PROTEIN 7.3 g/dL (6.3-8.2)
--- NOTE | 2017-02-03 13:23 | RADIOLOGY REPORT (SQ) ---
EXAM DESCRIPTION: CT HEAD WITHOUT COMPLETED DATE/TIME: 02/03/2017 12:56 pm REASON FOR STUDY: fall COMPARISON: CT brain 12/19/2016, 07/09/2016, 11/09/2015, 01/31/2012 Send TECHNIQUE: Axial images acquired through the brain without intravenous contrast. Images reviewed wi th bone, brain and subdural windows. Images stored on PACS. All CT scanners at this facility use dose modulation, iterative reconstruction, and/or weight based d osing when appropriate to reduce radiation dose to as low as reasonably achievable (ALARA). [facility]: Dose Right [facility]: CareDose [facility]: Dose Right [facility]: Teradose 4D [facility]: Smart [employer] RADIATION DOSE: Up-to-date CT equipment and radiation dose reduction techniques were employed. CTDIv ol: 64.6 mGy. DLP: 2430 mGy-cm. mGy. LIMITATIONS: Motion artifact throughout the study FINDINGS: On images without motion artifact, there is no CT evidence of calvarial fracture. No CT e vidence of acute intracranial hemorrhage. No mass effect. No CT evidence of acute large territory i nfarct. Basal ganglia calcifications. Bifrontal and biparietal white matter disease. Paranasal sinuses are clear. IMPRESSION: Chronic findings. No acute changes. Limited study. TECHNICAL DOCUMENTATION: JOB ID: [id number] Quality ID # [id number]: Final reports with documentation of one or more dose reduction techniques (e.g., Au tomated exposure control, adjustment of the mA and/or kV according to patient size, use of iterative reconstruction technique) 2010 [employer]- All Rights Reserved
--- NOTE | 2017-02-03 13:26 | RADIOLOGY REPORT (SQ) ---
EXAM DESCRIPTION: CT CERVICAL SPINE WITHOUT COMPLETED DATE/TIME: 02/03/2017 12:56 pm REASON FOR STUDY: fall COMPARISON: None. TECHNIQUE: Axial images acquired through the cervical spine without intravenous contrast. Images re viewed with lung, soft tissue and bone windows. Reconstructed coronal and sagittal MPR images review ed. Images stored on PACS. All CT scanners at this facility use dose modulation, iterative reconstruction, and/or weight based d osing when appropriate to reduce radiation dose to as low as reasonably achievable (ALARA). [facility]: Dose Right [facility]: CareDose [facility]: Dose Right [facility]: Teradose 4D [facility]: [employer] RADIATION DOSE: Up-to-date CT equipment and radiation dose reduction techniques were employed. CTDIv ol: 6.9 mGy. DLP: 152 mGy-cm. mGy. LIMITATIONS: None. FINDINGS: ALIGNMENT: Minimal anterolisthesis of C2 over C3, mild retrolisthesis of C5 over C6 relate d to facet arthropathy. MINERALIZATION: Normal. VERTEBRAL BODIES: No fractures or dislocation. DISCS: Multilevel disc space narrowing with osteophytes. FACETS, LATERAL MASSES, POSTERIOR ELEMENTS: Facet arthropathy. No fractures. No dislocation. No ac round valley findings. HARDWARE: None in the spine. VISUALIZED RIBS: No fractures. LUNG APICES AND SOFT TISSUES: No significant or acute findings. OTHER: No other significant finding. IMPRESSION: CHRONIC DEGENERATIVE CHANGES. NO ACUTE FINDINGS. TECHNICAL DOCUMENTATION: JOB ID: [id number] Quality ID # [id number]: Final reports with documentation of one or more dose reduction techniques (e.g., Au tomated exposure control, adjustment of the mA and/or kV according to patient size, use of iterative reconstruction technique) 2010 [employer]- All Rights Reserved
--- NOTE | 2017-02-03 14:24 | RADIOLOGY REPORT (SQ) ---
EXAM DESCRIPTION: CHEST PA/LAT COMPLETED DATE/TIME: 02/03/2017 2:09 pm REASON FOR STUDY: sob COMPARISON: Two-view chest 11/07/2016, AP chest 12/19/2016 CT chest 10/08/2016 EXAM PARAMETERS: NUMBER OF VIEWS: two views TECHNIQUE: Digital Frontal and Lateral radiographic views of the chest acquired. RADIATION DOSE: NA LIMITATIONS: none FINDINGS: LUNGS AND PLEURA: Trace fluid in the right lateral costophrenic sulcus. No gross left pleural effusion. No right or left pneumothorax. Minimal right basilar airspace disease. Left lung clear. MEDIASTINUM AND HILAR STRUCTURES: No masses or contour abnormalities. HEART AND VASCULAR STRUCTURES: Stable moderate cardiomegaly BONES: Old healed right clavicle fracture HARDWARE: None in the chest. OTHER: No other significant finding. IMPRESSION: Trace right pleural effusion with minimal right basilar airspace disease TECHNICAL DOCUMENTATION: JOB ID: [id number] [employer]- All Rights Reserved
[2017-02-03 15:08] LABS: APPEARANCE,URINE SLIGHTLY-CLOUDY; BILIRUBIN,URINE NEGATIVE (NEGATIVE); GLUCOSE, URINE 150 mg/dL (NEGATIVE); KETONES,URINE NEGATIVE (NEGATIVE); LEUKOCYTE ESTERASE,URINE TRACE (NEGATIVE); NITRITE,URINE NEGATIVE (NEGATIVE); PROTEIN,URINE 100 mg/dL (NEGATIVE); URINE SPECIFIC GRAVITY 1.013; UROBILINOGEN,URINE NEGATIVE mg/dL (<2.0)
[2017-02-03 15:47] LABS: VENOUS BLOOD HCO3 22.2 mmol/L (20-32); VENOUS BLOOD PCO2 35.6 mmHg (35-63); VENOUS BLOOD PH 7.41 (7.30-7.42)
[2017-02-03] MEDS ORDERED: HYDRALAZINE HCL 25 MG TABLET PO SCH (16:30)
[2017-02-03] MEDS ORDERED: METOPROLOL TARTRATE 100 MG TABLET PO SCH (16:30)
[2017-02-03] MEDS ORDERED: AMIODARONE HCL 200 MG TABLET PO SCH (16:30)
--- NOTE | 2017-02-03 16:41 | EKG REPORT ---
SEVERITY:- ABNORMAL ECG - SINUS RHYTHM LVH WITH SECONDARY REPOLARIZATION ABNORMALITY ST DEPRESSION, CONSIDER ISCHEMIA, ANT-LAT LDS : Confirmed by: Frederick Prater MD 03-Feb-2017 16:39:37
[2017-02-03] MEDS ORDERED: METOPROLOL TARTRATE 50 MG TABLET PO ONE (20:00)
[2017-02-03] MEDS ORDERED: AMIODARONE HCL 200 MG TABLET PO ONE (20:00)
[2017-02-03] MEDS ORDERED: HYDRALAZINE HCL 25 MG TABLET PO ONE (20:00)
[2017-02-03] MEDS: LANSOPRAZOLE 15 MG TAB.RAP.DR PO SCH (20:08)
[2017-02-04] MEDS: HYDRALAZINE HCL 25 MG TABLET PO SCH ×3 (05:54→21:07)
[2017-02-04] MEDS: LANSOPRAZOLE 15 MG TAB.RAP.DR PO SCH (08:30)
[2017-02-04] MEDS: CIPROFLOXACIN 400 MG/D5W RTU 400 MG/200 ML RTUPB IV SCH ×2 (10:43→21:07)
[2017-02-04] MEDS: AMIODARONE HCL 200 MG TABLET PO SCH ×2 (10:43→21:07)
[2017-02-04] MEDS: METOPROLOL TARTRATE 100 MG TABLET PO SCH ×2 (10:43→21:07)
[2017-02-04 11:59] LABS: ALANINE AMINOTRANSFERASE 27 U/L (9-52); ALBUMIN 2.7 g/dL (3.5-5.0); ALKALINE PHOSPHATASE 31 U/L (38-126); ANION GAP 10 (5-19); ASPARTATE AMINO TRANSFERASE 22 U/L (14-36); BILIRUBIN,DIRECT 0.3 mg/dL (0.0-0.4); BILIRUBIN,TOTAL 0.8 mg/dL (0.2-1.3); BLOOD UREA NITROGEN 23 mg/dL (7-20); CALCIUM 8.9 mg/dL (8.4-10.2); CARBON DIOXIDE 21 mmol/L (22-30); CHLORIDE 105 mmol/L (98-107); CREATININE RESULT 0.93 mg/dL (0.52-1.25); GLUCOSE 140 mg/dL (75-110); POTASSIUM 3.6 mmol/L (3.6-5.0); SODIUM 136.1 mmol/L (137-145); TOTAL PROTEIN 5.3 g/dL (6.3-8.2)
[2017-02-04 12:12] LABS: HEMATOCRIT 27.5 % (36.0-47.0); HGB HCT DIFFERENCE 0.1; MEAN CORPUSCULAR HEMOGLOBIN 30.3 pg (27.0-33.4); MEAN CORPUSCULAR HGB CONC 33.6 g/dL (32.0-36.0); MEAN CORPUSCULAR VOLUME 90 fl (80-97); RED BLOOD COUNT 3.05 10^6/uL (3.72-5.28); RED CELL DISTRIBUTION WIDTH 16.9 % (11.5-14.0); WHITE BLOOD COUNT 9.8 10^3/uL (4.0-10.5)
[2017-02-04 12:21] LABS: HEMOGLOBIN 9.2 g/dL (12.0-15.5)
[2017-02-04 12:25] LABS: BASOPHILS % (MANUAL) 0 % (0-2); EOSINOPHILS % (MANUAL) 0 % (0-6); LYMPHOCYTES % (MANUAL) 7 % (13-45); TOTAL CELLS COUNTED 100
[2017-02-04 12:29] LABS: ANISOCYTOSIS 1+; OVALOCYTES 1+; POIKILOCYTOSIS 1+; POLYCHROMASIA SLIGHT; SCHISTOCYTES SLIGHT; TOXIC VACUOLATION PRESENT
[2017-02-04 12:33] LABS: BAND NEUTROPHILS % (MANUAL) 22 % (3-5)
[2017-02-04] MEDS: DEXTROSE 5%-WATER 1000 ML 1,000 ML IV PRN (13:36)
--- NOTE | 2017-02-04 14:40 | PDOC H&P ---
History of Present Illness Admission Date/PCP: 02/03/17 14:31 JOANN FLORES CNM History of Present Illness: KEVAN PAVON is a 86 year old female She has a history of hypertension undernutrition body mass index 15.1, she was brought to the emergency room by her family for evaluation of altered mental status, failure to thrive, concern for UTI, presently on Keflex that was prescribed for UTI poor adherent to medication for the management of hypertension. She also fell off the bed the night before she came to the emergency room she strike her forehead and sustained a small abrasion, CT of the head was in the emergency room there was no intracranial hemorrhage. Patient's overall condition has been declining over a period of time, it seems that patient have no more desire to continue to be alive, she kept saying she is ready to [facility]. In the emergency room the blood pressure recorded was 231/77 the confusion that she is manifesting could be secondary to hypertensive emergency. She is admitted to the hospital she will be treated for the elevated blood pressure and the UTI Past Medical History Cardiac Medical History: Reports: Atrial Fibrillation, Hyperlipidema, Hypertension, Peripheral Vascular Disease Pulmonary Medical History: Reports: Chronic Obstructive Pulmonary Disease (COPD ) - suspected GI Medical History: Reports: Crohn's Disease, Diverticulitis, Gastroesophageal Reflux Disease - Diverticulosis; constipation Psychiatric Medical History: Reports: Depression Infectious Medical History: Reports: Clostridium Difficile Past Surgical History Past Surgical History: Reports: Hysterectomy, Tubal Ligation Social History Smoking Status: Never Smoker Frequency of Alcohol Use: None Hx Recreational Drug Use: No Drugs: None Hx Prescription Drug Abuse: No Family History Family History: Reviewed & Not Pertinent, CVA, Other - Congestive heart failure , but no family history of premature coronary artery disease or sudden cardiac . Parental Family History Reviewed: Yes Children Family History Reviewed: Yes Sibling(s) Family History Reviewed.: Yes Medication/Allergy Home Medications: Amiodarone HCl [Cordarone 200 mg Tablet] 200 mg PO Q12 02/03/17 Hydralazine HCl [Apresoline 25 mg Tablet] 25 mg PO Q8 02/03/17 Metoprolol Tartrate [Lopressor 100 mg Tablet] 50 mg PO Q12 02/03/17 Omeprazole 20 mg PO ACBRKFST 02/03/17 Allergies/Adverse Reactions: Penicillins Allergy (Mild, Verified 01/01/17 17:58) nausea,diarrhea Shellfish * [Shellfish] Allergy (Mild, Verified 01/01/17 17:58) VOMITING Review of Systems ROS unobtainable: Due to mental status Physical Exam Vital Signs: Temp Pulse Resp BP Pulse Ox 98.2 F 65 17 184/54 H 96 02/04/17 12:10 02/04/17 12:10 02/04/17 12:10 02/04/17 12:10 02/04/17 12:10 Intake & Output 02/03/17 02/04/17 02/05/17 06:59 06:59 06:59 Intake Total 200 160 Output Total 635 200 Balance -435 -40 Weight 42.3 kg General appearance: PRESENT: no acute distress, thin Head exam: PRESENT: other - Abrasion on the forehead Eye exam: PRESENT: PERRLA Respiratory exam: PRESENT: clear to auscultation toy Cardiovascular exam: PRESENT: +S1, +S2 GI/Abdominal exam: PRESENT: soft Neurological exam: PRESENT: alert, altered Results Laboratory Results: 02/04/17 11:39 02/04/17 11:39 02/03/17 02/03/17 02/03/17 14:43 14:50 15:38 WBC RBC Hgb Hct MCV MCH MCHC RDW Plt Count Seg Neutrophils % Lymphocytes % Monocytes % Eosinophils % Basophils % Absolute Neutrophils Absolute Lymphocytes Absolute Monocytes Absolute Eosinophils Absolute Basophils VBG pH Cancelled 7.41 VBG pCO2 Cancelled 35.6 VBG HCO3 Cancelled 22.2 VBG Base Excess Cancelled -2.0 Sodium Potassium Chloride Carbon Dioxide Anion Gap BUN Creatinine Est GFR ( Amer) Est GFR (Non-Af Amer) Glucose Calcium Total Bilirubin AST ALT Alkaline Phosphatase Total Protein Albumin Urine Color YELLOW Urine Appearance SLIGHTLY-CLOUDY Urine pH 5.0 Ur Specific [place] 1.013 Urine Protein 100 H Urine Glucose (UA) 150 H Urine Ketones NEGATIVE Urine Blood NEGATIVE Urine Nitrite NEGATIVE Ur Leukocyte Esterase TRACE H Urine WBC (Auto) 17 Urine RBC (Auto) 1 02/04/17 02/04/17 11:39 11:39 WBC 9.8 RBC 3.05 L Hgb 9.2 L D Hct 27.5 L MCV 90 MCH 30.3 MCHC 33.6 RDW 16.9 H Plt Count 234 Seg Neutrophils % Not Reportable Lymphocytes % Not Reportable Monocytes % Not Reportable Eosinophils % Not Reportable Basophils % Not Reportable Absolute Neutrophils Not Reportable Absolute Lymphocytes Not Reportable Absolute Monocytes Not Reportable Absolute Eosinophils Not Reportable Absolute Basophils Not Reportable VBG pH VBG pCO2 VBG HCO3 VBG Base Excess Sodium 136.1 L Potassium 3.6 Chloride 105 Carbon Dioxide 21 L Anion Gap 10 BUN 23 H Creatinine 0.93 Est GFR ( Amer) > 60 Est GFR (Non-Af Amer) 57 L Glucose 140 H Calcium 8.9 Total Bilirubin 0.8 AST 22 ALT 27 Alkaline Phosphatase 31 L Total Protein 5.3 L Albumin 2.7 L Urine Color Urine Appearance Urine pH Ur Specific [place] Urine Protein Urine Glucose (UA) Urine Ketones Urine Blood Urine Nitrite Ur Leukocyte Esterase Urine WBC (Auto) Urine RBC (Auto) Impressions: Cervical Spine CT 02/03/17 12:19 IMPRESSION: CHRONIC DEGENERATIVE CHANGES. NO ACUTE FINDINGS. Head CT 02/03/17 12:19 IMPRESSION: Chronic findings. No acute changes. Limited study. Chest X-Ray 02/03/17 13:39 IMPRESSION: Trace right pleural effusion with minimal right basilar airspace disease Assessment & Plan - Diagnosis (1) Hypertensive emergency Is this a current diagnosis for this admission?: YesPlan: She is admitted for the management of hypertensive emergency associated with metabolic encephalopathy and UTI (2) Metabolic encephalopathy Is this a current diagnosis for this admission?: Yes (3) Urinary tract infection Qualifiers: Urinary tract infection type: acute cystitis Hematuria presence: without hematuria Qualified Code(s): N30.00 - Acute cystitis without hematuria Is this a current diagnosis for this admission?: Yes (4) Failure to thrive syndrome, adult Is this a current diagnosis for this admission?: Yes (5) Undernutrition Is this a current diagnosis for this admission?: Yes (6) Undernutrition Is this a current diagnosis for this admission?: Yes
--- NOTE | 2017-02-04 16:04 | PDOC PROGRESS REPORT ---
Subjective Progress Note for:: 02/04/17 Subjective:: Patient was admitted yesterday for management of her condition remains poor, she is a DNR status. Physical Exam Vital Signs: Temp Pulse Resp BP Pulse Ox 98.0 F 66 20 191/54 H 98 02/04/17 15:10 02/04/17 15:10 02/04/17 15:10 02/04/17 15:10 02/04/17 15:10 Intake & Output 02/03/17 02/04/17 02/05/17 06:59 06:59 06:59 Intake Total 200 160 Output Total 635 200 Balance -435 -40 Weight 42.3 kg General appearance: PRESENT: no acute distress Eye exam: PRESENT: PERRLA Respiratory exam: PRESENT: clear to auscultation toy Cardiovascular exam: PRESENT: +S1, +S2 GI/Abdominal exam: PRESENT: soft Neurological exam: PRESENT: alert Results Laboratory Results: 02/04/17 11:39 02/04/17 11:39 02/04/17 02/04/17 11:39 11:39 WBC 9.8 RBC 3.05 L Hgb 9.2 L D Hct 27.5 L MCV 90 MCH 30.3 MCHC 33.6 RDW 16.9 H Plt Count 234 Seg Neutrophils % Not Reportable Lymphocytes % Not Reportable Monocytes % Not Reportable Eosinophils % Not Reportable Basophils % Not Reportable Absolute Neutrophils Not Reportable Absolute Lymphocytes Not Reportable Absolute Monocytes Not Reportable Absolute Eosinophils Not Reportable Absolute Basophils Not Reportable Sodium 136.1 L Potassium 3.6 Chloride 105 Carbon Dioxide 21 L Anion Gap 10 BUN 23 H Creatinine 0.93 Est GFR ( Amer) > 60 Est GFR (Non-Af Amer) 57 L Glucose 140 H Calcium 8.9 Total Bilirubin 0.8 AST 22 ALT 27 Alkaline Phosphatase 31 L Total Protein 5.3 L Albumin 2.7 L Impressions: Cervical Spine CT 02/03/17 12:19 IMPRESSION: CHRONIC DEGENERATIVE CHANGES. NO ACUTE FINDINGS. Head CT 02/03/17 12:19 IMPRESSION: Chronic findings. No acute changes. Limited study. Chest X-Ray 02/03/17 13:39 IMPRESSION: Trace right pleural effusion with minimal right basilar airspace disease Assessment & Plan - Diagnosis (1) Hypertensive emergency Is this a current diagnosis for this admission?: Yes (2) Metabolic encephalopathy Is this a current diagnosis for this admission?: Yes (3) Urinary tract infection Qualifiers: Urinary tract infection type: acute cystitis Hematuria presence: without hematuria Qualified Code(s): N30.00 - Acute cystitis without hematuria Is this a current diagnosis for this admission?: Yes (4) Failure to thrive syndrome, adult Is this a current diagnosis for this admission?: Yes (5) Undernutrition Is this a current diagnosis for this admission?: Yes (6) Undernutrition Is this a current diagnosis for this admission?: Yes - Plan Summary Plan Summary: She will continue present treatment I discussed option of care with family and plan of care
[2017-02-04] MEDS ORDERED: MORPHINE SULFATE 10 MG/5 ML ORAL SOLUTION UDCUP PO PRN ×2 (18:59→20:14)
[2017-02-05] MEDS ORDERED: HYDRALAZINE HCL 25 MG TABLET PO ONE (04:00)
[2017-02-05] MEDS ORDERED: HYDRALAZINE HCL 25 MG TABLET ONE (04:01)
[2017-02-05] MEDS: DEXTROSE 5%-WATER 1000 ML 1,000 ML IV PRN ×2 (05:28→21:42)
[2017-02-05] MEDS: HYDRALAZINE HCL 25 MG TABLET PO SCH ×3 (06:51→21:45)
[2017-02-05] MEDS: LANSOPRAZOLE 15 MG TAB.RAP.DR PO SCH (07:43)
[2017-02-05] MEDS: AMIODARONE HCL 200 MG TABLET PO SCH ×2 (09:19→21:45)
[2017-02-05] MEDS: METOPROLOL TARTRATE 100 MG TABLET PO SCH (09:19)
[2017-02-05] MEDS: CIPROFLOXACIN 400 MG/D5W RTU 400 MG/200 ML RTUPB IV SCH ×2 (09:20→21:45)
[2017-02-05] MEDS: ONDANSETRON HCL INJ/PF 4 MG/2 ML SDV IV PRN (12:24)
[2017-02-05] MEDS: HYDROMORPHONE HCL INJ/PF 2 MG/ML AMPULE IV PRN ×2 (12:35→23:07)
[2017-02-05 15:08] LABS: PATH REVIEW PATHOLOGIST REVIEWED
--- NOTE | 2017-02-05 19:47 | PDOC PROGRESS REPORT ---
Subjective Progress Note for:: 02/05/17 Subjective:: Patient was seen by the bedside, she has 7 children with 7 different opinions on how to pursue with the plan of care. Some family members wants her to go home with hospice care, some wants her to go to a usp, patient continues to not respond very well to verbal commands, she continues to desire to and be with Nabil Orozco. She has very minimal intake, there is obvious dementia, MRI of the brain will be ordered to define brain structure and size of the brain Physical Exam Vital Signs: Temp Pulse Resp BP Pulse Ox 98.1 F 58 L 19 148/56 H 98 02/05/17 15:17 02/05/17 15:17 02/05/17 15:17 02/05/17 15:17 02/05/17 15:17 Intake & Output 02/04/17 02/05/17 02/06/17 06:59 06:59 06:59 Intake Total 200 1773 1081 Output Total 635 950 400 Balance -435 823 681 Weight 42.3 kg General appearance: PRESENT: no acute distress Eye exam: PRESENT: PERRLA Respiratory exam: PRESENT: clear to auscultation toy Cardiovascular exam: PRESENT: +S1 GI/Abdominal exam: PRESENT: soft Neurological exam: PRESENT: altered Results Laboratory Results: 02/04/17 11:39 02/04/17 11:39 02/04/17 11:39 WBC 9.8 RBC 3.05 L Hgb 9.2 L D Hct 27.5 L MCV 90 MCH 30.3 MCHC 33.6 RDW 16.9 H Plt Count 234 02/03/17 14:50 Catheterized Urine Urine Culture - Final NO GROWTH 2 DAYS Impressions: Cervical Spine CT 02/03/17 12:19 IMPRESSION: CHRONIC DEGENERATIVE CHANGES. NO ACUTE FINDINGS. Head CT 02/03/17 12:19 IMPRESSION: Chronic findings. No acute changes. Limited study. Chest X-Ray 02/03/17 13:39 IMPRESSION: Trace right pleural effusion with minimal right basilar airspace disease Assessment & Plan - Diagnosis (1) Hypertensive emergency Is this a current diagnosis for this admission?: Yes (2) Metabolic encephalopathy Is this a current diagnosis for this admission?: Yes (3) Urinary tract infection Qualifiers: Urinary tract infection type: acute cystitis Hematuria presence: without hematuria Qualified Code(s): N30.00 - Acute cystitis without hematuria Is this a current diagnosis for this admission?: Yes (4) Failure to thrive syndrome, adult Is this a current diagnosis for this admission?: Yes (5) Undernutrition Is this a current diagnosis for this admission?: Yes (6) Undernutrition Is this a current diagnosis for this admission?: Yes - Plan Summary Plan Summary: She complained of pain, she was given Dilaudid with good results, the blood pressure was elevated but it was control when she had Dilaudid suggesting that pain could be a component of the elevated blood pressure though Dilaudid could also reduce blood pressure
[2017-02-05] MEDS: METOPROLOL TARTRATE 50 MG TABLET PO SCH (21:45)
[2017-02-05] MEDS ORDERED: METOPROLOL TARTRATE 50 MG TABLET PO SCH (22:00)
--- NOTE | 2017-02-05 23:29 | RADIOLOGY REPORT (SQ) ---
EXAM DESCRIPTION: MRI HEAD WITHOUT COMPLETED DATE/TIME: 02/05/2017 9:16 pm REASON FOR STUDY: altered mental status COMPARISON: Brain CT scan dated 02/03/2017 TECHNIQUE: Multiplanar imaging includes non-contrasted T1, T2, FLAIR, and diffusion with ADC map seq uences. Images stored on PACS. LIMITATIONS: Motion artifact is seen on a couple of the sequences. FINDINGS: ANATOMY: No anomalies. Normal vascular flow voids. Pituitary fossa normal. CSF SPACES: Atrophy induced prominence of ventricles and CSF spaces. CEREBRUM: High signal intensity lesions scattered throughout the white matter on FLAIR imaging with d istribution suggesting micro-vascular ischemic changes. No evidence of hemorrhage, mass, or extraaxi al fluid collection. POSTERIOR FOSSA: No signal alteration. No hemorrhage. No edema, masses or mass effect. Internal rhonda tory canals, cerebello-pontine angles, mastoids normal. DIFFUSION IMAGING: Negative for acute or sub-acute infarction. ORBITS: No masses. Globes normal. PARANASAL SINUSES: No fluid levels. Mucosa normal. OTHER: No other significant finding. IMPRESSION: ATROPHY AND CHRONIC MICRO-VASCULAR ISCHEMIC CHANGES. OTHERWISE NORMAL MRI OF THE BRAIN W ITHOUT INTRAVENOUS GADOLINIUM CONTRAST. EVIDENCE OF ACUTE STROKE: NO. TECHNICAL DOCUMENTATION: JOB ID: [id number]- All Rights Reserved
[2017-02-06] MEDS: ONDANSETRON HCL INJ/PF 4 MG/2 ML SDV IV PRN ×2 (02:40→09:02)
[2017-02-06] MEDS: HYDROMORPHONE HCL INJ/PF 2 MG/ML AMPULE IV PRN (03:47)
[2017-02-06] MEDS: LANSOPRAZOLE 15 MG TAB.RAP.DR PO SCH (08:47)
[2017-02-06] MEDS: HYDRALAZINE HCL 25 MG TABLET PO SCH ×2 (08:47→15:13)
[2017-02-06] MEDS: METOPROLOL TARTRATE 50 MG TABLET PO SCH (10:36)
[2017-02-06] MEDS: AMIODARONE HCL 200 MG TABLET PO SCH (10:36)
[2017-02-06] MEDS: DEXTROSE 5%-WATER 1000 ML 1,000 ML IV PRN (13:15)
[2017-02-06 16:15] VITALS: BP 176/72
[2017-02-06 17:50] LABS: ARTERIAL BLOOD BASE EXCESS -2.9 mmol/L; ARTERIAL BLOOD O2 SATURATION 30.1 % (94-98)
[2017-02-06] MEDS ORDERED: HYDROMORPHONE HCL INJ/PF 2 MG/ML AMPULE IV SCH (20:00)
--- NOTE | 2017-02-06 20:30 | Death Summary ---
Summary Date : 02/06/17 Time of :: 19:30 Autopsy: No Resuscitation Status: Do Not Resuscitate - Final Diagnosis (1) Hypertensive emergency Is this a current diagnosis for this admission?: Yes (2) Metabolic encephalopathy Is this a current diagnosis for this admission?: Yes (3) Urinary tract infection Is this a current diagnosis for this admission?: Yes (4) Failure to thrive syndrome, adult Is this a current diagnosis for this admission?: Yes (5) Undernutrition Is this a current diagnosis for this admission?: Yes (6) Undernutrition Is this a current diagnosis for this admission?: Yes (7) Hypoxemia Is this a current diagnosis for this admission?: Yes Hospital Course:: Patient was admitted when she presented for evaluation of altered mental status , she was found to have severely elevated blood pressure with systolic over 200. Patient's condition has been declining over period of weeks to months, she has not been taking her medications regularly she was somewhat confused, on admission. She was found to have urinary tract infection and hypertensive encephalopathy the combination is thought to be the etiology of the metabolic encephalopathy..Patient's condition was very poor with very minimal intake throughout hospital stay, she continues to express a desire to and be with RUBEN lopez The family was contemplating discharge home with hospice on but her condition suddenly deteriorated this afternoon the oxygen saturation declined to 50% range a stat ABG was done on FiO2 of 4 L, PO2 was 52. Patient was a DNR/DNI at this point it became apparent that that was imminent I discussed about changing her status to comfort care measures but family preferred to have all members of family to be available and she soon after all members of the family became available.
[2017-02-06] MEDS ORDERED: CIPROFLOXACIN 400 MG/D5W RTU 400 MG/200 ML RTUPB IV SCH (22:00)
== END 2017-02-06 21:05 | disposition expired | DRG 304 ==
LOC: ER 11:42 → EH 14:31 → 3W 16:47
PROVIDERS: ADMIT Internal Medicine; ATTEND Internal Medicine
DX: I16.1 Hypertensive emergency (principal); G93.41 Metabolic encephalopathy; N39.0 Urinary tract infection, site not specified; E46 Unspecified protein-calorie malnutrition; Z68.1 Body mass index [BMI] 19.9 or less, adult; R62.7 Adult failure to thrive; R09.02 Hypoxemia; Z66 Do not resuscitate; S00.81XA Abrasion of other part of head, initial encounter; W06.XXXA Fall from bed, initial encounter; Y93.9 Activity, unspecified; Y92.013 Bedroom of single-family (private) house as the place of occurrence of the external cause; Y99.9 Unspecified external cause status; E78.5 Hyperlipidemia, unspecified; I10 Essential (primary) hypertension; K21.9 Gastro-esophageal reflux disease without esophagitis; I73.9 Peripheral vascular disease, unspecified; F32.9 Major depressive disorder, single episode, unspecified; Z79.899 Other long term (current) drug therapy; Z90.710 Acquired absence of both cervix and uterus; Z87.19 Personal history of other diseases of the digestive system; Z88.0 Allergy status to penicillin; Z91.013 Allergy to seafood
CPT/HCPCS: 36415; 70450; 70551; 71020; 72125; 80048; 80053; 81001; 82803; 83605; 84484; 85025; 85610; 87040; 87086; 87088; 87186; 93005; 93010; 96365; 96375; 99291; J0360; J0696; J0744; J1170; J2405; J7030; J7060